=== PATIENT | male | born 1965 | race African-American/Black ===

== ENCOUNTER 2018-10-07 06:45 | Day surgery (SDC) | payer OTHER ==
--- OUTSIDE RECORDS SUMMARY | 2018-10-07 06:48 | XMS REPORT | Continuity of Care Document ---
:1965 Author Organization Interface Problems Problem Status Onset Classification Date Comments Source Date Reported UNK Active 07/21/20 [place] [address] N18.6 Active 07/21/20 [place] [address] N18.16 Active 12/30/19 [place] [address] Diabetes Resolved Problem 08/01/2017 [facility] End stage renal Active Problem 08/01/2017 [facility] disease Hypertension Active Problem 08/01/2017 [facility] Medications Medication Details Route Status Patient Ordering Order Source Instructions Provider Date Sodium Chloride 500 mL, Rate: Inactive 0.154 MEQ/ML 25 ml/hr, 2016 [facility] Injectable Infuse over: 20 Solution hr, Route: IV, Dosing Weight 127.273 kg, Total Volume: 500, Start date: 02/18/17 14:28:00 CDT, Duration: 30 day, Stop date: 03/20/17 14:27:00 CDT Hydralazine 10 mg, Route: Inactive IVP, Q20Min, 2016 [facility] Dosing Weight 127.273, kg, PRN Elevated BP, Start date: 02/18/17 14:28:00 CDT, Duration: 2 doses or times, Stop date: Limited # of times esmolol 10 mg, Route: Inactive IVP, Q5Min, 2016 [facility] Dosing Weight 127.273, kg, PRN Other -See Comment, Start date: 02/18/17 14:28:00 CDT, Duration: 5 doses or times, Stop date: Limited # of times Labetalol 10 mg, Route: Inactive IVP, Q5Min, 2016 [facility] Dosing Weight 127.273, kg, PRN Elevated BP, Start date: 02/18/17 14:28:00 CDT, Duration: 5 doses or times, Stop date: Limited # of times Acetaminophen 1,000 mg, Inactive Route: PO, Drug 2016 [facility] form: TAB, ONCE, Dosing Weight 127.273, kg, PRN Pain Score 1-3, Start date: 02/18/17 14:28:00 CDT, Duration: 1 doses or times, Stop date: Limited # of times Oxycodone 5 mg, Route: Inactive PO, Drug form: 2016 [facility] TAB, Q4H, Dosing Weight 127.273, kg, PRN Pain Score 4-6, Start date: 02/18/17 14:28:00 CDT, Duration: 30 day, Stop date: 03/20/17 14:27:00 CDT Flumazenil 0.2 mg, Route: Inactive IVP, PRN, 2016 [facility] Dosing Weight 127.273, kg, PRN Benzodiazepine Reversal, Initial dose, Start date: 02/18/17 14:28:00 CDT, Duration: 30 day, Stop date: 03/20/17 14:27:00 CDT Hydromorphone 0.5 mg, Route: Inactive IVP, Q5Min, 2016 [facility] Dosing Weight 127.273, kg, PRN Pain Score 7-10, Start date: 02/18/17 14:28:00 CDT, Duration: 4 doses or times, Stop date: Limited # of times Albuterol 0.83 2.49 mg, Route: Inactive MG/ML Inhalant NEB, Q20Min, 2016 [facility] Solution Dosing Weight 127.273, kg, PRN Wheezing, Priority: STAT, Start date: 02/18/17 14:28:00 CDT, Duration: 30 day, Stop date: 03/20/17 14:27:00 CDT Diphenhydramine 12.5 mg, Route: Inactive IVP, Drug form: 2016 [facility] INJ, Q6H, Dosing Weight 127.273, kg, PRN Itching, Start date: 02/18/17 14:28:00 CDT, Duration: 30 day, Stop date: 03/20/17 14:27:00 CDT Naloxone 0.4 mg, Route: Inactive IVP, Q2MIN, 2016 [facility] Dosing Weight 127.273, kg, PRN Narcotic Reversal, Start date: 02/18/17 14:28:00 CDT, Duration: 8 doses or times, Stop date: Limited # of times Meperidine 12.5 mg, Route: Inactive IVP, Q30Min, 2016 [facility] Dosing Weight 127.273, kg, PRN Other -See Comment, For shivering, Start date: 02/18/17 14:28:00 CDT, Duration: 2 doses or times, Stop date: Limited # of times Promethazine 6.25 mg, Route: Inactive IVPB, ONCE, 2016 [facility] Dosing Weight 127.273, kg, PRN Nausea & Vomiting, Start date: 02/18/17 14:28:00 CDT Ondansetron 4 mg, Route: Inactive IVP, ONCE, 2016 [facility] Dosing Weight 127.273, kg, PRN Nausea & Vomiting, Start date: 02/18/17 14:28:00 CDT acetaminophen-cod 1 tab, Route: Inactive eine #3 PO, Drug Form: 2016 [facility] TAB, Dosing Weight 127.273, kg, Q4H, PRN Pain Score 4-6, Start date: 02/18/17 14:21:00 CDT, Duration: 30 day, Stop date: 03/20/17 14:20:00 CDT Morphine 2 mg, Route: Inactive IVP, Q3H, 2016 [facility] Dosing Weight 127.273, kg, PRN Pain Score 1-3, Start date: 02/18/17 14:21:00 CDT, Duration: 30 day, Stop date: 03/20/17 14:20:00 CDT ondansetron Route: IV, Drug Inactive (ANES) form: INJ, 2016, Stop date: 02/18/17 14:10:00 CDT metoprolol (ANES) Route: IV, Drug Inactive form: INJ, 2016 ONCE, Stop date: 02/18/17 14:05:00 CDT metoclopramide Route: IV, Drug Inactive (ANES) form: INJ, 2016, Stop date: 02/18/17 14:05:00 CDT fentaNYL (ANES) Route: IV, Drug Inactive form: INJ, 2016 ONCE, Stop date: 02/18/17 14:05:00 CDT midazolam (ANES) Route: IV, Drug Inactive form: SOLN, 2016 ONCE, Stop date: 02/18/17 14:05:00 CDT vancomycin (ANES) Route: IV, Drug Inactive (ANES) form: INJ, 2016 [facility] Start date: 02/18/17 13:23:00 CDT, Stop date: 02/18/17 14:23:00 CDT ceFAZolin (ANES) Route: IV, Drug Inactive (ANES) form: INJ, 2016 [facility] Start date: 02/18/17 13:06:00 CDT, Stop date: 02/18/17 14:06:00 CDT sodium chloride Route: IV, Inactive 0.9% 500 ml INJ Total Volume: 2016 [facility] (ANES) 500, Start date: 02/18/17 12:56:00 CDT, Stop date: 02/18/17 13:56:00 CDT Albuterol 0.833 3 mL, Route: Inactive MG/ML / NEB, Dosing 2016 [facility] Ipratropium Weight 127.273, [place] 0.167 kg, ONCE, STAT, MG/ML Inhalant Start date: Solution 02/18/17 11:33:00 CDT, Stop date: 02/18/17 11:33:00 CDT Sodium Chloride 500 mL, Rate: Inactive 0.154 MEQ/ML 25 ml/hr, 2016 [facility] Injectable Infuse over: 20 Solution hr, Route: IV, Dosing Weight 127.273 kg, Total Volume: 500, Start date: 02/18/17 11:33:00 CDT, Duration: 30 day, Stop date: 03/20/17 11:32:00 CDT Acetaminophen 300 1 tab, PO, Q4H, Active MG / Codeine PRN Pain, # 42 2016 [facility] Phosphate 30 MG tab, 0 Oral Tablet Refill(s) [Tylenol with Codeine #3] tramadol 50 mg=1 tab, Active hydrochloride 50 PO, Q6H, PRN 2016 [facility] MG Oral Tablet Pain, # 40 tab, 0 Refill(s) Dialyvite 800 1 tab, PO, Active oral tablet Daily, # 100 2016 tab, 0 Refill(s) Vancomycin 1 gm, Route: No Longer IVPB, PRE OP, Active 2016 [facility] Dosing Weight 124.091, kg, Start date: 02/11/17 15:00:00 CDT, Duration: 30 day, Stop date: 03/13/17 14:59:00 CDT, ABX Indication: Surgical ProphylaxisNote s: TIME CRITICAL MEDICATION (Same As: Vancocin) Infusion rate 2001 mg: infuse over 2.5 hours MEDICATION WASTE Product Size: 1000 mg Product Wasted: ___ mg Ancef 2 gm, 100 mL, No Longer Route: IVPB, Active 2016 [facility] Drug form: INJ, PRE OP, Dosing Weight 124.091, kg, Start date: 02/11/17 15:00:00 CDT, Duration: 30 day, Stop date: 03/13/17 14:59:00 CDT, ABX Indication: Surgical ProphylaxisNote s: Same as: Ancef cephalexin 500 mg 500 mg=1 cap, Active oral capsule PO, TID, # 30 2016 [facility] cap, 0 Refill(s) Doxazosin PO, BID, 0 Inactive Refill(s) 2016 [facility] Oxycodone 10 mg, Route: Inactive Hydrochloride 5 PO, ONCE, 2016 [facility] MG Oral Tablet Dosing Weight 124.091, kg, Start date: 01/21/17 14:37:00 CDT, Stop date: 01/21/17 14:37:00 CDT Ondansetron 4 mg, Route: Inactive IVP, ONCE, kg, 2016 [facility] PRN Nausea & Vomiting, Start date: 01/21/17 14:29:00 CDT Promethazine 6.25 mg, Route: Inactive IVPB, ONCE, 2016 [facility] Dosing Weight 124.091, kg, PRN Nausea & Vomiting, Start date: 01/21/17 14:29:00 CDT Albuterol 0.83 2.49 mg, Route: Inactive MG/ML Inhalant NEB, Q20Min, 2016 [facility] Solution Dosing Weight 124.091, kg, PRN Wheezing, Priority: STAT, Start date: 01/21/17 14:29:00 CDT, Duration: 30 day, Stop date: 02/20/17 14:28:00 CDT Diphenhydramine 12.5 mg, Route: Inactive IVP, Drug form: 2017 [facility] INJ, Q6H, Dosing Weight 124.091, kg, PRN Itching, Start date: 01/21/17 14:29:00 CDT, Duration: 30 day, Stop date: 02/20/17 14:28:00 CDT Meperidine 12.5 mg, Route: Inactive IVP, Q30Min, 2016 [facility] Dosing Weight 124.091, kg, PRN Other -See Comment, For shivering, Start date: 01/21/17 14:29:00 CDT, Duration: 2 doses or times, Stop date: Limited # of times Labetalol 10 mg, Route: Inactive IVP, Q5Min, 2016 [facility] Dosing Weight 124.091, kg, PRN Elevated BP, Start date: 01/21/17 14:29:00 CDT, Duration: 5 doses or times, Stop date: Limited # of times Acetaminophen 1,000 mg, Inactive Route: PO, Drug 2016 [facility] form: TAB, ONCE, Dosing Weight 124.091, kg, PRN Pain Score 1-3, Start date: 01/21/17 14:29:00 CDT, Duration: 1 doses or times, Stop date: Limited # of times esmolol 10 mg, Route: Inactive IVP, Q5Min, 2016 [facility] Dosing Weight 124.091, kg, PRN Other -See Comment, Start date: 01/21/17 14:29:00 CDT, Duration: 5 doses or times, Stop date: Limited # of times Hydralazine 10 mg, Route: Inactive 01/21[facility] IVP, Q20Min, 2016 [facility] Dosing Weight 124.091, kg, PRN Elevated BP, Start date: 01/21/17 14:29:00 CDT, Duration: 2 doses or times, Stop date: Limited # of times Calcium Chloride 1,000 mL, Rate: Inactive 0.0014 MEQ/ML / 125 ml/hr, 2016 [facility] Potassium Infuse over: 8 Chloride 0.004 hr, Route: IV, MEQ/ML / Sodium Dosing Weight Chloride 0.103 124.091 kg, MEQ/ML / Sodium Total Volume: Lactate 0.028 1,000, Start MEQ/ML Injectable date: 01/21/17 Solution 14:29:00 CDT, Duration: 30 day, Stop date: 02/20/17 14:28:00 CDT Flumazenil 0.2 mg, Route: Inactive IVP, PRN, kg, 2016 PRN Benzodiazepine Reversal, Initial dose, Start date: 01/21/17 14:29:00 CDT, Duration: 30 day, Stop date: 02/20/17 14:28:00 CDT Naloxone 0.4 mg, Route: Inactive IVP, Q2MIN, kg, 2016 PRN Narcotic Reversal, Start date: 01/21/17 14:29:00 CDT, Duration: 8 doses or times, Stop date: Limited # of times Hydromorphone 0.5 mg, Route: Inactive IVP, Q5Min, kg, 2016 [facility] PRN Pain Score 7-10, Start date: 01/21/17 14:29:00 CDT, Duration: 4 doses or times, Stop date: Limited # of times Oxycodone 5 mg, Route: Inactive PO, Drug form: 2016 TAB, Q4H, kg, PRN Pain Score 4-6, Start date: 01/21/17 14:29:00 CDT, Duration: 30 day, Stop date: 02/20/17 14:28:00 CDT Fentanyl 50 microgram, Inactive Route: IVP, 2016 [facility] Q5Min, Dosing Weight 124.091, kg, PRN Pain Score 4-6, Start date: 01/21/17 13:50:00 CDT, Duration: 4 doses or times, Stop date: Limited # of times, Pediatric Dosing acetaminophen Route: IV, Drug Inactive (ANES) form: INJ, 2016 ONCE, Stop date: 01/21/17 13:46:00 CDT neostigmine Route: IV, Drug Inactive (ANES) form: INJ, 2016 ONCE, Stop date: 01/21/17 13:46:00 CDT glycopyrrolate Route: IV, Drug Inactive (ANES) form: INJ, 2016 ONCE, Stop date: 01/21/17 13:46:00 CDT ceFAZolin (ANES) Route: IV, Drug Inactive form: INJ, 2016 ONCE, Stop date: 01/21/17 13:33:00 CDT ondansetron Route: IV, Drug Inactive (ANES) form: INJ, 2016 ONCE, Stop date: 01/21/17 13:33:00 CDT hydromorphone Route: IV, Drug Inactive (ANES) form: INJ, 2016 ONCE, Stop date: 01/21/17 13:33:00 CDT propofol (ANES) Route: IV, Drug Inactive form: INJ, 2016, Stop date: 01/21/17 13:33:00 CDT lidocaine (ANES) Route: IV, Drug Inactive form: INJ, 2016, Stop date: 01/21/17 13:33:00 CDT rocuronium (ANES) Route: IV, Drug Inactive form: INJ, 2016, Stop date: 01/21/17 13:33:00 CDT Morphine 6 mg, Route: Inactive IVP, Q6H, kg, 2016 PRN Pain Score 7-10, Start date: 01/21/17 13:30:00 CDT, Duration: 30 day, Stop date: 02/20/17 13:29:00 CDT Acetaminophen 325 1 tab, Route: Inactive MG / Hydrocodone PO, kg, Q4H, 2016 Bitartrate 10 MG PRN Pain Score Oral Tablet 7-10, Start date: 01/21/17 13:30:00 CDT, Duration: 30 day, Stop date: 02/20/17 13:29:00 CDT acetaminophen-cod 1 tab, Route: Inactive eine #3 PO, Drug Form: 2016 TAB, kg, Q4H, PRN Pain Score 1-3, Start date: 01/21/17 13:30:00 CDT, Duration: 30 day, Stop date: 02/20/17 13:29:00 CDT Acetaminophen 650 mg, Route: Inactive MH PO, Drug form: 2016 [facility] TAB, Q4H, Dosing Weight 124.091, kg, PRN Pain 1-3/Temp > 100.4 F, Start date: 01/21/17 13:30:00 CDT, Duration: 30 day, Stop date: 02/20/17 13:29:00 CDT Acetaminophen 325 1 tab, Route: Inactive MH MG / Hydrocodone PO, Dosing 2016 [facility] Bitartrate 5 MG Weight 124.091, Oral Tablet kg, Q4H, PRN Pain Score 4-6, Start date: 01/21/17 13:30:00 CDT, Duration: 30 day, Stop date: 02/20/17 13:29:00 CDT metoclopramide Route: IV, Drug Inactive MH (ANES) form: INJ, 2016 [facility] ONCE, Stop date: 01/21/17 13:13:00 CDT midazolam (ANES) Route: IV, Drug Inactive form: SOLN, 2016 [facility] ONCE, Stop date: 01/21/17 13:13:00 CDT vancomycin (ANES) Route: IV, Drug Inactive MH (ANES) form: INJ, 2016 [facility] Start date: 01/21/17 12:42:00 CDT, Stop date: 01/21/17 13:42:00 CDT sodium chloride Route: IV, Inactive MH 0.9% 500 ml INJ Total Volume: 2016 [facility] (ANES) 500, Start date: 01/21/17 12:28:00 CDT, Stop date: 01/21/17 13:28:00 CDT Sodium Chloride 500 mL, Rate: Inactive MH 0.9% IV 500 mL 25 ml/hr, 2016 [facility] Infuse over: 20 hr, Route: IV, Dosing Weight 124.091 kg, Total Volume: 500, Start date: 01/21/17 10:45:00 CDT, Duration: 1 doses or times, Stop date: 01/22/17 6:44:00 CDT Albuterol 0.833 3 mL, Route: Inactive MH MG/ML / NEB, Dosing 2016 [facility] Ipratropium Weight 124.091, [place] 0.167 kg, ONCE, STAT, MG/ML Inhalant Start date: Solution 01/21/17 10:44:00 CDT, Stop date: 01/21/17 10:44:00 CDT Calcium Chloride 1,000 mL, Rate: Inactive 0.0014 MEQ/ML / 25 ml/hr, 2016 [facility] Potassium Infuse over: 40 Chloride 0.004 hr, Route: IV, MEQ/ML / Sodium Dosing Weight Chloride 0.103 124.091 kg, MEQ/ML / Sodium Total Volume: Lactate 0.028 1,000, Start MEQ/ML Injectable date: 01/21/17 Solution 10:44:00 CDT, Duration: 30 day, Stop date: 02/20/17 10:43:00 CDT Renvela PO, 0 Refill(s) Active 2016 [facility] Ramipril PO, Daily, 0 Active Refill(s) 2016 [facility] metoprolol BID, 0 Active tartrate Refill(s) 2016 [facility] Hydralazine 0 Refill(s) Active 2016 [facility] Furosemide Daily, 0 Active Refill(s) 2016 [facility] Doxazosin PO, 0 Refill(s) Active 2016 [facility] Ancef 2 gm, Route: Inactive IVPB, PRE OP, 2017 [facility] kg, Start date: 01/21/17 9:00:00 CDT, Duration: 30 day, Stop date: 02/20/17 8:59:00 CDT Allergies, Adverse Reactions, Alerts Substance Category Reaction Severity Reaction Status Date Comments Source type Reported Immunizations Immunization Date Given Site Status Last Updated Comments Source Results Order Name Results Value Reference Date Interpretation Comments Source Range ELECTROLYT Potassium 4.5 meq/L 3.5 - 5.1 02/18 ES Lvl /2016 [facility] Chest 1 v Chest 1 v Patient Name: RICHARD SIGALA 02/18 [facility] for for /2016 - [facility] Placement Placement DX : 1965; Age: 51 years y/o Male DX MR: [id number] Read by: Reggie Molina MD Dictated Date/time: 02/18/17 15:02 Electronically Signed by: Reggie Molina MD 02/18/17 15:03 FINAL REPORT * CHEST, portable, 1 view HISTORY: Status post placement of Tessio dialysis catheters. COMPARISON: 02/11/2017 IMPRESSION: 1. There is been placement of dual left IJ Tessio dialysis catheters. The tip of the inflow catheter is near the caval atrial junction. The tip of the outflow catheter is in the upper right atrium. 2. There is no evidence of pneumothorax or other complication following placement. 3. The right IJ PermCath has been removed. The prior study. 4. The heart is normal in size. There is no evidence of failure. 5. No active disease. The lungs are clear. There are no pleural effusions. 6. There are mild scattered degenerative changes involving the thoracic spine. The regional skeleton is otherwise unremarkable. SL: [id number] BLOOD BANK ABO/Rh O POS 02/11 RESULTS [facility] BLOOD BANK Antibody Negative 02/11 RESULTS Scrn [facility] (02/11/17 3:17 PM) CHEM PANEL eGFR 16 02/11 Result Comment: The eGFR is calculated using the CKD-EPI formula. In most young, healthy individuals the eGFR will be >90 mL/ min/1.73m2. The eGFR declines with age. An eGFR of 60-89 may be normal in mL/min/1. some populations, particularly the elderly, for whom the CKD-EPI formula has not been extensively validated. Use of the eGFR is not recommended in the following populations: [facility] 3m2 Individuals with unstable creatinine concentrations, including patients and those with serious co-morbid conditions. Patients with extremes in muscle mass or diet. The data above are obtained from the National Kidney Disease Education Program (NKDEP) which additionally recommends that when the eGFR is used in patients with extremes of body mass index for purposes of drug dosing, the eGFR should be multiplied by the estimated BMI. CHEM PANEL Calcium Lvl 8.6 mg/dL 8.5 - 10.5 02/11 [facility] CHEM PANEL Chloride Lvl 105 meq/L 95 - 109 02/11 [facility] CHEM PANEL CO2 28 meq/L 24 - 32 02/11 [facility] CHEM PANEL Glucose Lvl 95 mg/dL 70 - 99 02/11 [facility] CHEM PANEL BUN 36 mg/dL 7 - 22 02/11 [facility] CHEM PANEL Creatinine 4.60 mg/dL 0.50 - 02/11 Lvl 1.40 [facility] CHEM PANEL Potassium 4.3 meq/L 3.5 - 5.1 02/11 MH Lvl /2016 [facility] CHEM PANEL Sodium Lvl 139 meq/L 135 - 145 02/11 /2016 [facility] CHEM PANEL AGAP 10.3 meq/L 10.0 - 02/11 MH 20.0 [facility] HEMATOLOGY Basophils # 0.1 K/CMM 0.0 - 0.2 05 [facility] HEMATOLOGY Monocytes # 1.1 K/CMM 0.0 - 0.8 02/11 [facility] HEMATOLOGY Eosinophils 0.1 K/CMM 0.0 - 0.5 02/11 MH # /2016 [facility] HEMATOLOGY Segs 62.2 % 45.0 - 02/11 MH 75.0 /2016 [facility] HEMATOLOGY Monocytes 14.7 % 2.0 - 12.0 02/11 [facility] HEMATOLOGY Lymphocytes 20.3 % 20.0 - 02/11 MH 40.0 [facility] HEMATOLOGY Eosinophils 2.0 % 0.0 - 4.0 02/11 [facility] HEMATOLOGY Basophils 0.8 % 0.0 - 1.0 02/11 [facility] HEMATOLOGY Segs-Bands # 4.5 K/CMM 1.5 - 8.1 02/11 [facility] HEMATOLOGY Lymphocytes 1.5 K/CMM 1.0 - 5.5 02/11 MH # /2016 [facility] HEMATOLOGY PT 13.3 s 12.0 - 02/11 MH 14.7 [facility] HEMATOLOGY INR 0.99 0.85 - 02/11 MH 1.17 [facility] HEMATOLOGY RDW 15.4 % 11.5 - 02/11 MH 14.5 [facility] HEMATOLOGY Platelet 211 K/CMM 133 - 450 02/11 [facility] HEMATOLOGY MPV 8.8 fL 7.4 - 10.4 02/11 /2016 [facility] HEMATOLOGY WBC 7.2 K/CMM 3.7 - 10.4 02/11 [facility] HEMATOLOGY RBC 3.70 M/CMM 4.70 - 02/11 MH 6.10 [facility] HEMATOLOGY Hgb 10.4 g/dL 14.0 - 02/11 MH 18.0 [facility] HEMATOLOGY MCV 86.4 fL 80.0 - 02/11 MH 94.0 [facility] HEMATOLOGY Hct 32.0 % 42.0 - 02/11 MH 54.0 [facility] HEMATOLOGY MCH 28.2 pg 27.0 - 02/11 MH 31.0 /2016 [facility] HEMATOLOGY MCHC 32.7 g/dL 32.0 - 02/11 MH 36.0 [facility] HEMATOLOGY PTT 32.4 s 22.9 - 02/11 MH 35.8 /2016 [facility] Chest 2 Chest 2 Chest 2 views DX 02/11 - views DX views - [facility] CLINICAL HISTORY: Coughing - cough Read by: Last Victoria MD Dictated Date/time: 02/11/17 16:20 Electronically Signed by: Last Victoria MD 02/11/17 16:21 FINAL REPORT COMPARISON: 01/21/2017 FINDINGS: SUPPORT DEVICES: Stable position of right IJ dialysis catheter. LUNGS: Lungs are reasonably well inflated. No consolidation or any significant effusion. No pneumothorax is evident. CARDIOVASCULAR: Cardiac silhouette size is normal. Pulmonary vasculature is within normal limits. MEDIASTINUM/CLAUDIO: Trachea is midline. No contour abnormality is noted. OSSEOUS STRUCTURES: No acute bony abnormality is noted. SOFT TISSUES: No significant soft tissue abnormality is noted. IMPRESSION: No acute abnormality is noted. SL: [id number] BLOOD BANK ABO/Rh O POS 01/21 RESULTS /2016 [facility] BLOOD BANK Antibody Negative 01/21 RESULTS Scrn [facility] (01/21/17 9:36 AM) CHEM PANEL eGFR 9 01/21 Result Comment: The eGFR is calculated using the CKD-EPI formula. In most young, healthy individuals the eGFR will be >90 mL/ min/1.73m2. The eGFR declines with age. An eGFR of 60-89 may be normal in mL/min/1. some populations, particularly the elderly, for whom the CKD-EPI formula has not been extensively validated. Use of the eGFR is not recommended in the following populations: [facility] 3m2 Individuals with unstable creatinine concentrations, including patients and those with serious co-morbid conditions. Patients with extremes in muscle mass or diet. The data above are obtained from the National Kidney Disease Education Program (NKDEP) which additionally recommends that when the eGFR is used in patients with extremes of body mass index for purposes of drug dosing, the eGFR should be multiplied by the estimated BMI. CHEM PANEL Potassium 4.7 meq/L 3.5 - 5.1 01/21 Lvl [facility] CHEM PANEL Sodium Lvl 135 meq/L 135 - 145 01/21 [facility] CHEM PANEL Creatinine 6.20 mg/dL 0.50 - 01/21 MH Lvl 1.40 /2016 [facility] CHEM PANEL Chloride Lvl 105 meq/L 95 - 109 01/21 [facility] CHEM PANEL BUN 46 mg/dL 7 - 01/21 [facility] CHEM PANEL Glucose Lvl 128 mg/dL 70 - 99 01/21 [facility] CHEM PANEL Calcium Lvl 8.8 mg/dL 8.5 - 10.5 01/21 [facility] CHEM PANEL CO2 19 meq/L 24 - 32 01/21 [facility] CHEM PANEL AGAP 15.7 meq/L 10.0 - 01/21 20.0 [facility] HEMATOLOGY Eosinophils 0.2 K/CMM 0.0 - 0.5 01/21 [facility] HEMATOLOGY Monocytes # 0.9 K/CMM 0.0 - 0.8 01/21 [facility] HEMATOLOGY Basophils # 0.1 K/CMM 0.0 - 0.2 01/21 [facility] HEMATOLOGY Lymphocytes 1.6 K/CMM 1.0 - 5.5 01/21 [facility] HEMATOLOGY Basophils 1.0 % 0.0 - 1.0 01/21 [facility] HEMATOLOGY Segs-Bands # 5.1 K/CMM 1.5 - 8.1 01/21 [facility] HEMATOLOGY Lymphocytes 20.2 % 20.0 - 01/21 40.0 [facility] HEMATOLOGY Eosinophils 2.5 % 0.0 - 4.0 01/21 [facility] HEMATOLOGY Monocytes 12.0 % 2.0 - 12.0 01/21 [facility] HEMATOLOGY Segs 64.3 % 45.0 - 01/21 75.0 [facility] HEMATOLOGY PTT 30.1 s 22.9 - 01/21 MH 35.8 [facility] HEMATOLOGY MPV 9.2 fL 7.4 - 10.4 01/21 [facility] HEMATOLOGY Platelet 197 K/CMM 133 - 450 01/21 [facility] HEMATOLOGY RDW 17.2 % 11.5 - 01/21 14.5 [facility] HEMATOLOGY MCHC 32.7 g/dL 32.0 - 01/21 36.0 [facility] HEMATOLOGY MCV 84.5 fL 80.0 - 01/21 MH 94.0 [facility] HEMATOLOGY MCH 27.6 pg 27.0 - 01/21 31.0 /2016 [facility] HEMATOLOGY Hct 37.1 % 42.0 - 01/21 54.0 /2016 [facility] HEMATOLOGY RBC 4.39 M/CMM 4.70 - 01/21 6.10 /2016 [facility] HEMATOLOGY Hgb 12.1 g/dL 14.0 - 01/21 18.0 /2016 [facility] HEMATOLOGY WBC 7.9 K/CMM 3.7 - 10.4 01/21 /2016 [facility] HEMATOLOGY PT 13.6 s 12.0 - 01/21 14.7 [facility] HEMATOLOGY INR 1.02 0.85 - 01/21 1.17 [facility] Chest 2 Chest 2 Study: CHEST, PA AND LATERAL 01/21 [facility] views DX views DX - [facility] Clinical Indication: Coughing; Comparison: None Read by: Brett Watts MD Dictated Date/time: 01/21/17 14:59 Electronically Signed by: Brett Watts MD 01/21/17 15:00 FINAL REPORT FINDINGS: Right internal jugular dialysis catheter terminates within the superior vena cava. The heart and mediastinum are normal. The lungs are normally inflated and appear clear. No vascular congestion or pleural effusion is seen. Mild thoracic dextroscoliosis and moderate spondylosis are noted. IMPRESSION: No acute abnormality. SL: [id number] Vital Signs Vital Sign Value Date Comments Source Systolic (mm Hg) 166 07/29/2017 [facility] Diastolic (mm Hg) 78 07/29/2017 [facility] Respitory Rate 16 07/29/2017 [facility] Systolic (mm Hg) 166 07/29/2017 [facility] Diastolic (mm Hg) 79 07/29/2017 [facility] Respitory Rate 18 07/29/2017 [facility] Height 182.88 cm 07/29/2017 [facility] BMI Calculated 40.77 07/29/2017 [facility] Weight 136.364 07/29/2017 [facility] Respitory Rate 16 07/29/2017 [facility] Systolic (mm Hg) 157 07/29/2017 [facility] Diastolic (mm Hg) 77 07/29/2017 [facility] Heart Rate 81 02/18/2017 [facility] Respitory Rate 20 02/18/2017 [facility] Systolic (mm Hg) 153 02/18/2017 [facility] Diastolic (mm Hg) 76 02/18/2017 [facility] Heart Rate 75 02/18/2017 [facility] Respitory Rate 18 02/18/2017 [facility] Systolic (mm Hg) 156 02/18/2017 [facility] Diastolic (mm Hg) 76 02/18/2017 [facility] Systolic (mm Hg) 146 02/18/2017 [facility] Diastolic (mm Hg) 75 02/18/2017 [facility] Respitory Rate 16 02/18/2017 [facility] Weight 127.273 02/11/2017 [facility] BMI Calculated 38.05 02/11/2017 [facility] Height 182.88 cm 02/11/2017 [facility] Temperature Oral (F) 98.2 F 02/11/2017 [facility] Systolic (mm Hg) 164 01/21/2017 [facility] Diastolic (mm Hg) 72 01/21/2017 [facility] Heart Rate 73 01/21/2017 [facility] Heart Rate 85 01/21/2017 [facility] Systolic (mm Hg) 147 01/21/2017 [facility] Diastolic (mm Hg) 86 01/21/2017 [facility] Systolic (mm Hg) 143 01/21/2017 [facility] Diastolic (mm Hg) 74 01/21/2017 [facility] Respitory Rate 18 01/21/2017 [facility] Heart Rate 77 01/21/2017 [facility] Respitory Rate 18 01/21/2017 [facility] Temperature Oral (F) 98.0 F 01/21/2017 [facility] BMI Calculated 39.25 01/21/2017 [facility] Weight 124.091 01/21/2017 [facility] Height 177.8 cm 01/21/2017 [facility] Encounters Location Location Encounter Encounter Reason Attending ADM DC Status Source Details Type Number For Provider Date Date Visit [id number] Bharath 01/21 01/21 [facility] [place] [facility] [id number] Bharath 02/18 02/18 [facility] [place] [facility] [id number] Bharath 07/29 07/29 [facility] [place] [facility] Procedures Procedure Code Date Perfomer Comments Source AV - Creation of [id number] [facility] arteriovenous fistula Cholecystectomy [id number] [facility] Fistulogram<sup>1</villafuerte [id number] stent [facility] p> placement Operation [id number] [facility]
[2018-10-07] MEDS ORDERED: CEFAZOLIN 1GM (PREMIX IV) 1 GM/50 ML BAG ONE (07:21)
[2018-10-07] MEDS ORDERED: NA CHLORIDE 0.9% 500 ML ONE (07:21)
[2018-10-07 07:38] VITALS: O2SAT 95
[2018-10-07] MEDS ORDERED: BUPIVACA 0.25%/EPI 0.0005% MDV 50 ML VIAL ONE (08:00)
[2018-10-07] MEDS ORDERED: PROPOFOL 200 MG/20 ML VIAL IV ONE (08:28)
[2018-10-07] MEDS ORDERED: FENTANYL CITR 100 MCG/2 ML ONE (08:29)
[2018-10-07] MEDS ORDERED: MIDAZOLAM HCL 2 MG/2 ML INJ ONE (08:29)
[2018-10-07] MEDS ORDERED: ONDANSETRON 4 MG/2 ML VIAL ONE ×2 (08:29→08:55)
[2018-10-07] MEDS ORDERED: LIDOCAINE 2% MPF 5 ML VIAL ONE (08:29)
--- NOTE | 2018-10-07 09:00 | P.OP ---
Gas Welder Apprentice: Rita Negron Preoperative diagnosis: LEFT Neck Granuloma Postoperative diagnosis: LEFT Neck Granuloma Primary procedure: Excision of LEFT Neck Granuloma Anesthesia: IV Sedation + Local Estimated blood loss: <1cc Specimen: LEFT Neck Granuloma Findings: 2cmx1.5cm LEFT Neck Granuloma Complications: None Transferred to: Recovery Room Condition: Good
[2018-10-07 11:18] VITALS: BP 172/71; TEMP 98.8
--- NOTE | 2018-10-07 19:13 | OP ---
Date of Procedure: 10/07/2018 Surgeon: Rich Walker MD, [employer] Teacher: Rita Negron. Preoperative Diagnosis: Left neck granuloma. Postoperative Diagnosis: Left neck granuloma. Procedure Performed: Excision of left neck granuloma. Anesthesia: IV sedation plus local with 0.25% Marcaine with epinephrine. Estimated Blood Loss: Less than 1 cc. Specimen: Left neck granuloma. Findings: A 2 cm x 1.5 cm x 1.5 cm left neck granuloma in the area of the internal jugular vein inse rtion site from previous catheter placement. Complications: None. Disposition: Transferred to recovery room in good condition. Procedure In Detail: After informed consent obtained, the patient was brought to the operating room, prepped and draped in the usual sterile fashion after adequate anesthesia was achieved, an elliptica l incision was made around the approximately 2 x 1.5 cm granuloma of the left neck as described above . The incision was taken down through subcutaneous tissues, down all the way into the subcutaneous f at. The granulomatous tissue was removed in its entirety and sent off for pathologic examination. T here was no neural injury and the layer involved was only subcutaneous fat into the substance of the fat. However, no additional structures were encountered during this. The area was then cleansed. N o additional hemostatic maneuvers were required, and it was closed with simple interrupted 3-0 nylon sutures with good approximation of tissues and good hemostasis. A sterile dressing was placed over t op. The patient tolerated the procedure well without evidence of complication and transferred to PAC U in good condition. All counts were correct at the end of the case. BRYCE/MARGO Voice ID: [id number] Report ID: [id number]
== END 2018-10-07 10:21 | disposition home or self-care (01) ==
LOC: OR 06:45
PROVIDERS: ATTEND Surgery
PROC: 0JB50ZZ Excision of Left Neck Subcutaneous Tissue and Fascia, Open Approach (ICD-10-PCS; principal; 2018-10-07 08:30)
DX: T81.89XA Other complications of procedures, not elsewhere classified, initial encounter (principal); I13.2 Hypertensive heart and chronic kidney disease with heart failure and with stage 5 chronic kidney disease, or end stage renal disease; N18.6 End stage renal disease; I50.9 Heart failure, unspecified; Z99.2 Dependence on renal dialysis; E66.01 Morbid (severe) obesity due to excess calories; K21.9 Gastro-esophageal reflux disease without esophagitis; Z68.41 Body mass index [BMI] 40.0-44.9, adult
CPT/HCPCS: 82962; 88304; J0690; J2250; J2405; J2704; J3010

== ENCOUNTER 2019-09-06 16:57 | Inpatient (IN) | payer OTHER ==
--- NOTE | 2019-09-06 18:10 | RAD REPORT ---
EXAM DESCRIPTION: RAD - Foot Left 3 View - 09/06/2019 6:00 pm CLINICAL HISTORY: chronic wound Pain and swelling. COMPARISON: No comparisons FINDINGS: Vascular calcifications are seen with soft tissue swelling about the foot. Prominent poste rior plantar calcaneal spurs noted. Small cortical defect is seen involving the base of the proximal phalanx of the fifth toe, compatible with osteomyelitis.
[2019-09-06 18:12] LABS: Absolute Lymphocytes (CBC) 0.5 K/uL (0.7-4.9); Basophils % 0.9 % (0-1.3); Hematocrit 24.5 % (39.6-49.0); Lymphocytes % 6.3 % (15.3-44.8); MPV 8.4 fL (7.6-11.3); RBC Red Blood Cell Count 2.86 M/uL (4.33-5.43)
[2019-09-06 18:34] LABS: Potassium 4.3 mmol/L (3.5-5.1)
[2019-09-06] MEDS ORDERED: VANCOMYCIN 1 GM/VIAL ONE (19:14)
[2019-09-06] MEDS ORDERED: PIPER/TAZO/NS 3.375gm 3.375 GM/100 ML BAG ONE (19:15)
[2019-09-06] MEDS ORDERED: NA CHLORIDE 0.9% 0 ML ONE (19:15)
--- NOTE | 2019-09-06 19:27 | EDPHYS ---
Physician Documentation [facility] Name: Constantin Holloway Age: 53 yrs Sex: Male : 1965 Arrival Date: 09/06/2019 Time: 17:01 Bed 20 Private MD: ED Physician Dereck Holder HPI: 09/06 17:40 This 53 yrs old Black Male presents to ER via Ambulatory with complaints of Infected la1 Toe. 17:40 The patient presents with wound. The complaints affect the lateral aspect of the base la1 of the fifth toe. Context:. Onset: The symptoms/episode began/occurred 1 month(s) ago. Modifying factors: The symptoms are alleviated by nothing, the symptoms are aggravated by nothing. Associated signs and symptoms: Pertinent negatives: calf tenderness, fever. Severity of symptoms: At their worst the symptoms were moderate. The patient has been recently seen by a physician: the patient's primary care provider. recently seen by PCP and instructed to come to ED, pt states he had a corn on the lateral aspect of his left foot that came off a month ago and the wound has been their since. Historical: - Allergies: 17:04 No Known Allergies; hb - Home Meds: 17:09 calcitriol 0.25 mcg Oral cap 2 caps every 48 hours [Active]; esomeprazole magnesium 20 hb mg Oral cpDR 1 cap once daily [Active]; furosemide 40 mg Oral tab 2 tabs once daily [Active]; hydralazine 25 mg Oral tab 2 tab three times a day for Hypertension [Active]; hydrocodone-acetaminophen 5-325 mg Oral tab 1 tab every 4-6 hours [Active]; isosorbide dinitrate 20 mg Oral tab 1 tab 3 times per day [Active]; metoprolol tartrate 50 mg Oral tab 1 tab 2 times per day [Active]; tramadol 50 mg Oral tab 1 tab every 6 hours [Active]; - PMHx: 17:09 Diabetes - NIDDM; Dialysis; CHF; Hypertension; Renal Disease; hb - PSHx: 17:09 Catheter palcement to Right arm; RUE HD Fistula; hb - Immunization history:: Adult Immunizations up to date. - Social history:: Smoking status: Patient/guardian denies using tobacco. - Ebola Screening: : No symptoms or risks identified at this time. ROS: 17:41 Constitutional: Negative for fever, chills, and weight loss, Eyes: Negative for injury, la1 pain, redness, and discharge, ENT: Negative for injury, pain, and discharge, Neck: Negative for injury, pain, and swelling, Cardiovascular: + for RICKY LE edema Respiratory: Negative for shortness of breath, cough, wheezing, and pleuritic chest pain, Abdomen/GI: Negative for abdominal pain, nausea, vomiting, diarrhea, and constipation, Back: Negative for injury and pain, : Negative for injury, bleeding, discharge, and swelling, MS/Extremity: + for chronic foot wound on left foot Neuro: Negative for headache, weakness, numbness, tingling, and seizure. Exam: 17:42 Constitutional: This is a well developed, well nourished patient who is awake, alert, la1 and in no acute distress. Head/Face: Normocephalic, atraumatic. Eyes: Pupils equal round and reactive to light, extra-ocular motions intact. Periorbital areas with no swelling, redness, or edema. ENT: Mucous membranes moist. Neck: Supple, full range of motion without nuchal rigidity, or vertebral point tenderness. No Meningismus. Chest/axilla: Normal chest wall appearance and motion. Nontender with no deformity. No lesions are appreciated. Cardiovascular: tachycardic with normal rhythm with a normal S1 and S2. No gallops, murmurs, or rubs. Normal PMI, no JVD. No pulse deficits. Respiratory: Lungs have equal breath sounds bilaterally, clear to auscultation No rales, rhonchi or wheezes noted. No increased work of breathing, no retractions or nasal flaring. Abdomen/GI: Obese, soft, non-tender 17:42 Skin: 17:42 Skin: wound to left lateral foot at base of fifth toe. About 3cm across, ulcerated, granulation tissue present at base of wound. Vital Signs: 17:04 BP 190 / 82; Pulse 102; Resp 20; Temp 97.8; Pulse Ox 97% on R/A; Weight 147.42 kg; hb Height 6 ft. (182.88 cm); Pain 0/10; 18:23 BP 156 / 81; Pulse 98; Resp 19; Pulse Ox 97% on R/A; dh3 19:33 BP 166 / 90; Pulse 99; Resp 18 S; Temp 98.5(O); Pulse Ox 99% on R/A; cc3 20:56 BP 179 / 89; Pulse 95; Resp 18 S; Pulse Ox 98% on R/A; cc3 21:25 BP 167 / 83; Pulse 97; Resp 18 S; Pulse Ox 98% on R/A; cc3 17:04 Body Mass Index 44.08 (147.42 kg, 182.88 cm) hb MDM: 17:21 Patient medically screened. la1 19:22 Data reviewed: vital signs, lab test result(s), radiologic studies, I have discussed la1 the patient's presentation/case with the attending Emergency Department Physician; and as a result, I will admit patient. Data interpreted: Pulse oximetry: on room air is 97 %. Interpretation: normal. Test interpretation: by ED physician or midlevel provider: plain radiologic studies. Counseling: I had a detailed discussion with the patient and/or guardian regarding: the historical points, exam findings, and any diagnostic results supporting the discharge/admit diagnosis, lab results, radiology results, the need for further work-up and treatment in the hospital. 19:23 ED course: Xray shows osteomyelitis, Pt to be admitted to hospitalist. . la1 19:26 Physician consultation: Ellen Hinojosa MD was called at 19:26, was contacted at 19:26, la1 regarding admission, and will see patient. 09/06 17:39 Order name: CBC with Diff; Complete Time: 18:44 la1 09/06 17:39 Order name: BMP; Complete Time: 18:44 la 09/06 17:39 Order name: Blood Culture Adult (2) la 09/06 20:22 Order name: Comprehensive Metabolic Panel EDMI 09/06 20:24 Order name: CBC with Automated Diff EDMS 09/06 20:24 Order name: CBC with Automated Diff EDMS 09/06 17:39 Order name: Foot Left 3 View XRAY; Complete Time: 18:22 la 09/06 20:24 Order name: Comprehensive Metabolic Panel EDMI 09/06 20:24 Order name: Magnesium EDMS 09/06 20:24 Order name: Magnesium EDMS 09/06 20:24 Order name: Protime (+INR) EDMS 09/06 20:24 Order name: Protime (+INR) EDMS 09/06 20:24 Order name: Thyroid Stimulating Hormone EDMI 09/06 20:24 Order name: Thyroid Stimulating Hormone EDMI 09/06 17:39 Order name: SL; Complete Time: 18:11 la1 09/06 20:21 Order name: CONS Pharmacy Consult EDMI 09/06 20:21 Order name: CONS [facility] Cons EDMI 09/06 20:22 Order name: Heart Healthy EDMI 09/06 20:22 Order name: Renal EDMI Administered Medications: 19:20 Drug: Zosyn 3.375 grams Route: IVPB; Infused Over: 60 mins; Site: left forearm; cc3 20:25 Follow up: Response: No adverse reaction; IV Status: Completed infusion; IV Intake: cc3 100ml 20:30 Drug: vancoMYCIN 1 grams Route: IVPB; Infused Over: 2 hrs; Site: left forearm; cc3 21:03 Follow up: Response: No adverse reaction; IV Status: Infusion continued upon admission cc3 Disposition: 09/07 07:18 Co-signature as Attending Physician, Dereck Holder MD I agree with the assessment and kdr plan of care. Disposition: 09/06/19 19:26 Hospitalization ordered by Ellen Hinojosa for Inpatient Admission. Preliminary diagnosis are Osteomyelitis, Open wound of foot. - Bed requested for Telemetry/MedSurg (Inpatient). - Status is Inpatient Admission. fu - Condition is Stable. - Problem is an ongoing problem. - Symptoms are unchanged. UTI on Admission? No Signatures: Dispatcher [employer] [facility] Dereck Holder MD MD kdr Albaro, Nikita, LOCKSMITH HELPER-C LOCKSMITH HELPER-Cla1 Melida Moreno, JACI BEATTY Joel Freitas, RN Ashvin Liu, RN RN ja1 Carolyne Nunez cc3 Corrections: (The following items were deleted from the chart) 09/06 20:34 19:26 Hospitalization Ordered by Ellen Hinojosa MD for Inpatient Admission. Preliminary ja1 diagnosis is Osteomyelitis; Open wound of foot. Bed requested for Telemetry/MedSurg (Inpatient). Status is Inpatient Admission. Condition is Stable. Problem is an ongoing problem. Symptoms are unchanged. UTI on Admission? No. la1 21:34 20:34 09/06/2019 19:26 Hospitalization Ordered by Ellen Hinojosa MD for Inpatient fu Admission. Preliminary diagnosis is Osteomyelitis; Open wound of foot. Bed requested for Telemetry/MedSurg (Inpatient). Status is Inpatient Admission. Condition is Stable. Problem is an ongoing problem. Symptoms are unchanged. UTI on Admission? No. ja1
--- NOTE | 2019-09-06 19:27 | ER ---
Nurse's Notes [facility] Name: Constantin Holloway Age: 53 yrs Sex: Male : 1965 Arrival Date: 09/06/2019 Time: 17:01 Bed 20 Private MD: Diagnosis: Osteomyelitis;Open wound of foot Presentation: 09/06 17:03 Presenting complaint: Patient states: "I have a corn on my left baby toe that fell off hb and I want to make sure it is not infected." Denies pain/fever. Transition of care: patient was not received from another setting of care. Onset of symptoms was September 06, 2019. Risk Assessment: Do you want to hurt yourself or someone else? Patient reports no desire to harm self or others. Initial Sepsis Screen: Does the patient meet any 2 criteria? No. Patient's initial sepsis screen is negative. Does the patient have a suspected source of infection? No. Patient's initial sepsis screen is negative. Care prior to arrival: None. 17:03 Method Of Arrival: Ambulatory hb 17:03 Acuity: NIDIA 4 hb 17:07 Acuity: NIDIA 3 sg Historical: - Allergies: 17:04 No Known Allergies; hb - Home Meds: 17:09 calcitriol 0.25 mcg Oral cap 2 caps every 48 hours [Active]; esomeprazole magnesium 20 hb mg Oral cpDR 1 cap once daily [Active]; furosemide 40 mg Oral tab 2 tabs once daily [Active]; hydralazine 25 mg Oral tab 2 tab three times a day for Hypertension [Active]; hydrocodone-acetaminophen 5-325 mg Oral tab 1 tab every 4-6 hours [Active]; isosorbide dinitrate 20 mg Oral tab 1 tab 3 times per day [Active]; metoprolol tartrate 50 mg Oral tab 1 tab 2 times per day [Active]; tramadol 50 mg Oral tab 1 tab every 6 hours [Active]; - PMHx: 17:09 Diabetes - NIDDM; Dialysis; CHF; Hypertension; Renal Disease; hb - PSHx: 17:09 Catheter palcement to Right arm; RUE HD Fistula; hb - Immunization history:: Adult Immunizations up to date. - Social history:: Smoking status: Patient/guardian denies using tobacco. - Ebola Screening: : No symptoms or risks identified at this time. Screenin:20 Abuse screen: Denies threats or abuse. Denies injuries from another. Nutritional sg screening: No deficits noted. Tuberculosis screening: No symptoms or risk factors identified. Never had TB. Fall Risk None identified. Assessment: 17:20 General: Appears in no apparent distress. well developed, well nourished, Behavior is sg calm, cooperative, appropriate for age. Pain: Complains of pain in left fourth toe and left fifth toe Quality of pain is described as aching, throbbing. Neuro: Level of Consciousness is awake, alert, obeys commands, Oriented to person, place, time, situation. Cardiovascular: Capillary refill is sluggish in bilateral toes Patient's skin is warm and dry. Respiratory: Airway is patent Respiratory effort is even, unlabored, Respiratory pattern is regular, symmetrical. GI: No signs and/or symptoms were reported involving the gastrointestinal system. : No signs and/or symptoms were reported regarding the genitourinary system. EENT: No signs and/or symptoms were reported regarding the EENT system. Derm: Skin is dry, Skin is normal, Skin temperature is warm. Musculoskeletal: Circulation, motion, and sensation intact. Range of motion: intact in all extremities, Swelling present in left fourth toe and left fifth toe. 19:15 Reassessment: Patient appears in no apparent distress at this time. Patient and/or cc3 family updated on plan of care and expected duration. Pain level reassessed. Patient is alert, oriented x 3, equal unlabored respirations, skin warm/dry/pink. Received this male patient from morning shift JACI Melchor as a case of infected left foot toes. With IV cannula gauge 22 at the left forearm saline locked. Noted to have right upper arm fistula, patient still on training for hemodialysis 5x per week as he said. Patient denies pain at this time. General: Appears in no apparent distress. comfortable, Behavior is calm, cooperative, appropriate for age. Pain: Denies pain. Neuro: Level of Consciousness is awake, alert, obeys commands, Oriented to person, place, time, situation, Appropriate for age. Cardiovascular: Denies chest pain, Capillary refill is sluggish in bilateral toes Patient's skin is warm and dry. Respiratory: Airway is patent Respiratory effort is even, unlabored, Respiratory pattern is regular, symmetrical, Breath sounds are clear bilaterally. GI: Abdomen is round obese, Bowel sounds present X 4 quads. Abd is soft and non tender X 4 quads. : No signs and/or symptoms were reported regarding the genitourinary system. EENT: No signs and/or symptoms were reported regarding the EENT system. Derm: Skin is intact, Skin is normal, black. Musculoskeletal: Circulation, motion, and sensation intact. Range of motion: intact in all extremities, Swelling present in left fifth toe and left fourth toe. 20:50 Reassessment: Patient appears in no apparent distress at this time. Patient and/or cc3 family updated on plan of care and expected duration. Pain level reassessed. Patient is alert, oriented x 3, equal unlabored respirations, skin warm/dry/pink. Patient for admission, room available in [facility], report called and handed over to JACI Seymour for continuity of care and management. Patient denies pain at this time. 21:30 Reassessment: Patient appears in no apparent distress at this time. Patient and/or cc3 family updated on plan of care and expected duration. Pain level reassessed. Patient is alert, oriented x 3, equal unlabored respirations, skin warm/dry/pink. Patient left ER for admission vitally stable by wheelchair escorted by auto tech Joey. No valuables left in the patient's room. Patient denies pain at this time. Vital Signs: 17:04 BP 190 / 82; Pulse 102; Resp 20; Temp 97.8; Pulse Ox 97% on R/A; Weight 147.42 kg; hb Height 6 ft. (182.88 cm); Pain 0/10; 18:23 BP 156 / 81; Pulse 98; Resp 19; Pulse Ox 97% on R/A; dh3 19:33 BP 166 / 90; Pulse 99; Resp 18 S; Temp 98.5(O); Pulse Ox 99% on R/A; cc3 20:56 BP 179 / 89; Pulse 95; Resp 18 S; Pulse Ox 98% on R/A; cc3 21:25 BP 167 / 83; Pulse 97; Resp 18 S; Pulse Ox 98% on R/A; cc3 17:04 Body Mass Index 44.08 (147.42 kg, 182.88 cm) ED Course: 17:01 Patient arrived in ED. mr 17:04 Triage completed. hb 17:04 Arm band placed on. hb 17:07 Ruiz Croft, RN is Primary Nurse. sg 17:20 Patient has correct armband on for positive identification. Bed in low position. Call sg light in reach. Side rails up X2. Pulse ox on. NIBP on. 17:21 Nikita Irvin, TUYET is PHCP. la1 17:21 Dereck Holder MD is Attending Physician. la1 18:00 Foot Left 3 View XRAY In Process Unspecified. EDMS 18:00 Initial lab(s) drawn, by me, sent to lab. First set of blood cultures drawn by me. 3 Inserted saline lock: 20 gauge in left forearm, using aseptic technique. Blood collected. 18:15 Second set of blood cultures drawn by fl. 3 19:25 Ellen Hinojoas MD is Hospitalizing Provider. la1 20:50 No provider procedures requiring assistance completed. Patient admitted, IV remains in cc3 place. Administered Medications: 19:20 Drug: Zosyn 3.375 grams Route: IVPB; Infused Over: 60 mins; Site: left forearm; cc3 20:25 Follow up: Response: No adverse reaction; IV Status: Completed infusion; IV Intake: cc3 100ml 20:30 Drug: vancoMYCIN 1 grams Route: IVPB; Infused Over: 2 hrs; Site: left forearm; cc3 21:03 Follow up: Response: No adverse reaction; IV Status: Infusion continued upon admission cc3 Intake: 20:25 IV: 100ml; Total: 100ml. cc3 Outcome: 19:26 Decision to Hospitalize by Provider. la1 20:50 Admitted to Med/surg accompanied by tech, family with patient, via stretcher, room 212, cc3 with chart, Report called to JACI Seymour 20:50 Condition: stable 20:50 Instructed on the need for admit, Demonstrated understanding of instructions. 21:34 Patient left the ED. fu Signatures: Dispatcher [employer] EDTX Ruiz Croft, JACI handley Bob Sofia mr Nikita Irvin, ERP ANALYST-C ERP ANALYST-Cla1 Melida Moreno RN RN Genoveva Navas [facility] Joel Freitas RN RN fu Cordel, Charlene [facility]
[2019-09-06] MEDS ORDERED: DOCUSATE NA 100 MG CAP PO PRN (20:20)
[2019-09-06] MEDS ORDERED: ACETAMINOPHEN 500 MG TAB PO PRN (20:20)
--- NOTE | 2019-09-06 20:28 | P.HP ---
Certification for Inpatient With expected LOS: >2 Midnights Patient will require the following post-hospital care: Home Health Services Practitioner: I am a practitioner with admitting privileges, knowledge of patient current condition, hospital course, and medical plan of care. Services: Services provided to patient in accordance with Admission requirements found in Title 42 Section 412.3 of the Code of Federal Regulations Patient History Date of Service: 09/06/19 Reason for admission: DM foot, ESRD History of Present Illness: Constantin noyola is a 53yoAAM w/ pmhx of esrd on home HD M-F, htn, AOCD, CHF, morbid obesity who presents w/ left 5th digit chronic ulceration and gangrene. he states that it started 1 month ago. he was using betadine daily as his home remedy and treatment. he has hx/o DM which resolved after initiation of ESRD. he denies tobacco, drugs, Etoh, fever, chills, JONES, SOB, GONZALEZ, N/V, he denies pain of the foot or toe. he presents today to the ED on the recommendation of his home HD nurse's recommendation. he states that he is still ambulatory, still wearing shoes and socks, still working. he denies pain w/ ambulation. he does state that at "some point" there was pus drainage but is unclear when. he denies tobacco, etoh or drugs. Allergies No Known Drug Allergies Allergy (Mild, Verified 09/06/19 21:55) Anaphylaxis Home Medications: Furosemide [Lasix*] 80 mg PO DAILY #30 tab 09/24/16 Hydralazine [Apresoline*] 100 mg PO BID 10/04/18 Sildenafil Citrate [Viagra] 50 mg PO PRN PRN 10/04/18 dilTIAZem HCl [Diltiazem 24Hr Cd] 360 mg PO [id number] 10/04/18 - Past Medical/Surgical History Diabetic: Yes -: CHF -: HTN -: IDDM -: RENAL DISEASE -: LAP NEGRITO - Family History Mom -: Cancer Notes: Breast Cancer - Social History Alcohol use: Yes CD- Drugs: No Caffeine use: No Review of Systems General: As per HPI, Unremarkable Eyes: Unremarkable ENT: Unremarkable Respiratory: Unremarkable Cardiovascular: Unremarkable Gastrointestinal: Unremarkable Genitourinary: Unremarkable Musculoskeletal: Leg Pain, Foot Pain, Pedal edema Integumentary: Other Neurological: Unremarkable Lymphatics: Unremarkable Physical Examination - Physical Exam General: Alert, In no apparent distress, Oriented x3, Cooperative, Obese, Other (conversational, interactive, not ill or toxic, NAD, morbid obese) HEENT: Normocephalic, EOMI Neck: Supple Respiratory: Clear to auscultation bilaterally, Normal air movement, Other ( distant BS ) Cardiovascular: Regular rate/rhythm, Other (murmur noted w/ LUE fistula) Capillary refill: <2 Seconds Gastrointestinal: Normal bowel sounds, Soft and benign, Non-distended, No rebound, No guarding Musculoskeletal: Swelling, Other (left foot mild swelling. left foot w/ putular , necrotic ulcerated Left 5th digit and extreme foul smelling. ) Integumentary: Skin breakdown, Diabetic ulcer Neurological: Cranial nerves 3-12 intact, Other (gait not tested) Lymphatics: Other External genitalia: Deferred Rectal: Deferred - Studies Laboratory Data (last 24 hrs) 09/06/19 18:00: Sodium 138, Potassium 4.3, BUN 47 H, Creatinine 6.99 H*, Glucose 147 H 09/06/19 18:00: WBC 7.6, Hgb 8.3 L, Hct 24.5 L, Plt Count 231 Assessment and Plan - Plan 50yoAAM admitted with DM foot w/ cortical involvement and no signs of sepsis c/w abx, can consider ID for dispo planning due to BP being elevated will hold IVF unless indicated pharmacy consulted obtain tsh, a1c and lipid panel obtain procal gen surg consulted - will f/u HTN awaiting home meds reconcilation PRN hydralazine ESRD consult and f/u w/ nephrolgy can recieve EPO w/ HD if able c/w HD Morbid obesity counseled on diet and activity adjustments Details and plan of treatment discussed with the patient and consult mold parter and general surgery - Advance Directives Does patient have a Living Will: No Does patient have a Durable POA for Healthcare: No
[2019-09-06] MEDS: INSULIN -REGULAR HUMAN 50 UNIT/0.5 ML ML SQ SCH (21:00)
[2019-09-06 21:39] VITALS: BMI 44.6
[2019-09-06] MEDS ORDERED: HYDRALAZINE HCL 20 MG/ML VIAL IV PRN (22:37)
[2019-09-06] MEDS: ONDANSETRON 4 MG/2 ML VIAL IV PRN (23:07)
[2019-09-06] MEDS ORDERED: PIPERACIL/TAZO 2.25 GM VIAL IV ONE (23:28)
[2019-09-06] MEDS ORDERED: NA CHLORIDE 0.9% 250 ML ONE (23:37)
[2019-09-06] MEDS ORDERED: NA CHLORIDE 0.9% 50 ML ONE (23:37)
[2019-09-07] MEDS: PIPER/TAZO/NS 2.25gm 2.25 GM/50 ML BAG IVPB SCH ×3 (01:00→19:20)
[2019-09-07 05:38] LABS: Absolute Lymphocytes (CBC) 0.5 K/uL (0.7-4.9); Basophils % 0.7 % (0-1.3); Hematocrit 23.4 % (39.6-49.0); Lymphocytes % 6.1 % (15.3-44.8); MPV 8.3 fL (7.6-11.3); RBC Red Blood Cell Count 2.71 M/uL (4.33-5.43)
[2019-09-07 05:57] LABS: Protime INR 1.19
[2019-09-07] MEDS ORDERED: PIPER/TAZO/NS 3.375gm 3.375 GM/100 ML BAG IVPB SCH (06:00)
[2019-09-07 06:28] LABS: Bilirubin Total 0.5 mg/dL (0.2-1.0); Magnesium 1.9 mg/dL (1.8-2.4); Potassium 4.7 mmol/L (3.5-5.1); Protein, Total 7.9 g/dL (6.4-8.2); Thyroid Stimulating Hormone 1.13 uIU/mL (0.360-3.740)
[2019-09-07] MEDS: INSULIN -REGULAR HUMAN 50 UNIT/0.5 ML ML SQ SCH ×2 (07:30→11:30)
[2019-09-07] MEDS ORDERED: VANCOMYCIN/NS 1 gm 1 GM/250 ML BAG IV SCH (08:00)
[2019-09-07] MEDS ORDERED: VANCOMYCIN 1 GM in NA CHLORIDE 0.9% 500 ML IVPB SCH (08:00)
--- NOTE | 2019-09-07 10:58 | RAD REPORT ---
EXAM DESCRIPTION: MRI - Foot Left Wo Cont - 09/07/2019 10:43 am CLINICAL HISTORY: Foot pain and swelling COMPARISON: X-ray September 06, 2019 TECHNIQUE: Axial sagittal and coronal images the left foot obtained were obtained were obtained FINDINGS: Abnormal signal is present within the proximal and mid fifth proximal phalanx compatible w ith osteomyelitis. A nondisplaced fracture is present. No soft tissue abscess seen. Lateral soft tissue ulceration IMPRESSION: Osteomyelitis involves the fifth proximal phalanx. A nondisplaced fracture this present
[2019-09-07] MEDS ORDERED: CEFAZOLIN/NS 1gm 1 GM/50 ML BAG IVPB SCH (12:00)
[2019-09-07] MEDS ORDERED: NA CHLORIDE 0.9% 1,000 ML IV PRN (12:15)
[2019-09-07] MEDS ORDERED: MANNITOL 25% 12.5 GM/50 ML VIAL IV PRN (12:15)
[2019-09-07] MEDS ORDERED: ALBUMIN HUMAN 25% 50 ML IV SCH (13:00)
[2019-09-07] MEDS: CALCITROL 0.25 MCG CAP PO SCH (13:10)
[2019-09-07] MEDS: DILTIAZEM HCL 180 MG SR CAP PO SCH (13:10)
[2019-09-07 13:16] LABS: Hematocrit 24.3 % (39.6-49.0)
[2019-09-07 13:59] LABS: Ferritin 910.7 ng/mL (26-388); Transferrin 153 mg/dL (200-360)
--- NOTE | 2019-09-07 15:31 | P.PN ---
Subjective Date of Service: 09/07/19 Primary Care Provider: Dr. Peñaloza Chief Complaint: DM foot, ESRD Subjective: Doing well Physical Examination - Vital Signs Temperature: 98.0 F Blood Pressure: 176/94 Pulse: 106 Respirations: 18 Pulse Ox (%): 95 - Physical Exam General: Alert, In no apparent distress, Oriented x3, Cooperative HEENT: Atraumatic Neck: Supple Respiratory: Clear to auscultation bilaterally, Normal air movement Cardiovascular: Normal pulses, Regular rate/rhythm Gastrointestinal: Normal bowel sounds, Soft and benign, Non-distended Integumentary: Other (Chronic ulcer to the left 5th toe) Neurological: Normal speech, Normal strength at 5/5 x4 extr, Normal tone - Studies Laboratory Data (last 24 hrs) 09/06/19 18:00: Sodium 138, Potassium 4.3, BUN 47 H, Creatinine 6.99 H*, Glucose 147 H 09/06/19 18:00: WBC 7.6, Hgb 8.3 L, Hct 24.5 L, Plt Count 231 Medications List Reviewed: Yes Assessment & Plan Discharge Plan: Home Plan to discharge in: Greater than 2 days - Code Status/Comfort Care Code Status Assessed: Yes (Patient is full code) Physician Review Additional Text: Impression: Chronic foot ulcer to the left 5th toe positive for osteomyelitis and non displaced fracture Hypertension End-stage renal disease on hemodialysis Anemia of chronic disease Plan: Chronic foot ulcer to the left 5th toe positive for osteomyelitis and non displaced fracture: Case discussed with surgery. Surgery plans for amputation of toe tomorrow. Await arterial Dopplers. Will continue with IV antibiotic therapy. Patient likely can be discharge 2-3 days after amputation once culture results have been obtained. Patient agrees with plan of care. Hypertension: Continue with home medication and adjust accordingly. End-stage renal disease on hemodialysis: Nephrology consulted. Patient gets home dialysis every week day. Patient will need to be continued on hemodialysis in the hospital. Anemia of chronic disease: Continue monitor hemoglobin closely. Patient may require transfusion if hemoglobin below 7.5. Time Spent Managing Pts Care (In Minutes): 55
--- NOTE | 2019-09-07 15:32 | RAD REPORT ---
EXAM DESCRIPTION: US - Upper Lower Extrem Art Multi - 09/07/2019 1:00 pm CLINICAL HISTORY: Foot pain and swelling COMPARISON: None FINDINGS: The waveform of the right common femoral, right superficial femoral, right popliteal arter ies are triphasic. Waveform of the right dorsalis pedis artery is triphasic. Waveform of the right po sterior tibial artery is monophasic Waveform of the left common femoral, left superficial femoral and left popliteal arteries are triphas ic. Waveform of the left dorsalis pedis artery is triphasic. Trickle of flow was present within the l eft posterior tibial artery ABIs could not be obtained as the distal arteries could not be occluded IMPRESSION: No significant disease involving the proximal and mid arteries of the lower extremities bilaterally Marked disease involving the posterior tibial arteries bilaterally
--- NOTE | 2019-09-07 16:35 | CON ---
Date of Consultation: 09/07/2019 Reason: Infected wound, left foot. History Of Present Illness: The patient is a 53-year-old gentleman with end-stage renal disease, who was referred by the hemodialysis nurse to come to the ER cause he had a foul smelling nonhealing wou nd on his left foot at the 5th toe lateral to it. He was using Betadine as treatment at home. He do es not have much pain because neuropathy. No fever or chills. He does complain of some drainage fro m time to time, which looks like pus. No sore throat, runny nose, cough, headaches, or dizziness. N o chest pain. Review of Systems: Otherwise unremarkable. Past Medical History: Significant for CHF, hypertension, diabetes, end-stage renal disease. Past Surgical History: Significant for lap miguel. Allergies: NO ALLERGIES. Social History: Patient does drink occasionally. Denies smoking. Family History: Reviewed. Mom with breast cancer. Physical Examination: Vital Signs: Essentially stable. He is afebrile. Currently, his T-max is 99.2. Head and Neck: No masses. Chest: Clear. Heart: S1, S2. Abdomen: Soft. Extremities: Diminished dorsalis pedis and posterior tibial pulses. On the left lateral foot, there is approximately a 3 cm open wound with some granulation tissue. Foul odor to it and hypertrophic s kin around edges of it warmth and some edema associated with it, but no purulent discharge. Laboratory Data: His white count on admission was 7.6, currently is 8.9 with a left shift. H and H are 7.8 and 23.4, platelets are 228. INR is 1.19. His BUN and creatinine are elevated, which is exp ected. His procalcitonin is 0.53. His foot x-ray reviewed, shows vascular calcification with soft t issue swelling about the foot, prominent posterior plantar calcaneal spur is noted. Small cortical d efects involving the base of the proximal phalanx of the 5th toe compared with osteo. Assessment: A 53-year-old gentleman with a left 5th toe infected wound with osteo, peripheral vascul ar disease, end-stage renal disease. Recommendations: At this time, I would recommend getting an arterial Doppler to assess his circulati on, make sure he does not need intervention to improve circulation prior to amputation, but we will n eed left 5th toe transmetatarsal amputation based on clinical findings. We will await MRI as well as the arterial Dopplers and make further recommendation. He is already on antibiotics and we will rec ommend wound care after surgery. The patient does understand the risks, benefits, and alternatives o f the left fifth toe transmetatarsal amputation and he agrees. SHAKIRA/MARGO Voice ID: [id number] Report ID: [id number]
[2019-09-07] MEDS: ONDANSETRON 4 MG/2 ML VIAL IV PRN (19:45)
[2019-09-07] MEDS: HYDRALAZINE HCL 25 MG TABLET PO SCH (20:51)
--- NOTE | 2019-09-07 23:35 | P.CNS ---
Date of Consult: 09/07/19 Reason for Consult: ESRD Requesting Physician: Mehdi Garza Primary Care Provider: Dr. Peñaloza Chief Complaint: DM foot, ESRD History of Present Illness: Constantin noyola is a 53yoAAM w/ pmhx of esrd on home HD M-F, htn, AOCD, CHF, morbid obesity who presents w/ left 5th digit chronic ulceration and gangrene. he states that it started 1 month ago. he was using betadine daily as his home remedy and treatment. he has hx/o DM which resolved after initiation of ESRD. he denies tobacco, drugs, Etoh, fever, chills, JONES, SOB, GONZALEZ, N/V, he denies pain of the foot or toe. he presents today to the ED on the recommendation of his home HD nurse's recommendation. he states that he is still ambulatory, still wearing shoes and socks, still working. he denies pain w/ ambulation. he does state that at "some point" there was pus drainage but is unclear when. 17:40 This 53 yrs old Black Male presents to ER via Ambulatory with complaints of Infected la1 Toe. 17:40 The patient presents with wound. The complaints affect the lateral aspect of the base la1 of the fifth toe. Context:. Onset: The symptoms/episode began/occurred 1 month(s) ago. Modifying factors: The symptoms are alleviated by nothing, the symptoms are aggravated by nothing. Associated signs and symptoms: Pertinent negatives: calf tenderness, fever. Severity of symptoms: At their worst the symptoms were moderate. The patient has been recently seen by a physician: the patient's primary care provider. recently seen by PCP and instructed to come to ED, pt states he had a corn on the lateral aspect of his left foot that came off a month ago and the wound has been their since. Allergies No Known Drug Allergies Allergy (Mild, Verified 09/06/19 21:55) Anaphylaxis Home medications list reviewed: Yes Home Medications: Furosemide [Lasix*] 80 mg PO DAILY #30 tab 09/24/16 Hydralazine [Apresoline*] 100 mg PO BID 10/04/18 dilTIAZem HCl [Diltiazem 24Hr Cd] 360 mg PO DAILY 10/04/18 Calcitriol [Rocaltrol] 0.5 mcg PO DAILY 09/06/19 Gabapentin 300 mg PO BEDTIME PRN 09/06/19 - Past Medical/Surgical History Diabetic: Yes -: CHF -: HTN -: IDDM -: RENAL DISEASE -: DESI NEGRITO - Family History Mom Medical History: Cancer Notes: Breast Cancer - Social History Smoking Status: Unknown if ever smoked Alcohol use: Yes CD- Drugs: No Caffeine use: No Place of Residence: Home Review of Systems 10-point ROS is otherwise unremarkable General: Weakness, Malaise Cardiovascular: Edema Musculoskeletal: Foot Pain Integumentary: Lesions Neurological: Weakness Physical Examination Temp Pulse Resp BP Pulse Ox 98.2 F 99 H 20 171/66 H 92 09/07/19 20:00 09/07/19 20:00 09/07/19 20:00 09/07/19 20:00 09/07/19 20:00 General: In no apparent distress, Oriented x3, Cooperative HEENT: Atraumatic, Mucous membr. moist/pink Neck: Supple Respiratory: Clear to auscultation bilaterally Cardiovascular: Regular rate/rhythm, Edema Gastrointestinal: Soft and benign, Non-distended Musculoskeletal: No clubbing, No contractures Integumentary: No rashes, No cyanosis Neurological: Normal speech Blood work reviewed in the chart. Hgb 8.2 Na 138; K 4.7 Imagings Data: EXAM DESCRIPTION: MRI - Foot Left Wo Cont - 09/07/2019 10:43 am CLINICAL HISTORY: Foot pain and swelling COMPARISON: X-ray September 06, 2019 TECHNIQUE: Axial sagittal and coronal images the left foot obtained were obtained were obtained FINDINGS: Abnormal signal is present within the proximal and mid fifth proximal phalanx compatible with osteomyelitis. A nondisplaced fracture is present. No soft tissue abscess seen. Lateral soft tissue ulceration IMPRESSION: Osteomyelitis involves the fifth proximal phalanx. A nondisplaced fracture this present Conclusions/Impression: A/ ESRD on HD. HTN with CKD/ CHF. Diastolic CHF, chronic. DM II with CKD. Anemia in CKD. MECCA/ Secondary HyperPTH. P/ Continue current POC and Medications. Acute HD ordered. Seen and examined on HD. Continue abx. Follow up with podiatry. Wound care as ordered. Plan for surgery tomorrow. Restart home medications as indicated. No NSAIDs. AM labs. Daily weight. Thank you kindly for the consultation.
[2019-09-08] MEDS ORDERED: MELATONIN 3 MG TABLET PO ONE (00:15)
[2019-09-08] MEDS: PIPER/TAZO/NS 2.25gm 2.25 GM/50 ML BAG IVPB SCH ×4 (00:53→17:31)
[2019-09-08] MEDS ORDERED: NA CHLORIDE 0.9% IV SCH (03:00)
[2019-09-08] MEDS ORDERED: PROMETHAZINE IV SCH (03:00)
[2019-09-08] MEDS ORDERED: NA CHLORIDE 0.9% 100 ML ONE (03:05)
[2019-09-08] MEDS ORDERED: PROMETHAZINE INJ 25 MG/ML AMP ONE (03:05)
[2019-09-08 06:04] LABS: Absolute Lymphocytes (CBC) 0.6 K/uL (0.7-4.9); Basophils % 0.9 % (0-1.3); Hematocrit 24.6 % (39.6-49.0); Lymphocytes % 6.9 % (15.3-44.8); MPV 8.7 fL (7.6-11.3)
[2019-09-08] MEDS: ONDANSETRON 4 MG/2 ML VIAL IV PRN (06:05)
[2019-09-08 06:22] LABS: Magnesium 2.1 mg/dL (1.8-2.4); Phosphorus 4.6 mg/dL (2.5-4.9); Potassium 4.5 mmol/L (3.5-5.1); Uric Acid 3.5 mg/dL (3.5-7.2)
[2019-09-08] MEDS: SEVELAMER CARBONATE 800 MG TABLET PO SCH ×4 (08:00→17:31)
[2019-09-08] MEDS ORDERED: NA CHLORIDE 0.9% 0 ML ONE (08:47)
[2019-09-08] MEDS ORDERED: ONDANSETRON 4 MG/2 ML VIAL ONE ×2 (08:47→10:39)
[2019-09-08] MEDS ORDERED: NA CHLORIDE 0.9% 500 ML ONE (08:48)
[2019-09-08] MEDS ORDERED: CEFAZOLIN/SWI 1gm 1 GM/10 ML SYR ONE (08:50)
[2019-09-08] MEDS: DILTIAZEM HCL 180 MG SR CAP PO SCH ×2 (09:00→12:11)
[2019-09-08] MEDS: VITAMIN D 5,000 UNIT CAP PO SCH ×2 (09:00→12:11)
[2019-09-08] MEDS: CALCITROL 0.25 MCG CAP PO SCH ×2 (09:00→12:10)
[2019-09-08] MEDS: FUROSEMIDE 40 MG TABLET PO SCH ×2 (09:00→12:11)
[2019-09-08] MEDS: HYDRALAZINE HCL 25 MG TABLET PO SCH ×3 (09:00→20:35)
[2019-09-08] MEDS ORDERED: GLYCOPYRROLATE 0.2 MG/ML SYR ONE (09:01)
--- NOTE | 2019-09-08 09:46 | P.PN ---
Subjective Date of Service: 09/08/19 Primary Care Provider: Dr. Peñaloza Chief Complaint: DM foot, ESRD Subjective: No new changes <Ángel Floyd - Last Filed: 09/08/19 09:40> Date of Service: 09/08/19 <Mehdi Garza - Last Filed: 09/08/19 20:40> Review of Systems General: Unremarkable Eyes: Unremarkable ENT: Unremarkable Respiratory: Unremarkable Cardiovascular: Unremarkable Gastrointestinal: Unremarkable Musculoskeletal: As per HPI Integumentary: Unremarkable Neurological: Unremarkable <Ángel Floyd - Last Filed: 09/08/19 09:40> Physical Examination - Vital Signs Temperature: 98.9 F Blood Pressure: 147/71 Pulse: 95 Respirations: 18 Pulse Ox (%): 92 - Physical Exam General: Oriented x3 HEENT: Normocephalic, PERRLA, Mucous membr. moist/pink, EOMI Neck: 2+ carotid pulse no bruit, JVD not distended, No Thyromegaly Respiratory: Clear to auscultation bilaterally, Normal air movement Cardiovascular: No edema, Normal pulses, Regular rate/rhythm Capillary refill: <2 Seconds Gastrointestinal: Normal bowel sounds, Soft and benign, No tenderness Musculoskeletal: Other (Osteomyelitis with diabetic ulcer present to left foot 5th digit) Integumentary: No rashes Neurological: Normal speech, Normal strength at 5/5 x4 extr, Normal tone, Sensation intact, Cranial nerves 3-12 intact, Normal reflexes 2+, Normal affect - Studies Medications List Reviewed: Yes <Ángel Floyd - Last Filed: 09/08/19 09:40> Assessment And Plan - Current Problems (Diagnosis) (1) Osteomyelitis Current Visit: Yes Status: Acute Qualifiers: Osteomyelitis location: foot Laterality: left (2) Diabetes mellitus with hyperglycemia Onset Date: 10/24/15 Current Visit: No Status: Chronic Qualifiers: Diabetes mellitus type: type 2 (3) ESRD (end stage renal disease) Onset Date: 10/01/16 Current Visit: No Status: Chronic (4) Morbid obesity Onset Date: 03/14/15 Current Visit: No Status: Chronic (5) Anemia Current Visit: No Status: Chronic Qualifiers: Anemia type: other cause Other causes of anemia: other cause, not classified Qualified Code(s): D64.89 - Other specified anemias - Plan Patient with no acute changes this morning. Prepped and was brought down for amputation of digit this AM. Vitals were stable. Will check on patient post surgery. Will continue to monitor vitals. Continue to give abx. Patient to receive HD after surgery. Discharge Plan: Home Plan to discharge in: Greater than 2 days - Code Status/Comfort Care Code Status Assessed: No Physician Review Additional Text: Impression: Chronic foot ulcer to the left 5th toe positive for osteomyelitis and non displaced fracture Hypertension End-stage renal disease on hemodialysis Anemia of chronic disease Plan: Chronic foot ulcer to the left 5th toe positive for osteomyelitis and non displaced fracture: Case discussed with surgery. Surgery plans for amputation of toe tomorrow. Await arterial Dopplers. Will continue with IV antibiotic therapy. Patient likely can be discharge 2-3 days after amputation once culture results have been obtained. Patient agrees with plan of care. Hypertension: Continue with home medication and adjust accordingly. End-stage renal disease on hemodialysis: Nephrology consulted. Patient gets home dialysis every week day. Patient will need to be continued on hemodialysis in the hospital. Anemia of chronic disease: Continue monitor hemoglobin closely. Patient may require transfusion if hemoglobin below 7.5. <Ángel Floyd - Last Filed: 09/08/19 09:40> Physician Review Additional Text: Patient had amputation today. Patient will remain in the hospital with continued IV antibiotic therapy over the weekend. Will plan for discharge on Wednesday. Case discussed with surgery and nephrology. Continue dialysis as directed by nephrology. Dr. Bruno will cover for hospitalist over the weekend. Time Spent Managing PTS Care (In Minutes): 30 <Mehdi Garza - Last Filed: 09/08/19 20:40>
[2019-09-08] MEDS ORDERED: LIDOCAINE 1% MPF 30 ML VIAL ONE (10:34)
[2019-09-08] MEDS ORDERED: SUCCINYLCHOLINE 20 MG/ML (10 ML) IV ONE (10:34)
[2019-09-08] MEDS ORDERED: FENTANYL CITR 100 MCG/2 ML ONE (10:35)
[2019-09-08] MEDS ORDERED: propofoL 200 MG/20 ML VIAL IV ONE (10:35)
[2019-09-08] MEDS ORDERED: LIDOCAINE 2% MPF 5 ML VIAL ONE ×2 (10:36→11:13)
[2019-09-08] MEDS ORDERED: MIDAZOLAM HCL 2 MG/2 ML INJ ONE (10:36)
[2019-09-08] MEDS ORDERED: ROCURONIUM 50 MG/5 ML VIAL IV ONE (10:39)
--- NOTE | 2019-09-08 11:26 | P.OP ---
Preoperative diagnosis: Left fifth toe infected wound with osteomyelitis Postoperative diagnosis: same Primary procedure: Left fifth toe T-M amputation Anesthesia: MAC Estimated blood loss: min Specimen: Left fift toe T-M Findings: as above Complications: None Transferred to: Recovery Room Condition: Good
[2019-09-08] MEDS ORDERED: HYDROCODONE/CHLORPHEN 5 ML/OSYR PO ONE (13:00)
[2019-09-08] MEDS: GABAPENTIN 300 MG CAP PO PRN (20:35)
--- NOTE | 2019-09-08 21:38 | P.PN ---
Date of Service: 09/08/19 Vital Signs Temp Pulse Resp BP Pulse Ox 99.8 F 98 H 20 152/68 H 94 09/08/19 20:00 09/08/19 20:00 09/08/19 20:00 09/08/19 20:00 09/08/19 20:00 Medications Acetaminophen (Tylenol -Extra Strength) 500 mg PO Q6H PRN PRN Reason: TEMP > 100' F Stop: 10/06/19 20:21 Hydrocodone Bitart/Acetaminophen (Delta 5/325) 1 tab PO Q6H PRN PRN Reason: Pain scale 5-7 (Moderate) Stop: 10/06/19 20:21 Calcitriol (Rocaltrol) 0.5 mcg PO DAILY [facility] Stop: 10/07/19 10:01 Last Admin: 09/08/19 12:10 Dose: 0.5 mcg Cholecalciferol (Vitamin D 5,000 Iu Cap) 5,000 unit PO DAILY [facility] Stop: 10/08/19 09:01 Last Admin: 09/08/19 12:11 Dose: 5,000 unit Diltiazem HCl (Cardizem Cd) 360 mg PO DAILY [facility] Stop: 10/07/19 10:01 Last Admin: 09/08/19 12:11 Dose: 360 mg Docusate Sodium (Colace Cap) 100 mg PO DAILY PRN PRN Reason: CONSTIPATION Stop: 10/06/19 20:21 Furosemide (Lasix) 80 mg PO DAILY [facility] Stop: 10/08/19 09:01 Last Admin: 09/08/19 12:11 Dose: 80 mg Gabapentin (Neurontin) 300 mg PO BEDTIME PRN PRN Reason: pain Stop: 10/07/19 09:02 Last Admin: 09/08/19 20:35 Dose: 300 mg Heparin Sodium (Porcine) (Heparin 1,000 Units/Ml) 6,000 unit IV EVERY HD PRN PRN Reason: FLUSH AFTER EACH USE Stop: 10/07/19 12:16 Last Admin: 09/07/19 15:28 Dose: 6,000 unit Hydralazine HCl (Apresoline) 10 mg IV Q6HP PRN PRN Reason: Titrate to SBP (MUST DEFINE) Stop: 10/06/19 22:38 Last Admin: 09/06/19 23:08 Dose: 10 mg Hydralazine HCl (Apresoline) 100 mg PO BID [facility] Stop: 10/07/19 21:01 Last Admin: 09/08/19 20:35 Dose: 100 mg Piperacillin/Tazobactam/Sod Chloride (Zosyn 2.25 Gm/50 Ml Ivpb) 2.25 gm in 50 mls @ 100 mls/hr IVPB Q8HR JOLEEN Stop: 10/07/19 01:01 Last Admin: 09/08/19 17:31 Dose: 50 mls Vancomycin HCl (Vancomycin 1 Gm/250 Ml Ns Ivpb) 1 gm in 250 mls @ 250 mls/hr IV AFTER EACH DIALYSIS JOLEEN Stop: 10/07/19 08:01 Last Admin: 09/07/19 15:29 Dose: 250 mls Cefazolin Sodium (Ancef 1 Gm/50 Ml Ns Ivpb) 1 gm in 50 mls @ 100 mls/hr IVPB OC JOLEEN; Protocol Stop: 10/07/19 12:01 Albumin Human (Albumin 25%) 50 mls @ 100 mls/hr IV EVERY HD [facility] Stop: 10/07/19 13:01 Mannitol (Mannitol 12.5 Gm/50 Ml Vial) 12.5 gm IV EVERY HD PRN PRN Reason: Titrate to SBP (MUST DEFINE) Stop: 10/07/19 12:16 Ondansetron HCl (Zofran) 4 mg IV Q8H PRN PRN Reason: NAUSEA / VOMITING Stop: 10/06/19 20:21 Last Admin: 09/08/19 06:05 Dose: 4 mg Sevelamer Carbonate (Renvela) 800 mg PO TIDWM [facility] Stop: 10/08/19 08:01 Last Admin: 09/08/19 17:31 Dose: 800 mg Sodium Chloride (Normal Saline Flush) 10 ml IV BID [facility] Stop: 10/06/19 21:01 Last Admin: 09/08/19 20:35 Dose: 10 ml Sodium Chloride (Normal Saline Flush) 10 ml IV BID [facility] Stop: 10/06/19 21:01 Last Admin: 09/08/19 20:35 Dose: Not Given Microbiology Results 09/06/19 18:15 Blood - Blood Aerobic Blood Culture - Preliminary No growth in 24 hours. 09/06/19 18:15 Blood - Blood Anaerobic Blood Culture - Preliminary No growth in 24 hours. 09/06/19 18:00 Blood - Blood Aerobic Blood Culture - Preliminary No growth in 24 hours. 09/06/19 18:00 Blood - Blood Anaerobic Blood Culture - Preliminary No growth in 24 hours. Assessment/ Plan: Nephrology Feeling better. No pain in the left foot. +LE Neuropathy CPS stable without CP or SOB. No acute events overnight. Vitals, medications, blood work and imaging reviewed in the chart. General: In no apparent distress, Oriented x3, Cooperative HEENT: Atraumatic, Mucous membr. moist/pink Neck: Supple Respiratory: Clear to auscultation bilaterally Cardiovascular: Regular rate/rhythm, Edema Gastrointestinal: Soft and benign, Non-distended Musculoskeletal: No clubbing, No contractures Integumentary: No rashes, No cyanosis Neurological: Normal speech Blood work reviewed in the chart. Hgb 8.2 Na 138; K 4.7 Imagings Data: EXAM DESCRIPTION: MRI - Foot Left Wo Cont - 09/07/2019 10:43 am CLINICAL HISTORY: Foot pain and swelling COMPARISON: X-ray September 06, 2019 TECHNIQUE: Axial sagittal and coronal images the left foot obtained were obtained were obtained FINDINGS: Abnormal signal is present within the proximal and mid fifth proximal phalanx compatible with osteomyelitis. A nondisplaced fracture is present. No soft tissue abscess seen. Lateral soft tissue ulceration IMPRESSION: Osteomyelitis involves the fifth proximal phalanx. A nondisplaced fracture this present Conclusions/Impression: A/ ESRD on HD. HTN with CKD/ CHF. Diastolic CHF, chronic. DM II with CKD. Anemia in CKD. MECCA/ Secondary HyperPTH. Left 5th Toe Osteomyelitis sp amputation. P/ Continue current POC and Medications. Acute HD today without difficulty. Treatment cut short by the patient. Continue abx. Follow up with podiatry. Wound care as ordered. No NSAIDs. AM labs. Daily weight.
[2019-09-08] MEDS: HYDROCODONE/APAP 5/325 MG TAB PO PRN (21:45)
--- NOTE | 2019-09-09 00:48 | OP ---
Date of Procedure: 09/08/2019 Surgeon: Ed Smith MD Preoperative Diagnosis: Infected left foot wound with osteomyelitis in the left fifth toe. Postoperative Diagnosis: Infected left foot wound with osteomyelitis in the left fifth toe. Procedure: Left fifth toe transmetatarsal amputation. Estimated Blood Loss: Minimal. Specimen: Left fifth toe transmetatarsal amputation. Findings: As above. Anesthesia: MAC. Complications: None. Disposition: The patient tolerated the procedure in stable condition, was taken to Recovery in good general condition. Procedure In Detail: The patient was brought to the OR and placed in supine position. MAC anesthesi a was begun. The patient was prepped and draped in usual sterile fashion. Marcaine 0.5% was infiltr ated in a field block fashion. A 15-blade was used to make an incision approximately 6 x 4 cm around the base of the 5th toe near the metatarsal head. Subcutaneous tissue was divided. A metatarsal catherine ne identified, bone cutter was used to divide the bone, bleeding controlled with cautery. Then entir e toe and metatarsal head were excised, sent to Pathology as specimen. Wound irrigated. Bleeding co ntrolled with cautery and then wet-to-dry normal saline dressing change applied. Patient tolerated the procedure in stable condition, taken to Recovery in good gener al condition. /MODL Voice ID: [id number] Report ID: [id number]
[2019-09-09] MEDS: PIPER/TAZO/NS 2.25gm 2.25 GM/50 ML BAG IVPB SCH ×3 (00:52→17:00)
[2019-09-09] MEDS: HYDROCODONE/APAP 5/325 MG TAB PO PRN ×2 (05:09→17:44)
[2019-09-09 06:30] LABS: Absolute Lymphocytes (CBC) 0.8 K/uL (0.7-4.9); Basophils % 0.7 % (0-1.3); Hematocrit 25.2 % (39.6-49.0); Lymphocytes % 8.1 % (15.3-44.8); MPV 8.6 fL (7.6-11.3); RBC Red Blood Cell Count 2.83 M/uL (4.33-5.43)
[2019-09-09 06:44] LABS: Magnesium 2.1 mg/dL (1.8-2.4); Potassium 4.2 mmol/L (3.5-5.1)
[2019-09-09] MEDS: CALCITROL 0.25 MCG CAP PO SCH (08:21)
[2019-09-09] MEDS: VITAMIN D 5,000 UNIT CAP PO SCH (08:21)
[2019-09-09] MEDS: SEVELAMER CARBONATE 800 MG TABLET PO SCH ×3 (08:21→17:00)
[2019-09-09] MEDS: FUROSEMIDE 40 MG TABLET PO SCH (08:22)
[2019-09-09] MEDS: HYDRALAZINE HCL 25 MG TABLET PO SCH ×2 (08:22→20:27)
[2019-09-09] MEDS: DILTIAZEM HCL 180 MG SR CAP PO SCH (08:23)
--- NOTE | 2019-09-09 10:28 | P.PN ---
Subjective Date of Service: 09/09/19 Primary Care Provider: Dr. Peñaloza Chief Complaint: DM foot, ESRD Subjective: Improving (Patient is complaining of a chronic cough he has had a cough for the past month complaining of postnasal drainage possible reflux status post amputation of his left toe) Review of Systems Unremarkable Physical Examination - Vital Signs Temperature: 99.5 F Blood Pressure: 140/63 Pulse: 95 Respirations: 18 Pulse Ox (%): 93 - Physical Exam General: Alert, In no apparent distress, Oriented x3 Respiratory: Clear to auscultation bilaterally Cardiovascular: No edema, Regular rate/rhythm - Studies Medications List Reviewed: Yes Assessment & Plan - Problems (Diagnosis) (1) Cough Current Visit: Yes Status: Acute Plan: Patient is 53 years of age status post amputation of the left toe complaining of a chronic cough I have given him a cough suppressant nasal spray chest x-ray no evidence of active ongoing sepsis wound culture shows pro great and she a patient is on 3 antibiotics vital signs are stable he is not taking any Paulo inhibitors (2) Osteomyelitis Current Visit: Yes Status: Acute Plan: Patient is status post amputation on antibiotics doing better possible discharge on or oral Levaquin Qualifiers: Osteomyelitis location: foot Laterality: left
[2019-09-09] MEDS: PROMETHAZINE-DM 5 ML OSYR PO PRN (11:05)
[2019-09-09] MEDS: FLUTICASONE 50MCG NASAL SPRAY NAS SCH (11:06)
--- NOTE | 2019-09-09 12:51 | P.PN ---
Date of Service: 09/09/19 Vital Signs Temp Pulse Resp BP Pulse Ox 99.5 F 95 H 18 140/63 93 09/09/19 10:28 09/09/19 10:28 09/09/19 10:28 09/09/19 10:28 09/09/19 10:28 Medications Acetaminophen (Tylenol -Extra Strength) 500 mg PO Q6H PRN PRN Reason: TEMP > 100' F Stop: 10/06/19 20:21 Hydrocodone Bitart/Acetaminophen ([place] 5/325) 1 tab PO Q6H PRN PRN Reason: Pain scale 5-7 (Moderate) Stop: 10/06/19 20:21 Last Admin: 09/09/19 05:09 Dose: 1 tab Calcitriol (Rocaltrol) 0.5 mcg PO DAILY JOLEEN Stop: 10/07/19 10:01 Last Admin: 09/09/19 08:21 Dose: 0.5 mcg Cholecalciferol (Vitamin D 5,000 Iu Cap) 5,000 unit PO DAILY JOLEEN Stop: 10/08/19 09:01 Last Admin: 09/09/19 08:21 Dose: 5,000 unit Diltiazem HCl (Cardizem Cd) 360 mg PO DAILY JOLEEN Stop: 10/07/19 10:01 Last Admin: 09/09/19 08:23 Dose: 360 mg Docusate Sodium (Colace Cap) 100 mg PO DAILY PRN PRN Reason: CONSTIPATION Stop: 10/06/19 20:21 Epoetin Darni (Procrit) 20,000 unit SQ 1X JOLEEN Stop: 10/09/19 13:01 Fluticasone Propionate (Flonase 50mcg Nasal [place]) 2 sprays ANTONELLA DAILY JOLEEN Stop: 10/09/19 09:01 Last Admin: 09/09/19 11:06 Dose: 1 spr Furosemide (Lasix) 80 mg PO DAILY JOLEEN Stop: 10/08/19 09:01 Last Admin: 09/09/19 08:22 Dose: 80 mg Gabapentin (Neurontin) 300 mg PO BEDTIME PRN PRN Reason: pain Stop: 10/07/19 09:02 Last Admin: 09/08/19 20:35 Dose: 300 mg Heparin Sodium (Porcine) (Heparin 1,000 Units/Ml) 6,000 unit IV EVERY HD PRN PRN Reason: FLUSH AFTER EACH USE Stop: 10/07/19 12:16 Last Admin: 09/07/19 15:28 Dose: 6,000 unit Hydralazine HCl (Apresoline) 10 mg IV Q6HP PRN PRN Reason: Titrate to SBP (MUST DEFINE) Stop: 10/06/19 22:38 Last Admin: 09/06/19 23:08 Dose: 10 mg Hydralazine HCl (Apresoline) 100 mg PO BID [facility] Stop: 10/07/19 21:01 Last Admin: 09/09/19 08:22 Dose: 100 mg Piperacillin/Tazobactam/Sod Chloride (Zosyn 2.25 Gm/50 Ml Ivpb) 2.25 gm in 50 mls @ 100 mls/hr IVPB Q8HR JOLEEN Stop: 10/07/19 01:01 Last Admin: 09/09/19 08:20 Dose: 50 mls Vancomycin HCl (Vancomycin 1 Gm/250 Ml Ns Ivpb) 1 gm in 250 mls @ 250 mls/hr IV AFTER EACH DIALYSIS [facility] Stop: 10/07/19 08:01 Last Admin: 09/07/19 15:29 Dose: 250 mls Cefazolin Sodium (Ancef 1 Gm/50 Ml Ns Ivpb) 1 gm in 50 mls @ 100 mls/hr IVPB OC JOLEEN; Protocol Stop: 10/07/19 12:01 Albumin Human (Albumin 25%) 50 mls @ 100 mls/hr IV EVERY HD [facility] Stop: 10/07/19 13:01 Mannitol (Mannitol 12.5 Gm/50 Ml Vial) 12.5 gm IV EVERY HD PRN PRN Reason: Titrate to SBP (MUST DEFINE) Stop: 10/07/19 12:16 Ondansetron HCl (Zofran) 4 mg IV Q8H PRN PRN Reason: NAUSEA / VOMITING Stop: 10/06/19 20:21 Last Admin: 09/08/19 06:05 Dose: 4 mg Promethazine HCl/Dextromethorphan (Phenergan Dm Oral Syrup) 5 ml PO Q6H PRN PRN Reason: COUGH Stop: 10/09/19 10:24 Last Admin: 09/09/19 11:05 Dose: 5 ml Sevelamer Carbonate (Renvela) 800 mg PO TIDWM [facility] Stop: 01/12/20 08:01 Last Admin: 09/09/19 08:21 Dose: 800 mg Sodium Chloride (Normal Saline Flush) 10 ml IV BID [facility] Stop: 10/06/19 21:01 Last Admin: 09/09/19 08:24 Dose: 10 ml Sodium Chloride (Normal Saline Flush) 10 ml IV BID [facility] Stop: 10/06/19 21:01 Last Admin: 09/09/19 08:24 Dose: Not Given Microbiology Results 09/06/19 18:15 Blood - Blood Aerobic Blood Culture - Preliminary No growth in 24 hours. 09/06/19 18:15 Blood - Blood Anaerobic Blood Culture - Preliminary No growth in 24 hours. 09/06/19 18:00 Blood - Blood Aerobic Blood Culture - Preliminary No growth in 24 hours. 09/06/19 18:00 Blood - Blood Anaerobic Blood Culture - Preliminary No growth in 24 hours. Assessment/ Plan: Nephrology Feeling better. No pain in the left foot. +LE Neuropathy CPS stable without CP or SOB. +Cough No acute events overnight. Vitals, medications, blood work and imaging reviewed in the chart. General: In no apparent distress, Oriented x3, Cooperative HEENT: Atraumatic, Mucous membr. moist/pink Neck: Supple Respiratory: Clear to auscultation bilaterally Cardiovascular: Regular rate/rhythm, Edema Gastrointestinal: Soft and benign, Non-distended Musculoskeletal: No clubbing, No contractures Integumentary: No rashes, No cyanosis Neurological: Normal speech Blood work reviewed in the chart. Hgb 8.2 Na 138; K 4.7 Imagings Data: EXAM DESCRIPTION: MRI - Foot Left Wo Cont - 09/07/2019 10:43 am CLINICAL HISTORY: Foot pain and swelling COMPARISON: X-ray September 06, 2019 TECHNIQUE: Axial sagittal and coronal images the left foot obtained were obtained were obtained FINDINGS: Abnormal signal is present within the proximal and mid fifth proximal phalanx compatible with osteomyelitis. A nondisplaced fracture is present. No soft tissue abscess seen. Lateral soft tissue ulceration IMPRESSION: Osteomyelitis involves the fifth proximal phalanx. A nondisplaced fracture this present Conclusions/Impression: A/ ESRD on HD. HTN with CKD/ CHF. Diastolic CHF, chronic. DM II with CKD. Anemia in CKD. MECCA/ Secondary HyperPTH. Left 5th Toe Osteomyelitis sp amputation. P/ Continue current POC and Medications. Last HD yesterday. Plan for CXR today. Consider inhaled steroids. Continue abx. Follow up with podiatry. Wound care as ordered. No NSAIDs. AM labs. Daily weight.
[2019-09-09] MEDS ORDERED: EPOETIN ALFA 20,000 UNIT/1 ML VIAL SQ ONE (13:00)
--- NOTE | 2019-09-09 13:15 | RAD REPORT ---
EXAM DESCRIPTION: RAD - Chest Pa And Lat (2 Views) - 09/09/2019 12:54 pm CLINICAL HISTORY: Chronci cough Chest pain. COMPARISON: Chest Single View dated 10/03/2016; Chest Pa And Lat (2 Views) dated 10/03/2016; Abdomen Acu te Series dated 09/30/2016; Chest Single View dated 09/20/2016 FINDINGS: The lungs are clear. The heart is normal in size. No displaced fractures. IMPRESSION: No acute or concerning finding suspected.
[2019-09-09] MEDS: GABAPENTIN 300 MG CAP PO PRN (20:27)
[2019-09-10] MEDS: PIPER/TAZO/NS 2.25gm 2.25 GM/50 ML BAG IVPB SCH ×2 (00:30→08:25)
[2019-09-10] MEDS: HYDROCODONE/APAP 5/325 MG TAB PO PRN ×2 (05:11→21:23)
[2019-09-10] MEDS ORDERED: GUAIFENESIN 600 MG SA TAB PO PRN (06:26)
[2019-09-10 06:52] LABS: Absolute Lymphocytes (CBC) 0.8 K/uL (0.7-4.9); Basophils % 0.9 % (0-1.3); Hematocrit 24.6 % (39.6-49.0); Lymphocytes % 7.8 % (15.3-44.8); MPV 8.1 fL (7.6-11.3); RBC Red Blood Cell Count 2.74 M/uL (4.33-5.43)
[2019-09-10 06:55] LABS: Potassium 4.4 mmol/L (3.5-5.1)
[2019-09-10] MEDS: CALCITROL 0.25 MCG CAP PO SCH (08:24)
[2019-09-10] MEDS: VITAMIN D 5,000 UNIT CAP PO SCH (08:24)
[2019-09-10] MEDS: SEVELAMER CARBONATE 800 MG TABLET PO SCH ×3 (08:24→16:38)
[2019-09-10] MEDS: HYDRALAZINE HCL 25 MG TABLET PO SCH ×2 (08:24→21:20)
[2019-09-10] MEDS: DILTIAZEM HCL 180 MG SR CAP PO SCH (08:24)
[2019-09-10] MEDS: FUROSEMIDE 40 MG TABLET PO SCH (08:25)
[2019-09-10] MEDS: FLUTICASONE 50MCG NASAL SPRAY NAS SCH (08:26)
[2019-09-10] MEDS: PROMETHAZINE-DM 5 ML OSYR PO PRN (08:26)
[2019-09-10] MEDS ORDERED: levoFLOXacin 500 MG TAB PO SCH (09:00)
--- NOTE | 2019-09-10 10:25 | P.PN ---
Subjective Date of Service: 09/10/19 Primary Care Provider: Dr. Peñaloza Chief Complaint: Chronic cough Patient's cough is slightly better the was no other complaints Review of Systems Unremarkable Physical Examination - Vital Signs Temperature: 99.4 F Blood Pressure: 139/65 Pulse: 101 Respirations: 20 Pulse Ox (%): 91 - Physical Exam General: Alert, In no apparent distress, Oriented x3 Respiratory: Clear to auscultation bilaterally Cardiovascular: No edema, Normal pulses - Studies Medications List Reviewed: Yes Assessment & Plan - Problems (Diagnosis) (1) Cough Current Visit: Yes Status: Acute Plan: Patient admitted with chronic cough possible postnasal drainage continue with nasal spray also added an inhaler currently on 2 antibiotics patient is not septic and be changed to oral fluoroquinolones organisms are sensitive no sign of active infection (2) Osteomyelitis Current Visit: Yes Status: Acute Plan: Patient is status post amputation on antibiotics doing better possible discharge on or oral Levaquin Qualifiers: Osteomyelitis location: foot Laterality: left Physician Review Additional Text: Patient had amputation today. Patient will remain in the hospital with continued IV antibiotic therapy over the weekend. Will plan for discharge on Wednesday. Case discussed with surgery and nephrology. Continue dialysis as directed by nephrology. Dr. Bruno will cover for hospitalist over the weekend.
[2019-09-10] MEDS: COLLAGENASE 30 GM OINTMENT TOP SCH (12:20)
[2019-09-10] MEDS: DULERA 200/5 (MOMETASONE/FORMOTEROL) INHALER IH SCH ×2 (12:20→21:00)
--- NOTE | 2019-09-10 16:47 | PN ---
Date of Progress Note: 09/10/2019 Subjective: Patient is awake, alert. No complaints. Objective: Vital Signs: Stable. Afebrile. Extremities: Examination of the left foot wound reveals it to have good granulation tissue with mini mal fibrin approximately 10% to 15% of the wound. There is no surrounding erythema, warmth, or edema . Assessment: Left foot wound, status post left 5th toe transmetatarsal amputation. Recommendations: We will add collagenase to the wound care today and then start wound VAC tomorrow. Continue antibiotics. Cultures reviewed. Patient is sensitive to Cipro and can go home on oral Cip ro. /MODL Voice ID: [id number] Report ID: [id number]
--- NOTE | 2019-09-10 21:16 | P.PN ---
Date of Service: 09/10/19 Vital Signs Temp Pulse Resp BP Pulse Ox 98.6 F 99 H 20 145/67 H 93 09/10/19 16:00 09/10/19 16:00 09/10/19 16:00 09/10/19 16:00 09/10/19 16:00 Medications Acetaminophen (Tylenol -Extra Strength) 500 mg PO Q6H PRN PRN Reason: TEMP > 100' F Stop: 10/06/19 20:21 Hydrocodone Bitart/Acetaminophen ([place] 5/325) 1 tab PO Q6H PRN PRN Reason: Pain scale 5-7 (Moderate) Stop: 10/06/19 20:21 Last Admin: 09/10/19 05:11 Dose: 1 tab Calcitriol (Rocaltrol) 0.5 mcg PO DAILY JOLEEN Stop: 10/07/19 10:01 Last Admin: 09/10/19 08:24 Dose: 0.5 mcg Cholecalciferol (Vitamin D 5,000 Iu Cap) 5,000 unit PO DAILY JOLEEN Stop: 10/08/19 09:01 Last Admin: 09/10/19 08:24 Dose: 5,000 unit Collagenase (Santyl Ointment) 1 appl TOP DAILY JOLEEN Stop: 10/10/19 11:21 Last Admin: 09/10/19 12:20 Dose: 1 appl Diltiazem HCl (Cardizem Cd) 360 mg PO DAILY JOLEEN Stop: 10/07/19 10:01 Last Admin: 09/10/19 08:24 Dose: 360 mg Docusate Sodium (Colace Cap) 100 mg PO DAILY PRN PRN Reason: CONSTIPATION Stop: 10/06/19 20:21 Fluticasone Propionate (Flonase 50mcg Nasal [place]) 2 sprays ANTONELLA DAILY JOLEEN Stop: 10/09/19 09:01 Last Admin: 09/10/19 08:26 Dose: 2 spr Furosemide (Lasix) 80 mg PO DAILY JOLEEN Stop: 10/08/19 09:01 Last Admin: 09/10/19 08:25 Dose: 80 mg Gabapentin (Neurontin) 300 mg PO BEDTIME PRN PRN Reason: pain Stop: 10/07/19 09:02 Last Admin: 09/09/19 20:27 Dose: 300 mg Guaifenesin (Mucinex 600mg) 600 mg PO BID PRN PRN Reason: decongestion Stop: 10/10/19 09:01 Last Admin: 09/10/19 08:25 Dose: 600 mg Heparin Sodium (Porcine) (Heparin 1,000 Units/Ml) 6,000 unit IV EVERY HD PRN PRN Reason: FLUSH AFTER EACH USE Stop: 10/07/19 12:16 Last Admin: 09/07/19 15:28 Dose: 6,000 unit Hydralazine HCl (Apresoline) 10 mg IV Q6HP PRN PRN Reason: Titrate to SBP (MUST DEFINE) Stop: 10/06/19 22:38 Last Admin: 09/06/19 23:08 Dose: 10 mg Hydralazine HCl (Apresoline) 100 mg PO BID [facility] Stop: 10/07/19 21:01 Last Admin: 09/10/19 08:24 Dose: 100 mg Albumin Human (Albumin 25%) 50 mls @ 100 mls/hr IV EVERY HD [facility] Stop: 10/07/19 13:01 Levofloxacin (Levaquin) 250 mg PO DAILY [facility]; Protocol Stop: 10/11/19 09:01 Mannitol (Mannitol 12.5 Gm/50 Ml Vial) 12.5 gm IV EVERY HD PRN PRN Reason: Titrate to SBP (MUST DEFINE) Stop: 10/07/19 12:16 Ondansetron HCl (Zofran) 4 mg IV Q8H PRN PRN Reason: NAUSEA / VOMITING Stop: 10/06/19 20:21 Last Admin: 09/08/19 06:05 Dose: 4 mg Promethazine HCl/Dextromethorphan (Phenergan Dm Oral Syrup) 5 ml PO Q6H PRN PRN Reason: COUGH Stop: 10/09/19 10:24 Last Admin: 09/10/19 08:26 Dose: 5 ml Sevelamer Carbonate (Renvela) 800 mg PO TIDWM [facility] Stop: 10/08/19 08:01 Last Admin: 09/10/19 16:38 Dose: 800 mg Sodium Chloride (Normal Saline Flush) 10 ml IV BID [facility] Stop: 10/06/19 21:01 Last Admin: 09/10/19 08:26 Dose: 10 ml Sodium Chloride (Normal Saline Flush) 10 ml IV BID [facility] Stop: 10/06/19 21:01 Last Admin: 09/10/19 08:26 Dose: Not Given Microbiology Results 09/06/19 18:15 Blood - Blood Aerobic Blood Culture - Preliminary No growth in 24 hours. 09/06/19 18:15 Blood - Blood Anaerobic Blood Culture - Preliminary No growth in 24 hours. 09/06/19 18:00 Blood - Blood Aerobic Blood Culture - Preliminary No growth in 24 hours. 09/06/19 18:00 Blood - Blood Anaerobic Blood Culture - Preliminary No growth in 24 hours. Assessment/ Plan: Nephrology Feeling better. No pain in the left foot. +LE Neuropathy CPS stable without CP or SOB. Cough improving. No acute events overnight. Vitals, medications, blood work and imaging reviewed in the chart. General: In no apparent distress, Oriented x3, Cooperative HEENT: Atraumatic, Mucous membr. moist/pink Neck: Supple Respiratory: Clear to auscultation bilaterally Cardiovascular: Regular rate/rhythm, Edema Gastrointestinal: Soft and benign, Non-distended Musculoskeletal: No clubbing, No contractures Integumentary: No rashes, No cyanosis Neurological: Normal speech Blood work reviewed in the chart. Hgb 8.2 Na 138; K 4.7 Imagings Data: EXAM DESCRIPTION: MRI - Foot Left Wo Cont - 09/07/2019 10:43 am CLINICAL HISTORY: Foot pain and swelling COMPARISON: X-ray September 06, 2019 TECHNIQUE: Axial sagittal and coronal images the left foot obtained were obtained were obtained FINDINGS: Abnormal signal is present within the proximal and mid fifth proximal phalanx compatible with osteomyelitis. A nondisplaced fracture is present. No soft tissue abscess seen. Lateral soft tissue ulceration IMPRESSION: Osteomyelitis involves the fifth proximal phalanx. A nondisplaced fracture this present Conclusions/Impression: A/ ESRD on HD. HTN with CKD/ CHF. Diastolic CHF, chronic. DM II with CKD. Anemia in CKD. MECCA/ Secondary HyperPTH. Left 5th Toe Osteomyelitis sp amputation. P/ Continue current POC and Medications. Next HD tomorrow. Continue abx. Follow up with podiatry. Wound care as ordered. No NSAIDs. AM labs. Daily weight. EXAM DESCRIPTION: RAD - Chest Pa And Lat (2 Views) - 09/09/2019 12:54 pm CLINICAL HISTORY: Chronci cough Chest pain. COMPARISON: Chest Single View dated 10/03/2016; Chest Pa And Lat (2 Views) dated 10/03/2016; Abdomen Acute Series dated 09/30/2016; Chest Single View dated 2015 FINDINGS: The lungs are clear. The heart is normal in size. No displaced fractures. IMPRESSION: No acute or concerning finding suspected.
[2019-09-11] MEDS: HYDROCODONE/APAP 5/325 MG TAB PO PRN ×2 (08:05→14:06)
[2019-09-11] MEDS: VITAMIN D 5,000 UNIT CAP PO SCH (08:06)
[2019-09-11] MEDS: SEVELAMER CARBONATE 800 MG TABLET PO SCH ×3 (08:07→16:40)
[2019-09-11] MEDS: levoFLOXacin 500 MG TAB PO SCH (08:07)
[2019-09-11] MEDS: CALCITROL 0.25 MCG CAP PO SCH (08:07)
[2019-09-11] MEDS: DILTIAZEM HCL 180 MG SR CAP PO SCH (08:07)
[2019-09-11] MEDS: FUROSEMIDE 40 MG TABLET PO SCH (08:08)
[2019-09-11] MEDS: FLUTICASONE 50MCG NASAL SPRAY NAS SCH (08:08)
[2019-09-11] MEDS: HYDRALAZINE HCL 25 MG TABLET PO SCH ×2 (08:08→20:31)
[2019-09-11] MEDS: DULERA 200/5 (MOMETASONE/FORMOTEROL) INHALER IH SCH ×2 (08:09→20:29)
[2019-09-11] MEDS: COLLAGENASE 30 GM OINTMENT TOP SCH (08:09)
--- NOTE | 2019-09-11 16:30 | P.PN ---
Date of Service: 09/11/19 Vital Signs Temp Pulse Resp BP Pulse Ox 98.6 F 94 H 18 152/73 H 96 09/11/19 12:00 09/11/19 12:00 09/11/19 14:06 09/11/19 12:00 09/11/19 14:06 Medications Acetaminophen (Tylenol -Extra Strength) 500 mg PO Q6H PRN PRN Reason: TEMP > 100' F Stop: 10/06/19 20:21 Hydrocodone Bitart/Acetaminophen ([place] 5/325) 1 tab PO Q6H PRN PRN Reason: Pain scale 5-7 (Moderate) Stop: 10/06/19 20:21 Last Admin: 09/11/19 14:06 Dose: 1 tab Calcitriol (Rocaltrol) 0.5 mcg PO DAILY JOLEEN Stop: 10/07/19 10:01 Last Admin: 09/11/19 08:07 Dose: 0.5 mcg Cholecalciferol (Vitamin D 5,000 Iu Cap) 5,000 unit PO DAILY JOLEEN Stop: 10/08/19 09:01 Last Admin: 09/11/19 08:06 Dose: 5,000 unit Collagenase (Santyl Ointment) 1 appl TOP DAILY JOLEEN Stop: 10/10/19 11:21 Last Admin: 09/11/19 08:09 Dose: 1 appl Diltiazem HCl (Cardizem Cd) 360 mg PO DAILY JOLEEN Stop: 10/07/19 10:01 Last Admin: 09/11/19 08:07 Dose: Not Given Docusate Sodium (Colace Cap) 100 mg PO DAILY PRN PRN Reason: CONSTIPATION Stop: 10/06/19 20:21 Fluticasone Propionate (Flonase 50mcg Nasal [place]) 2 sprays ANTONELLA DAILY JOLEEN Stop: 10/09/19 09:01 Last Admin: 09/11/19 08:08 Dose: 2 spr Furosemide (Lasix) 80 mg PO DAILY JOLEEN Stop: 10/08/19 09:01 Last Admin: 09/11/19 08:08 Dose: Not Given Gabapentin (Neurontin) 300 mg PO BEDTIME PRN PRN Reason: pain Stop: 10/07/19 09:02 Last Admin: 09/09/19 20:27 Dose: 300 mg Guaifenesin (Mucinex 600mg) 600 mg PO BID PRN PRN Reason: decongestion Stop: 10/10/19 09:01 Last Admin: 09/10/19 08:25 Dose: 600 mg Heparin Sodium (Porcine) (Heparin 1,000 Units/Ml) 6,000 unit IV EVERY HD PRN PRN Reason: FLUSH AFTER EACH USE Stop: 10/07/19 12:16 Last Admin: 09/07/19 15:28 Dose: 6,000 unit Heparin Sodium (Porcine) (Heparin 1,000 Units/Ml) 2,000 unit IV EVERY HD [facility] Stop: 09/14/19 11:01 Hydralazine HCl (Apresoline) 10 mg IV Q6HP PRN PRN Reason: Titrate to SBP (MUST DEFINE) Stop: 10/06/19 22:38 Last Admin: 09/06/19 23:08 Dose: 10 mg Hydralazine HCl (Apresoline) 100 mg PO BID [facility] Stop: 10/07/19 21:01 Last Admin: 09/11/19 08:08 Dose: Not Given Albumin Human (Albumin 25%) 50 mls @ 100 mls/hr IV EVERY HD [facility] Stop: 10/07/19 13:01 Levofloxacin (Levaquin) 250 mg PO DAILY [facility]; Protocol Stop: 10/11/19 09:01 Last Admin: 09/11/19 08:07 Dose: 250 mg Mannitol (Mannitol 12.5 Gm/50 Ml Vial) 12.5 gm IV EVERY HD PRN PRN Reason: Titrate to SBP (MUST DEFINE) Stop: 10/07/19 12:16 Ondansetron HCl (Zofran) 4 mg IV Q8H PRN PRN Reason: NAUSEA / VOMITING Stop: 10/06/19 20:21 Last Admin: 09/08/19 06:05 Dose: 4 mg Promethazine HCl/Dextromethorphan (Phenergan Dm Oral Syrup) 5 ml PO Q6H PRN PRN Reason: COUGH Stop: 10/09/19 10:24 Last Admin: 09/10/19 08:26 Dose: 5 ml Sevelamer Carbonate (Renvela) 800 mg PO TIDWM [facility] Stop: 10/08/19 08:01 Last Admin: 09/11/19 12:00 Dose: 800 mg Sodium Chloride (Normal Saline Flush) 10 ml IV BID [facility] Stop: 10/06/19 21:01 Last Admin: 09/11/19 08:09 Dose: 10 ml Sodium Chloride (Normal Saline Flush) 10 ml IV BID JOLEEN Stop: 10/06/19 21:01 Last Admin: 09/11/19 08:10 Dose: Not Given Microbiology Results 09/06/19 18:15 Blood - Blood Aerobic Blood Culture - Preliminary No growth in 24 hours. 09/06/19 18:15 Blood - Blood Anaerobic Blood Culture - Preliminary No growth in 24 hours. 09/06/19 18:00 Blood - Blood Aerobic Blood Culture - Preliminary No growth in 24 hours. 09/06/19 18:00 Blood - Blood Anaerobic Blood Culture - Preliminary No growth in 24 hours. Assessment/ Plan: Nephrology Seen and examined on HD. Doing well. CPS stable without CP or SOB. No acute events overnight. Vitals, medications, blood work and imaging reviewed in the chart. General: In no apparent distress, Oriented x3, Cooperative HEENT: Atraumatic, Mucous membr. moist/pink Neck: Supple Respiratory: Clear to auscultation bilaterally Cardiovascular: Regular rate/rhythm, Edema Gastrointestinal: Soft and benign, Non-distended Musculoskeletal: No clubbing, No contractures Integumentary: No rashes, No cyanosis Neurological: Normal speech Blood work reviewed in the chart. Hgb 8.2 Na 138; K 4.7 Imagings Data: EXAM DESCRIPTION: MRI - Foot Left Wo Cont - 09/07/2019 10:43 am CLINICAL HISTORY: Foot pain and swelling COMPARISON: X-ray September 06, 2019 TECHNIQUE: Axial sagittal and coronal images the left foot obtained were obtained were obtained FINDINGS: Abnormal signal is present within the proximal and mid fifth proximal phalanx compatible with osteomyelitis. A nondisplaced fracture is present. No soft tissue abscess seen. Lateral soft tissue ulceration IMPRESSION: Osteomyelitis involves the fifth proximal phalanx. A nondisplaced fracture this present Conclusions/Impression: A/ ESRD on HD. HTN with CKD/ CHF. Diastolic CHF, chronic. DM II with CKD. Anemia in CKD. MECCA/ Secondary HyperPTH. Left 5th Toe Osteomyelitis sp amputation. P/ Continue current POC and Medications. Next HD Wednesday. Continue abx. Follow up with podiatry. Wound care as ordered. No NSAIDs. AM labs. Daily weight. EXAM DESCRIPTION: RAD - Chest Pa And Lat (2 Views) - 09/09/2019 12:54 pm CLINICAL HISTORY: Chronci cough Chest pain. COMPARISON: Chest Single View dated 10/03/2016; Chest Pa And Lat (2 Views) dated 10/03/2016; Abdomen Acute Series dated 09/30/2016; Chest Single View dated 2015 FINDINGS: The lungs are clear. The heart is normal in size. No displaced fractures. IMPRESSION: No acute or concerning finding suspected.
--- NOTE | 2019-09-11 16:52 | P.PN ---
Subjective Date of Service: 09/11/19 Primary Care Provider: Dr. Peñaloza Chief Complaint: Chronic cough Patient has no new complaint. He underwent dialysis today. He has been afebrile. Physical Examination - Vital Signs Temperature: 98.3 F Blood Pressure: 153/70 Pulse: 100 Respirations: 18 Pulse Ox (%): 94 - Physical Exam General: Alert, In no apparent distress, Oriented x3 HEENT: Mucous membr. moist/pink Neck: Supple Respiratory: Clear to auscultation bilaterally, Normal air movement Cardiovascular: Regular rate/rhythm, Normal S1 S2 Gastrointestinal: Normal bowel sounds, Soft and benign, No tenderness Musculoskeletal: Other (Left 5th digits transmetatarsal amputation stump dressed.) Neurological: Normal strength at 5/5 x4 extr - Studies Medications List Reviewed: Yes Assessment And Plan - Current Problems (Diagnosis) (1) Osteomyelitis Current Visit: Yes Status: Acute Qualifiers: Osteomyelitis location: foot Laterality: left (2) Diabetes mellitus, type II Onset Date: 03/14/15 Current Visit: No Status: Chronic Qualifiers: 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 use Diabetes mellitus complication status: with kidney complications Diabetes mellitus complication detail: with chronic kidney disease Qualified Code(s): E11.9 - Type 2 diabetes mellitus without complications (3) ESRD (end stage renal disease) Onset Date: 10/01/16 Current Visit: No Status: Chronic (4) HTN (hypertension) Onset Date: 09/23/16 Current Visit: No Status: Chronic Qualifiers: Hypertension type: essential hypertension Qualified Code(s): I10 - Essential (primary) hypertension (5) Morbid obesity Onset Date: 03/14/15 Current Visit: No Status: Chronic - Plan Continue oral Levaquin Hemodialysis by Nephrology Dr. Smith recommend wound VAC for wound care. Patient is planned for discharge with home Health for wound care. Relatively group blood glucose readings noted. Continue home antihypertensives. Hydralazine p.r.n. for BP spikes.
[2019-09-11] MEDS: ONDANSETRON 4 MG/2 ML VIAL IV PRN (22:49)
[2019-09-12] MEDS: SEVELAMER CARBONATE 800 MG TABLET PO SCH ×3 (08:00→16:52)
[2019-09-12] MEDS: DULERA 200/5 (MOMETASONE/FORMOTEROL) INHALER IH SCH ×2 (09:00→20:18)
[2019-09-12] MEDS: COLLAGENASE 30 GM OINTMENT TOP SCH (09:00)
[2019-09-12] MEDS: DILTIAZEM HCL 180 MG SR CAP PO SCH (09:26)
[2019-09-12] MEDS: FUROSEMIDE 40 MG TABLET PO SCH (09:26)
[2019-09-12] MEDS: VITAMIN D 5,000 UNIT CAP PO SCH (09:27)
[2019-09-12] MEDS: HYDRALAZINE HCL 25 MG TABLET PO SCH ×2 (09:27→20:16)
[2019-09-12] MEDS: CALCITROL 0.25 MCG CAP PO SCH (09:27)
[2019-09-12] MEDS: levoFLOXacin 500 MG TAB PO SCH (09:27)
[2019-09-12] MEDS: FLUTICASONE 50MCG NASAL SPRAY NAS SCH (09:28)
[2019-09-12] MEDS: ONDANSETRON 4 MG/2 ML VIAL IV PRN (12:24)
--- NOTE | 2019-09-12 12:29 | P.DS ---
Admission Date: 09/06/19 Discharge Date: 09/13/19 Primary Care Provider: Dr. Peñaloza Disposition: DC HOME/HOME HEALTH CARE Discharge Condition: FAIR Reason for Admission: Chronic cough - Problems (1) Osteomyelitis Status: Acute Qualifiers: Osteomyelitis location: foot Laterality: left (2) Diabetes mellitus, type II Onset Date: 03/14/15 Status: Chronic Qualifiers: Diabetes mellitus retirement insulin use: with spanish tutor use Diabetes mellitus complication status: with kidney complications Diabetes mellitus complication detail: with chronic kidney disease (3) ESRD (end stage renal disease) Onset Date: 10/01/16 Status: Chronic (4) HTN (hypertension) Onset Date: 09/23/16 Status: Chronic Qualifiers: Hypertension type: essential hypertension Qualified Code(s): I10 - Essential (primary) hypertension (5) Morbid obesity Onset Date: 03/14/15 Status: Chronic Brief History of Present Illness: 53-year-old morbidly obese gentleman with a history of end-stage renal disease on hemodialysis, diabetes mellitus presented to the ED to be evaluated for left foot 5th digit ulceration. Patient had this ulceration for about 1 month and was dressing and with Betadine. X-ray of the foot reported cortical defect at the base of the 5th proximal phalanx suggesting osteomyelitis. The patient was admitted for further management. Hospital Course: Patient admitted to the medical floor and treated with aggressive antibiotic therapy. MRI of the foot confirmed osteomyelitis of the left 5th proximal phalanx of the foot. Arterial Doppler of the lower extremities reported significant peripheral artery disease in the bilateral posterior tibial arteries. He was seen by general surgery-Dr. Smith, the patient underwent trans metatarsal amputation of the left 5th digit. Deep tissue wound culture grew Staph aureus and Providencia which are sensitive to fluoroquinolones. Dr. Smith recommended wound VAC for wound care. The patient is discharged with a 2 week course of oral ciprofloxacin and home health for wound care. He will follow with Dr. Smith for wound care. He underwent his routine hemodialysis during the hospital stay. Vital Signs/Physical Exam: Temp Pulse Resp BP Pulse Ox 98.8 F 89 18 158/68 H 95 09/12/19 08:00 09/12/19 09:26 09/12/19 08:00 09/12/19 09:26 09/12/19 08:00 General: Alert, In no apparent distress, Oriented x3 HEENT: Mucous membr. moist/pink Respiratory: Clear to auscultation bilaterally, Normal air movement Cardiovascular: Regular rate/rhythm, Normal S1 S2 Gastrointestinal: Soft and benign, No tenderness Laboratory Data at Discharge: WBC 10.7 K/uL (4.3-10.9) 09/10/19 06:27 Hgb 8.1 g/dL (13.6-17.9) L 09/10/19 06:27 Hct 24.6 % (39.6-49.0) L 09/10/19 06:27 Plt Count 243 K/uL (152-406) 09/10/19 06:27 PT 14.0 SECONDS (9.5-12.5) H 09/07/19 05:13 INR 1.19 09/07/19 05:13 Sodium 135 mmol/L (136-145) L 09/10/19 06:27 Potassium 4.4 mmol/L (3.5-5.1) 09/10/19 06:27 BUN 38 mg/dL (7-18) H 09/10/19 06:27 Creatinine 10.80 mg/dL (0.55-1.3) H* D 09/10/19 06:27 Glucose 175 mg/dL (74-106) H 09/10/19 06:27 Uric Acid 3.5 mg/dL (3.5-7.2) 09/08/19 05:03 Phosphorus 4.6 mg/dL (2.5-4.9) 09/08/19 05:03 Magnesium 2.0 mg/dL (1.8-2.4) 09/10/19 06:27 Total Bilirubin 0.5 mg/dL (0.2-1.0) 09/07/19 05:13 AST 18 U/L (15-37) 09/07/19 05:13 ALT 24 U/L (12-78) 09/07/19 05:13 Alkaline Phosphatase 51 U/L (45-117) 09/07/19 05:13 Home Medications: Furosemide [Lasix*] 80 mg PO DAILY #30 tab 09/24/16 Hydralazine [Apresoline*] 100 mg PO BID 10/04/18 dilTIAZem HCl [Diltiazem 24Hr ER (Cd)] 360 mg PO DAILY 10/04/18 Calcitriol [Rocaltrol] 0.5 mcg PO DAILY 09/06/19 Gabapentin 300 mg PO BEDTIME PRN 09/06/19 Cholecalciferol (Vitamin D3) [Vitamin D 5,000 IU Cap*] 5,000 unit PO DAILY #30 cap 09/12/19 Ciprofloxacin HCl [Cipro 250 MG Tablet*] 250 mg PO BID #28 tab 09/12/19 Collagenase [Santyl Ointment*] 1 appl TOP DAILY #1 tube 09/12/19 Docusate [Colace Cap*] 100 mg PO DAILY PRN #30 cap 09/12/19 Fluticasone [Flonase 50MCG Nasal [place]*] 2 sprays ANTONELLA DAILY #1 btl 09/12/19 Mannitol 25% [Mannitol*] 12.5 gm IV EVERY HD PRN vial 09/12/19 Mometasone/Formoterol [Dulera 200 Mcg/5 Mcg Inhaler] 2 puff IH BID #1 inhaler Sevelamer Carbonate [Renvela*] 800 mg PO TIDWM #90 tablet 09/12/19 New Medications: Cholecalciferol (Vitamin D3) [Vitamin D 5,000 IU Cap*] 5,000 unit PO DAILY #30 cap Ciprofloxacin HCl [Cipro 250 MG Tablet*] 250 mg PO BID #28 tab Collagenase [Santyl Ointment*] 1 appl TOP DAILY #1 tube Docusate [Colace Cap*] 100 mg PO DAILY PRN #30 cap PRN Reason: Constipation Fluticasone [Flonase 50MCG Nasal [place]*] 2 sprays ANTONELLA DAILY #1 btl Mometasone/Formoterol [Dulera 200 Mcg/5 Mcg Inhaler] 2 puff IH BID #1 inhaler Sevelamer Carbonate [Renvela*] 800 mg PO TIDWM #90 tablet Diet: ADA Activity: Ad carmen Followup: Ed Smith MD [ACTIVE - CAN ADMIT] - (Please call to make an appointment. ) Time spent managing pt's care (in minutes): 42
[2019-09-12] MEDS: HYDROCODONE/APAP 5/325 MG TAB PO PRN (16:50)
[2019-09-13] MEDS: SEVELAMER CARBONATE 800 MG TABLET PO SCH ×2 (08:00→12:00)
[2019-09-13 08:32] VITALS: O2SAT 93
[2019-09-13] MEDS: CALCITROL 0.25 MCG CAP PO SCH (08:56)
[2019-09-13] MEDS: VITAMIN D 5,000 UNIT CAP PO SCH (08:56)
[2019-09-13] MEDS: levoFLOXacin 500 MG TAB PO SCH (08:56)
[2019-09-13] MEDS: FUROSEMIDE 40 MG TABLET PO SCH (08:58)
[2019-09-13] MEDS: FLUTICASONE 50MCG NASAL SPRAY NAS SCH (08:58)
[2019-09-13] MEDS: DULERA 200/5 (MOMETASONE/FORMOTEROL) INHALER IH SCH (08:58)
[2019-09-13] MEDS: DILTIAZEM HCL 180 MG SR CAP PO SCH (08:59)
[2019-09-13] MEDS: HYDRALAZINE HCL 25 MG TABLET PO SCH (08:59)
[2019-09-13 09:01] VITALS: BP 152/68
[2019-09-13] MEDS: COLLAGENASE 30 GM OINTMENT TOP SCH (09:01)
[2019-09-13 09:08] VITALS: TEMP 98.7
--- NOTE | 2019-09-13 18:27 | P.PN ---
Subjective Date of Service: 09/12/19 Primary Care Provider: Dr. Peñaloza Chief Complaint: Chronic cough Patient has no new complaint. He has been afebrile. Physical Examination - Vital Signs Temperature: 98.7 F Blood Pressure: 152/68 Pulse: 98 Respirations: 20 Pulse Ox (%): 92 - Physical Exam General: Alert, In no apparent distress, Oriented x3 Respiratory: Clear to auscultation bilaterally, Normal air movement Cardiovascular: Regular rate/rhythm, Normal S1 S2 Gastrointestinal: Soft and benign, No tenderness - Studies Medications List Reviewed: Yes Assessment And Plan - Current Problems (Diagnosis) (1) Osteomyelitis Status: Acute Qualifiers: Osteomyelitis location: foot Laterality: left (2) Diabetes mellitus, type II Onset Date: 03/14/15 Status: Chronic Qualifiers: Diabetes mellitus shelter insulin use: with watermelon harvesting supervisor use Diabetes mellitus complication status: with kidney complications Diabetes mellitus complication detail: with chronic kidney disease Qualified Code(s): E11.9 - Type 2 diabetes mellitus without complications (3) ESRD (end stage renal disease) Onset Date: 10/01/16 Status: Chronic (4) HTN (hypertension) Onset Date: 09/23/16 Status: Chronic Qualifiers: Hypertension type: essential hypertension Qualified Code(s): I10 - Essential (primary) hypertension (5) Morbid obesity Onset Date: 03/14/15 Status: Chronic - Plan Continue oral Levaquin Hemodialysis by Nephrology Awaiting wound VAC for wound care at home. Patient is planned for discharge with home Health. Continue home antihypertensives. Hydralazine p.r.n. for BP spikes.
== END 2019-09-13 12:16 | disposition home health service (06) | DRG 503 ==
LOC: ER 16:57 → ERHOLD 20:30 → 2ND 20:55
PROVIDERS: ADMIT Internal Medicine; ATTEND Internal Medicine
PROC: 0Y6Y0Z0 Detachment at Left 5th Toe, Complete, Open Approach (ICD-10-PCS; principal; 2019-09-08 11:00)
DX: M86.172 Other acute osteomyelitis, left ankle and foot (principal); N18.6 End stage renal disease; I13.2 Hypertensive heart and chronic kidney disease with heart failure and with stage 5 chronic kidney disease, or end stage renal disease; I50.32 Chronic diastolic (congestive) heart failure; Z68.41 Body mass index [BMI] 40.0-44.9, adult; N25.81 Secondary hyperparathyroidism of renal origin; B95.61 Methicillin susceptible Staphylococcus aureus infection as the cause of diseases classified elsewhere; E11.22 Type 2 diabetes mellitus with diabetic chronic kidney disease; E11.65 Type 2 diabetes mellitus with hyperglycemia; E66.01 Morbid (severe) obesity due to excess calories; D63.1 Anemia in chronic kidney disease; R05 Cough; Z99.2 Dependence on renal dialysis
CPT/HCPCS: 36415; 71046; 80048; 80053; 80202; 82607; 82728; 82947; 83036; 83540; 83735; 84100; 84145; 84443; 84466; 84550; 85014; 85018; 85025; 85610; 87040; 87070; 87077; 87186; 87205; 88305; 88311; 90935; 93923; 96365; 96367; 99285; J0330; J0360; J0690; J1644; J2250; J2405; J2543; J2550; J2704; J3010; J3370; J3590; J7030; J7040; J7606; Q4081

== ENCOUNTER 2019-11-02 09:12 | Inpatient (IN) | payer OTHER ==
[2019-11-02] MEDS ORDERED: HYDROCODONE/APAP 10/325 TAB ONE (09:55)
[2019-11-02 10:29] LABS: Absolute Lymphocytes (CBC) 0.5 K/uL (0.7-4.9); Basophils % 0.4 % (0-1.3); Hematocrit 23.8 % (39.6-49.0); Lymphocytes % 3.2 % (15.3-44.8); MPV 8.8 fL (7.6-11.3)
[2019-11-02 10:56] LABS: Potassium 6.5 mmol/L (3.5-5.1)
[2019-11-02] MEDS ORDERED: VANCOMYCIN/NS 1 gm 1 GM/250 ML BAG IV ONE (11:00)
--- NOTE | 2019-11-02 11:04 | ER ---
Nurse's Notes [facility] Name: Constantin Holloway Age: 53 yrs Sex: Male : 1965 Arrival Date: 11/02/2019 Time: 09:14 Bed 18 Private MD: Diagnosis: Diabetic wound infection of foot;Hyperkalemia;End stage renal disease Presentation: 11/02 09:36 Presenting complaint: Patient states: left foot pain mostly on the arch of the foot, pt sv has had an ongoing wound where he has been to the [facility] and had a wound vac for about 2-3 months and had it taken off about a week ago. Sent over here by Dr Smith. Transition of care: patient was not received from another setting of care. Onset of symptoms was November 02, 2019. Care prior to arrival: None. 09:36 Method Of Arrival: Wheelchair sv 09:36 Acuity: NIDIA 2 sv 09:40 Risk Assessment: Do you want to hurt yourself or someone else? Patient reports no sv desire to harm self or others. Initial Sepsis Screen: Does the patient meet any 2 criteria? HR > 90 bpm. No. Patient's initial sepsis screen is negative. Does the patient have a suspected source of infection? Yes: Skin breakdown/wound. Triage Assessment: 09:40 General: Appears in no apparent distress. uncomfortable, well developed, Behavior is sv calm, cooperative, appropriate for age. Pain: Complains of pain in left foot Pain currently is 10 out of 10 on a pain scale. Is continuous, Aggravated by increased activity, repositioning, weight bearing. Neuro: Level of Consciousness is awake, alert, obeys commands, Oriented to person, place, time, situation, Moves all extremities. Full function Speech is normal. Respiratory: Airway is patent Respiratory effort is even, unlabored, Respiratory pattern is regular, symmetrical. Derm: Skin is pink, warm \T\ dry. Wound noted lateral side of left foot and left fifth toe Wound is unable to see the wound bed, pt has green drainage noted on the area. Pt has a previous left 5th toe amputation and has had an ongoing wound. Musculoskeletal: Range of motion: intact in all extremities. Historical: - Allergies: 09:49 No Known Allergies; sv - PMHx: 09:49 CHF; Dialysis; Diabetes - NIDDM; Hypertension; Renal Disease; sv - PSHx: 09:49 Catheter palcement to Right arm; RUE HD Fistula; sv - Immunization history:: Flu vaccine status is unknown. - Coronavirus screen:: The patient has NOT traveled to [place], [place], or [place] in the past 14 days. Proceed with normal triage process as indicated. The patient has NOT had contact with known/suspected case of Coronavirus? Proceed with normal triage procedures. - Family history:: not pertinent. - Social history:: Smoking status: Patient reports use of chewing tobacco. - Hospitalizations: : No recent hospitalization is reported. - Ebola Screening: : No symptoms or risks identified at this time. Screenin:36 Abuse screen: Denies threats or abuse. Denies injuries from another. Nutritional sv screening: No deficits noted. Tuberculosis screening: No symptoms or risk factors identified. Fall Risk None identified. Assessment: 10:23 Reassessment: Patient appears in no apparent distress at this time. No changes from sv previously documented assessment. Patient and/or family updated on plan of care and expected duration. Pain level reassessed. Patient is alert, oriented x 3, equal unlabored respirations, skin warm/dry/pink. 11:46 Reassessment: Patient appears in no apparent distress at this time. No changes from sv previously documented assessment. Patient and/or family updated on plan of care and expected duration. Pain level reassessed. Patient is alert, oriented x 3, equal unlabored respirations, skin warm/dry/pink. Waiting for admission orders by the hospitalist. 14:18 Reassessment: Attempted to call report, nurse to call back. sv Vital Signs: 09:47 BP 195 / 95; Pulse 125; Resp 17; Temp 99.5; Pulse Ox 92% on R/A; Weight 148.32 kg; sv Height 6 ft. 0 in. (182.88 cm); Pain 10/10; 10:23 BP 180 / 84; Pulse 121; Resp 20; Temp 99.1(O); Pulse Ox 100% on R/A; mh5 12:10 BP 178 / 71; Pulse 116; Resp 18; Temp 99.5(TE); Pulse Ox 98% ; mh5 13:01 BP 161 / 82; Pulse 109; Resp 16; Pulse Ox 100% ; sv 09:47 Body Mass Index 44.35 (148.32 kg, 182.88 cm) sv ED Course: 09:14 Patient arrived in ED. rg4 09:26 Sole Aguilar, RN is Primary Nurse. sv 09:27 Demarco Chappell MD is Attending Physician. rn 09:36 Arm band placed on Patient placed in an exam room, on a stretcher, on media monitor, sv on pulse oximetry. 09:36 Patient has correct armband on for positive identification. Placed in gown. Bed in low sv position. Call light in reach. Side rails up X2. Adult w/ patient. surveillance monitor on. Pulse ox on. NIBP on. Door closed. Warm blanket given. Head of bed elevated. 09:41 Triage completed. sv 09:45 Missed attempt(s): 20 gauge in left antecubital area. mh5 10:05 First set of blood cultures drawn by me. Inserted saline lock: 22 gauge in left hand, sv using aseptic technique. Blood collected. Flushed left hand with 2 ml normal saline. 10:10 Missed 2nd blood culture attempt to the left AC. sv 10:20 X-ray(s) taken. ah 10:26 Wound Culture Sent. sv 10:26 XRAY Foot LEFT 3 View Sent. sv 10:26 Basic Metabolic Panel Sent. sv 10:26 CBC with Diff Sent. sv 10:26 Blood Culture Adult (2) Sent. sv 10:40 Notified ED physician of a critical lab result(s). hemoglobin 7.5. ah 10:52 Notified ED physician of a critical lab result(s). potassium 6.5 and creatinine 11.7. 11:02 Troy Madrid MD is Hospitalizing Provider. rn 11:11 Amaury Mcginnis MD is Hospitalizing Provider. rn 11:43 Awaiting bed assignment. sv 14:24 No provider procedures requiring assistance completed. Patient did not have IV access sv during this emergency room visit. 14:39 Patient moved back from [facility]. sv Administered Medications: 09:57 Drug: [place] 10 mg-325 mg 1 tabs {Note: RASS1.} Route: PO; sv 11:22 Follow up: Response: No adverse reaction; Pain is decreased; RASS: Drowsy (-1) sv 11:22 Drug: D50W 50 ml Route: IVP; Site: left hand; sv 11:42 Follow up: Response: No adverse reaction sv 11:22 Drug: Kayexalate 15 grams Route: PO; sv 11:42 Follow up: Response: No adverse reaction sv 11:23 Drug: Insulin Regular Human 5 units {Co-Signature: iw (Shantel Jacob RN).} Route: IVP; sv Site: left hand; 11:42 Follow up: Response: No adverse reaction sv 11:41 Drug: vancoMYCIN 1 grams Route: IVPB; Infused Over: 2 hrs; Site: left hand; sv 14:10 Follow up: Response: No adverse reaction; IV Status: Completed infusion; IV Intake: sv 250ml Intake: 14:10 IV: 250ml; Total: 250ml. sv Output: 13:01 Urine: 300ml (Voided); Total: 300ml. sv Outcome: 11:02 Decision to Hospitalize by Provider. rn 14:23 Admitted to Med/surg accompanied by tech, via wheelchair, room 214, with oxygen, with sv chart, Report called to Jovana BEATTY 14:23 Condition: stable 14:23 Instructed on the need for admit. 14:40 Patient left the ED. sv Signatures: Sole Aguilar RN RN Demarco Chappell MD MD rn Garcia, Rubi rg4 Shawanda Boykin 5 Sofy Rivera RN RN Shantel Jacob RN iw Corrections: (The following items were deleted from the chart) 09:58 09:36 Acuity: NIDIA 3 sv sv
--- NOTE | 2019-11-02 11:05 | EDPHYS ---
Physician Documentation [facility] Name: Constantin Holloway Age: 53 yrs Sex: Male : 1965 Arrival Date: 11/02/2019 Time: 09:14 Bed 18 Private MD: ED Physician Demarco Chappell HPI: 11/02 09:40 This 53 yrs old Black Male presents to ER via Unassigned with complaints of Foot rn Infection. 09:40 the patient presents with a swollen area of the left foot. Description: draining, rn erythematous, swollen. Onset: The symptoms/episode began/occurred at an unknown time. Possible cause(s): unknown. Associated signs and symptoms: Pertinent positives: drainage, swelling, Pertinent negatives: fever. Modifying factors: the symptoms are alleviated by nothing, the symptoms are aggravated by walking, pressure, squeezing the lesion and expressing the contents, touching. Severity of symptoms: At their worst the symptoms were moderate, in the emergency department the symptoms are unchanged. The patient has experienced similar episodes in the past. The patient has been recently seen by a physician:. Sent here by Dr. Smith for admission to hospitalist service, + diabetic foot infection with increased drainage.. Historical: - Allergies: 09:49 No Known Allergies; sv - PMHx: 09:49 CHF; Dialysis; Diabetes - NIDDM; Hypertension; Renal Disease; sv - PSHx: 09:49 Catheter palcement to Right arm; RUE HD Fistula; sv - Immunization history:: Flu vaccine status is unknown. - Coronavirus screen:: The patient has NOT traveled to [place], [place], or [place] in the past 14 days. Proceed with normal triage process as indicated. The patient has NOT had contact with known/suspected case of Coronavirus? Proceed with normal triage procedures. - Family history:: not pertinent. - Social history:: Smoking status: Patient reports use of chewing tobacco. - Hospitalizations: : No recent hospitalization is reported. - Ebola Screening: : No symptoms or risks identified at this time. ROS: 09:40 Constitutional: Negative for fever, chills, and weight loss, Eyes: Negative for injury, rn pain, redness, and discharge, Cardiovascular: Negative for chest pain, palpitations, and edema, Respiratory: Negative for shortness of breath, cough, wheezing, and pleuritic chest pain, Abdomen/GI: Negative for abdominal pain, nausea, vomiting, diarrhea, and constipation, MS/Extremity: + left foot swelling and pain Skin: Negative for injury, rash, and discoloration, Neuro: Negative for headache, weakness, numbness, tingling, and seizure. Exam: 09:40 Constitutional: Overweight male, no acute distress Head/Face: Normocephalic, rn atraumatic. Cardiovascular: Tachycardic, regular Respiratory: No increased work of breathing, no retractions or nasal flaring. Abdomen/GI: soft, non-tender Skin: Warm, dry MS/ Extremity: Pulses equal, no cyanosis. Neurovascular intact. Full, normal range of motion. Equal circumference. Neuro: Awake and alert, GCS 15 Vital Signs: 09:47 BP 195 / 95; Pulse 125; Resp 17; Temp 99.5; Pulse Ox 92% on R/A; Weight 148.32 kg; sv Height 6 ft. 0 in. (182.88 cm); Pain 10/10; 10:23 BP 180 / 84; Pulse 121; Resp 20; Temp 99.1(O); Pulse Ox 100% on R/A; mh5 12:10 BP 178 / 71; Pulse 116; Resp 18; Temp 99.5(TE); Pulse Ox 98% ; mh5 13:01 BP 161 / 82; Pulse 109; Resp 16; Pulse Ox 100% ; sv 09:47 Body Mass Index 44.35 (148.32 kg, 182.88 cm) sv MDM: 09:27 Patient medically screened. rn 11:00 Differential diagnosis: abscess, cellulitis. Data reviewed: vital signs, nurses notes, architect intern test result(s), radiologic studies, plain films, and as a result, I will admit patient. Counseling: I had a detailed discussion with the patient and/or guardian regarding: the historical points, exam findings, and any diagnostic results supporting the discharge/admit diagnosis, lab results, radiology results, the need for further work-up and treatment in the hospital. Admission orders: after a detailed discussion of the patient's condition and case, the admit orders are written by me. Special discussion:. 11/02 09:40 Order name: CBC with Diff rn 11/02 09:40 Order name: Basic Metabolic Panel rn 11/02 09:40 Order name: Blood Culture Adult (2) rn 11/02 09:40 Order name: Wound Culture rn 11/02 10:35 Order name: CBC with Automated Diff; Complete Time: 10:42 EDMS 11/02 10:57 Order name: Basic Metabolic Panel; Complete Time: 10:57 EDMS 11/02 09:40 Order name: IV Start; Complete Time: 10:26 rn 11/02 09:40 Order name: XRAY Foot LEFT 3 View rn 11/02 13:52 Order name: Phosphorus EDMS Administered Medications: 09:57 Drug: [place] 10 mg-325 mg 1 tabs {Note: RASS1.} Route: PO; sv 11:22 Follow up: Response: No adverse reaction; Pain is decreased; RASS: Drowsy (-1) sv 11:22 Drug: D50W 50 ml Route: IVP; Site: left hand; sv 11:42 Follow up: Response: No adverse reaction sv 11:22 Drug: Kayexalate 15 grams Route: PO; sv 11:42 Follow up: Response: No adverse reaction sv 11:23 Drug: Insulin Regular Human 5 units {Co-Signature: iw (Shantel Jacob RN).} Route: IVP; sv Site: left hand; 11:42 Follow up: Response: No adverse reaction sv 11:41 Drug: vancoMYCIN 1 grams Route: IVPB; Infused Over: 2 hrs; Site: left hand; sv 14:10 Follow up: Response: No adverse reaction; IV Status: Completed infusion; IV Intake: sv 250ml Disposition: 11/02/19 11:02 Hospitalization ordered by Amaury Mcginnis for Inpatient Admission. Preliminary diagnosis are Diabetic wound infection of foot, Hyperkalemia, End stage renal disease. - Bed requested for Telemetry/MedSurg (Inpatient). - Status is Inpatient Admission. sv - Condition is Stable. - Problem is an ongoing problem. - Symptoms have improved. Signatures: Dispatcher [employer] EDSole Callejas RN RN sv Nieto, Roman, MD MD rn Martinez, Eric em1 Shantel lawson Corrections: (The following items were deleted from the chart) 09:49 09:40 Constitutional: Overweight male, no acute distress Head/Face: Normocephalic, rn atraumatic. Cardiovascular: Regular rate and rhythm. No pulse deficits. Respiratory: No increased work of breathing, no retractions or nasal flaring. Abdomen/GI: soft, non-tender Skin: Warm, dry MS/ Extremity: Pulses equal, no cyanosis. Neurovascular intact. Full, normal range of motion. Equal circumference. Neuro: Awake and alert, GCS 15 rn 11:11 11:02 Hospitalization Ordered by Troy Madrid MD for Inpatient Admission. Preliminary rn diagnosis is Diabetic wound infection of foot; Hyperkalemia; End stage renal disease. Bed requested for Telemetry/MedSurg (Inpatient). Status is Inpatient Admission. Condition is Stable. Problem is an ongoing problem. Symptoms have improved. rn 13:56 11:11 11/02/2019 11:02 Hospitalization Ordered by Amaury Mcginnis MD for Inpatient em1 Admission. Preliminary diagnosis is Diabetic wound infection of foot; Hyperkalemia; End stage renal disease. Bed requested for Telemetry/MedSurg (Inpatient). Status is Inpatient Admission. Condition is Stable. Problem is an ongoing problem. Symptoms have improved. rn 14:40 13:56 11/02/2019 11:02 Hospitalization Ordered by Amaury Mcginnis MD for Inpatient sv Admission. Preliminary diagnosis is Diabetic wound infection of foot; Hyperkalemia; End stage renal disease. Bed requested for Telemetry/MedSurg (Inpatient). Status is Inpatient Admission. Condition is Stable. Problem is an ongoing problem. Symptoms have improved. em1
[2019-11-02] MEDS ORDERED: D50W 25 GM/50 ML SYRINGE/VIAL IV ONE (11:07)
[2019-11-02] MEDS ORDERED: INSULIN -REGULAR HUMAN 50 UNIT/0.5 ML ML ONE (11:07)
[2019-11-02] MEDS ORDERED: SOD POLYSTYREN SUL 15 GM/60 ML UCUP ONE (11:07)
--- NOTE | 2019-11-02 11:16 | RAD REPORT ---
EXAM DESCRIPTION: RAD - Foot Left 3 View - 11/02/2019 10:39 am CLINICAL HISTORY: Foot pain, diabetic foot ulcer COMPARISON: MRI September 07, 2019, plain films left foot September 06, 2019 FINDINGS: Since the prior examination the fifth toe and distal fifth metatarsal have been resected. There is slightly irregular margin at the fifth metatarsal osteotomy site. This is not outside of nor mal range given the relatively recent surgery. No definitive bone destruction in the fifth metatarsal . Lucent changes are present in the fourth metatarsal head with cortical thinning and possible disrupti on present. There are erosive changes along the lateral base of the fourth proximal phalanx. These ar e new findings from prior imaging. The first- third metatarsals and toes are intact. There is underly ing degenerative change present. No air or foreign body in the soft tissues. Edit IMPRESSION: Osteomyelitis changes involving the fourth metatarsal head and base of the fourth proxim al phalanx. Postsurgical changes with fifth toe and fifth metatarsal head amputation. No definitive bone destruct ion at the fifth metatarsal osteotomy site.
[2019-11-02] MEDS ORDERED: ALBUTEROL 2.5 MG/3 ML NEB SOL NEB PRN (12:46)
[2019-11-02] MEDS ORDERED: SOD POLYSTYREN SUL 15 GM/60 ML UCUP PO ONE (12:53)
[2019-11-02] MEDS ORDERED: HYDRALAZINE HCL 20 MG/ML VIAL IV PRN (12:58)
[2019-11-02] MEDS ORDERED: NA CHLORIDE 0.9% 1,000 ML IV PRN (13:56)
[2019-11-02] MEDS ORDERED: MANNITOL 25% 12.5 GM/50 ML VIAL IV PRN (13:56)
[2019-11-02] MEDS ORDERED: ALBUMIN HUMAN 25% 50 ML IV SCH (14:00)
--- NOTE | 2019-11-02 14:50 | RAD REPORT ---
EXAM DESCRIPTION: MRI - Foot Left Wo Cont - 11/02/2019 2:31 pm CLINICAL HISTORY: Left foot pain, swelling, gangrene COMPARISON: August 2019 MRI TECHNIQUE: Axial, sagittal and coronal magnetic resonance imaging of the left foot obtained FINDINGS: Abnormal signal involves the fourth metatarsal head and neck and most of the fourth proxim al phalanx consistent with osteomyelitis. The fifth phalanx has been resected. A portion of the fifth metatarsal has been resected. Abnormal si gnal is present within the remaining distal and mid fifth proximal phalanx. Diffuse edema is present within the subcutaneous tissues. Ulceration involves the lateral forefoot so ft tissues IMPRESSION: Osteomyelitis fourth metatarsal and fourth proximal phalanx Abnormal signal involving the fifth metatarsal. Given that the surgery was over 1 month ago it is pro bable that osteomyelitis is present
[2019-11-02] MEDS: MORPHINE 2 MG/ML SYR IV PRN ×2 (16:03→20:44)
[2019-11-02] MEDS: ACETAMINOPHEN 500 MG TAB PO PRN (16:03)
[2019-11-02] MEDS: INSULIN -REGULAR HUMAN 50 UNIT/0.5 ML ML SQ SCH ×2 (16:04→21:00)
[2019-11-02] MEDS: SEVELAMER CARBONATE 800 MG TABLET PO SCH (16:27)
--- NOTE | 2019-11-02 19:00 | P.CNS ---
Date of Consult: 11/02/19 Reason for Consult: ESRD Requesting Physician: Amaury Mcginnis Chief Complaint: Left foot pain History of Present Illness: 53 yo BM CKD, CHF presented to the ER with moderate, progressive left foot arch pain with associated edema and erythema in the setting of a left foot infection. No modifying fx. 09:40 This 53 yrs old Black Male presents to ER via Unassigned with complaints of Foot rn Infection. 09:40 the patient presents with a swollen area of the left foot. Description: draining, rn erythematous, swollen. Onset: The symptoms/episode began/occurred at an unknown time. Possible cause(s): unknown. Associated signs and symptoms: Pertinent positives: drainage, swelling, Pertinent negatives: fever. Modifying factors: the symptoms are alleviated by nothing, the symptoms are aggravated by walking, pressure, squeezing the lesion and expressing the contents, touching. Severity of symptoms: At their worst the symptoms were moderate, in the emergency department the symptoms are unchanged. The patient has experienced similar episodes in the past. The patient has been recently seen by a physician:. Sent here by Dr. Smith for admission to hospitalist service, + diabetic foot infection with increased drainage.. Allergies No Known Drug Allergies Allergy (Mild, Verified 11/02/19 14:58) Anaphylaxis Home medications list reviewed: Yes Home Medications: Furosemide [Lasix*] 80 mg PO DAILY #30 tab 09/24/16 Hydralazine [Apresoline*] 100 mg PO BID 10/04/18 dilTIAZem HCl [Diltiazem 24Hr ER (Cd)] 360 mg PO DAILY 10/04/18 Gabapentin 300 mg PO BEDTIME PRN 09/06/19 Sevelamer Carbonate [Renvela*] 800 mg PO TIDWM #90 tablet 09/12/19 Calcitriol [Rocaltrol] 0.5 mg PO M,W,F 11/02/19 Darbepoetin Darin in Polysorbat [Aranesp] 60 mcg SQ WMP 11/02/19 Doxazosin Mesylate 2 mg PO DAILY 11/02/19 Folic Acid/Vit B Complex and C [Dialyvite 800 Chewable Wafer] 800 mcg PO DAILY 11/02/19 Sildenafil Citrate 100 mg PO DAILY 11/02/19 - Past Medical/Surgical History Diabetic: Yes -: CHF -: HTN -: IDDM -: RENAL DISEASE -: HD -: LAP NEGRITO -: left 5th toe amputation - Family History Mom Medical History: Cancer Notes: Breast Cancer - Social History Smoking Status: Unknown if ever smoked Alcohol use: No CD- Drugs: No Caffeine use: No Place of Residence: Home Review of Systems 10-point ROS is otherwise unremarkable General: Weakness, Malaise Cardiovascular: Edema Integumentary: Lesions Physical Examination Temp Pulse Resp BP Pulse Ox 100 F 112 H 18 179/84 H 100 11/02/19 16:15 11/02/19 16:15 11/02/19 16:33 11/02/19 16:15 11/02/19 16:33 General: In no apparent distress, Oriented x3, Cooperative HEENT: Atraumatic Neck: Supple Respiratory: Clear to auscultation bilaterally, Normal air movement Cardiovascular: Regular rate/rhythm, No rubs, Edema Gastrointestinal: Soft and benign, Non-distended, No guarding Musculoskeletal: No clubbing, No contractures Integumentary: Skin breakdown, Skin lesion, Tenderness/swelling, Erythema Neurological: Normal speech Laboratory Data (last 24 hrs) 11/02/19 10:05: Phosphorus 6.1 H 11/02/19 10:05: Sodium 135 L, Potassium 6.5 H*, BUN 85 H, Creatinine 11.70 H*, Glucose 111 H 11/02/19 10:05: WBC 14.5 H, Hgb 7.5 L*, Hct 23.8 L, Plt Count 264 Imagings Data: EXAM DESCRIPTION: MRI - Foot Left Wo Cont - 11/02/2019 2:31 pm CLINICAL HISTORY: Left foot pain, swelling, gangrene COMPARISON: August 2019 MRI TECHNIQUE: Axial, sagittal and coronal magnetic resonance imaging of the left foot obtained FINDINGS: Abnormal signal involves the fourth metatarsal head and neck and most of the fourth proximal phalanx consistent with osteomyelitis. The fifth phalanx has been resected. A portion of the fifth metatarsal has been resected. Abnormal signal is present within the remaining distal and mid fifth proximal phalanx. Diffuse edema is present within the subcutaneous tissues. Ulceration involves the lateral forefoot soft tissues IMPRESSION: Osteomyelitis fourth metatarsal and fourth proximal phalanx Abnormal signal involving the fifth metatarsal. Given that the surgery was over 1 month ago it is probable that osteomyelitis is present. EXAM DESCRIPTION: RAD - Foot Left 3 View - 11/02/2019 10:39 am CLINICAL HISTORY: Foot pain, diabetic foot ulcer COMPARISON: MRI September 07, 2019, plain films left foot September 06, 2019 FINDINGS: Since the prior examination the fifth toe and distal fifth metatarsal have been resected. There is slightly irregular margin at the fifth metatarsal osteotomy site. This is not outside of normal range given the relatively recent surgery. No definitive bone destruction in the fifth metatarsal. Lucent changes are present in the fourth metatarsal head with cortical thinning and possible disruption present. There are erosive changes along the lateral base of the fourth proximal phalanx. These are new findings from prior imaging. The first- third metatarsals and toes are intact. There is underlying degenerative change present. No air or foreign body in the soft tissues. Edit IMPRESSION: Osteomyelitis changes involving the fourth metatarsal head and base of the fourth proximal phalanx. Postsurgical changes with fifth toe and fifth metatarsal head amputation. No definitive bone destruction at the fifth metatarsal osteotomy site. Conclusions/Impression: A/ ESRD on HD. Hyponatremia. Hyperkalemia. Hypocalcemia. HypoPO4. HTN with CKD/ CHF. DM II with CKD. DM II with foot ulcer. Diastolic CHF, chronic. Anemia in CKD. MECCA/ Secondary HyperPTH. Osteomyelitis of left lateral foot. P/ Continue current POC and medications. Arrange for acute HD. Seen and examined at the start of HD. Give Epo. Restart home medications as indicated. Continue abx. Monitor vanco level. Surgery to evaluate the patient. No NSAIDs. AM labs. Daily weight. Thank you kindly for the consultation. Case reviewed with Dr. Mcginnis
[2019-11-02] MEDS ORDERED: EPOETIN ALFA 10,000 UNIT/ML VIAL SQ ONE (20:00)
[2019-11-02] MEDS: LACTOBACILLUS/ACIDOPHILUS TAB PO SCH (20:48)
[2019-11-02] MEDS: HYDRALAZINE HCL 25 MG TABLET PO SCH (20:48)
[2019-11-02] MEDS: HEPARIN 5000 UNIT/ML 1 ML VIAL SQ SCH (20:49)
[2019-11-02] MEDS ORDERED: EPOETIN ALFA 10,000 UNIT/ML VIAL ONE (21:12)
[2019-11-02 22:32] LABS: Urine Appearance CLEAR; Urine Bilirubin NEGATIVE (NEG); Urine Blood 1+ (NEG); Urine Color YELLOW; Urine Glucose NEGATIVE (NEG); Urine Protein 2+ (NEG); Urine Urobilinogen 0.2 mg/dL (0.2-1.0)
[2019-11-02 22:33] LABS: Urine Microscopic Reflex ORDER UMIC
[2019-11-02 23:49] LABS: Urine Bacteria 20-50 /HPF (NONE SEEN); Urine Culture Reflex Order REFLEXED
--- NOTE | 2019-11-03 01:28 | HP ---
Date of Admission: 11/02/2019 Presenting Complaint: Left foot ulcer. History Of Present Illness: Mr. Constantin Holloway is a 53-year-old male with past medic al history of HTN, DM, ESRD on HD since the last 3 years, Wednesday, , Wednesday, currently at [facility] for home program training, previously followed with Dr. Peñaloza, who developed left fifth digit gangrene 1 month ago and had amputation of the gangrene as well as debridement of the area. Post alondra mell, he continued to have poor wound healing despite wound VAC placement. He was seen at the wound clinic today and states to have new onset infection of the debrided area and he has been sent for ant ibiotics, to rule out osteomyelitis. Patient admits to pain with intermittent numbness over the lowe r extremity. He admits to new onset shortness of breath while in the ED, but denies any chest pain o r fever. He is due for dialysis today. He admits to chronic lower extremity edema. He states he do es not check his home glucose at home, but last check in the clinic was in the 120s. He , unable to recall any of his medications today. Past Medical History: Significant for hypertension, diabetes mellitus, ESRD on HD, history of presum ed diastolic CHF, history of chronic lower extremity foot ulcer. Past Surgical History: Right upper extremity HD fistula. Allergies: NO KNOWN DRUG ALLERGIES. Family History: Significant for hypertension, DM, but no renal disease. Home Medications: Currently unknown. Review of old records done. Awaiting obtaining medications fr om his pharmacy. Review of Systems: All systems reviewed x14 were negative except as mentioned above. Physical Examination: Vital Signs: On presentation, current vitals of 195/95, pulse of 125, respiratory rate of 17, temp 9 9.5, O2 saturation 92 on room air, 100% on 1 L, weight of 148 kg. General: Morbidly obese male, sitting up in bed, on nasal cannula O2 1 L. HEENT: Atraumatic, normocephalic. No periorbital edema. [place] conjunctivae. Moist oral mucosa. Neck: No JVD. No carotid bruit. Respiratory: Decreased breath sounds at the bases, otherwise good air entry in the upper lung zones. Cardiovascular: S1, S2. Mildly tachycardic, but regular. No murmurs. Left upper extremity with AV fistula with good bruit. GI: Obese abdomen, but soft. Bowel sounds positive. No organomegaly. Rectal: Deferred. Musculoskeletal: 1+ chronic lymphedema in both lower extremities. Large area of lateral border of t he left foot with granulating ulcer extending to the base of the amputated fifth digit. No overt pus drainage noted. Desquamated, dry plantar surface of both extremities, but no other open ulcers. Neuro: Patient is alert, oriented. Cranial nerves 2 through 12 grossly intact. Laboratory Data: Wound culture was obtained, but pending. X-ray of left foot shows osteomyelitis changes involving the fourth metatarsal head and base of the f ourth proximal phalanx. Postsurgical changes with the fifth toe, fifth metatarsal head amputation no last. No bone destruction at the fifth metatarsal osteotomy site. WBC of 14.5, hemoglobin 7.5, platelets 264. Sodium 135, potassium 6.5, bicarb 25, creatinine 11.7, f asting glucose of 111, calcium 8.2. Impression: 1.Left fourth digit osteomyelitis. 2.Left fifth toe amputated and nail bed with cellulitis. 3.Hyperkalemia. 4.End-stage renal disease on hemodialysis. 5.Hypertension, uncontrolled. 6.Diabetes mellitus. Plan: We will admit patient to inpatient status. My impression for the followin.Left foot osteomyelitis-involving the fourth metatarsal and fourth digit. We will obtain MRI to f urther confirm and rule out involvement of the other toe/digit. We will continue patient on vancomyc in post dialysis for now, 1 dose already given in the ED. We will consult Pharmacy to dose. If abse nt, we will defer debridement and possible surgical intervention to Dr. Smith. We will consult wound care team for dressing. We will also consult Case Management to start option of IV antibiotics for the next 6-week arrangement; although, depending on culture, antibiotics may be given as vancomycin p ost dialysis. 2.End-stage renal disease with hyperkalemia. Stat consult to Nephrology discussed while we give Nora exalate, insulin, as well as calcium gluconate now. Dialysis nurse as well as Dr. Peñaloza, the kyawe nt's previous rn ed discussed with today. We will follow post dialysis. 3.Do low-potassium bath. 4.Anemia, unclear since patient have mild fluid overload. We will obtain iron panel as well as defe r to Nephrology to continue Epogen. We will hold of PRBC for now except hemoglobin less than 7. 5.Hypertension, uncontrolled. Previous home medications include hydralazine, we will do IV p.r.n. h ydralazine for now. We will obtain full home med list and adjust medications post dialysis after ult rafiltration. 6.Diabetes mellitus. Unclear if the patient has diabetes. The patient is denying, but old records shows diabetes. We will obtain hemoglobin A1c and follow. 7.We will do insulin sliding scale as well as Accu-Cheks for now. 8.Deep vein thrombosis prophylaxis, subcutaneous heparin q.12. 9.Advanced directive: Patient wished to be full code. Total expected hospital stay for more than 4 8 hours. Total time spent in review of record, discussion with patient and evaluation, greater than 60 minutes . EO/MODL Voice ID: [id number]
[2019-11-03] MEDS: MORPHINE 2 MG/ML SYR IV PRN ×2 (01:49→05:53)
[2019-11-03 06:29] LABS: Absolute Lymphocytes (CBC) 0.7 K/uL (0.7-4.9); Basophils % 0.6 % (0-1.3); Hematocrit 22.4 % (39.6-49.0); Lymphocytes % 4.8 % (15.3-44.8); MPV 9.2 fL (7.6-11.3); RBC Red Blood Cell Count 2.69 M/uL (4.33-5.43)
[2019-11-03 06:39] LABS: Potassium 5.5 mmol/L (3.5-5.1); Sodium Level 138 mmol/L (136-145)
[2019-11-03 06:40] LABS: ALT/SGPT 30 U/L (12-78); AST/SGOT 30 U/L (15-37); Albumin 2.6 g/dL (3.4-5.0); Alkaline Phosphatase 52 U/L (45-117); BUN Blood Urea Nitrogen 53 mg/dL (7-18); Bicarbonate 25 mmol/L (21-32); Bilirubin Total 0.5 mg/dL (0.2-1.0); Glucose Level 98 mg/dL (74-106); Protein, Total 7.7 g/dL (6.4-8.2); Troponin I < 0.02 ng/mL (0.0-0.045)
[2019-11-03] MEDS: INSULIN -REGULAR HUMAN 50 UNIT/0.5 ML ML SQ SCH ×4 (07:30→21:00)
[2019-11-03] MEDS: HEPARIN 5000 UNIT/ML 1 ML VIAL SQ SCH ×2 (07:39→21:31)
[2019-11-03] MEDS: CA ACETATE 667 MG CAP PO SCH ×3 (08:00→17:00)
[2019-11-03] MEDS: SEVELAMER CARBONATE 800 MG TABLET PO SCH ×3 (08:00→17:00)
[2019-11-03] MEDS: ONDANSETRON 4 MG/2 ML VIAL IV PRN (08:18)
[2019-11-03] MEDS: FUROSEMIDE 40 MG TABLET PO SCH (08:19)
[2019-11-03] MEDS: LACTOBACILLUS/ACIDOPHILUS TAB PO SCH ×3 (08:19→21:30)
[2019-11-03] MEDS: HYDRALAZINE HCL 25 MG TABLET PO SCH ×2 (08:19→21:30)
[2019-11-03] MEDS: DILTIAZEM HCL 180 MG SR CAP PO SCH (08:19)
[2019-11-03] MEDS: CALCITROL 0.25 MCG CAP PO SCH (08:20)
[2019-11-03] MEDS: FAMOTIDINE 20 MG TAB PO SCH (08:20)
[2019-11-03] MEDS: COLLAGENASE 30 GM OINTMENT TOP SCH (08:21)
[2019-11-03] MEDS: VITAMIN D 5,000 UNIT CAP PO SCH (08:22)
[2019-11-03] MEDS ORDERED: NA CHLORIDE 0.9% 500 ML ONE (10:48)
--- NOTE | 2019-11-03 11:13 | P.PN ---
Subjective Date of Service: 11/03/19 Chief Complaint: Left foot pain Subjective: No new changes, No C/O voiced (scheduled for foot debridement today -states he was hoping to be dc home in am) Review of Systems 10-point ROS is otherwise unremarkable Physical Examination - Vital Signs Temperature: 99.5 F Blood Pressure: 144/65 Pulse: 119 Respirations: 18 Pulse Ox (%): 93 - Physical Exam General: Alert, In no apparent distress, Oriented x3 HEENT: Atraumatic, Normocephalic, PERRLA Respiratory: Clear to auscultation bilaterally, Diminished, Crackles/rales Cardiovascular: Regular rate/rhythm, Normal S1 S2, Other (left AVF ), Edema Gastrointestinal: Normal bowel sounds, Soft and benign Musculoskeletal: No clubbing, Swelling, Tenderness, Other (left foot lateral wound with amp 5th digit ) Integumentary: No rashes, No breakdown Neurological: Normal speech, Normal strength at 5/5 x4 extr - Studies Laboratory Data (last 24 hrs) 11/02/19 10:05: Phosphorus 6.1 H Laboratory Last Values WBC 13.5 K/uL (4.3-10.9) H 11/03/19 05:15 RBC 2.69 M/uL (4.33-5.43) L 11/03/19 05:15 Hgb 7.2 g/dL (13.6-17.9) L* 11/03/19 05:15 Hct 22.4 % (39.6-49.0) L 11/03/19 05:15 MCV 83.2 fL (80-100) 11/03/19 05:15 MCH 26.8 pg (27.0-35.0) L 11/03/19 05:15 MCHC 32.2 g/dL (32.0-36.0) 11/03/19 05:15 RDW 17.6 % (12.1-15.2) H 11/03/19 05:15 Plt Count 241 K/uL (152-406) 11/03/19 05:15 MPV 9.2 fL (7.6-11.3) 11/03/19 05:15 Neutrophils % 79.1 % (41.7-73.7) H 11/03/19 05:15 Lymphocytes % 4.8 % (15.3-44.8) L 11/03/19 05:15 Monocytes % 13.6 % (3.3-12.3) H 11/03/19 05:15 Eosinophils % 1.9 % (0-4.4) 11/03/19 05:15 Basophils % 0.6 % (0-1.3) 11/03/19 05:15 Absolute Neutrophils 10.7 K/uL (1.8-8.0) H 11/03/19 05:15 Absolute Lymphocytes 0.7 K/uL (0.7-4.9) 11/03/19 05:15 Absolute Monocytes 1.8 K/uL (0.1-1.3) H 11/03/19 05:15 Absolute Eosinophils 0.3 K/uL (0-0.5) 11/03/19 05:15 Absolute Basophils 0.1 K/uL (0-0.5) 11/03/19 05:15 ESR [place] > 140 mm/HR (0-20) H 11/03/19 05:15 Sodium 138 mmol/L (136-145) 11/03/19 05:15 Potassium 5.5 mmol/L (3.5-5.1) H 11/03/19 05:15 Chloride 106 mmol/L (98-107) 11/03/19 05:15 Carbon Dioxide 25 mmol/L (21-32) 11/03/19 05:15 BUN 53 mg/dL (7-18) H D 11/03/19 05:15 Creatinine 8.68 mg/dL (0.55-1.3) H* D 11/03/19 05:15 Estimated GFR 8 mL/min (=/>90) L 11/03/19 05:15 Glucose 98 mg/dL (74-106) 11/03/19 05:15 POC Glucose 112 mg/dl (65-120) 11/03/19 10:52 Hemoglobin A1c 4.9 % (4.2-6.3) 11/02/19 10:05 Calcium 8.5 mg/dL (8.5-10.1) 11/03/19 05:15 Phosphorus 6.1 mg/dL (2.5-4.9) H 11/02/19 10:05 Total Bilirubin 0.5 mg/dL (0.2-1.0) 11/03/19 05:15 AST 30 U/L (15-37) 11/03/19 05:15 ALT 30 U/L (12-78) 11/03/19 05:15 Alkaline Phosphatase 52 U/L (45-117) 11/03/19 05:15 Troponin I < 0.02 ng/mL (0.0-0.045) 11/03/19 05:15 Serum Total Protein 7.7 g/dL (6.4-8.2) 11/03/19 05:15 Albumin 2.6 g/dL (3.4-5.0) L 11/03/19 05:15 Globulin 5.1 g/dL (2.3-3.5) H 11/03/19 05:15 Albumin/Globulin Ratio 0.5 (1.1-1.8) L 11/03/19 05:15 Urine Color Yellow 11/02/19 22:10 Urine Appearance Clear 11/02/19 22:10 Urine pH 8.0 (5.0-7.0) H 11/02/19 22:10 Ur Specific [place] 1.010 (1.005-1.030) 11/02/19 22:10 Glucose (UA)(Auto) Negative (NEG) 11/02/19 22:10 Urine Ketones Negative (NEG) 11/02/19 22:10 Urine Blood 1+ (NEG) H 11/02/19 22:10 Urine Nitrite Negative (NEG) 11/02/19 22:10 Urine Bilirubin Negative (NEG) 11/02/19 22:10 Urine Urobilinogen 0.2 mg/dL (0.2-1.0) 11/02/19 22:10 Ur Leukocyte Esterase Negative (NEG) 11/02/19 22:10 Urine RBC 10-20 /HPF (NONE SEEN) H 11/02/19 22:10 Urine WBC <5 /HPF (<5) 11/02/19 22:10 Ur Squamous Epith Cells <5 /HPF (NONE SEEN) 11/02/19 22:10 Urine Bacteria 20-50 /HPF (NONE SEEN) H 11/02/19 22:10 Urine Culture Reflexed Reflexed 11/02/19 22:10 Urine Total Protein 2+ (NEG) H 11/02/19 22:10 Medications List Reviewed: Yes Assessment & Plan - Problems (Diagnosis) (1) CHF (congestive heart failure), NYHA class IV Current Visit: No Status: Acute Qualifiers: Congestive heart failure type: systolic Congestive heart failure chronicity : acute Qualified Code(s): I50.21 - Acute systolic (congestive) heart failure (2) Diabetic ulcer of left foot Current Visit: No Status: Acute (3) Osteomyelitis Current Visit: No Status: Acute Qualifiers: Osteomyelitis location: foot Laterality: left (4) ESRD (end stage renal disease) Onset Date: 10/01/16 Current Visit: No Status: Chronic (5) HTN (hypertension) Onset Date: 09/23/16 Current Visit: No Status: Chronic Qualifiers: Hypertension type: essential hypertension Qualified Code(s): I10 - Essential (primary) hypertension (6) Morbid obesity Onset Date: 03/14/15 Current Visit: No Status: Chronic (7) Diabetes mellitus with hyperglycemia Onset Date: 10/24/15 Current Visit: No Status: Resolved Qualifiers: Diabetes mellitus type: type 2 Physician Review: Patient Assessed, Agree with Above Assessment and Plan Physician Review Additional Text: Left foot 4th and 3rd digit osteomyelitis/wound ulcer- on abx with vanco -will consult ID per surgery - follow plan for debridement of wound by surgery today - will consult case mgt for arrangement for possible home abx vs dialysis unit abx based on ID recommendation DM -improving , c;/w insulin regime HTN -follow pots dialysis ESRD -on HD , jack today -target UF DVT prop-on heparin Time Spent Managing Pts Care (In Minutes): 41
[2019-11-03] MEDS ORDERED: FENTANYL CITR 100 MCG/2 ML ONE (13:24)
[2019-11-03] MEDS ORDERED: LIDOCAINE 1% MPF 5 ML VIAL ONE (13:24)
[2019-11-03] MEDS ORDERED: ONDANSETRON 4 MG/2 ML VIAL ONE (13:24)
[2019-11-03] MEDS ORDERED: propofoL 200 MG/20 ML VIAL IV ONE (13:24)
--- NOTE | 2019-11-03 14:00 | P.OP ---
Preoperative diagnosis: L foot Diabetic infection with osteo Postoperative diagnosis: same Primary procedure: I and D and Debridement Left Foot Abscess Anesthesia: General Estimated blood loss: min Specimen: pus C & S Findings: as above Complications: None Transferred to: Recovery Room Condition: Good
--- NOTE | 2019-11-03 16:37 | PREOPCON ---
Date of Consultation: 11/02/2019 Reason For Consultation: Infected wound of left foot. History Of Present Illness: Patient is a 53-year-old gentleman with multiple medical problems, who I [facility] the [facility] 2 months. He had a left 5th toe transm etatarsal amputation done back in middle of August for osteo and infected wound. He was doing well . He was treated with IV antibiotics and oral antibiotics. Dopplers were done and he had poor dista l circulation and his wound VAC was discontinued about a week ago [facility] the [facility], so I s aw him yesterday in followup and he noted to have increasing pain. On examination, he appeared to nelson ve an abscess on the plantar aspect of the foot and he did not clinically look well, so I sent him to the ER and workup was done. He had hyperkalemia and potassium was 6.5. He had leukocytosis, white count was 14,500, and then he had an MRI done, which showed osteo of the 4th metatarsal head and prox imal phalanx and possible residual osteo in the left remaining 5th metatarsal bone, so I was consulte d. He is awake, alert. Pain is much better. No fever or chills. No purulent discharge. Review of Systems: Otherwise unremarkable. Past Medical History: Significant for CHF, hypertension, diabetes, end-stage renal disease. Past Surgical History: Laparoscopic cholecystectomy and vascular access surgeries. Allergies: NO ALLERGIES. Social History: Patient drinks occasionally. Denies smoking. Family History: Significant for mom with breast cancer. Physical Examination: Vital Signs: Currently are stable. He is slightly tachycardic at 119. Temperature is 99.5. General: He is awake, alert, and oriented x3. Head and Neck: Cranial nerves 2 through 12 grossly within normal limits. No neck masses. No JVD. Throat clear. Neck is supple. Chest: Clear. Heart: S1 and S2. Abdomen: Soft. Extremities: Diminished dorsalis pedis and posterior tibial pulses. On the left foot laterally, the re is old wound with fibrin present, but there is no purulence on the plantar aspect and appears to b e an abscess in the forefoot approximately 8 x 4 cm in the dermis space. Billing Control Clerk is warm. Laboratory Data: His white count on admission was 14.5 yesterday and today is 13.5, H and H are 7.2 and 22.4, platelets are 241. Chemistry reviewed. After dialysis, his potassium is 5.5. He had an M RI and a foot x-ray done, both were reviewed essentially. It shows osteomyelitis at 4th metatarsal a nd 4th proximal phalanx. Abnormal signal involving the 5th metatarsal given the surgery was over a m onth ago. Probable osteo is still present and there is diffuse edema present within the subcutaneous tissue. Assessment: 53-year-old gentleman with infected wound, abscess, osteomyelitis of left lower extremit y. Recommendations: Patient was not treated with 6 weeks of IV antibiotics. Last time, I think he need s to be treated with at least 6 weeks. May benefit from hyperbaric. Prior surgeries concerned, he w ants to save his toes at this time. He was still ambulating, so we will proceed with incision and dr kraft and debridement of the abscess. We will try conservative measures to treat the osteomyelitis as the 4th toe vascular castro it appears okay and plan of care was discussed with Dr. Peñaloza as well as the patient. Patient understands the risks, benefits, and alternatives and agrees to procedure. /MODL Voice ID: [id number] Report ID: [id number]
[2019-11-03] MEDS: HYDROCODONE/APAP 5/325 MG TAB PO PRN (18:05)
--- NOTE | 2019-11-03 20:36 | P.PN ---
Date of Service: 11/03/19 Vital Signs Temp Pulse Resp BP Pulse Ox 99.1 F 113 H 18 166/55 H 95 11/03/19 16:00 11/03/19 16:00 11/03/19 19:05 11/03/19 16:00 11/03/19 19:05 Medications Acetaminophen (Tylenol -Extra Strength) 500 mg PO Q6H PRN PRN Reason: Pain scale 2-4 (Mild) Stop: 12/02/19 12:47 Last Admin: 11/02/19 16:03 Dose: 500 mg Hydrocodone Bitart/Acetaminophen ([place] 5/325) 1 tab PO Q6H PRN PRN Reason: Pain scale 5-7 (Moderate) Stop: 12/03/19 14:12 Last Admin: 11/03/19 18:05 Dose: 1 tab Albuterol Sulfate (Proventil 0.083% Neb Soln) 2.5 mg NEB Q6HP PRN PRN Reason: SHORTNESS OF BREATH Stop: 12/02/19 12:47 Calcitriol (Rocaltrol) 0.5 mcg PO DAILY [facility] Stop: 12/03/19 09:01 Last Admin: 11/03/19 08:20 Dose: Not Given Calcium Acetate (Phoslo) 667 mg PO TIDWM [facility] Stop: 12/03/19 08:01 Last Admin: 11/03/19 17:00 Dose: Not Given Cholecalciferol (Vitamin D 5,000 Iu Cap) 5,000 unit PO DAILY [facility] Stop: 12/03/19 09:01 Last Admin: 11/03/19 08:22 Dose: Not Given Collagenase (Santyl Ointment) 1 appl TOP DAILY [facility] Stop: 12/03/19 09:01 Last Admin: 11/03/19 08:21 Dose: Not Given Diltiazem HCl (Cardizem Cd) 360 mg PO DAILY [facility] Stop: 12/03/19 09:01 Last Admin: 11/03/19 08:19 Dose: Not Given Famotidine (Pepcid) 20 mg PO DAILY [facility]; Protocol Stop: 12/03/19 09:01 Last Admin: 11/03/19 08:20 Dose: Not Given Furosemide (Lasix) 80 mg PO DAILY [facility] Stop: 12/03/19 09:01 Last Admin: 11/03/19 08:19 Dose: Not Given Gabapentin (Neurontin) 300 mg PO BEDTIME PRN PRN Reason: pain Stop: 12/02/19 13:03 Heparin Sodium (Porcine) (Heparin 5,000 Units/Ml) 5,000 unit SQ Q12HR [facility] Stop: 12/02/19 21:01 Last Admin: 11/03/19 07:39 Dose: Not Given Heparin Sodium (Porcine) (Heparin 1,000 Units/Ml) 6,000 unit IV EVERY HD PRN PRN Reason: FLUSH AFTER EACH USE Stop: 12/02/19 13:57 Hydralazine HCl (Apresoline) 10 mg IV Q6HP PRN PRN Reason: Titrate to SBP (MUST DEFINE) Stop: 12/02/19 12:59 Hydralazine HCl (Apresoline) 100 mg PO BID [facility] Stop: 12/02/19 21:01 Last Admin: 11/03/19 08:19 Dose: Not Given Vancomycin HCl (Vancomycin 1 Gm/250 Ml Ns Ivpb) 1 gm in 250 mls @ 150 mls/hr IV AFTER EACH DIALYSIS [facility]; Protocol Stop: 12/03/19 09:01 Albumin Human (Albumin 25%) 50 mls @ 100 mls/hr IV EVERY HD [facility] Stop: 12/02/19 14:01 Insulin Human Regular (Novolin -R) 0 unit SQ ACHS [facility]; Protocol Stop: 12/02/19 16:31 Last Admin: 11/03/19 16:30 Dose: Not Given Lactobacillus Acidoph/Bulgaricus (Lactinex) 1 tab PO TID [facility] Stop: 12/02/19 21:01 Last Admin: 11/03/19 14:00 Dose: Not Given Mannitol (Mannitol 12.5 Gm/50 Ml Vial) 12.5 gm IV EVERY HD PRN PRN Reason: Titrate to SBP (MUST DEFINE) Stop: 12/02/19 13:57 Morphine Sulfate (Morphine Sulfate) 2 mg IV Q4H PRN PRN Reason: Pain scale 5-7 (Moderate) Stop: 12/02/19 12:47 Last Admin: 11/03/19 05:53 Dose: 2 mg Ondansetron HCl (Zofran) 4 mg IV Q8H PRN PRN Reason: NAUSEA / VOMITING Stop: 12/02/19 12:47 Last Admin: 11/03/19 08:18 Dose: 4 mg Sevelamer Carbonate (Renvela) 800 mg PO TIDWM [facility] Stop: 12/02/19 17:01 Last Admin: 11/03/19 17:00 Dose: Not Given Sodium Chloride (Normal Saline Flush) 10 ml IV BID [facility] Stop: 12/02/19 21:01 Last Admin: 11/03/19 08:20 Dose: 10 ml Microbiology Results 11/02/19 09:58 Wound - Left Foot Gram Stain - Preliminary 11/02/19 09:58 Wound - Left Foot Culture & Sensitivity - Preliminary No growth. 11/02/19 10:54 Blood - Blood Aerobic Blood Culture - Preliminary No growth in 24 hours. 11/02/19 10:54 Blood - Blood Anaerobic Blood Culture - Preliminary No growth in 24 hours. 11/02/19 10:05 Blood - Blood Aerobic Blood Culture - Preliminary No growth in 24 hours. 11/02/19 10:05 Blood - Blood Anaerobic Blood Culture - Preliminary No growth in 24 hours. Assessment/ Plan: Nephrology. Doing well. CPS stable without CP or SOB. +JONES No acute events overnight. Vitals, medications, blood work and imaging reviewed in the chart. General: In no apparent distress, Oriented x3, Cooperative HEENT: Atraumatic Neck: Supple Respiratory: Clear to auscultation bilaterally, Normal air movement Cardiovascular: Regular rate/rhythm, No rubs, Edema Gastrointestinal: Soft and benign, Non-distended, No guarding Musculoskeletal: No clubbing, No contractures Integumentary: Skin breakdown, Skin lesion, Tenderness/swelling, Erythema Neurological: Normal speech Laboratory Data (last 24 hrs) 11/02/19 10:05: Phosphorus 6.1 H 11/02/19 10:05: Sodium 135 L, Potassium 6.5 H*, BUN 85 H, Creatinine 11.70 H*, Glucose 111 H 11/02/19 10:05: WBC 14.5 H, Hgb 7.5 L*, Hct 23.8 L, Plt Count 264 Imagings Data: EXAM DESCRIPTION: MRI - Foot Left Wo Cont - 11/02/2019 2:31 pm CLINICAL HISTORY: Left foot pain, swelling, gangrene COMPARISON: August 2019 MRI TECHNIQUE: Axial, sagittal and coronal magnetic resonance imaging of the left foot obtained FINDINGS: Abnormal signal involves the fourth metatarsal head and neck and most of the fourth proximal phalanx consistent with osteomyelitis. The fifth phalanx has been resected. A portion of the fifth metatarsal has been resected. Abnormal signal is present within the remaining distal and mid fifth proximal phalanx. Diffuse edema is present within the subcutaneous tissues. Ulceration involves the lateral forefoot soft tissues IMPRESSION: Osteomyelitis fourth metatarsal and fourth proximal phalanx Abnormal signal involving the fifth metatarsal. Given that the surgery was over 1 month ago it is probable that osteomyelitis is present. EXAM DESCRIPTION: RAD - Foot Left 3 View - 11/02/2019 10:39 am CLINICAL HISTORY: Foot pain, diabetic foot ulcer COMPARISON: MRI September 07, 2019, plain films left foot September 06, 2019 FINDINGS: Since the prior examination the fifth toe and distal fifth metatarsal have been resected. There is slightly irregular margin at the fifth metatarsal osteotomy site. This is not outside of normal range given the relatively recent surgery. No definitive bone destruction in the fifth metatarsal. Lucent changes are present in the fourth metatarsal head with cortical thinning and possible disruption present. There are erosive changes along the lateral base of the fourth proximal phalanx. These are new findings from prior imaging. The first- third metatarsals and toes are intact. There is underlying degenerative change present. No air or foreign body in the soft tissues. Edit IMPRESSION: Osteomyelitis changes involving the fourth metatarsal head and base of the fourth proximal phalanx. Postsurgical changes with fifth toe and fifth metatarsal head amputation. No definitive bone destruction at the fifth metatarsal osteotomy site. Conclusions/Impression: A/ ESRD on HD. Hyponatremia. Hyperkalemia. Hypocalcemia. HypoPO4. HTN with CKD/ CHF. DM II with CKD. DM II with foot ulcer. Diastolic CHF, chronic. Anemia in CKD. MECCA/ Secondary HyperPTH. Osteomyelitis of left lateral foot. P/ Continue current POC and medications. Arrange for acute HD today. Continue Epo. Continue abx. Monitor vanco level. Will need 6 weeks of abx. Surgery following. No NSAIDs. AM labs. Daily weight. Case discussed with Dr. Smith and Dr. Mcginnis. Greater than 35min patient care.
[2019-11-03] MEDS ORDERED: VANCOMYCIN 1 GM/VIAL ONE (21:14)
[2019-11-03] MEDS ORDERED: NA CHLORIDE 0.9% 250 ML ONE (21:24)
[2019-11-03] MEDS: GABAPENTIN 300 MG CAP PO PRN (21:31)
[2019-11-03] MEDS: VANCOMYCIN/NS 1 gm 1 GM/250 ML BAG IV SCH (21:42)
--- NOTE | 2019-11-04 01:32 | OP ---
Date of Procedure: 11/03/2019 Surgeon: Ed Smith MD Preoperative Diagnosis: Left foot abscess and infection with osteomyelitis. Postoperative Diagnosis: Left foot abscess and infection with osteomyelitis. Procedure: Incision and drainage and debridement of left foot abscess. Estimated Blood Loss: Minimal. Specimens: Pus. Finding: As above. Anesthesia: General. Complications: None. Disposition: Patient tolerated the procedure, was in stable condition and taken to Recovery in good general condition. Procedure In Detail: Patient was brought to the OR and placed in supine position. General anesthesi a begun. Patient was prepped and draped in usual sterile fashion. The plantar aspect of the wound w as explored. There was edematous tissue underneath the epidermis, which was excised. Deep incision was made into the foot and no obvious pus was seen at that side, but when explored, pus ex uded the patient's wound over the fifth metatarsal bone. Cultures were done. Then, the 2 areas were connected with sharp and blunt dissection. There had been a deeper pocket that was there. Wound wa s irrigated. There was moderate amount of fibrin on the wound that was present on the left foot late rally and this was debrided with a curette. Bleeding controlled with cautery and then wet-to-dry nor mal saline dressing change applied. Patient tolerated the procedure in stable condition, taken to Recovery in g ood general condition. /MODL Voice ID: [id number] Report ID: [id number]
[2019-11-04] MEDS: HYDROCODONE/APAP 5/325 MG TAB PO PRN (04:03)
[2019-11-04 04:50] LABS: Absolute Lymphocytes (CBC) 0.5 K/uL (0.7-4.9); Basophils % 0.5 % (0-1.3); Hematocrit 22.6 % (39.6-49.0); Lymphocytes % 3.5 % (15.3-44.8); RBC Red Blood Cell Count 2.68 M/uL (4.33-5.43)
[2019-11-04 05:13] LABS: ALT/SGPT 31 U/L (12-78); AST/SGOT 28 U/L (15-37); Albumin 2.5 g/dL (3.4-5.0); Alkaline Phosphatase 53 U/L (45-117); BUN Blood Urea Nitrogen 36 mg/dL (7-18); Bicarbonate 25 mmol/L (21-32); Bilirubin Total 0.6 mg/dL (0.2-1.0); Glucose Level 120 mg/dL (74-106); Potassium 4.9 mmol/L (3.5-5.1); Sodium Level 138 mmol/L (136-145)
[2019-11-04 05:14] LABS: Troponin I < 0.02 ng/mL (0.0-0.045)
[2019-11-04] MEDS: INSULIN -REGULAR HUMAN 50 UNIT/0.5 ML ML SQ SCH ×4 (07:30→20:59)
[2019-11-04] MEDS: HYDRALAZINE HCL 25 MG TABLET PO SCH ×2 (09:04→20:58)
[2019-11-04] MEDS: HEPARIN 5000 UNIT/ML 1 ML VIAL SQ SCH ×2 (09:04→20:58)
[2019-11-04] MEDS: DILTIAZEM HCL 180 MG SR CAP PO SCH (09:04)
[2019-11-04] MEDS: CA ACETATE 667 MG CAP PO SCH ×3 (09:04→16:50)
[2019-11-04] MEDS: SEVELAMER CARBONATE 800 MG TABLET PO SCH ×3 (09:04→16:50)
[2019-11-04] MEDS: COLLAGENASE 30 GM OINTMENT TOP SCH (09:05)
[2019-11-04] MEDS: CALCITROL 0.25 MCG CAP PO SCH (09:05)
[2019-11-04] MEDS: FAMOTIDINE 20 MG TAB PO SCH (09:05)
[2019-11-04] MEDS: FUROSEMIDE 40 MG TABLET PO SCH (09:05)
[2019-11-04] MEDS: LACTOBACILLUS/ACIDOPHILUS TAB PO SCH ×3 (09:05→20:58)
[2019-11-04] MEDS: VITAMIN D 5,000 UNIT CAP PO SCH (09:06)
--- NOTE | 2019-11-04 11:25 | P.PN ---
Date of Service: 11/04/19 Vital Signs Temp Pulse Resp BP Pulse Ox 99.0 F 115 H 17 152/65 H 90 L 11/04/19 04:00 11/04/19 04:00 11/04/19 04:00 11/04/19 04:00 11/04/19 04:00 Medications Acetaminophen (Tylenol -Extra Strength) 500 mg PO Q6H PRN PRN Reason: Pain scale 2-4 (Mild) Stop: 12/02/19 12:47 Last Admin: 11/02/19 16:03 Dose: 500 mg Hydrocodone Bitart/Acetaminophen ([place] 5/325) 1 tab PO Q6H PRN PRN Reason: Pain scale 5-7 (Moderate) Stop: 12/03/19 14:12 Last Admin: 11/04/19 04:03 Dose: 1 tab Albuterol Sulfate (Proventil 0.083% Neb Soln) 2.5 mg NEB Q6HP PRN PRN Reason: SHORTNESS OF BREATH Stop: 12/02/19 12:47 Calcitriol (Rocaltrol) 0.5 mcg PO DAILY [facility] Stop: 12/03/19 09:01 Last Admin: 11/04/19 09:05 Dose: 0.5 mcg Calcium Acetate (Phoslo) 667 mg PO TIDWM [facility] Stop: 12/03/19 08:01 Last Admin: 11/04/19 09:04 Dose: 667 mg Cholecalciferol (Vitamin D 5,000 Iu Cap) 5,000 unit PO DAILY [facility] Stop: 12/03/19 09:01 Last Admin: 11/04/19 09:06 Dose: 5,000 unit Collagenase (Santyl Ointment) 1 appl TOP DAILY [facility] Stop: 12/03/19 09:01 Last Admin: 11/04/19 09:05 Dose: 1 appl Diltiazem HCl (Cardizem Cd) 360 mg PO DAILY [facility] Stop: 12/03/19 09:01 Last Admin: 11/04/19 09:04 Dose: 360 mg Famotidine (Pepcid) 20 mg PO DAILY [facility]; Protocol Stop: 12/03/19 09:01 Last Admin: 11/04/19 09:05 Dose: 20 mg Furosemide (Lasix) 80 mg PO DAILY [facility] Stop: 12/03/19 09:01 Last Admin: 11/04/19 09:05 Dose: 80 mg Gabapentin (Neurontin) 300 mg PO BEDTIME PRN PRN Reason: pain Stop: 12/02/19 13:03 Last Admin: 11/03/19 21:31 Dose: 300 mg Heparin Sodium (Porcine) (Heparin 5,000 Units/Ml) 5,000 unit SQ Q12HR [facility] Stop: 12/02/19 21:01 Last Admin: 11/04/19 09:04 Dose: 5,000 unit Heparin Sodium (Porcine) (Heparin 1,000 Units/Ml) 6,000 unit IV EVERY HD PRN PRN Reason: FLUSH AFTER EACH USE Stop: 12/02/19 13:57 Hydralazine HCl (Apresoline) 10 mg IV Q6HP PRN PRN Reason: Titrate to SBP (MUST DEFINE) Stop: 12/02/19 12:59 Hydralazine HCl (Apresoline) 100 mg PO BID [facility] Stop: 12/02/19 21:01 Last Admin: 11/04/19 09:04 Dose: 100 mg Vancomycin HCl (Vancomycin 1 Gm/250 Ml Ns Ivpb) 1 gm in 250 mls @ 150 mls/hr IV AFTER EACH DIALYSIS [facility]; Protocol Stop: 12/03/19 09:01 Last Admin: 11/03/19 21:42 Dose: 250 mls Albumin Human (Albumin 25%) 50 mls @ 100 mls/hr IV EVERY HD [facility] Stop: 12/02/19 14:01 Insulin Human Regular (Novolin -R) 0 unit SQ ACHS [facility]; Protocol Stop: 12/02/19 16:31 Last Admin: 11/04/19 07:30 Dose: Not Given Lactobacillus Acidoph/Bulgaricus (Lactinex) 1 tab PO TID [facility] Stop: 12/02/19 21:01 Last Admin: 11/04/19 09:05 Dose: 1 tab Mannitol (Mannitol 12.5 Gm/50 Ml Vial) 12.5 gm IV EVERY HD PRN PRN Reason: Titrate to SBP (MUST DEFINE) Stop: 12/02/19 13:57 Morphine Sulfate (Morphine Sulfate) 2 mg IV Q4H PRN PRN Reason: Pain scale 5-7 (Moderate) Stop: 12/02/19 12:47 Last Admin: 11/03/19 05:53 Dose: 2 mg Ondansetron HCl (Zofran) 4 mg IV Q8H PRN PRN Reason: NAUSEA / VOMITING Stop: 12/02/19 12:47 Last Admin: 11/03/19 08:18 Dose: 4 mg Sevelamer Carbonate (Renvela) 800 mg PO TIDWM [facility] Stop: 12/02/19 17:01 Last Admin: 11/04/19 09:04 Dose: 800 mg Sodium Chloride (Normal Saline Flush) 10 ml IV BID [facility] Stop: 12/02/19 21:01 Last Admin: 11/04/19 09:05 Dose: 10 ml Microbiology Results 11/02/19 09:58 Wound - Left Foot Gram Stain - Preliminary 11/02/19 09:58 Wound - Left Foot Culture & Sensitivity - Preliminary 11/02/19 10:54 Blood - Blood Aerobic Blood Culture - Preliminary No growth in 24 hours. 11/02/19 10:54 Blood - Blood Anaerobic Blood Culture - Preliminary No growth in 24 hours. 11/02/19 10:05 Blood - Blood Aerobic Blood Culture - Preliminary No growth in 24 hours. 11/02/19 10:05 Blood - Blood Anaerobic Blood Culture - Preliminary No growth in 24 hours. Assessment/ Plan: Nephrology. Doing well. CPS stable without CP or SOB. +JONES No acute events overnight. Vitals, medications, blood work and imaging reviewed in the chart. General: In no apparent distress, Oriented x3, Cooperative HEENT: Atraumatic Neck: Supple Respiratory: Clear to auscultation bilaterally, Normal air movement Cardiovascular: Regular rate/rhythm, No rubs, Edema Gastrointestinal: Soft and benign, Non-distended, No guarding Musculoskeletal: No clubbing, No contractures Integumentary: Skin breakdown, Skin lesion, Tenderness/swelling, Erythema Neurological: Normal speech Laboratory Data (last 24 hrs) 11/02/19 10:05: Phosphorus 6.1 H 11/02/19 10:05: Sodium 135 L, Potassium 6.5 H*, BUN 85 H, Creatinine 11.70 H*, Glucose 111 H 11/02/19 10:05: WBC 14.5 H, Hgb 7.5 L*, Hct 23.8 L, Plt Count 264 Imagings Data: EXAM DESCRIPTION: MRI - Foot Left Wo Cont - 11/02/2019 2:31 pm CLINICAL HISTORY: Left foot pain, swelling, gangrene COMPARISON: August 2019 MRI TECHNIQUE: Axial, sagittal and coronal magnetic resonance imaging of the left foot obtained FINDINGS: Abnormal signal involves the fourth metatarsal head and neck and most of the fourth proximal phalanx consistent with osteomyelitis. The fifth phalanx has been resected. A portion of the fifth metatarsal has been resected. Abnormal signal is present within the remaining distal and mid fifth proximal phalanx. Diffuse edema is present within the subcutaneous tissues. Ulceration involves the lateral forefoot soft tissues IMPRESSION: Osteomyelitis fourth metatarsal and fourth proximal phalanx Abnormal signal involving the fifth metatarsal. Given that the surgery was over 1 month ago it is probable that osteomyelitis is present. EXAM DESCRIPTION: RAD - Foot Left 3 View - 11/02/2019 10:39 am CLINICAL HISTORY: Foot pain, diabetic foot ulcer COMPARISON: MRI September 07, 2019, plain films left foot September 06, 2019 FINDINGS: Since the prior examination the fifth toe and distal fifth metatarsal have been resected. There is slightly irregular margin at the fifth metatarsal osteotomy site. This is not outside of normal range given the relatively recent surgery. No definitive bone destruction in the fifth metatarsal. Lucent changes are present in the fourth metatarsal head with cortical thinning and possible disruption present. There are erosive changes along the lateral base of the fourth proximal phalanx. These are new findings from prior imaging. The first- third metatarsals and toes are intact. There is underlying degenerative change present. No air or foreign body in the soft tissues. Edit IMPRESSION: Osteomyelitis changes involving the fourth metatarsal head and base of the fourth proximal phalanx. Postsurgical changes with fifth toe and fifth metatarsal head amputation. No definitive bone destruction at the fifth metatarsal osteotomy site. Conclusions/Impression: A/ ESRD on HD. Hyponatremia. Hyperkalemia. Hypocalcemia. HypoPO4. HTN with CKD/ CHF. DM II with CKD. DM II with foot ulcer. Diastolic CHF, chronic. Anemia in CKD. MECCA/ Secondary HyperPTH. Osteomyelitis of left lateral foot. P/ Continue current POC and medications. Next HD Wednesday. Continue Epo. Continue abx. Monitor vanco level. Will need 6 weeks of abx. Surgery following. No NSAIDs. AM labs. Daily weight. Case discussed with Dr. Mcginnis. Patient prefers to switch to in-center HD for the six weeks of abx.
--- NOTE | 2019-11-04 11:46 | P.PN ---
Subjective Date of Service: 11/04/19 Chief Complaint: Left foot pain Subjective: No new changes, No C/O voiced (- feels better -tolerating po well) Review of Systems 10-point ROS is otherwise unremarkable Physical Examination - Vital Signs Temperature: 99.0 F Blood Pressure: 152/65 Pulse: 115 Respirations: 17 Pulse Ox (%): 90 - Physical Exam General: In no apparent distress, Oriented x3, Obese HEENT: Atraumatic, Normocephalic Neck: Supple, 2+ carotid pulse no bruit Respiratory: Clear to auscultation bilaterally, Diminished Cardiovascular: Regular rate/rhythm, Normal S1 S2, Edema Gastrointestinal: Normal bowel sounds, Soft and benign, Non-distended, No ascites Musculoskeletal: No clubbing, No swelling Integumentary: Diabetic ulcer (left foot dsg ) Neurological: Normal speech, Normal strength at 5/5 x4 extr, Sensation intact - Studies Medications List Reviewed: Yes Assessment & Plan - Problems (Diagnosis) (1) CHF (congestive heart failure), NYHA class IV Current Visit: No Status: Acute Qualifiers: Congestive heart failure type: systolic Congestive heart failure chronicity : acute Qualified Code(s): I50.21 - Acute systolic (congestive) heart failure (2) Diabetic ulcer of left foot Current Visit: No Status: Acute (3) Osteomyelitis Current Visit: No Status: Acute Qualifiers: Osteomyelitis location: foot Laterality: left (4) ESRD (end stage renal disease) Onset Date: 10/01/16 Current Visit: No Status: Chronic (5) HTN (hypertension) Onset Date: 09/23/16 Current Visit: No Status: Chronic Qualifiers: Hypertension type: essential hypertension Qualified Code(s): I10 - Essential (primary) hypertension (6) Morbid obesity Onset Date: 03/14/15 Current Visit: No Status: Chronic Physician Review: Patient Assessed, Agree with Above Assessment and Plan Physician Review Additional Text: # Left foot 4th and 3rd digit osteomyelitis / wound ulcer- on abx with vanco -s/p debridement per surgery - continue wound care -follow ID consult - will consult case mgt for arrangement for possible home abx vs dialysis unit abx based on ID recommendation # DM -improving , c/w insulin regime # Anemia - of renal disease - follow Epogen dosing per renal -will avoid PRBC for now # HTN -controlled # ESRD -continue on HD ,renal team following # DVT prop-on heparin
[2019-11-04] MEDS: ONDANSETRON 4 MG/2 ML VIAL IV PRN (12:11)
--- NOTE | 2019-11-04 13:32 | PN ---
Date of Progress Note: 11/04/2019 Patient is awake, alert, no complaints. His temperature is 99, heart rate is 115, otherwise vitals a re stable. His white count is still up at 15,700. His left shift is 82.3% neutrophils and cultures are pending. Examination of the wound reveals no purulence, decreasing redness and swelling and some wrinkling of the skin. Good granulation tissue on the lateral aspect of the left foot. Assessment: Status post incision and drainage and debridement, left foot abscess and infected wound. Recommendations: Continue IV antibiotics for 3 weeks. Wound care is ordered. Discharge Planning: Patient is aware that if IV antibiotics did not help improve the osteomyelitis h e may need further surgery. Another consideration would be hyperbaric oxygen at an [facility] or at [place]. SHAKIRA/MODL Voice ID: [id number] Report ID: [id number]
[2019-11-04] MEDS: ACETAMINOPHEN 500 MG TAB PO PRN (20:59)
[2019-11-05] MEDS: HYDROCODONE/APAP 5/325 MG TAB PO PRN ×2 (04:36→17:20)
[2019-11-05 04:50] VITALS: BMI 43.0
[2019-11-05 06:16] LABS: Absolute Lymphocytes (CBC) 0.7 K/uL (0.7-4.9); Basophils % 0.7 % (0-1.3); Hematocrit 21.7 % (39.6-49.0); Lymphocytes % 4.6 % (15.3-44.8); MPV 8.6 fL (7.6-11.3); RBC Red Blood Cell Count 2.63 M/uL (4.33-5.43)
[2019-11-05 06:28] LABS: ALT/SGPT 26 U/L (12-78); AST/SGOT 23 U/L (15-37); Albumin 2.5 g/dL (3.4-5.0); Alkaline Phosphatase 50 U/L (45-117); BUN Blood Urea Nitrogen 48 mg/dL (7-18); Bicarbonate 23 mmol/L (21-32); Bilirubin Total 0.4 mg/dL (0.2-1.0); Glucose Level 126 mg/dL (74-106); Protein, Total 7.9 g/dL (6.4-8.2); Sodium Level 136 mmol/L (136-145); Troponin I < 0.02 ng/mL (0.0-0.045)
[2019-11-05] MEDS: INSULIN -REGULAR HUMAN 50 UNIT/0.5 ML ML SQ SCH ×4 (07:30→21:00)
[2019-11-05] MEDS: SEVELAMER CARBONATE 800 MG TABLET PO SCH ×3 (08:00→17:04)
--- NOTE | 2019-11-05 09:06 | P.PN ---
Subjective Date of Service: 11/05/19 Chief Complaint: Left foot pain Subjective: No new changes, No C/O voiced, Tolerating diet Review of Systems 10-point ROS is otherwise unremarkable Physical Examination - Vital Signs Temperature: 99.3 F Blood Pressure: 166/79 Pulse: 101 Respirations: 18 Pulse Ox (%): 92 - Physical Exam General: In no apparent distress, Oriented x3 HEENT: Atraumatic, Normocephalic Neck: Supple, 2+ carotid pulse no bruit Cardiovascular: Normal pulses, Regular rate/rhythm, Normal S1 S2, Other (right Avf) Gastrointestinal: Normal bowel sounds, Soft and benign, Non-distended Musculoskeletal: Other (DSG OVER LEFT FOOT ) Neurological: Normal speech, Normal tone, Sensation intact, Cranial nerves 3-12 intact - Studies Laboratory Last Values WBC 16.4 K/uL (4.3-10.9) H 11/05/19 05:23 RBC 2.63 M/uL (4.33-5.43) L 11/05/19 05:23 Hgb 6.8 g/dL (13.6-17.9) L* 11/05/19 05:23 Hct 21.7 % (39.6-49.0) L 11/05/19 05:23 MCV 82.8 fL (80-100) 11/05/19 05:23 MCH 26.0 pg (27.0-35.0) L 11/05/19 05:23 MCHC 31.5 g/dL (32.0-36.0) L 11/05/19 05:23 RDW 17.3 % (12.1-15.2) H 11/05/19 05:23 Plt Count 238 K/uL (152-406) 11/05/19 05:23 MPV 8.6 fL (7.6-11.3) 11/05/19 05:23 Neutrophils % 82.6 % (41.7-73.7) H 11/05/19 05:23 Lymphocytes % 4.6 % (15.3-44.8) L 11/05/19 05:23 Monocytes % 11.6 % (3.3-12.3) 11/05/19 05:23 Eosinophils % 0.5 % (0-4.4) 11/05/19 05:23 Basophils % 0.7 % (0-1.3) 11/05/19 05:23 Absolute Neutrophils 13.5 K/uL (1.8-8.0) H 11/05/19 05:23 Absolute Lymphocytes 0.7 K/uL (0.7-4.9) 11/05/19 05:23 Absolute Monocytes 1.9 K/uL (0.1-1.3) H 11/05/19 05:23 Absolute Eosinophils 0.1 K/uL (0-0.5) 11/05/19 05:23 Absolute Basophils 0.1 K/uL (0-0.5) 11/05/19 05:23 ESR Westergren > 140 mm/HR (0-20) H 11/03/19 05:15 Sodium 136 mmol/L (136-145) 11/05/19 05:23 Potassium 5.0 mmol/L (3.5-5.1) 11/05/19 05:23 Chloride 103 mmol/L (98-107) 11/05/19 05:23 Carbon Dioxide 23 mmol/L (21-32) 11/05/19 05:23 BUN 48 mg/dL (7-18) H 11/05/19 05:23 Creatinine 9.16 mg/dL (0.55-1.3) H* D 11/05/19 05:23 Estimated GFR 7 mL/min (=/>90) L 11/05/19 05:23 Glucose 126 mg/dL (74-106) H 11/05/19 05:23 POC Glucose 125 mg/dl (65-120) H 11/05/19 08:22 Hemoglobin A1c 4.9 % (4.2-6.3) 11/02/19 10:05 Calcium 8.5 mg/dL (8.5-10.1) 11/05/19 05:23 Phosphorus 6.1 mg/dL (2.5-4.9) H 11/02/19 10:05 Total Bilirubin 0.4 mg/dL (0.2-1.0) 11/05/19 05:23 AST 23 U/L (15-37) 11/05/19 05:23 ALT 26 U/L (12-78) 11/05/19 05:23 Alkaline Phosphatase 50 U/L (45-117) 11/05/19 05:23 Troponin I < 0.02 ng/mL (0.0-0.045) 11/05/19 05:23 Serum Total Protein 7.9 g/dL (6.4-8.2) 11/05/19 05:23 Albumin 2.5 g/dL (3.4-5.0) L 11/05/19 05:23 Globulin 5.4 g/dL (2.3-3.5) H 11/05/19 05:23 Albumin/Globulin Ratio 0.5 (1.1-1.8) L 11/05/19 05:23 Urine Color Yellow 11/02/19 22:10 Urine Appearance Clear 11/02/19 22:10 Urine pH 8.0 (5.0-7.0) H 11/02/19 22:10 Ur Specific [place] 1.010 (1.005-1.030) 11/02/19 22:10 Glucose (UA)(Auto) Negative (NEG) 11/02/19 22:10 Urine Ketones Negative (NEG) 11/02/19 22:10 Urine Blood 1+ (NEG) H 11/02/19 22:10 Urine Nitrite Negative (NEG) 11/02/19 22:10 Urine Bilirubin Negative (NEG) 11/02/19 22:10 Urine Urobilinogen 0.2 mg/dL (0.2-1.0) 11/02/19 22:10 Ur Leukocyte Esterase Negative (NEG) 11/02/19 22:10 Urine RBC 10-20 /HPF (NONE SEEN) H 11/02/19 22:10 Urine WBC <5 /HPF (<5) 11/02/19 22:10 Ur Squamous Epith Cells <5 /HPF (NONE SEEN) 11/02/19 22:10 Urine Bacteria 20-50 /HPF (NONE SEEN) H 11/02/19 22:10 Urine Culture Reflexed Reflexed 11/02/19 22:10 Urine Total Protein 2+ (NEG) H 11/02/19 22:10 Microbiology Data (last 24 hrs): 11/02/19 09:58 Wound - Left Foot Culture & Sensitivity - Final Medications List Reviewed: Yes Assessment & Plan - Problems (Diagnosis) (1) CHF (congestive heart failure), NYHA class IV Current Visit: No Status: Acute Qualifiers: Congestive heart failure type: systolic Congestive heart failure chronicity : acute Qualified Code(s): I50.21 - Acute systolic (congestive) heart failure (2) Diabetic ulcer of left foot Current Visit: No Status: Acute (3) Osteomyelitis Current Visit: No Status: Acute Qualifiers: Osteomyelitis location: foot Laterality: left (4) ESRD (end stage renal disease) Onset Date: 10/01/16 Current Visit: No Status: Chronic (5) HTN (hypertension) Onset Date: 09/23/16 Current Visit: No Status: Chronic Qualifiers: Hypertension type: essential hypertension Qualified Code(s): I10 - Essential (primary) hypertension (6) Morbid obesity Onset Date: 03/14/15 Current Visit: No Status: Chronic Physician Review: Patient Assessed, Agree with Above Assessment and Plan Physician Review Additional Text: # Left foot 4th and 3rd digit osteomyelitis / wound ulcer- on abx with vanco -Awaiting ID consult for choice of abx -Based on decision of abx choice by ID , then need for home abx arragment by case mgt or post dialysis at dialysis unit can be arrnaged by renal -Renal team d/w and on board -continue wound care with Dr Navas # DM -improving , c/w insulin regime # Anemia - of renal disease - trending down to 6.8 -follow iron profile - start Epogen 10 k tiw , will dose one today -follow Epogen dosing per renal -will avoid PRBC for now # HTN -still elevated but improving , will increase beta-blockage # ESRD -rising k , c/w on HD in am -renal team-Dr Rene following # Hyperphosphatemia - intemrittent itching not likely due to elevated phosphorous but given level of 6.1 , will increase renvela to 2 tabs with meals # DVT prop-on heparin
[2019-11-05] MEDS: METOPROLOL XL 50 MG TAB PO SCH (09:08)
[2019-11-05] MEDS: CA ACETATE 667 MG CAP PO SCH ×3 (09:16→17:04)
[2019-11-05] MEDS: FUROSEMIDE 40 MG TABLET PO SCH (09:16)
[2019-11-05] MEDS: HEPARIN 5000 UNIT/ML 1 ML VIAL SQ SCH ×2 (09:16→20:59)
[2019-11-05] MEDS: DILTIAZEM HCL 180 MG SR CAP PO SCH (09:16)
[2019-11-05] MEDS: HYDRALAZINE HCL 25 MG TABLET PO SCH ×2 (09:16→20:58)
[2019-11-05] MEDS: LACTOBACILLUS/ACIDOPHILUS TAB PO SCH ×3 (09:16→20:58)
[2019-11-05] MEDS: COLLAGENASE 30 GM OINTMENT TOP SCH (09:17)
[2019-11-05] MEDS: VITAMIN D 5,000 UNIT CAP PO SCH (09:17)
[2019-11-05] MEDS: CALCITROL 0.25 MCG CAP PO SCH (09:17)
[2019-11-05] MEDS: FAMOTIDINE 20 MG TAB PO SCH (09:17)
[2019-11-05] MEDS ORDERED: EPOETIN ALFA 10,000 UNIT/ML VIAL IV SCH (09:30)
[2019-11-05] MEDS: GABAPENTIN 300 MG CAP PO PRN (20:59)
[2019-11-06] MEDS: HYDROCODONE/APAP 5/325 MG TAB PO PRN ×2 (03:59→18:08)
[2019-11-06] MEDS: METOPROLOL XL 50 MG TAB PO SCH (05:00)
[2019-11-06 07:09] LABS: RBC Red Blood Cell Count 2.73 M/uL (4.33-5.43)
[2019-11-06 07:13] LABS: Absolute Lymphocytes (CBC) 0.6 K/uL (0.7-4.9); Basophils % 0.6 % (0-1.3); Hematocrit 22.3 % (39.6-49.0); Lymphocytes % 3.9 % (15.3-44.8); MPV 8.7 fL (7.6-11.3)
[2019-11-06 07:27] LABS: Albumin 2.6 g/dL (3.4-5.0); Bilirubin Total 0.3 mg/dL (0.2-1.0); Potassium 5.2 mmol/L (3.5-5.1); Protein, Total 8.3 g/dL (6.4-8.2)
[2019-11-06] MEDS: INSULIN -REGULAR HUMAN 50 UNIT/0.5 ML ML SQ SCH ×4 (07:30→20:55)
[2019-11-06] MEDS: VITAMIN D 5,000 UNIT CAP PO SCH (08:53)
[2019-11-06] MEDS: SEVELAMER CARBONATE 800 MG TABLET PO SCH ×4 (08:54→18:17)
[2019-11-06] MEDS: CA ACETATE 667 MG CAP PO SCH ×4 (08:54→18:17)
[2019-11-06] MEDS: FAMOTIDINE 20 MG TAB PO SCH (08:54)
[2019-11-06] MEDS: DILTIAZEM HCL 180 MG SR CAP PO SCH (08:54)
[2019-11-06] MEDS: LACTOBACILLUS/ACIDOPHILUS TAB PO SCH ×3 (08:54→20:11)
[2019-11-06] MEDS: CALCITROL 0.25 MCG CAP PO SCH (08:54)
[2019-11-06] MEDS: FUROSEMIDE 40 MG TABLET PO SCH (08:55)
[2019-11-06] MEDS: HYDRALAZINE HCL 25 MG TABLET PO SCH ×2 (08:55→20:12)
[2019-11-06] MEDS: HEPARIN 5000 UNIT/ML 1 ML VIAL SQ SCH ×2 (08:56→20:12)
[2019-11-06] MEDS: COLLAGENASE 30 GM OINTMENT TOP SCH (08:57)
[2019-11-06] MEDS: CEFEPIME/SWI 2gm 2 GM/20 ML SYR IV SCH (11:28)
--- NOTE | 2019-11-06 15:13 | PN ---
Date of Progress Note: 11/06/2019 No complaints. Vital signs stable. Afebrile. Cultures pending. Examination of the wound reveals a little odor to it. There is some swelling. No erythema and there is no purulent discharge. The wo und had not been packed properly in the last 24 hours. The was opened up. The nurses instructed how to pack it properly. Assessment: Status post incision and debridement, left foot diabetic infection with abscess and oste omyelitis. Recommendations: Discussed the case with Dr. Salmeron. Patient requires 6 weeks IV antibiotics. Hyperb [place] oxygen and wound care as ordered. Discharge planning in progress. /MODL Voice ID: [id number] Report ID: [id number]
[2019-11-06] MEDS ORDERED: ALBUTEROL 2.5 MG/3 ML NEB SOL NEB PRN (16:00)
[2019-11-06] MEDS: VANCOMYCIN/NS 1 gm 1 GM/250 ML BAG IV SCH (18:09)
--- NOTE | 2019-11-06 19:38 | P.PN ---
Subjective Date of Service: 11/06/19 Chief Complaint: Left foot pain Subjective: No new changes Review of Systems General: Unremarkable Eyes: Unremarkable ENT: Unremarkable Respiratory: Unremarkable Cardiovascular: Unremarkable Gastrointestinal: Unremarkable Musculoskeletal: Foot Pain, Pedal edema Neurological: Unremarkable Physical Examination - Vital Signs Temperature: 97.2 F Blood Pressure: 138/67 Pulse: 81 Respirations: 17 Pulse Ox (%): 98 - Physical Exam General: Alert, In no apparent distress, Oriented x3, Cooperative HEENT: Atraumatic, Normocephalic, PERRLA Neck: Supple, 2+ carotid pulse no bruit, JVD not distended Respiratory: Clear to auscultation bilaterally, Normal air movement Cardiovascular: No edema, Normal pulses Gastrointestinal: Normal bowel sounds, Soft and benign, Non-distended Musculoskeletal: No clubbing, Swelling, Erythema, Tenderness, Other (2 ulcers on the left foot with purulent discharge and smells) Neurological: Normal gait, Normal speech, Normal strength at 5/5 x4 extr, Normal tone - Studies Medications List Reviewed: Yes Assessment And Plan - Plan Patient does not want amputation at this moment. He is extremely high risk of amputation in the future. Discussed Dr. Navas and ID physician. Planned to send him to LTAC for hyperbaric oxygen therapy and wound care and 6 week antibiotics. He probably can be discharged in 1 or 2 days if placement is arranged. # Left foot 4th and 3rd digit osteomyelitis / wound ulcer - on abx with vanco and cefepime -ID has been following this patient and agreed with IV abx -discussed with fiberglass insulation installer and we decided hyperbarics oxygen therapy and prolonged IV antibiotics -patient refused amputation at this moment. # ESRD -rising k , c/w on HD in am -renal team-Dr Rene following # DM -improving , c/w insulin regime # Anemia - of renal disease - trending down to 6.8 -follow iron profile - start Epogen 10 k tiw -follow Epogen dosing per renal -will avoid PRBC for now # HTN -still elevated but improving , will increase beta-blockage # Hyperphosphatemia - intemrittent itching not likely due to elevated phosphorous but given level of 6.1 , will increase renvela to 2 tabs with meals # DVT prop-on heparin Discharge Plan: LTAC Physician Review: Patient Assessed, Agree with Above Assessment and Plan
--- NOTE | 2019-11-06 19:52 | CON ---
History Of Present Illness: Patient is a 53-year-old male, end-stage renal disease, on hemodialysis for 3 years, coming in with left foot diabetic foot ulcer with osteomyelitis. Patient is currently g etting IV antibiotic, had debridement done on Wednesday. Patient denies any headache, nausea, vomitin g, chest pain, abdominal pain, constipation, or diarrhea. Past Medical History: Hypertension, diabetes mellitus, end-stage renal disease, congestive heart juan lure, lower extremity foot ulcer with stasis ulcers and stasis dermatitis and lymphedema. Past Surgical History: Right upper extremity hemodialysis fistula. Allergies: NO KNOWN DRUG ALLERGIES. Social History: Nonsmoker, nondrinker. Family History: Noncontributory. Medications: Cefepime, vancomycin. Review of Systems: A 10-point review was performed. Physical Examination: General: Patient lying in bed, not in any acute cardiopulmonary distress, getting hemodialyze. Vital Signs: Temperature 97.2, pulse 81, respirations 17, blood pressure 138/67. HEENT: Unremarkable. Neck: Supple. Lungs: Basal crackles. Heart: S1, S2. Regular. Abdomen: Soft, nontender. Bowel sounds present. Extremities: 2+ edema. Laboratory Data: WBC 14,000, hemoglobin 7.1, platelets 257. Chemistry shows sodium 134, potassium 5 .2, chloride 102, bicarb 23, BUN 58, creatinine 11, sugar is 167, albumin is 2.6. Wound cultures and blood cultures are no growth. MRI of the foot shows patient has osteomyelitis of fourth metatarsal and fourth proximal phalanx. Assessment And Plan: A 53-year-old male with diabetes mellitus and diabetic foot ulcer, coming in wi th osteomyelitis of fourth metatarsal and phalanx and diabetic ulcers with neuropathy and stasis derm atitis. Also, has end-stage renal disease for 3 years, on dialysis. Continue antibiotic and wound c are. Possible wound VAC and apply Medihoney with alginate to the wound site. Keep leg elevated when possible. Consider transferring patient to long-term acute care at [facility]. We will fol low the patient as needed. NF/MODL Voice ID: [id number] Report ID: [id number]
--- NOTE | 2019-11-06 20:07 | P.PN ---
Date of Service: 11/06/19 Vital Signs Temp Pulse Resp BP Pulse Ox 97.2 F 81 17 138/67 98 11/06/19 19:38 11/06/19 19:38 11/06/19 19:38 11/06/19 19:38 11/06/19 19:38 Medications Acetaminophen (Tylenol -Extra Strength) 500 mg PO Q6H PRN PRN Reason: Pain scale 2-4 (Mild) Stop: 12/02/19 12:47 Last Admin: 11/04/19 20:59 Dose: 500 mg Hydrocodone Bitart/Acetaminophen (Arvin 5/325) 1 tab PO Q6H PRN PRN Reason: Pain scale 5-7 (Moderate) Stop: 12/03/19 14:12 Last Admin: 11/06/19 18:08 Dose: 1 tab Albuterol Sulfate (Proventil 0.083% Neb Soln) 2.5 mg NEB [id number] PRN PRN Reason: SHORTNESS OF BREATH Stop: 12/02/19 12:47 Calcitriol (Rocaltrol) 0.5 mcg PO DAILY JOLEEN Stop: 12/03/19 09:01 Last Admin: 11/06/19 08:54 Dose: 0.5 mcg Calcium Acetate (Phoslo) 667 mg PO TIDWM JOLEEN Stop: 12/03/19 08:01 Last Admin: 11/06/19 18:17 Dose: 667 mg Cholecalciferol (Vitamin D 5,000 Iu Cap) 5,000 unit PO DAILY JOLEEN Stop: 12/03/19 09:01 Last Admin: 11/06/19 08:53 Dose: 5,000 unit Collagenase (Santyl Ointment) 1 appl TOP DAILY JOLEEN Stop: 12/03/19 09:01 Last Admin: 11/06/19 08:57 Dose: 1 appl Diltiazem HCl (Cardizem Cd) 360 mg PO DAILY JOLEEN Stop: 12/03/19 09:01 Last Admin: 11/06/19 08:54 Dose: 360 mg Emollient Gel (Medihoney Woundcare Gel) 1 appl TOP DAILY JOLEEN Stop: 12/07/19 09:01 Epoetin Darin (Retacrit) 10,000 unit IV EVERY HD JOLEEN Stop: 12/05/19 09:31 Epoetin Darin (Procrit) 20,000 unit SQ 1X JOLEEN Stop: 12/06/19 20:16 Famotidine (Pepcid) 20 mg PO DAILY [facility]; Protocol Stop: 12/03/19 09:01 Last Admin: 11/06/19 08:54 Dose: 20 mg Furosemide (Lasix) 80 mg PO DAILY JOLEEN Stop: 12/03/19 09:01 Last Admin: 11/06/19 08:55 Dose: 80 mg Gabapentin (Neurontin) 300 mg PO BEDTIME PRN PRN Reason: pain Stop: 12/02/19 13:03 Last Admin: 11/05/19 20:59 Dose: 300 mg Heparin Sodium (Porcine) (Heparin 5,000 Units/Ml) 5,000 unit SQ Q12HR JOLEEN Stop: 12/02/19 21:01 Last Admin: 11/06/19 08:56 Dose: 5,000 unit Heparin Sodium (Porcine) (Heparin 1,000 Units/Ml) 6,000 unit IV EVERY HD PRN PRN Reason: FLUSH AFTER EACH USE Stop: 12/02/19 13:57 Hydralazine HCl (Apresoline) 10 mg IV Q6HP PRN PRN Reason: Titrate to SBP (MUST DEFINE) Stop: 12/02/19 12:59 Hydralazine HCl (Apresoline) 100 mg PO BID [facility] Stop: 12/02/19 21:01 Last Admin: 11/06/19 08:55 Dose: 100 mg Vancomycin HCl (Vancomycin 1 Gm/250 Ml Ns Ivpb) 1 gm in 250 mls @ 150 mls/hr IV AFTER EACH DIALYSIS [facility]; Protocol Stop: 12/03/19 09:01 Last Admin: 11/06/19 18:09 Dose: 250 mls Albumin Human (Albumin 25%) 50 mls @ 100 mls/hr IV EVERY HD [facility] Stop: 12/02/19 14:01 Cefepime HCl (Maxipime 2 Gm/20 Ml Swi Ivp) 2 gm in 20 mls @ 600 mls/hr IV DAILY [facility] Stop: 12/06/19 11:01 Last Admin: 11/06/19 11:28 Dose: 20 mls Insulin Human Regular (Novolin -R) 0 unit SQ ACHS JOLEEN; Protocol Stop: 12/02/19 16:31 Last Admin: 11/06/19 16:30 Dose: Not Given Lactobacillus Acidoph/Bulgaricus (Lactinex) 1 tab PO TID [facility] Stop: 12/02/19 21:01 Last Admin: 11/06/19 13:21 Dose: 1 tab Mannitol (Mannitol 12.5 Gm/50 Ml Vial) 12.5 gm IV EVERY HD PRN PRN Reason: Titrate to SBP (MUST DEFINE) Stop: 12/02/19 13:57 Metoprolol Succinate (Toprol Xl) 50 mg PO [id number] [facility] Stop: 12/05/19 09:09 Last Admin: 11/06/19 05:00 Dose: 50 mg Morphine Sulfate (Morphine Sulfate) 2 mg IV Q4H PRN PRN Reason: Pain scale 5-7 (Moderate) Stop: 12/02/19 12:47 Last Admin: 11/03/19 05:53 Dose: 2 mg Ondansetron HCl (Zofran) 4 mg IV Q8H PRN PRN Reason: NAUSEA / VOMITING Stop: 12/02/19 12:47 Last Admin: 11/04/19 12:11 Dose: 4 mg Sevelamer Carbonate (Renvela) 1,600 mg PO TIDWM [facility] Stop: 12/05/19 12:01 Last Admin: 11/06/19 18:17 Dose: 1,600 mg Sodium Chloride (Normal Saline Flush) 10 ml IV BID [facility] Stop: 12/02/19 21:01 Last Admin: 11/06/19 08:56 Dose: 10 ml Microbiology Results 11/02/19 09:58 Wound - Left Foot Gram Stain - Final 11/02/19 09:58 Wound - Left Foot Culture & Sensitivity - Final 11/02/19 10:54 Blood - Blood Aerobic Blood Culture - Preliminary No growth in 24 hours. 11/02/19 10:54 Blood - Blood Anaerobic Blood Culture - Preliminary No growth in 24 hours. 11/02/19 10:05 Blood - Blood Aerobic Blood Culture - Preliminary No growth in 24 hours. 11/02/19 10:05 Blood - Blood Anaerobic Blood Culture - Preliminary No growth in 24 hours. Assessment/ Plan: Nephrology. Doing well. CPS stable without CP or SOB. +JONES No acute events overnight. Vitals, medications, blood work and imaging reviewed in the chart. General: In no apparent distress, Oriented x3, Cooperative HEENT: Atraumatic Neck: Supple Respiratory: Clear to auscultation bilaterally, Normal air movement Cardiovascular: Regular rate/rhythm, No rubs, Edema Gastrointestinal: Soft and benign, Non-distended, No guarding Musculoskeletal: No clubbing, No contractures Integumentary: Skin breakdown, Skin lesion, Tenderness/swelling, Erythema Neurological: Normal speech Laboratory Data (last 24 hrs) 11/02/19 10:05: Phosphorus 6.1 H 11/02/19 10:05: Sodium 135 L, Potassium 6.5 H*, BUN 85 H, Creatinine 11.70 H*, Glucose 111 H 11/02/19 10:05: WBC 14.5 H, Hgb 7.5 L*, Hct 23.8 L, Plt Count 264 Imagings Data: EXAM DESCRIPTION: MRI - Foot Left Wo Cont - 11/02/2019 2:31 pm CLINICAL HISTORY: Left foot pain, swelling, gangrene COMPARISON: August 2019 MRI TECHNIQUE: Axial, sagittal and coronal magnetic resonance imaging of the left foot obtained FINDINGS: Abnormal signal involves the fourth metatarsal head and neck and most of the fourth proximal phalanx consistent with osteomyelitis. The fifth phalanx has been resected. A portion of the fifth metatarsal has been resected. Abnormal signal is present within the remaining distal and mid fifth proximal phalanx. Diffuse edema is present within the subcutaneous tissues. Ulceration involves the lateral forefoot soft tissues IMPRESSION: Osteomyelitis fourth metatarsal and fourth proximal phalanx Abnormal signal involving the fifth metatarsal. Given that the surgery was over 1 month ago it is probable that osteomyelitis is present. EXAM DESCRIPTION: RAD - Foot Left 3 View - 11/02/2019 10:39 am CLINICAL HISTORY: Foot pain, diabetic foot ulcer COMPARISON: MRI September 07, 2019, plain films left foot September 06, 2019 FINDINGS: Since the prior examination the fifth toe and distal fifth metatarsal have been resected. There is slightly irregular margin at the fifth metatarsal osteotomy site. This is not outside of normal range given the relatively recent surgery. No definitive bone destruction in the fifth metatarsal. Lucent changes are present in the fourth metatarsal head with cortical thinning and possible disruption present. There are erosive changes along the lateral base of the fourth proximal phalanx. These are new findings from prior imaging. The first- third metatarsals and toes are intact. There is underlying degenerative change present. No air or foreign body in the soft tissues. Edit IMPRESSION: Osteomyelitis changes involving the fourth metatarsal head and base of the fourth proximal phalanx. Postsurgical changes with fifth toe and fifth metatarsal head amputation. No definitive bone destruction at the fifth metatarsal osteotomy site. Conclusions/Impression: A/ ESRD on HD. Hyponatremia. Hyperkalemia. Hypocalcemia. HypoPO4. HTN with CKD/ CHF. DM II with CKD. DM II with foot ulcer. Diastolic CHF, chronic. Anemia in CKD. MECCA/ Secondary HyperPTH. Osteomyelitis of left lateral foot. P/ Continue current POC and medications. HD TIW. Seen and examined on HD today. Continue Epo. Continue abx. Monitor vanco level. Surgery following. No NSAIDs. AM labs. Daily weight. Plan for LTAC due to terminal superintendent abx and wound care.
[2019-11-06] MEDS: ACETAMINOPHEN 500 MG TAB PO PRN (20:12)
[2019-11-06] MEDS ORDERED: EPOETIN ALFA 20,000 UNIT/1 ML VIAL SQ ONE (20:15)
[2019-11-07] MEDS: METOPROLOL XL 50 MG TAB PO SCH (05:24)
[2019-11-07 05:38] LABS: Absolute Lymphocytes (CBC) 0.5 K/uL (0.7-4.9); Basophils % 0.9 % (0-1.3); Hematocrit 28.1 % (39.6-49.0); Lymphocytes % 4.5 % (15.3-44.8); MPV 9.1 fL (7.6-11.3); RBC Red Blood Cell Count 3.42 M/uL (4.33-5.43)
[2019-11-07 06:16] LABS: Blood Morphology Comment NOTED (NOT SEEN); Platelet Estimate ADEQ; Polychromasia 1+
[2019-11-07] MEDS: INSULIN -REGULAR HUMAN 50 UNIT/0.5 ML ML SQ SCH ×2 (07:30→11:30)
[2019-11-07] MEDS: DILTIAZEM HCL 180 MG SR CAP PO SCH (08:56)
[2019-11-07] MEDS: CALCITROL 0.25 MCG CAP PO SCH (08:56)
[2019-11-07] MEDS: FUROSEMIDE 40 MG TABLET PO SCH (08:57)
[2019-11-07] MEDS: HYDRALAZINE HCL 25 MG TABLET PO SCH (08:57)
[2019-11-07] MEDS: LACTOBACILLUS/ACIDOPHILUS TAB PO SCH ×2 (08:57→14:29)
[2019-11-07] MEDS: VITAMIN D 5,000 UNIT CAP PO SCH (08:57)
[2019-11-07] MEDS: FAMOTIDINE 20 MG TAB PO SCH (08:57)
[2019-11-07] MEDS: SEVELAMER CARBONATE 800 MG TABLET PO SCH ×2 (08:57→11:42)
[2019-11-07] MEDS: CA ACETATE 667 MG CAP PO SCH ×2 (08:57→11:41)
[2019-11-07] MEDS: HEPARIN 5000 UNIT/ML 1 ML VIAL SQ SCH (08:58)
[2019-11-07] MEDS: COLLAGENASE 30 GM OINTMENT TOP SCH (08:59)
[2019-11-07] MEDS ORDERED: MEDIHONEY 44 ML TOPICAL TUBE TOP SCH (09:00)
[2019-11-07] MEDS: MORPHINE 2 MG/ML SYR IV PRN (09:01)
[2019-11-07 09:20] VITALS: O2SAT 96
[2019-11-07] MEDS: CEFEPIME/SWI 2gm 2 GM/20 ML SYR IV SCH (11:18)
[2019-11-07 12:08] VITALS: BP 132/63; TEMP 97.1
--- NOTE | 2019-11-07 21:39 | P.PN ---
Date of Service: 11/07/19 Vital Signs Temp Pulse Resp BP Pulse Ox 97.1 F 82 17 132/63 98 11/07/19 12:00 11/07/19 12:00 11/07/19 12:00 11/07/19 12:00 11/07/19 12:00 Microbiology Results 11/02/19 10:54 Blood - Blood Aerobic Blood Culture - Final No growth in 5 days. 11/02/19 10:54 Blood - Blood Anaerobic Blood Culture - Final No growth in 5 days. 11/02/19 10:05 Blood - Blood Aerobic Blood Culture - Final No growth in 5 days. 11/02/19 10:05 Blood - Blood Anaerobic Blood Culture - Final No growth in 5 days. 11/02/19 09:58 Wound - Left Foot Gram Stain - Final 11/02/19 09:58 Wound - Left Foot Culture & Sensitivity - Final Assessment/ Plan: Nephrology. Doing well. CPS stable without CP or SOB. +JONES No acute events overnight. Vitals, medications, blood work and imaging reviewed in the chart. General: In no apparent distress, Oriented x3, Cooperative HEENT: Atraumatic Neck: Supple Respiratory: Clear to auscultation bilaterally, Normal air movement Cardiovascular: Regular rate/rhythm, No rubs, Edema Gastrointestinal: Soft and benign, Non-distended, No guarding Musculoskeletal: No clubbing, No contractures Integumentary: Skin breakdown, Skin lesion, Tenderness/swelling, Erythema Neurological: Normal speech Laboratory Data (last 24 hrs) 11/02/19 10:05: Phosphorus 6.1 H 11/02/19 10:05: Sodium 135 L, Potassium 6.5 H*, BUN 85 H, Creatinine 11.70 H*, Glucose 111 H 11/02/19 10:05: WBC 14.5 H, Hgb 7.5 L*, Hct 23.8 L, Plt Count 264 Imagings Data: EXAM DESCRIPTION: MRI - Foot Left Wo Cont - 11/02/2019 2:31 pm CLINICAL HISTORY: Left foot pain, swelling, gangrene COMPARISON: August 2019 MRI TECHNIQUE: Axial, sagittal and coronal magnetic resonance imaging of the left foot obtained FINDINGS: Abnormal signal involves the fourth metatarsal head and neck and most of the fourth proximal phalanx consistent with osteomyelitis. The fifth phalanx has been resected. A portion of the fifth metatarsal has been resected. Abnormal signal is present within the remaining distal and mid fifth proximal phalanx. Diffuse edema is present within the subcutaneous tissues. Ulceration involves the lateral forefoot soft tissues IMPRESSION: Osteomyelitis fourth metatarsal and fourth proximal phalanx Abnormal signal involving the fifth metatarsal. Given that the surgery was over 1 month ago it is probable that osteomyelitis is present. EXAM DESCRIPTION: RAD - Foot Left 3 View - 11/02/2019 10:39 am CLINICAL HISTORY: Foot pain, diabetic foot ulcer COMPARISON: MRI September 07, 2019, plain films left foot September 06, 2019 FINDINGS: Since the prior examination the fifth toe and distal fifth metatarsal have been resected. There is slightly irregular margin at the fifth metatarsal osteotomy site. This is not outside of normal range given the relatively recent surgery. No definitive bone destruction in the fifth metatarsal. Lucent changes are present in the fourth metatarsal head with cortical thinning and possible disruption present. There are erosive changes along the lateral base of the fourth proximal phalanx. These are new findings from prior imaging. The first- third metatarsals and toes are intact. There is underlying degenerative change present. No air or foreign body in the soft tissues. Edit IMPRESSION: Osteomyelitis changes involving the fourth metatarsal head and base of the fourth proximal phalanx. Postsurgical changes with fifth toe and fifth metatarsal head amputation. No definitive bone destruction at the fifth metatarsal osteotomy site. Conclusions/Impression: A/ ESRD on HD. Hyponatremia. Hyperkalemia. Hypocalcemia. HypoPO4. HTN with CKD/ CHF. DM II with CKD. DM II with foot ulcer. Diastolic CHF, chronic. Anemia in CKD. MECCA/ Secondary HyperPTH. Osteomyelitis of left lateral foot. P/ Continue current POC and medications. HD TIW. Continue Epo. Continue abx. Monitor vanco level. Surgery following. No NSAIDs. AM labs. Daily weight. Plan for LTAC due to intermediate frame tender abx and wound care.
--- NOTE | 2019-11-07 23:20 | DS ---
Date of Discharge: 11/07/2019 Hospital Course: This patient is a 53-year-old gentleman, who presented for left foot ulcer. He has a complicated past medical history including hypertension, diabetes, end-stage renal disease on hemodialysis, hypertension, CHF, and diabetic foot ulcer. This patient developed left fifth digit gangrene 1 month ago and underwent amputation. The surgical wound was not healing well despite wound VAC placement. He was sent by [facility] for surgical wound infection. Imaging study demonstrates left fourth digit osteomyelitis. MRI confirmed osteomyelitis. The patient was treated with vancomycin along with dialysis. I added IV cefepime to cover gram-negative bacteria. Director Safety was consulted. The patient declined amputation at this moment. He wants IV antibiotics and wound care at this moment. Stress Analyst was consulted for end- stage renal disease. The patient continued scheduled hemodialysis. Wound culture did not grow bacteria. Blood culture negative. Infectious Disease doctor was consulted. The patient continued to experience drainage. There is redness and swelling around the surgical wound. Discussed with Dr. Smith and Infectious Disease doctor. We planned to transfer patient to the [facility] with hyperbaric oxygen therapy for nonhealing ulcers. We will continue IV vancomycin and cefepime for 6 weeks. ID physician and licensed insurance agent will follow patient at [facility]. His vitals are stable for transfer. Physical Examination: Vital Signs: On discharge, temperature 97, pulse 79, blood pressure 132/63, oxygen saturation 96% on room air. HEENT: Atraumatic, normocephalic. PERRLA. EOMI. Chest: Clear to auscultation. No respiratory distress. Heart: Normal S1, S2. Regular rhythm and rate. Abdomen: Soft, nontender. Bowel sounds present. Extremities: There is 2 nonhealing ulcers on the left foot with smelly purulent discharge. Neuro: Patient awake, alert, nonfocal. Oriented x3. Laboratory Data: WBC 12.3, hemoglobin 9.1. Sodium 134 and potassium 5.2, creatinine 11.2. Discharge Diagnoses: 1. Left foot osteomyelitis. 2. Left foot wound ulcer. 3. End-stage renal disease, on hemodialysis. 4. Type 2 diabetes. 5. Anemia secondary to renal disease. 6. Hypertension. 7. Hyperphosphatemia. Discharge Medications: 1. Patient will continue vancomycin 1 g after dialysis and cefepime IV daily for a total of 6 weeks at [facility]. ID will follow at [facility] 2. For the rest of home medication, please see medication list. Discharge Instructions: 1. Please be compliant wound care and hyperbaric therapy. 2. Please follow Dr. Smith as instructed. 3. ID physician will follow this patient. Discharge Activity: As tolerated. Discharge Diet: Diabetic diet and renal diet. I spent at least 35 minutes to discharge patient including reviewing the chart, patient education and discharge summary. QT/MODL Voice ID: [id number] Report ID: [id number] WALTER
== END 2019-11-07 14:46 | DRG 638 ==
LOC: ER 09:12 → ERHOLD 12:47 → 2ND 14:24
PROVIDERS: ADMIT Internal Medicine; ATTEND Internal Medicine
PROC: 0J9R3ZX Drainage of Left Foot Subcutaneous Tissue and Fascia, Percutaneous Approach, Diagnostic (ICD-10-PCS; principal; 2019-11-03 14:00)
DX: E11.69 Type 2 diabetes mellitus with other specified complication (principal); M86.8X7 Other osteomyelitis, ankle and foot; I13.2 Hypertensive heart and chronic kidney disease with heart failure and with stage 5 chronic kidney disease, or end stage renal disease; I50.32 Chronic diastolic (congestive) heart failure; E87.1 Hypo-osmolality and hyponatremia; Z68.41 Body mass index [BMI] 40.0-44.9, adult; E11.22 Type 2 diabetes mellitus with diabetic chronic kidney disease; N18.6 End stage renal disease; E11.621 Type 2 diabetes mellitus with foot ulcer; D63.1 Anemia in chronic kidney disease; E83.39 Other disorders of phosphorus metabolism; E87.5 Hyperkalemia; E83.51 Hypocalcemia; I87.2 Venous insufficiency (chronic) (peripheral); E66.01 Morbid (severe) obesity due to excess calories
CPT/HCPCS: 36415; 80048; 80053; 80202; 81003; 81015; 82947; 83036; 84100; 84484; 85025; 85652; 87040; 87070; 87075; 87086; 87088; 87205; 90935; 96365; 96366; 96375; 97116; 97161; 99213; 99285; J0692; J1644; J2270; J2405; J2704; J3010; J3370; J3590; J7030; J7040; Q4081; Q5105

== ENCOUNTER 2020-01-15 04:45 | Emergency (ER) | payer OTHER ==
[2020-01-15] MEDS ORDERED: MORPHINE 2 MG/ML SYR ONE ×2 (05:21→06:33)
[2020-01-15] MEDS ORDERED: NA CHLORIDE 0.9% 250 ML ONE (05:21)
[2020-01-15 05:24] LABS: Absolute Lymphocytes (CBC) 0.5 K/uL (0.7-4.9); Basophils % 0.4 % (0-1.3); Hematocrit 26.8 % (39.6-49.0); Lymphocytes % 5.6 % (15.3-44.8); RBC Red Blood Cell Count 3.26 M/uL (4.33-5.43)
[2020-01-15 05:40] LABS: Albumin 3.1 g/dL (3.4-5.0); Bilirubin Direct 0.1 mg/dL (0-0.2); Bilirubin Total 0.4 mg/dL (0.2-1.0); Potassium 4.9 mmol/L (3.5-5.1); Protein, Total 8.6 g/dL (6.4-8.2)
--- NOTE | 2020-01-15 06:41 | EDPHYS ---
Physician Documentation [facility] Name: Constantin Holloway Age: 54 yrs Sex: Male : 1965 Arrival Date: 01/15/2020 Time: 04:46 Bed 6 Private MD: ED Physician Clement Marcos HPI: 01/14 06:10 This 54 yrs old Black Male presents to ER via Wheelchair with complaints of L Side Pain.tw4 06:10 The patient complains of pain in the left low back. The pain does not radiate. Onset: tw4 The symptoms/episode began/occurred yesterday. Modifying factors: The symptoms are alleviated by nothing. the symptoms are aggravated by nothing. Associated signs and symptoms: The patient has no apparent associated signs or symptoms. Severity of pain: At its worst the pain was moderate in the emergency department the pain is unchanged. The patient has not experienced similar symptoms in the past. Historical: - Allergies: 05:04 No Known Allergies; jd3 - Home Meds: 05:04 diltiazem HCl 360 mg Oral cpER 1 cap once daily [Active]; hydralazine 100 mg Oral tab 1 jd3 tab 2 times per day [Active]; furosemide 40 mg Oral tab 1 tab 2 times per day [Active]; DIALYVITE 800 oral oral daily [Active]; sildenafil oral 100 mg oral 1 tab once daily [Active]; diltiazem HCl 120 mg Oral cp12 1 cap daily [Active]; ramipril 5 mg Oral cap 1 cap once daily [Active]; - PMHx: 05:04 CHF; Hypertension; Dialysis; Diabetes - NIDDM; Renal Disease; jd3 - PSHx: 05:04 Catheter palcement to Right arm; RUE HD Fistula; jd3 - Immunization history:: Adult Immunizations up to date. - Social history:: Smoking status: Patient denies any tobacco usage or history of. ROS: 06:10 Constitutional: Negative for fever, chills, and weight loss, Cardiovascular: Negative tw4 for chest pain, palpitations, and edema, Respiratory: Negative for shortness of breath, cough, wheezing, and pleuritic chest pain, Abdomen/GI: Negative for abdominal pain, nausea, vomiting, diarrhea, and constipation, MS/Extremity: Negative for injury and deformity, Skin: Negative for injury, rash, and discoloration, Neuro: Negative for headache, weakness, numbness, tingling, and seizure. 06:10 Back: Positive for pain at rest, pain with movement, flank pain, on the left. Exam: 06:10 Constitutional: This is a well developed, well nourished patient who is awake, alert, tw4 and in no acute distress. Head/Face: Normocephalic, atraumatic. Chest/axilla: Normal chest wall appearance and motion. Nontender with no deformity. No lesions are appreciated. Cardiovascular: Regular rate and rhythm with a normal S1 and S2. No gallops, murmurs, or rubs. Normal PMI, no JVD. No pulse deficits. Respiratory: Lungs have equal breath sounds bilaterally, clear to auscultation and percussion. No rales, rhonchi or wheezes noted. No increased work of breathing, no retractions or nasal flaring. Abdomen/GI: Soft, non-tender, with normal bowel sounds. No distension or tympany. No guarding or rebound. No evidence of tenderness throughout. 06:10 Skin: Warm, dry with normal turgor. Normal color with no rashes, no lesions, and no evidence of cellulitis. MS/ Extremity: Pulses equal, no cyanosis. Neurovascular intact. Full, normal range of motion. Neuro: Awake and alert, GCS 15, oriented to person, place, time, and situation. Cranial nerves II-XII grossly intact. Motor strength 5/5 in all extremities. Sensory grossly intact. Cerebellar exam normal. Normal gait. 06:10 Back: CVA tenderness, that is mild, is noted on the left. Vital Signs: 05:05 BP 176 / 83; Pulse 97; Resp 18 S; Temp 98.2(O); Pulse Ox 98% on R/A; Weight 136.08 kg jd3 (R); Height 6 ft. 0 in. (182.88 cm) (R); Pain 9/10; 05:05 Body Mass Index 40.69 (136.08 kg, 182.88 cm) jd3 MDM: 04:50 Patient medically screened. tw4 06:38 Differential diagnosis: nephrolithiasis, pyelonephritis. Data reviewed: vital signs, tw4 nurses notes. Data interpreted: Pulse oximetry: Interpretation: normal. Counseling: I had a detailed discussion with the patient and/or guardian regarding: the historical points, exam findings, and any diagnostic results supporting the discharge/admit diagnosis, lab results, radiology results. Medication response: morphine relieved the patient's pain. Symptoms have resolved. Response to treatment: and as a result, I will discharge patient. Special discussion: I discussed with the patient/guardian in detail that at this point there is no indication for admission to the hospital. It is understood, however, that if the symptoms persist or worsen the patient needs to return immediately for re-evaluation. 01/14 04:58 Order name: Basic Metabolic Panel 01/14 04:58 Order name: CBC with Diff 01/14 06:40 Interpretation: Normal except: RBC 3.26; HGB 8.6; HCT 26.8; MCH 26.5; RDW 22.3; LYMA tw4 0.5; NEUT A 8.2; LYM% 5.6; LESLIE% 83.6. 01/14 04:58 Order name: Creatinine for Radiology; Complete Time: 06:40 01/14 06:40 Interpretation: Normal except: CRE 15.90; GFR 4. 01/14 04:58 Order name: Hepatic Function; Complete Time: 06:40 [facility] 01/14 06:40 Interpretation: Normal except: TP 8.6; ALB 3.1; GLOB 5.5; A/G 0.6. 01/14 04:58 Order name: Lipase; Complete Time: 06:40 01/14 06:40 Interpretation: Within normal limits: LIP 333. 01/14 04:59 Order name: Basic Metabolic Panel; Complete Time: 06:40 EDMS 01/14 04:58 Order name: IV Saline Lock; Complete Time: 05:08 01/14 04:58 Order name: Labs collected and sent; Complete Time: 05:08 [facility] 01/14 04:58 Order name: CT Stone Protocol 01/14 05:28 Order name: CBC Smear Scan EDMS Administered Medications: 05:31 Drug: morphine 2 mg Route: IVP; Site: left wrist; mg2 06:25 Follow up: Response: No adverse reaction; RASS: Alert and Calm (0) mg2 05:31 Drug: NS 0.9% 250 ml Route: IV; Rate: bolus; Site: left wrist; mg2 06:26 Follow up: Response: No adverse reaction; IV Status: Completed infusion; IV Intake: mg2 250ml 06:33 Drug: morphine 2 mg Route: IVP; Site: left wrist; mg2 06:54 Follow up: Response: No adverse reaction mg2 Disposition: 01/15/20 06:41 Discharged to Home. Impression: Low back pain. - Condition is Stable. - Discharge Instructions: Back Pain, Adult. - Prescriptions for Cyclobenzaprine 10 mg Oral Tablet - take 1 tablet by ORAL route every 8 hours As needed; 30 tablet. - Medication Reconciliation Form, Thank You Letter, Antibiotic Education, Prescription Opioid Use form. - Follow up: Private Physician; When: Upon discharge from the Emergency Department; Reason: Recheck today's complaints, Continuance of care, Re-evaluation by your physician. - Problem is new. - Symptoms have improved. Signatures: Dispatcher [employer] EDChristopher Clark RN RN jd3 Clement Marcos MD MD tw4 Tye Dey RN RN mg2 Corrections: (The following items were deleted from the chart) 07:10 06:41 01/15/2020 06:41 Discharged to Home. Impression: Low back pain. Condition is mg2 Stable. Forms are Medication Reconciliation Form, Thank You Letter, Antibiotic Education, Prescription Opioid Use. Follow up: Private Physician; When: Upon discharge from the Emergency Department; Reason: Recheck today's complaints, Continuance of care, Re-evaluation by your physician. Problem is new. Symptoms have improved. tw4
--- NOTE | 2020-01-15 06:41 | ER ---
Nurse's Notes [facility] Name: Constantin Holloway Age: 54 yrs Sex: Male : 1965 Arrival Date: 01/15/2020 Time: 04:46 Bed 6 Private MD: Diagnosis: Low back pain Presentation: 01/14 04:57 Chief complaint: Patient states: "I am having pain across my left side of my stomach jd3 around to my back since 2100 yesterday 01/14/2020.". Coronavirus screen: Proceed with normal triage. Ebola Screen: Patient negative for fever greater than or equal to 101.5 degrees Fahrenheit, and additional compatible Ebola Virus Disease symptoms. Initial Sepsis Screen: Does the patient meet any 2 criteria? No. Patient's initial sepsis screen is negative. Does the patient have a suspected source of infection? No. Patient's initial sepsis screen is negative. Risk Assessment: Do you want to hurt yourself or someone else? Patient reports no desire to harm self or others. Onset of symptoms was January 14, 2020. 04:57 Method Of Arrival: Wheelchair jd3 04:57 Acuity: NIDIA 3 jd3 Historical: - Allergies: 05:04 No Known Allergies; jd3 - Home Meds: 05:04 diltiazem HCl 360 mg Oral cpER 1 cap once daily [Active]; hydralazine 100 mg Oral tab 1 jd3 tab 2 times per day [Active]; furosemide 40 mg Oral tab 1 tab 2 times per day [Active]; DIALYVITE 800 oral oral daily [Active]; sildenafil oral 100 mg oral 1 tab once daily [Active]; diltiazem HCl 120 mg Oral cp12 1 cap daily [Active]; ramipril 5 mg Oral cap 1 cap once daily [Active]; - PMHx: 05:04 CHF; Hypertension; Dialysis; Diabetes - NIDDM; Renal Disease; jd3 - PSHx: 05:04 Catheter palcement to Right arm; RUE HD Fistula; jd3 - Immunization history:: Adult Immunizations up to date. - Social history:: Smoking status: Patient denies any tobacco usage or history of. Screenin:05 Abuse screen: Denies threats or abuse. Nutritional screening: No deficits noted. jd3 Tuberculosis screening: No symptoms or risk factors identified. Fall Risk Ambulatory Aid- None/Bed Rest/Nurse Assist (0 pts). Gait- Normal/Bed Rest/Wheelchair (0 pts) Mental Status- Oriented to own ability (0 pts). Total Myers Fall Scale indicates No Risk (0-24 pts). Assessment: 05:09 General: Appears in no apparent distress. comfortable, Behavior is calm, cooperative. mg2 Pain: Complains of pain in left flank Pain radiates to abdomen Pain currently is 5 out of 10 on a pain scale. Quality of pain is described as aching, Pain began gradually, 1 day ago. Is intermittent. Neuro: Level of Consciousness is awake, alert, obeys commands, Oriented to person, place, time, situation. Cardiovascular: Capillary refill < 3 seconds Patient's skin is warm and dry. Respiratory: Airway is patent Respiratory effort is even, unlabored, Respiratory pattern is regular, symmetrical. GI: Reports lower abdominal pain. : Reports pain in left flank(s). EENT: No signs and/or symptoms were reported regarding the EENT system. Derm: Skin is intact, is healthy with good turgor, Skin is pink, warm \\T\\ dry. normal. Musculoskeletal: Circulation, motion, and sensation intact. Capillary refill < 3 seconds. 05:16 Reassessment: patient sent to ct scan via stretcher. mg2 Vital Signs: 05:05 BP 176 / 83; Pulse 97; Resp 18 S; Temp 98.2(O); Pulse Ox 98% on R/A; Weight 136.08 kg jd3 (R); Height 6 ft. 0 in. (182.88 cm) (R); Pain 9/10; 05:05 Body Mass Index 40.69 (136.08 kg, 182.88 cm) jd3 ED Course: 04:46 Patient arrived in ED. ds1 04:50 Clement Marcos MD is Attending Physician. tw4 04:58 Triage completed. jd3 05:05 Arm band placed on. jd3 05:05 Patient has correct armband on for positive identification. Placed in gown. Bed in low jd3 position. Call light in reach. Side rails up X 1. Pulse ox on. NIBP on. 05:08 Tye Dey, RN is Primary Nurse. mg2 05:10 No provider procedures requiring assistance completed. Inserted saline lock: 20 gauge mg2 in left wrist, using aseptic technique. Blood collected. 05:12 Basic Metabolic Panel Sent. ds4 05:12 CBC with Diff Sent. ds4 05:13 Creatinine for Radiology Sent. ds4 05:13 Hepatic Function Sent. ds4 05:13 Lipase Sent. ds4 05:13 Basic Metabolic Panel Sent. ds4 05:35 CT Stone Protocol In Process Unspecified. EDMS 07:03 IV discontinued, intact, bleeding controlled, No redness/swelling at site. Pressure mg2 dressing applied. Administered Medications: 05:31 Drug: morphine 2 mg Route: IVP; Site: left wrist; mg2 06:25 Follow up: Response: No adverse reaction; RASS: Alert and Calm (0) mg2 05:31 Drug: NS 0.9% 250 ml Route: IV; Rate: bolus; Site: left wrist; mg2 06:26 Follow up: Response: No adverse reaction; IV Status: Completed infusion; IV Intake: mg2 250ml 06:33 Drug: morphine 2 mg Route: IVP; Site: left wrist; mg2 06:54 Follow up: Response: No adverse reaction mg2 Intake: 06:26 IV: 250ml; Total: 250ml. mg2 Outcome: 06:41 Discharge ordered by . tw4 07:03 Discharged to home ambulatory. mg2 07:03 Condition: stable 07:03 Discharge instructions given to patient, Instructed on discharge instructions, follow up and referral plans. medication usage, Demonstrated understanding of instructions, follow-up care, medications, Prescriptions given X 1. 07:10 Patient left the ED. mg2 Signatures: Dispatcher [employer] EDFL [employer] ds1 Joey Knight ds4 Christopher Suggs RN RN Clement Belle MD MD tw4 Tye Dey RN RN mg2
[2020-01-15 07:17] VITALS: BP 176/83; TEMP 98.2; O2SAT 98
[2020-01-15 08:07] LABS: Platelet Estimate ADEQ; Urine White Blood Cell Casts OK
[2020-01-15 08:08] LABS: Anisocytosis 2+; Blood Morphology Comment NOTED (NOT SEEN); Poikilocytosis 1+
--- NOTE | 2020-01-15 10:30 | RAD REPORT ---
EXAM DESCRIPTION: CT - Stone Protocol - 01/15/2020 7:09 am CLINICAL HISTORY: Abd pain;Flank pain COMPARISON: None. TECHNIQUE: CT ABDOMEN PELVIS WITHOUT IV CONTRAST on 01/15/2020 4:58 AM CDT This exam was performed according to our departmental dose-optimization program, which includes autom ated exposure control, adjustment of the mA and/or kV according to patient size and/or use of iterati ve reconstruction technique. FINDINGS: There are minimal groundglass opacities in the lower lungs. There is a trace right pleural effusion. Abdomen: The liver is normal in appearance. There is no biliary dilatation. Cholecystectomy was perfo rmed. The pancreas and spleen are normal in appearance. Adrenal glands are normal. There is a small p ole right renal cyst. There is mild bilateral perinephric stranding. Abdominal aorta is normal in course and caliber without aneurysm. There is no free air. There is no r etroperitoneal adenopathy. Pelvis: There is no bowel obstruction. Urinary bladder is unremarkable. There is no free fluid. Appen tato is normal. Skeleton: There are no acute osseous findings. No suspicious bony lesions. IMPRESSION: No definite acute inflammatory process. No renal or ureteral calculi. Electronically signed by: Shay Marrero MD 01/15/2020 5:43 AM CDT Due to temporary technical issues with the PACS/Fluency reporting system, reports are being signed by the in house radiologist as a courtesy to ensure prompt reporting. The interpreting radiologist is f ully responsible for the content of the report.
== END 2020-01-15 07:10 | disposition home or self-care (01) ==
LOC: ER 04:45
DX: M54.5 Low back pain (principal); E11.22 Type 2 diabetes mellitus with diabetic chronic kidney disease; N18.6 End stage renal disease; Z99.2 Dependence on renal dialysis; I50.9 Heart failure, unspecified
CPT/HCPCS: 85025; 80048; 36415; 80076; 83690; 76377; 74176; J2270 ×2; J7030; 96361; 96374; 99284

== ENCOUNTER 2020-01-17 08:56 | Observation (INO) | payer OTHER ==
[2020-01-17 12:37] VITALS: BMI 41.8
[2020-01-17 15:49] VITALS: O2SAT 97
[2020-01-17 23:04] VITALS: BP 168/76; TEMP 97.8
== END 2020-01-17 23:41 | disposition home or self-care (01) ==
LOC: ER 08:56 → ERHOLD 10:49 → 2ND 11:45
PROVIDERS: ADMIT Family Medicine; ATTEND Family Medicine
PROC: 5A1D70Z Performance of Urinary Filtration, Intermittent, Less than 6 Hours Per Day (ICD-10-PCS; principal; 2020-01-17)
DX: E87.5 Hyperkalemia (principal); N18.6 End stage renal disease; Z91.15 Patient's noncompliance with renal dialysis; E11.22 Type 2 diabetes mellitus with diabetic chronic kidney disease; D63.1 Anemia in chronic kidney disease; I50.9 Heart failure, unspecified; I13.0 Hypertensive heart and chronic kidney disease with heart failure and stage 1 through stage 4 chronic kidney disease, or unspecified chronic kidney disease
CPT/HCPCS: 36415; 80048; 82947; 83735; 90935; 93005; 99285; G0378; J0360; J1644

== ENCOUNTER 2020-09-06 07:25 | Day surgery (SDC) | payer OTHER ==
--- OUTSIDE RECORDS SUMMARY | 2020-09-06 07:29 | XMS REPORT | Continuity of Care Document ---
:1965 Author Organization [employer] Care Team Providers Name Role Phone [employer] Unavailable Un available Problems Problem Status Onset Classification Date Comments Sourc e Date Reported UNK Active 07/21/20 [place] [address] N18.6 Active 07/21/20 [place] [address] N18.16 Active 12/30/19 [place] [address] Diabetes Resolved Problem 08/01/2017 [facility] ast mellitus (disorder) End stage renal Active Problem 08/01/2017 [place] disease (disorder) Hypertensive Active Problem 08/01/2017 [place] [facility] disorder, systemic arterial (disorder) Medications Medication Details Route Status Patient Ordering Order Source Instructions Provider Date Sodium Chloride 500 mL, Rate: Inactive H 0.154 MEQ/ML 25 ml/hr, 2016 [facility] Injectable Infuse over: 20 Solution hr, Route: IV, Dosing Weight 127.273 kg, Total Volume: 500, Start date: 02/18/17 14:28:00 CDT, Duration: 30 day, Stop date: 03/20/17 14:27:00 CDT Hydralazine 10 mg, Route: Inactive 02/18[facility] IVP, Q20Min, 2016 [facility] Dosing Weight 127.273, kg, PRN Elevated BP, Start date: 02/18/17 14:28:00 CDT, Duration: 2 doses or times, Stop date: Limited # of times esmolol 10 mg, Route: Inactive 02/18[facility] IVP, Q5Min, 2016 [facility] Dosing Weight 127.273, kg, PRN Other -See Comment, Start date: 02/18/17 14:28:00 CDT, Duration: 5 doses or times, Stop date: Limited # of times Labetalol 10 mg, Route: Inactive 02/18[facility] IVP, Q5Min, 2016 [facility] Dosing Weight 127.273, kg, PRN Elevated BP, Start date: 02/18/17 14:28:00 CDT, Duration: 5 doses or times, Stop date: Limited # of times Acetaminophen 1,000 mg, Inactive Route: PO, Drug 2016 [place] [facility] form: TAB, ONCE, Dosing Weight 127.273, kg, PRN Pain Score 1-3, Start date: 02/18/17 14:28:00 CDT, Duration: 1 doses or times, Stop date: Limited # of times Oxycodone 5 mg, Route: Inactive PO, Drug form: 2016 [facility] TAB, Q4H, Dosing Weight 127.273, kg, PRN Pain Score 4-6, Start date: 02/18/17 14:28:00 CDT, Duration: 30 day, Stop date: 03/20/17 14:27:00 CDT Flumazenil 0.2 mg, Route: Inactive IVP, PRN, 2016 [facility] Dosing Weight 127.273, kg, PRN Benzodiazepine Reversal, Initial dose, Start date: 02/18/17 14:28:00 CDT, Duration: 30 day, Stop date: 03/20/17 14:27:00 CDT Hydromorphone 0.5 mg, Route: Inactive IVP, Q5Min, 2016 [facility] Dosing Weight 127.273, kg, PRN Pain Score 7-10, Start date: 02/18/17 14:28:00 CDT, Duration: 4 doses or times, Stop date: Limited # of times Albuterol 0.83 2.49 mg, Route: Inactive MG/ML Inhalant NEB, Q20Min, 2016 [facility] Dosing Weight 127.273, kg, PRN Wheezing, Priority: STAT, Start date: 02/18/17 14:28:00 CDT, Duration: 30 day, Stop date: 03/20/17 14:27:00 CDT Diphenhydramine 12.5 mg, Route: Inactive IVP, Drug form: 2016 [place] [facility] INJ, Q6H, Dosing Weight 127.273, kg, PRN Itching, Start date: 02/18/17 14:28:00 CDT, Duration: 30 day, Stop date: 03/20/17 14:27:00 CDT Naloxone 0.4 mg, Route: Inactive IVP, Q2MIN, 2016 [facility] Dosing Weight 127.273, kg, PRN Narcotic Reversal, Start date: 02/18/17 14:28:00 CDT, Duration: 8 doses or times, Stop date: Limited # of times Meperidine 12.5 mg, Route: Inactive IVP, Q30Min, 2016 [facility] Dosing Weight 127.273, kg, PRN Other -See Comment, For shivering, Start date: 02/18/17 14:28:00 CDT, Duration: 2 doses or times, Stop date: Limited # of times Promethazine 6.25 mg, Route: Inactive IVPB, ONCE, 2016 [facility] Dosing Weight 127.273, kg, PRN Nausea & Vomiting, Start date: 02/18/17 14:28:00 CDT Ondansetron 4 mg, Route: Inactive IVP, ONCE, 2016 [facility] Dosing Weight 127.273, kg, PRN Nausea & Vomiting, Start date: 02/18/17 14:28:00 CDT acetaminophen-cod 1 tab, Route: Inactive eine #3 PO, Drug Form: 2016 [facility] TAB, Dosing Weight 127.273, kg, Q4H, PRN Pain Score 4-6, Start date: 02/18/17 14:21:00 CDT, Duration: 30 day, Stop date: 03/20/17 14:20:00 CDT Morphine 2 mg, Route: Inactive IVP, Q3H, 2016 [facility] Dosing Weight 127.273, kg, PRN Pain Score 1-3, Start date: 02/18/17 14:21:00 CDT, Duration: 30 day, Stop date: 03/20/17 14:20:00 CDT ondansetron Route: IV, Drug Inactive (ANES) form: INJ, 2016 ONCE, Stop date: 02/18/17 14:10:00 CDT metoprolol (ANES) Route: IV, Drug Inactive 02/18 form: INJ, 2016 ONCE, Stop date: 02/18/17 14:05:00 CDT metoclopramide Route: IV, Drug Inactive (ANES) form: INJ, 2016 ONCE, Stop date: 02/18/17 14:05:00 CDT fentaNYL (ANES) Route: IV, Drug Inactive 02/18/ MH form: INJ, 2016 ONCE, Stop date: 02/18/17 14:05:00 CDT midazolam (ANES) Route: IV, Drug Inactive 02/18/ MH form: SOLN, 2016 ONCE, Stop date: 02/18/17 14:05:00 CDT vancomycin (ANES) Route: IV, Drug Inactive 02/18 / MH (ANES) form: INJ, 2016 Start date: 02/18/17 13:23:00 CDT, Stop date: 02/18/17 14:23:00 CDT ceFAZolin (ANES) Route: IV, Drug Inactive 02/18/ MH (ANES) form: INJ, 2016 Start date: 02/18/17 13:06:00 CDT, Stop date: 02/18/17 14:06:00 CDT sodium chloride Route: IV, Inactive 0.9% 500 ml INJ Total Volume: 2016 [facility] (ANES) 500, Start date: 02/18/17 12:56:00 CDT, Stop date: 02/18/17 13:56:00 CDT Albuterol 0.833 3 mL, Route: Inactive MG/ML / NEB, Dosing 2016 [facility] Ipratropium Weight 127.273, [place] 0.167 kg, ONCE, STAT, MG/ML Inhalant Start date: Solution 02/18/17 11:33:00 CDT, Stop date: 02/18/17 11:33:00 CDT Sodium Chloride 500 mL, Rate: Inactive 02/18/ M H 0.154 MEQ/ML 25 ml/hr, 2016 [facility] Injectable Infuse over: 20 Solution hr, Route: IV, Dosing Weight 127.273 kg, Total Volume: 500, Start date: 02/18/17 11:33:00 CDT, Duration: 30 day, Stop date: 03/20/17 11:32:00 CDT Acetaminophen 300 1 tab, PO, Q4H, Active MH MG / Codeine PRN Pain, # 42 2017 [facility] Phosphate 30 MG tab, 0 Oral Tablet Refill(s) [Tylenol with Codeine #3] tramadol 50 mg = 1 tab, Active hydrochloride 50 PO, Q6H, PRN 2017 [facility] MG Oral Tablet Pain, # 40 tab, 0 Refill(s) Dialyvite 800 1 tab, PO, Active oral tablet Daily, # [address] [facility] [address] tab, 0 Refill(s) Vancomycin 2001 mg: No Longer infuse over 2.5 Active 2016 [facility] hours MEDICATION WASTE Product Size: 1000 mg Product Wasted: ___ mg Ancef Notes: Same as: No Longer Ancef Active 2016 [facility] cephalexin 500 mg 500 mg = 1 cap, Active oral capsule PO, TID, # 30 2016 [facility] cap, 0 Refill(s) Doxazosin PO, BID, 0 Inactive Refill(s) 2016 [facility] Oxycodone 10 mg, Route: Inactive Hydrochloride 5 PO, ONCE, 2016 [facility] ast MG Oral Tablet Dosing Weight 124.091, kg, Start date: 01/21/17 14:37:00 CDT, Stop date: 01/21/17 14:37:00 CDT Ondansetron 4 mg, Route: Inactive IVP, ONCE, kg, 2016 [facility] PRN Nausea & Vomiting, Start date: 01/21/17 14:29:00 CDT Promethazine 6.25 mg, Route: Inactive IVPB, ONCE, 2016 [facility] Dosing Weight 124.091, kg, PRN Nausea & Vomiting, Start date: 01/21/17 14:29:00 CDT Albuterol 0.83 2.49 mg, Route: Inactive MG/ML Inhalant NEB, Q20Min, 2016 [facility] Solution Dosing Weight 124.091, kg, PRN Wheezing, Priority: STAT, Start date: 01/21/17 14:29:00 CDT, Duration: 30 day, Stop date: 02/20/17 14:28:00 CDT Diphenhydramine 12.5 mg, Route: Inactive IVP, Drug form: 2016 [facility] INJ, Q6H, Dosing Weight 124.091, kg, PRN Itching, Start date: 01/21/17 14:29:00 CDT, Duration: 30 day, Stop date: 02/20/17 14:28:00 CDT Meperidine 12.5 mg, Route: Inactive IVP, Q30Min, 2016 [facility] Dosing Weight 124.091, kg, PRN Other -See Comment, For shivering, Start date: 01/21/17 14:29:00 CDT, Duration: 2 doses or times, Stop date: Limited # of times Labetalol 10 mg, Route: Inactive IVP, Q5Min, 2016 [facility] Dosing Weight 124.091, kg, PRN Elevated BP, Start date: 01/21/17 14:29:00 CDT, Duration: 5 doses or times, Stop date: Limited # of times Acetaminophen 1,000 mg, Inactive Route: PO, Drug 2016 [facility] ([place], [place]) t form: TAB, ONCE, Dosing Weight 124.091, kg, PRN Pain Score 1-3, Start date: 01/21/17 14:29:00 CDT, Duration: 1 doses or times, Stop date: Limited # of times esmolol 10 mg, Route: Inactive IVP, Q5Min, 2016 [facility] Dosing Weight 124.091, kg, PRN Other -See Comment, Start date: 01/21/17 14:29:00 CDT, Duration: 5 doses or times, Stop date: Limited # of times Hydralazine 10 mg, Route: Inactive IVP, Q20Min, 2016 [facility] Dosing Weight 124.091, kg, PRN Elevated BP, Start date: 01/21/17 14:29:00 CDT, Duration: 2 doses or times, Stop date: Limited # of times Calcium Chloride 1,000 mL, Rate: Inactive 0.0014 MEQ/ML / 125 ml/hr, 2016 [facility] Potassium Infuse over: 8 Chloride 0.004 hr, Route: IV, MEQ/ML / Sodium Dosing Weight Chloride 0.103 124.091 kg, MEQ/ML / Sodium Total Volume: Lactate 0.028 1,000, Start MEQ/ML Injectable date: 01/21/17 Solution 14:29:00 CDT, Duration: 30 day, Stop date: 02/20/17 14:28:00 CDT Flumazenil 0.2 mg, Route: Inactive IVP, PRN, kg, 2016 [facility] PRN Benzodiazepine Reversal, Initial dose, Start date: 01/21/17 14:29:00 CDT, Duration: 30 day, Stop date: 02/20/17 14:28:00 CDT Naloxone 0.4 mg, Route: Inactive [facility]P, [facility]2MIN, [facility] Re[facility], Start date: 01/21/17 14:29:00 CDT, Duration: 8 doses or times, Stop date: Limited # of times Hydromorphone 0.5 mg, Route: Inactive IVP, Q5Min, kg, 2016 [facility] ([place], [place]) t PRN Pain Score 7-10, Start date: 01/21/17 14:29:00 CDT, Duration: 4 doses or times, Stop date: Limited # of times Oxycodone 5 mg, Route: Inactive PO, Drug form: 2016 TAB, Q4H, kg, PRN Pain Score 4-6, Start date: 01/21/17 14:29:00 CDT, Duration: 30 day, Stop date: 02/20/17 14:28:00 CDT Fentanyl 50 microgram, Inactive Route: IVP, 2016 Q5Min, Dosing Weight 124.091, kg, PRN Pain Score 4-6, Start date: 01/21/17 13:50:00 CDT, Duration: 4 doses or times, Stop date: Limited # of times, Pediatric Dosing acetaminophen Route: IV, Drug Inactive H (ANES) form: INJ, 2016 ONCE, Stop date: 01/21/17 13:46:00 CDT neostigmine Route: IV, Drug Inactive (ANES) form: INJ, 2016 ONCE, Stop date: 01/21/17 13:46:00 CDT glycopyrrolate Route: IV, Drug Inactive (ANES) form: INJ, 2016 ONCE, Stop date: 01/21/17 13:46:00 CDT ceFAZolin (ANES) Route: IV, Drug Inactive form: INJ, 2016 ONCE, Stop date: 01/21/17 13:33:00 CDT ondansetron Route: IV, Drug Inactive MH (ANES) form: INJ, 2016 ONCE, Stop date: 01/21/17 13:33:00 CDT hydromorphone Route: IV, Drug Inactive M H (ANES) form: INJ, 2016 ONCE, Stop date: 01/21/17 13:33:00 CDT propofol (ANES) Route: IV, Drug Inactive form: INJ, 2016 ONCE, Stop date: 01/21/17 13:33:00 CDT lidocaine (ANES) Route: IV, Drug Inactive form: INJ, 2016 ONCE, Stop date: 01/21/17 13:33:00 CDT rocuronium (ANES) Route: IV, Drug Inactive 01/21 form: INJ, 2016 ONCE, Stop date: 01/21/17 13:33:00 CDT Morphine 6 mg, Route: Inactive IVP, Q6H, kg, 2016 PRN Pain Score 7-10, Start date: 01/21/17 13:30:00 CDT, Duration: 30 day, Stop date: 02/20/17 13:29:00 CDT Acetaminophen 325 1 tab, Route: Inactive MG / Hydrocodone PO, kg, Q4H, 2016 [facility] Bitartrate 10 MG PRN Pain Score Oral Tablet 7-10, Start date: 01/21/17 13:30:00 CDT, Duration: 30 day, Stop date: 02/20/17 13:29:00 CDT acetaminophen-cod 1 tab, Route: Inactive eine #3 PO, Drug Form: 2016 TAB, kg, Q4H, PRN Pain Score 1-3, Start date: 01/21/17 13:30:00 CDT, Duration: 30 day, Stop date: 02/20/17 13:29:00 CDT Acetaminophen 100.4 F, Start Inactive 01/21/ M H date: 01/21/172016 13:30:00 CDT, Duration: 30 day, Stop date: 02/20/17 13:29:00 CDT Acetaminophen 325 1 tab, Route: Inactive MG / Hydrocodone PO, Dosing 2016 [facility] Bitartrate 5 MG Weight 124.091, Oral Tablet kg, Q4H, PRN Pain Score 4-6, Start date: 01/21/17 13:30:00 CDT, Duration: 30 day, Stop date: 02/20/17 13:29:00 CDT metoclopramide Route: IV, Drug Inactive MH (ANES) form: INJ, 2016 [facility] ONCE, Stop date: 01/21/17 13:13:00 CDT midazolam (ANES) Route: IV, Drug Inactive MH form: SOLN, 2016 [facility] ONCE, Stop date: 01/21/17 13:13:00 CDT vancomycin (ANES) Route: IV, Drug Inactive 01/21 [facility] (ANES) form: INJ, 2016 [facility] Start date: 01/21/17 12:42:00 CDT, Stop date: 01/21/17 13:42:00 CDT sodium chloride Route: IV, Inactive 0.9% 500 ml INJ Total Volume: 2016 [facility] (ANES) 500, Start date: 01/21/17 12:28:00 CDT, Stop date: 01/21/17 13:28:00 CDT Sodium Chloride 500 mL, Rate: Inactive H 0.9% IV 500 mL 25 ml/hr, [address] [facility] [address] Infuse over: 20 hr, Route: IV, Dosing Weight 124.091 kg, Total Volume: 500, Start date: 01/21/17 10:45:00 CDT, Duration: 1 doses or times, Stop date: 01/22/17 6:44:00 CDT Albuterol 0.833 3 mL, Route: Inactive MG/ML / NEB, Dosing 2016 [facility] Ipratropium Weight 124.091, [place] 0.167 kg, ONCE, STAT, MG/ML Inhalant Start date: Solution 01/21/17 10:44:00 CDT, Stop date: 01/21/17 10:44:00 CDT Calcium Chloride 1,000 mL, Rate: Inactive 0.0014 MEQ/ML / 25 ml/hr, 2016 [facility] ast Potassium Infuse over: 40 Chloride 0.004 hr, Route: IV, MEQ/ML / Sodium Dosing Weight Chloride 0.103 124.091 kg, MEQ/ML / Sodium Total Volume: Lactate 0.028 1,000, Start MEQ/ML Injectable date: 01/21/17 Solution 10:44:00 CDT, Duration: 30 day, Stop date: 02/20/17 10:43:00 CDT Renvela PO, 0 Refill(s) Active 2016 [facility] Ramipril PO, Daily, 0 Active Refill(s) 2016 [facility] metoprolol BID, 0 Active tartrate Refill(s) 2016 [facility] Hydralazine 0 Refill(s) Active 2016 [facility] Furosemide Daily, 0 Active Refill(s) 2016 [facility] Doxazosin PO, 0 Refill(s) Active 2016 [facility] Ancef 2 gm, Route: Inactive IVPB, PRE OP, 2016 [facility] kg, Start date: 01/21/17 9:00:00 CDT, Duration: 30 day, Stop date: 02/20/17 8:59:00 CDT Allergies, Adverse Reactions, Alerts No Known Medication Allergies Immunizations No Data Provided for This Section Results Order Name Results Value Reference Date Interpretation Comments Lynn rce Range ELECTROLYTE Potassium 4.5 3.5 - 5.1 02/18 S Lvl /2016 [facility] BLOOD BANK ABO/Rh O POS 02/11 RESULTS /2016 [facility] BLOOD BANK Antibody Negative 02/11 RESULTS Scrn (02/11/17 3:17 PM) /2016 [facility] ast CHEM PANEL eGFR 16 02/11 Result Comment: The [facility] eGFR is calculated using the CKD-EPI formula. In most young, healthy individuals the eGFR will be >90 mL/min/1.73m2 . The eGFR declines with age. An eGFR of 60-89 may be normal in some populations, particularly the elderly, for whom the CKD-EPI formula has not been extensively validated. Use of the eGFR is not recommended in the following populations:< br/>
[place] viduals with unstable creatinine concentration s, including patients and those with serious co-morbid conditions.<b r/>
Patie nts with extremes in muscle mass or diet.

The data above are obtained from the National Kidney Disease Education Program (NKDEP) which additionally recommends that when the eGFR is used in patients with extremes of body mass index for purposes of drug dosing, the eGFR should be multiplied by the estimated BMI. CHEM PANEL Calcium Lvl 8.6 8.5 - 10.5 02/11 [facility] CHEM PANEL Chloride Lvl 105 95 - 109 02/11 [facility] CHEM PANEL CO2 28 24 - 32 02/11 [facility] CHEM PANEL Glucose Lvl 95 70 - 99 02/11 [facility] CHEM PANEL BUN 36 7 - 22 02/11 [facility] CHEM PANEL Creatinine 4.60 0.50 - 0518 MH Lvl 1.40 /2016 [facility] CHEM PANEL Potassium 4.3 3.5 - 5.1 18 MH Lvl /2016 [facility] CHEM PANEL Sodium Lvl 139 135 - 145 02/11 [facility] CHEM PANEL AGAP 10.3 10.0 - 05 MH 20.0 /2016 [facility] HEMATOLOGY Basophils # 0.1 0.0 - 0.2 02/11 [facility] HEMATOLOGY Monocytes # 1.1 0.0 - 0.8 02/11 [facility] HEMATOLOGY Eosinophils 0.1 0.0 - 0.5 05/18 MH # /2017 [facility] HEMATOLOGY Segs 62.2 45.0 - 05 MH 75.0 /2017 [facility] HEMATOLOGY Monocytes 14.7 2.0 - 12.0 02/11 [facility] HEMATOLOGY Lymphocytes 20.3 20.0 - 02/11 MH 40.0 /2017 [facility] HEMATOLOGY Eosinophils 2.0 0.0 - 4.0 02/11 /2016 [facility] HEMATOLOGY Basophils 0.8 0.0 - 1.0 02/11 [facility] HEMATOLOGY Segs-Bands # 4.5 1.5 - 8.1 02/11 [facility] HEMATOLOGY Lymphocytes 1.5 1.0 - 5.5 /18 MH # /2017 [facility] HEMATOLOGY PT 13.3 12.0 - 18 MH 14.7 /2016 [facility] HEMATOLOGY INR 0.99 0.85 - 02/11 MH 1.17 [facility] HEMATOLOGY RDW 15.4 11.5 - 05/18 MH 14.5 /2017 [facility] HEMATOLOGY Platelet 211 133 - 450 02/11 [facility] HEMATOLOGY MPV 8.8 7.4 - 10.4 /18 [facility] HEMATOLOGY WBC 7.2 3.7 - 10.4 05 /2016 [facility] HEMATOLOGY RBC 3.70 4.70 - 02/11 MH 6.10 /2016 [facility] HEMATOLOGY Hgb 10.4 14.0 - 02/11 MH 18.0 [facility] HEMATOLOGY MCV 86.4 80.0 - 02/11 MH 94.0 /2016 [facility] HEMATOLOGY Hct 32.0 42.0 - 02/11 MH 54.0 /2016 [facility] HEMATOLOGY MCH 28.2 27.0 - 02/11 MH 31.0 /2016 [facility] HEMATOLOGY MCHC 32.7 32.0 - 02/11 MH 36.0 /2016 [facility] HEMATOLOGY PTT 32.4 22.9 - 02/11 MH 35.8 /2016 [facility] BLOOD BANK ABO/Rh O POS 01/21 RESULTS /2016 [facility] BLOOD BANK Antibody Negative 01/21 RESULTS Scrn (01/21/17 9:36 AM) [facility] CHEM PANEL eGFR 9 01/21 Result Comment: The [facility] eGFR is calculated using the CKD-EPI formula. In most young, healthy individuals the eGFR will be >90 mL/min/1.73m2 . The eGFR declines with age. An eGFR of 60-89 may be normal in some populations, particularly the elderly, for whom the CKD-EPI formula has not been extensively validated. Use of the eGFR is not recommended in the following populations:< br/>
[place] viduals with unstable creatinine concentration s, including patients and those with serious co-morbid conditions.<b r/>
Patie nts with extremes in muscle mass or diet.

The data above are obtained from the National Kidney Disease Education Program (NKDEP) which additionally recommends that when the eGFR is used in patients with extremes of body mass index for purposes of drug dosing, the eGFR should be multiplied by the estimated BMI. CHEM PANEL Potassium 4.7 3.5 - 5.1 01/21 MH Lvl /2016 [facility] CHEM PANEL Sodium Lvl 135 135 - 145 01/21 [facility] CHEM PANEL Creatinine 6.20 0.50 - 01/21 Lvl 1.40 [facility] CHEM PANEL Chloride Lvl 105 95 - 109 01/21 [facility] CHEM PANEL BUN 46 7 - 22 01/21 [facility] CHEM PANEL Glucose Lvl 128 70 - 99 01/21 [facility] CHEM PANEL Calcium Lvl 8.8 8.5 - 10.5 01/21 [facility] CHEM PANEL CO2 19 24 - 32 01/21 [facility] CHEM PANEL AGAP 15.7 10.0 - 01/21 MH 20.0 /2016 [facility] HEMATOLOGY Eosinophils 0.2 0.0 - 0.5 01/21 MH # /2016 [facility] HEMATOLOGY Monocytes # 0.9 0.0 - 0.8 01/21 [facility] HEMATOLOGY Basophils # 0.1 0.0 - 0.2 01/21 [facility] HEMATOLOGY Lymphocytes 1.6 1.0 - 5.5 01/21 MH # /2016 [facility] HEMATOLOGY Basophils 1.0 0.0 - 1.0 01/21 [facility] HEMATOLOGY Segs-Bands # 5.1 1.5 - 8.1 01/21 [facility] HEMATOLOGY Lymphocytes 20.2 20.0 - 01/21 MH 40.0 /2016 [facility] HEMATOLOGY Eosinophils 2.5 0.0 - 4.0 01/21 [facility] HEMATOLOGY Monocytes 12.0 2.0 - 12.0 01/21 [facility] HEMATOLOGY Segs 64.3 45.0 - 01/21 MH 75.0 /2016 [facility] HEMATOLOGY PTT 30.1 22.9 - 01/21 MH 35.8 /2016 [facility] HEMATOLOGY MPV 9.2 7.4 - 10.4 01/21 [facility] HEMATOLOGY Platelet 197 133 - 450 01/21 [facility] HEMATOLOGY RDW 17.2 11.5 - 01/21 MH 14.5 /2016 [facility] HEMATOLOGY MCHC 32.7 32.0 - 01/21 MH 36.0 /2016 [facility] HEMATOLOGY MCV 84.5 80.0 - 01/21 MH 94.0 /2016 [facility] HEMATOLOGY MCH 27.6 27.0 - 01/21 MH 31.0 /2016 [facility] HEMATOLOGY Hct 37.1 42.0 - 01/21 MH 54.0 /2016 [facility] HEMATOLOGY RBC 4.39 4.70 - 01/21 MH 6.10 /2016 [facility] HEMATOLOGY Hgb 12.1 14.0 - 01/21 MH 18.0 /2016 [facility] HEMATOLOGY WBC 7.9 3.7 - 10.4 01/21 [facility] HEMATOLOGY PT 13.6 12.0 - 01/21 MH 14.7 [facility] HEMATOLOGY INR 1.02 0.85 - 01/21 MH 1.17 /2017 [facility] Pathology Reports No Data Provided for This Section Diagnostic Reports Report Value Date Source Chest 1 v for Patient Name: RICHARD SIGALA 02/18/2017 [facility] Placement DX : 1965; Age: 51 years y/o Male MR: [id number] * CHEST, portable, 1 view HISTORY: Status post placement of Tessio dialysi s catheters. COMPARISON: 02/11/2017 IMPRESSION: 1. There is been placement o f dual left IJ Tessio dialysis catheters. The tip of the inflow catheter is near the caval atrial junction. The tip of the outflow catheter is in the upper right atrium. 2. There is no evidence of p neumothorax or other complication following placement. 3. The right IJ PermCath has been removed. The p rior study. 4. The heart is normal in size. There is no evid ence of failure. 5. No active disease. The lungs are clear. There are no pleural effusions. 6. There are mild scattered degenerative changes involving the thoracic spine. The regional skeleton is otherwise unremarkable. SL: [id number] Chest 2 views DX Chest 2 views DX 02/11/2017 [facility] CLINICAL HISTORY: Coughing - cough COMPARISON: 01/21/2017 FINDINGS: SUPPORT DEVICES: Stable position of right IJ carmencita lysis catheter. LUNGS: Lungs are reasonably well inflated. No consolidation or any significant effusion. No pneumothorax is evident. CARDIOVASCULAR: Cardiac silh ouette size is normal. Pulmonary vasculature is within normal limits. MEDIASTINUM/CLAUDIO: Trachea is midline. No contour abnormality is noted. OSSEOUS STRUCTURES: No acute bony abnormality is noted. SOFT TISSUES: No significant soft tissue abnorma lity is noted. IMPRESSION: No acute abnormality is noted. SL: [id number] Chest 2 views DX Study: CHEST, PA AND LATERAL 01/21/2017 [facility] Clinical Indication: Coughing; Comparison: None FINDINGS: Right internal ju gular dialysis catheter terminates within the superior vena cava. The heart and mediastinum are normal. The lungs are normally infla last and appear clear. No vascular congestion or pleural effusion is seen. Mild thoracic dextroscoliosis and moderate spond ylosis are noted. IMPRESSION: No acute abnormality. SL: [id number] Consultation Notes No Data Provided for This Section Discharge Summaries No Data Provided for This Section History and Physicals No Data Provided for This Section Vital Signs Vital Sign Value Date Comments Source Systolic (mm Hg) 166 07/29/2017 [facility] Diastolic (mm Hg) 78 07/29/[address] Respitory Rate 16 07/29/2017 [facility] Systolic (mm Hg) 166 07/29/2017 [facility] Diastolic (mm Hg) 79 07/29/[address] Respitory Rate 18 07/29/2017 [facility] Height 182.88 cm 07/29/2017 [facility] BMI Calculated 40.77 07/29/2017 [facility] Weight 136.364 07/29/2017 [facility] Respitory Rate 16 07/29/2017 [facility] Systolic (mm Hg) 157 07/29/2017 [facility] Diastolic (mm Hg) 77 07/29/[address] Heart Rate 81 02/18/2017 [facility] Respitory Rate 20 02/18/2017 [facility] Systolic (mm Hg) 153 02/18/2017 [facility] Diastolic (mm Hg) 76 02/18/[address] Heart Rate 75 02/18/2017 [facility] Respitory Rate 18 02/18/2017 [facility] Systolic (mm Hg) 156 02/18/2017 [facility] Diastolic (mm Hg) 76 02/18/[address] Systolic (mm Hg) 146 02/18/2017 [facility] Diastolic (mm Hg) 75 02/18/[address] Respitory Rate 16 02/18/2017 [facility] Weight 127.273 02/11/2017 [facility] BMI Calculated 38.05 02/11/2017 [facility] Height 182.88 cm 02/11/2017 [facility] Temperature Oral (F) 98.2 F 02/11/2017 [facility] Systolic (mm Hg) 164 01/21/2017 [facility] Diastolic (mm Hg) 72 01/21/[address] Heart Rate 73 01/21/2017 [facility] Heart Rate 85 01/21/2017 [facility] Systolic (mm Hg) 147 01/21/2017 [facility] [facility] Diastolic (mm Hg) 86 01/21/[address] Systolic (mm Hg) 143 01/21/2017 [facility] Diastolic (mm Hg) 74 01/21/[address] Respitory Rate 18 01/21/2017 [facility] Heart Rate 77 01/21/2017 [facility] Respitory Rate 18 01/21/2017 [facility] Temperature Oral (F) 98.0 F 01/21/2017 [facility] [facility] BMI Calculated 39.25 01/21/2017 [facility] Weight 124.091 01/21/2017 [facility] Height 177.8 cm 01/21/2017 [facility] Encounters Location Location Encounter Encounter Reason Attending ADM DC Stat us Source Details Type Number For Provider Date Date Visit Day [id number] Bharath 01/21 01/21 [facility] [id number] Bharath 02/18 02/18 [facility] [place] [facility] [id number] [place] 07/29 07/29 [facility] [place] [facility] Procedures Procedure Code Date Perfomer Comments Source AV - Creation of [id number] [facility] arteriovenous fistula Cholecystectomy [id number] [facility] ast Fistulogram<sup>1</villafuerte [id number] stent [facility] p> placement Operation [id number] [facility] Assessment and Plan No Data Provided for This Section Plan of Care No Data Provided for This Section Social History Social History Date Source Social History TypeResponse 01/21/2017 [facility] Substance Abuse Use: None. Alcohol Current, Frequency: 1-2 times per month. Smoking Status Never smoker; Exposure to Tobacco Smoke None; Cigarette Smoking Last 365 Days No; Reg Smoking Cessation Counseling No Family History No Data Provided for This Section Advance Directives No Data Provided for This Section Functional Status No Data Provided for This Section
--- OUTSIDE RECORDS SUMMARY | 2020-09-06 07:30 | XMS REPORT | Continuity of Care Document ---
:1965 Author Organization [facility] t Address [address] [place] [address] Care Team Providers Name Role Phone Bharath Martinez Attending Clinician Ryan Martinez Admitting Clinician Problems Condition Condition Condition Status Onset Resolution Last Treating Co mments Source Name Details Category Date Date Treatment Clinician Date UNK Diagnosis Active 2016-092017-07-26 Mem oria 0-25 13:00:00 l UNK 00:00: Matthew 00 Active 07/21/2017 [facility] N18.6 Diagnosis Active 2016-092017-07-29 Mem oria 0-25 07:47:00 l N18.6 00:00: Matthew 00 Active 07/21/2017 [facility] N18.16 Diagnosis Active 2017-09-16 Mem oria 4-04 10:38:00 l N18.16 00:00: [place] 00 Active 12/29/2016 [facility] Diabetes Problem Resolve 2017-08-01 [place] mellitus d 01:06:34 l (disorder) Diabetes He rmann mellitus (disorder) Resolved Problem 08/01/2017 [facility] End stage Problem Active 2017-08-01 Me moria renal 01:06:34 l disease End Matthew (disorder) stage renal disease (disorder) Active Problem 08/01/2017 [facility] Hypertensi Problem Active 2017-08-01 M emoria ve 01:06:34 l disorder, Matthew systemic Hypertensi arterial ve (disorder) disorder, systemic arterial (disorder) Active Problem 08/01/2017 [facility] Allergies, Adverse Reactions, Alerts This patient has no known allergies or adverse reactions. Social History Social Habit Start Date Stop Date Quantity Comments Source Social History 2017-01-21 2017-01-21 [facility] 14:17:36 14:17:36 Medications Ordered Filled Start Stop Current Ordering Indication Dosage Frequency Signature Comments Components Source Medication Medication Date Date Medication? Clinician (SIG) Name Name Sodium 2017-0 No 500 mL, Memoria Chloride 5-25 Rate: 25 l 0.154 19:28: ml/hr, [place] MEQ/ML 00 Infuse Injectable over: 20 Solution hr, Route: IV, Dosing Weight 127.273 kg, Total Volume: 500, Start date: 02/18/17 14:28:00 CDT, Duration: 30 day, Stop date: 03/20/17 14:27:00 CDT Hydralazine 2017-0 No 10 mg, Darnell alicia 5-25 Route: l 19:28: IVP, Matthew 00 Q20Min, Dosing Weight 127.273, kg, PRN Elevated BP, Start date: 02/18/17 14:28:00 CDT, Duration: 2 doses or times, Stop date: Limited # of times esmolol 2017-0 No 10 mg, Memoria 5-25 Route: l 19:28: IVP, [place] 00 Q5Min, Dosing Weight 127.273, kg, PRN Other -See Comment, Start date: 02/18/17 14:28:00 CDT, Duration: 5 doses or times, Stop date: Limited # of times Labetalol 2017-0 No 10 mg, Memori a 5-25 Route: l 19:28: IVP, [place] 00 Q5Min, Dosing Weight 127.273, kg, PRN Elevated BP, Start date: 02/18/17 14:28:00 CDT, Duration: 5 doses or times, Stop date: Limited # of times Acetaminoph 2017-0 No 1,000 mg, M emoria en 5-25 Route: PO, l 19:28: Drug form: [place] 00 TAB, ONCE, Dosing Weight 127.273, kg, PRN Pain Score 1-3, Start date: 02/18/17 14:28:00 CDT, Duration: 1 doses or times, Stop date: Limited # of times Oxycodone 2017-0 No 5 mg, Memoria 02-18 Route: PO, l 19:28: Drug form: Matthew 00 TAB, Q4H, Dosing Weight 127.273, kg, PRN Pain Score 4-6, Start date: 02/18/17 14:28:00 CDT, Duration: 30 day, Stop date: 03/20/17 14:27:00 CDT Flumazenil 2017-0 No 0.2 mg, Darnell alicia 02-18 Route: l 19:28: IVP, PRN, Matthew 00 Dosing Weight 127.273, kg, PRN Benzodiaze pine Reversal, Initial dose, Start date: 02/18/17 14:28:00 CDT, Duration: 30 day, Stop date: 03/20/17 14:27:00 CDT Hydromorpho 2017-0 No 0.5 mg, Mem oria ne 02-18 Route: l 19:28: IVP, [place] 00 Q5Min, Dosing Weight 127.273, kg, PRN Pain Score 7-10, Start date: 02/18/17 14:28:00 CDT, Duration: 4 doses or times, Stop date: Limited # of times Albuterol 2017-0 No 2.49 mg, Darnell alicia 0.83 MG/ML 02-18 Route: l Inhalant 19:28: NEB, [place] Solution 00 Q20Min, Dosing Weight 127.273, kg, PRN Wheezing, Priority: STAT, Start date: 02/18/17 14:28:00 CDT, Duration: 30 day, Stop date: 03/20/17 14:27:00 CDT Diphenhydra 2017-0 No 12.5 mg, Me moria mine 02-18 Route: l 19:28: IVP, Drug [place] 00 form: INJ, Q6H, Dosing Weight 127.273, kg, PRN Itching, Start date: 02/18/17 14:28:00 CDT, Duration: 30 day, Stop date: 03/20/17 14:27:00 CDT Naloxone 2017-0 No 0.4 mg, Memori a 02-18 Route: l 19:28: IVP, [place] 00 Q2MIN, Dosing Weight 127.273, kg, PRN Narcotic Reversal, Start date: 02/18/17 14:28:00 CDT, Duration: 8 doses or times, Stop date: Limited # of times Meperidine 2017-0 No 12.5 mg, Mem oria 5-25 Route: l 19:28: IVP, Q30Min, Dosing Weight 127.273, kg, PRN Other -See Comment, For shivering, Start date: 02/18/17 14:28:00 CDT, Duration: 2 doses or times, Stop date: Limited # of times Promethazin 2017-0 No 6.25 mg, Me moria e 5-25 Route: l 19:28: IVPB, ONCE, Dosing Weight 127.273, kg, PRN Nausea & Vomiting, Start date: 02/18/17 14:28:00 CDT Ondansetron 2016-0 No 4 mg, Memor ia 525 Route: l 19:28: IVP, ONCE, Dosing Weight 127.273, kg, PRN Nausea & Vomiting, Start date: 02/18/17 14:28:00 CDT acetaminoph 2016-0 No 1 tab, Darnell alicia en-codeine 525 Route: PO, l #3 19:21: Drug Form: TAB, Dosing Weight 127.273, kg, Q4H, PRN Pain Score 4-6, Start date: 02/18/17 14:21:00 CDT, Duration: 30 day, Stop date: 03/20/17 14:20:00 CDT Morphine 2017-0 No 2 mg, Memoria 5-25 Route: l 19:21: IVP, Q3H, Dosing Weight 127.273, kg, PRN Pain Score 1-3, Start date: 02/18/17 14:21:00 CDT, Duration: 30 day, Stop date: 03/20/17 14:20:00 CDT ondansetron 2016-0 No Route: IV, Memoria (ANES) 5-25 Drug form: l 19:10: INJ, ONCE, Stop date: 02/18/17 14:10:00 CDT metoprolol 2016-0 No Route: IV, M emoria (ANES) 5-25 Drug form: l 19:05: INJ, ONCE, Stop date: 02/18/17 14:05:00 CDT metoclopram No Route: IV, Memoria hawk (ANES) 5-25 Drug form: l 19:05: INJ, ONCE, Matthew 00 Stop date: 02/18/17 14:05:00 CDT fentaNYL No Route: IV, Mem oria (ANES) 525 Drug form: l 19:05: INJ, ONCE, [place] 00 Stop date: 02/18/17 14:05:00 CDT midazolam No Route: IV, Me moria (ANES) 5-25 Drug form: l 19:05: SOLN, [place] 00 ONCE, Stop date: 02/18/17 14:05:00 CDT vancomycin No Route: IV, M emoria (ANES) 5-25 Drug form: l (ANES) 18:23: INJ, Start Rajwinder nn date: 02/18/17 13:23:00 CDT, Stop date: 02/18/17 14:23:00 CDT ceFAZolin No Route: IV, Me moria (ANES) 5-25 Drug form: l (ANES) 18:06: INJ, Start Rajwinder nn date: 02/18/17 13:06:00 CDT, Stop date: 02/18/17 14:06:00 CDT sodium No Route: IV, Memor ia chloride - Total l 0.9% 500 ml 17:56: Volume: Her mccord INJ (ANES) 00 500, Start date: 02/18/17 12:56:00 CDT, Stop date: 02/18/17 13:56:00 CDT Albuterol No 3 mL, Memoria 0.833 MG/ML 02-18 Route: l / 16:33: NEB, Matthew Ipratropium 00 Dosing [place] Weight 0.167 MG/ML 127.273, Inhalant kg, ONCE, Solution STAT, Start date: 02/18/17 11:33:00 CDT, Stop date: 02/18/17 11:33:00 CDT Sodium No 500 mL, Memoria Chloride 02-18 Rate: 25 l 0.154 16:33: ml/hr, Matthew MEQ/ML 00 Infuse Injectable over: 20 Solution hr, Route: IV, Dosing Weight 127.273 kg, Total Volume: 500, Start date: 02/18/17 11:33:00 CDT, Duration: 30 day, Stop date: 03/20/17 11:32:00 CDT Acetaminoph Yes 1 tab, PO, Memoria en 300 MG / 5-18 Q4H, PRN l Codeine 20:41: Pain, # 42 Herm johanny Phosphate 00 tab, 0 30 MG Oral Refill(s) Tablet [Tylenol with Codeine #3] tramadol Yes 50 mg = 1 Darnell alicia hydrochlori 5-18 tab, PO, l de 50 MG 20:41: Q6H, PRN Rajwinder nn Oral Tablet 00 Pain, # 40 tab, 0 Refill(s) Dialyvite Yes 1 tab, PO, Me moria 800 oral 5-18 Daily, # l tablet 20:40: 100 tab, 0 Rajwinder nn 00 Refill(s) Vancomycin No 2001 mg: Me moria 5-18 infuse l 20:00: over 2.5 [place] 00 hours MEDICATION WASTE Product Size: 1000 mg Product Wasted: ___ mg Ancef No Notes: Memoria 5-18 Same as: l 20:00: Ancef Matthew 00 cephalexin Yes 500 mg = 1 M emoria 500 mg oral 5-18 cap, PO, l capsule 19:39: TID, # 30 Rajwinder nn 00 cap, 0 Refill(s) Doxazosin No PO, BID, 0 Me moria 5-18 Refill(s) l 19:38: [place] 00 Oxycodone No 10 mg, Memori a Hydrochlori 01-21 Route: PO, l de 5 MG 19:37: ONCE, [place] Oral Tablet 00 Dosing Weight 124.091, kg, Start date: 01/21/17 14:37:00 CDT, Stop date: 01/21/17 14:37:00 CDT Ondansetron No 4 mg, Memor ia 4 Route: l 19:29: IVP, ONCE, Matthew 00 kg, PRN Nausea & Vomiting, Start date: 01/21/17 14:29:00 CDT Promethazin 2017-0 No 6.25 mg, Me moria e 01-21 Route: l 19:29: IVPB, Matthew 00 ONCE, Dosing Weight 124.091, kg, PRN Nausea & Vomiting, Start date: 01/21/17 14:29:00 CDT Albuterol 2017-0 No 2.49 mg, Darnell alicia 0.83 MG/ML 01-21 Route: l Inhalant 19:29: NEB, [place] Solution 00 Q20Min, Dosing Weight 124.091, kg, PRN Wheezing, Priority: STAT, Start date: 01/21/17 14:29:00 CDT, Duration: 30 day, Stop date: 02/20/17 14:28:00 CDT Diphenhydra 2017-0 No 12.5 mg, Me moria mine 01-21 Route: l 19:29: IVP, Drug [place] 00 form: INJ, Q6H, Dosing Weight 124.091, kg, PRN Itching, Start date: 01/21/17 14:29:00 CDT, Duration: 30 day, Stop date: 02/20/17 14:28:00 CDT Meperidine 2017-0 No 12.5 mg, Mem oria 01-21 Route: l 19:29: IVP, [place] 00 Q30Min, Dosing Weight 124.091, kg, PRN Other -See Comment, For shivering, Start date: 01/21/17 14:29:00 CDT, Duration: 2 doses or times, Stop date: Limited # of times Labetalol 2017-0 No 10 mg, Memori a 01-21 Route: l 19:29: IVP, [place] 00 Q5Min, Dosing Weight 124.091, kg, PRN Elevated BP, Start date: 01/21/17 14:29:00 CDT, Duration: 5 doses or times, Stop date: Limited # of times Acetaminoph 2017-0 No 1,000 mg, M emoria en 01-21 Route: PO, l 19:29: Drug form: [place] 00 TAB, ONCE, Dosing Weight 124.091, kg, PRN Pain Score 1-3, Start date: 01/21/17 14:29:00 CDT, Duration: 1 doses or times, Stop date: Limited # of times esmolol 2016-0 No 10 mg, Memoria 01-21 Route: l 19:29: IVP, [place] 00 Q5Min, Dosing Weight 124.091, kg, PRN Other -See Comment, Start date: 01/21/17 14:29:00 CDT, Duration: 5 doses or times, Stop date: Limited # of times Hydralazine 2016-0 No 10 mg, Darnell alicia 01-21 Route: l 19:29: IVP, [place] 00 Q20Min, Dosing Weight 124.091, kg, PRN Elevated BP, Start date: 01/21/17 14:29:00 CDT, Duration: 2 doses or times, Stop date: Limited # of times Calcium 2016-0 No 1,000 mL, Memor ia Chloride 01-21 Rate: 125 l 0.0014 19:29: ml/hr, Matthew MEQ/ML / 00 Infuse Potassium over: 8 Chloride hr, Route: 0.004 IV, Dosing MEQ/ML / Weight Sodium 124.091 Chloride kg, Total 0.103 Volume: MEQ/ML / 1,000, Sodium Start Lactate date: 0.028 01/21/17 MEQ/ML 14:29:00 Injectable CDT, Solution Duration: 30 day, Stop date: 02/20/17 14:28:00 CDT Flumazenil 2016-0 No 0.2 mg, Darnell alicia 01-21 Route: l 19:29: IVP, PRN, [place] 00 kg, PRN Benzodiaze pine Reversal, Initial dose, Start date: 01/21/17 14:29:00 CDT, Duration: 30 day, Stop date: 02/20/17 14:28:00 CDT Naloxone 2016-0 No 0.4 mg, Memori a 01-21 Route: l 19:29: IVP, [place] 00 Q2MIN, kg, PRN Narcotic Reversal, Start date: 01/21/17 14:29:00 CDT, Duration: 8 doses or times, Stop date: Limited # of times Hydromorpho 2016-0 No 0.5 mg, Mem oria ne 01-21 Route: l 19:29: IVP, [place] 00 Q5Min, kg, PRN Pain Score 7-10, Start date: 01/21/17 14:29:00 CDT, Duration: 4 doses or times, Stop date: Limited # of times Oxycodone No 5 mg, Memoria 01-21 Route: PO, l 19:29: Drug form: Matthew TAB, Q4H, kg, PRN Pain Score 4-6, Start date: 01/21/17 14:29:00 CDT, Duration: 30 day, Stop date: 02/20/17 14:28:00 CDT Fentanyl No 50 Memoria 01-21 microgram, l 18:50: Route: IVP, Q5Min, Dosing Weight 124.091, kg, PRN Pain Score 4-6, Start date: 01/21/17 13:50:00 CDT, Duration: 4 doses or times, Stop date: Limited # of times, Pediatric Dosing acetaminoph No Route: IV, Memoria en (ANES) 01-21 Drug form: l 18:46: INJ, ONCE, Stop date: 01/21/17 13:46:00 CDT neostigmine No Route: IV, Memoria (ANES) 01-21 Drug form: l 18:46: INJ, ONCE, Stop date: 01/21/17 13:46:00 CDT glycopyrrol No Route: IV, Memoria ate (ANES) 01-21 Drug form: l 18:46: INJ, ONCE, Stop date: 01/21/17 13:46:00 CDT ceFAZolin No Route: IV, Me moria (ANES) 01-21 Drug form: l 18:33: INJ, ONCE, Stop date: 01/21/17 13:33:00 CDT ondansetron No Route: IV, Memoria (ANES) 01-21 Drug form: l 18:33: INJ, ONCE, Stop date: 01/21/17 13:33:00 CDT hydromorpho No Route: IV, Memoria ne (ANES) 01-21 Drug form: l 18:33: INJ, ONCE, Stop date: 01/21/17 13:33:00 CDT propofol No Route: IV, Mem oria (ANES) 01-21 Drug form: l 18:33: INJ, ONCE, Stop date: 01/21/17 13:33:00 CDT lidocaine No Route: IV, moria (ANES) 01-21 Drug form: l 18:33: INJ, ONCE, Stop date: 01/21/17 13:33:00 CDT rocuronium No Route: IV, Rufino shahidria (ANES) 01-21 Drug form: l 18:33: INJ, ONCE, Stop date: 01/21/17 13:33:00 CDT Morphine No 6 mg, Memoria 01-21 Route: l 18:30: IVP, Q6H, [place] 00 kg, PRN Pain Score 7-10, Start date: 01/21/17 13:30:00 CDT, Duration: 30 day, Stop date: 02/20/17 13:29:00 CDT Acetaminoph No 1 tab, Darnell alicia en 325 MG / 01-21 Route: PO, l Hydrocodone 18:30: kg, Q4H, He rmann Bitartrate 00 PRN Pain 10 MG Oral Score Tablet 7-10, Start date: 01/21/17 13:30:00 CDT, Duration: 30 day, Stop date: 02/20/17 13:29:00 CDT acetaminoph No 1 tab, Darnell alicia en-codeine 01-21 Route: PO, l #3 18:30: Drug Form: Matthew 00 TAB, kg, Q4H, PRN Pain Score 1-3, Start date: 01/21/17 13:30:00 CDT, Duration: 30 day, Stop date: 02/20/17 13:29:00 CDT Acetaminoph No 100.4 F, M emoria en 01-21 Start l 18:30: date: Matthew 00 01/21/17 13:30:00 CDT, Duration: 30 day, Stop date: 02/20/17 13:29:00 CDT Acetaminoph No 1 tab, Darnell alicia en 325 MG / 01-21 Route: PO, l Hydrocodone 18:30: Dosing Herm johanny Bitartrate 00 Weight 5 MG Oral 124.091, Tablet kg, Q4H, PRN Pain Score 4-6, Start date: 01/21/17 13:30:00 CDT, Duration: 30 day, Stop date: 02/20/17 13:29:00 CDT metoclopram No Route: IV, Memoria hawk (ANES) 01-21 Drug form: l 18:13: INJ, ONCE, Matthew 00 Stop date: 01/21/17 13:13:00 CDT midazolam No Route: IV, moria (ANES) 01-21 Drug form: l 18:13: SOLN, [place] 00 ONCE, Stop date: 01/21/17 13:13:00 CDT vancomycin No Route: IV, M emoria (ANES) 01-21 Drug form: l (ANES) 17:42: INJ, Start Rajwinder nn 00 date: 01/21/17 12:42:00 CDT, Stop date: 01/21/17 13:42:00 CDT sodium No Route: IV, Memor ia chloride 01-21 Total l 0.9% 500 ml 17:28: Volume: Her mccord INJ (ANES) 00 500, Start date: 01/21/17 12:28:00 CDT, Stop date: 01/21/17 13:28:00 CDT Sodium No 500 mL, Memoria Chloride 01-21 Rate: 25 l 0.9% IV 500 15:45: ml/hr, Herm johanny mL 00 Infuse over: 20 hr, Route: IV, Dosing Weight 124.091 kg, Total Volume: 500, Start date: 01/21/17 10:45:00 CDT, Duration: 1 doses or times, Stop date: 01/22/17 6:44:00 CDT Albuterol No 3 mL, Memoria 0.833 MG/ML 01-21 Route: l / 15:44: NEB, [place] Ipratropium 00 Dosing [place] Weight 0.167 MG/ML 124.091, Inhalant kg, ONCE, Solution STAT, Start date: 01/21/17 10:44:00 CDT, Stop date: 01/21/17 10:44:00 CDT Calcium 2017-0 No 1,000 mL, Memor ia Chloride 4-27 Rate: 25 l 0.0014 15:44: ml/hr, [place] MEQ/ML / 00 Infuse Potassium over: 40 Chloride hr, Route: 0.004 IV, Dosing MEQ/ML / Weight Sodium 124.091 Chloride kg, Total 0.103 Volume: MEQ/ML / 1,000, Sodium Start Lactate date: 0.028 01/21/17 MEQ/ML 10:44:00 Injectable CDT, Solution Duration: 30 day, Stop date: 02/20/17 10:43:00 CDT Renvela 2017-0 Yes PO, 0 Memoria 4-27 Refill(s) l 14:02: Ramipril 2017-0 Yes PO, Daily, Mem oria 4-27 0 l 14:02: Refill(s) metoprolol 2017-0 Yes BID, 0 Memor ia tartrate 01-21 Refill(s) l 14:02: Hydralazine 2017-0 Yes 0 Memori a -27 Refill(s) l 14:02: Furosemide 2017-0 Yes Daily, 0 Mem oria 4-27 Refill(s) l 14:01: Doxazosin 2017-0 Yes PO, 0 Memoria 4-27 Refill(s) l 14:01: Ancef 2017-0 No 2 gm, Memoria 4-27 Route: l 14:00: IVPB, PRE Matthew 00 OP, kg, Start date: 01/21/17 9:00:00 CDT, Duration: 30 day, Stop date: 02/20/17 8:59:00 CDT Vital Signs Vital Name Observation Time Observation Value Comments Source Systolic (mm Hg) 2017-07-29 14:15:00 Darnell rial [place] Diastolic (mm Hg) 2017-07-29 14:15:00 Mem orial [place] Respitory Rate 2017-07-29 14:15:00 Memori al [place] Systolic (mm Hg) 2017-07-29 13:30:00 Darnell rial [place] Diastolic (mm Hg) 2017-07-29 13:30:00 Mem orial [place] Respitory Rate 2017-07-29 13:30:00 Memori al [place] Height 2017-07-29 13:08:00 182.88 cm Memorial Matthew BMI Calculated 2017-07-29 13:08:00 Memori al [place] Weight 2017-07-29 13:08:00 Memorial [place] Respitory Rate 2017-07-29 13:00:00 Memori al [place] Systolic (mm Hg) 2017-07-29 13:00:00 Darnell rial [place] Diastolic (mm Hg) 2017-07-29 13:00:00 Mem orial [place] Heart Rate 2017-02-18 21:00:00 [facility] [place] Respitory Rate 2017-02-18 21:00:00 Memori al [place] Systolic (mm Hg) 2017-02-18 21:00:00 Darnell rial [place] Diastolic (mm Hg) 2017-02-18 21:00:00 Mem orial [place] Heart Rate 2017-02-18 20:15:00 Memorial [place] Respitory Rate 2017-02-18 20:15:00 Memori al [place] Systolic (mm Hg) 2017-02-18 20:15:00 Darnell rial [place] Diastolic (mm Hg) 2017-02-18 20:15:00 Mem orial [place] Systolic (mm Hg) 2017-02-18 20:00:00 Darnell rial [place] Diastolic (mm Hg) 2017-02-18 20:00:00 Mem orial [place] Respitory Rate 2017-02-18 20:00:00 Memori al [place] Weight 2017-02-11 19:29:00 [facility] [place] BMI Calculated 2017-02-11 19:29:00 Memori al [place] Height 2017-02-11 19:29:00 182.88 cm [facility] [place] Temperature Oral (F) 2017-02-11 19:29:00 98.2 F [facility] [place] Systolic (mm Hg) 2017-01-21 20:00:00 Darnell rial [place] Diastolic (mm Hg) 2017-01-21 20:00:00 Mem orial [place] Heart Rate 2017-01-21 20:00:00 [facility] [place] Heart Rate 2017-01-21 19:30:00 [facility] [place] Systolic (mm Hg) 2017-01-21 19:30:00 Darnell rial [place] Diastolic (mm Hg) 2017-01-21 19:30:00 Mem orial [place] Systolic (mm Hg) 2017-01-21 19:15:00 Darnell yogi [place] Diastolic (mm Hg) 2017-01-21 19:15:00 Mem orial [place] Respitory Rate 2017-01-21 15:45:00 Memori al [place] Heart Rate 2017-01-21 14:15:00 [facility] [place] Respitory Rate 2017-01-21 14:15:00 Memori al [place] Temperature Oral (F) 2017-01-21 14:15:00 98.0 F [facility] [place] BMI Calculated 2017-01-21 13:59:00 Memori al [place] Weight 2017-01-21 13:59:00 [facility] [place] Height 2017-01-21 13:59:00 177.8 cm [facility] [place] Procedures Procedure Date / Time Performing Clinician Source Performed AV - Creation of [facility] Zhou n arteriovenous fistula Cholecystectomy [facility] [place] Fistulogram<sup>1</sup> [facility] [place] Operation [facility] [place] Encounters Start End Encounter Admission Attending Care Care Encounter Source Date/Time Date/Time Type Type Clinicians Facility Department ID 2020-07-30 2020-07-30 [id number] 2020-07-15 2020-07-15 [facility] [id number] [facility] 2020-07-02 2020-07-02 [facility] [id number] [facility] 2020-06-11 2020[facility]06-[address] [facility] [id number] 2017-07-29 2017-07-29 Outpatient Juan [facility] [id number] 07:47:00 09:16:00 Bharath Janelle Ryan 2017-02-18 2017-02-18 Outpatient LAHCO Martinez [facility] [id number] 10:15:00 16:16:00 Bharath Leslie Ryan 2017-01-21 2017-01-21 Outpatient Juan [facility] [id number] 09:02:00 15:10:00 Bharath aDvis Results Test Description Test Time Test Comments Results Result Sourc e Comments ELECTROLYTES 2017-02-18 4.5 [facility] 16:03:00 [place] BLOOD BANK RESULTS 2017-02-11 Negative Memori al 20:17:00 (02/11/17 3:17 Matthew PM) CHEM PANEL 2017-02-11 16 [facility] 20:17:00 Matthew CHEM PANEL 2017-02-11 8.6 [facility] 20:17:00 [place] CHEM PANEL 2017-02-11 105 [facility] 20:17:00 Matthew CHEM PANEL 2017-02-11 28 [facility] 20:17:00 [place] CHEM PANEL 2017-02-11 95 [facility] 20:17:00 Matthew CHEM PANEL 2017-02-11 36 [facility] 20:17:00 Matthew CHEM PANEL 2017-02-11 4.60 [facility] 20:17:00 [place] CHEM PANEL 2017-02-11 4.3 [facility] 20:17:00 [place] CHEM PANEL 2017-02-11 139 [facility] 20:17:00 [place] CHEM PANEL 2017-02-11 10.3 [facility] 20:17:00 [place] HEMATOLOGY 2017-02-11 0.1 [facility] 20:17:00 [place] HEMATOLOGY 2017-02-11 1.1 [facility] 20:17:00 [place] HEMATOLOGY 2017-02-11 0.1 [facility] 20:17:00 [place] HEMATOLOGY 2017-02-11 62.2 [facility] 20:17:00 [place] HEMATOLOGY 2017-02-11 14.7 [facility] 20:17:00 Matthew HEMATOLOGY 2017-02-11 20.3 [facility] 20:17:00 [place] HEMATOLOGY 2017-02-11 2.0 [facility] 20:17:00 [place] HEMATOLOGY 2017-02-11 0.8 [facility] 20:17:00 [place] HEMATOLOGY 2017-02-11 4.5 [facility] 20:17:00 [place] HEMATOLOGY 2017-02-11 1.5 [facility] 20:17:00 [place] HEMATOLOGY 2017-02-11 20:17:00 Test Item Value Reference Range Interpretation Comme nts PT (test code = PT) 13.3 s 12.0-14.7 Memorial [id number] 20:17:000.99[facility] HermannHEMATOLOGY 2017-02-11 20:17:0015.4[facility] [id number] 20:17:63559Dxtpjtrx CsezpqhZVSNDMLUZD7942-91-26 20:17:008.8[facility] MpjwokyDEVGBRITTB8229-03-02 20:17:007.2[facility] TzdmkmfCFPGMRBVGX2612-81-59 20:17:003.70[facility] [place] [id number] 20:17:0010.4[facility] [id number] 20:17:00 86.4[facility] [id number] 20:17:0032.0[facility] HermannHEMATOLOGY 2017-02-11 20:17:00 Test Item Value Reference Range Interpretation Comments MCH (test code = MCH) 28.2 pg 27.0-31.0 Memorial [id number] 20:17:0032.7[facility] HermannHEMATOLOGY 2017-02-11 20:17:00 Test Item Value Reference Range Interpretation Comments PTT (test code = PTT) 32.4 s 22.9-35.8 [facility] [id number] 14:36:00Negative (01/21/17 9:36 AM) [facility]annCHEM [id number] 14:36:009[facility]annCHEM PANEL 2017-01-21 14:36:004.7[facility] HermannCHEM [id number] 14:36:17457Afidiasq HermannCHEM [id number] 14:36:006.20[facility] HermannCHEM [id number] 14:36:79948Wcgfypyh HermannCHEM [id number] 14:36:0046[facility] HermannCHEM [id number] 14:36:97644Layljuhs HermannCHEM KAGFM4106-57-20 14:36:008.8 [facility]annCHEM QCERT4200-69-27 14:36:0019[facility] HermannCHEM PANEL 2017-01-21 14:36:0015.7[facility] HksnxrzVDKOGNVJSX0243-69-96 14:36:000.2[facility] LyudcisFMZMAYJRBR5218-01-38 14:36:000.9[facility] FeiwvbbPXKRNQKTYF8008-72-13 14:36:000.1[facility] TgrbmneCWYOWIGXLF6659-30-42 14:36:001.6[facility] ZKVXZIKVHY0263-56-09 14:36:001.0[facility] CvfkuauCOWHTOQZAR1654-86-97 14:36:005.1 [facility] SulentqQCWMIAYUDO9510-05-72 14:36:0020.2[facility] HermannHEMATOLOGY 2017-01-21 14:36:002.5[facility] IfczrmjFDHXTUUZCU8986-91-98 14:36:0012.0[facility] YkooberKDXOBTIRHW1934-64-19 14:36:0064.3[facility] LdurodrEBTGZICUZL5666-07-61 14:36:00 Test Item Value Reference Range Interpretation Comments PTT (test code = PTT) 30.1 s 22.9-35.8 [facility] VvtobjdXVZMPXXYLO8694-61-03 14:36:009.2[facility]annHEMATOLOGY 2017-01-21 14:36:12509Yjtzdlgs WgcrwkdXZGTPGOWBP5571-83-84 14:36:0017.2[facility] ScykifyYLFAVGAVFO3446-80-55 14:36:0032.7[facility] ByvsmkyVGMIBITPZJ8844-64-40 14:36:0084.5[facility] DnwxejxYOCQVRXOGB0432-17-55 14:36:00 Test Item Value Reference Range Interpretation Comments MCH (test code = MCH) 27.6 pg 27.0-31.0 [facility] SiwawvnCHUIRHVRPI5603-54-20 14:36:0037.1[facility]annHEMATOLOGY 2017-01-21 14:36:004.39[facility] RhxquijTJSEZRSKPZ8774-48-23 14:36:0012.1[facility] IzjshdxJHGABCYEVC2623-71-82 14:36:007.9[facility] ApwsibxIXUWACVQON9152-94-35 14:36:00 Test Item Value Reference Range Interpretation Comments PT (test code = PT) 13.6 s 12.0-14.7 [facility] LfdkgumMCQQTAMMYC9834-10-93 14:36:001.02[facility] Matthew
[2020-09-06 08:15] LABS: Absolute Lymphocytes (CBC) 0.9 K/uL (0.7-4.9); Basophils % 0.4 % (0-1.3); Hematocrit 24.8 % (39.6-49.0); Lymphocytes % 5.3 % (15.3-44.8); MPV 7.7 fL (7.6-11.3)
[2020-09-06 08:44] LABS: Potassium 4.8 mmol/L (3.5-5.1)
[2020-09-06 09:14] LABS: Anisocytosis 2+; Blood Morphology Comment NOTED (NOT SEEN); Platelet Estimate ADEQ; Polychromasia SLIGHT
[2020-09-06] MEDS ORDERED: NA CHLORIDE 0.9% 500 ML ONE (09:25)
[2020-09-06] MEDS ORDERED: CEFAZOLIN/SWI 1gm 1 GM/10 ML SYR ONE (09:25)
[2020-09-06] MEDS ORDERED: propofoL 200 MG/20 ML VIAL IV ONE (10:27)
[2020-09-06] MEDS ORDERED: KETAMINE HCL 500 MG/5 ML VIAL ONE (10:27)
[2020-09-06] MEDS ORDERED: FENTANYL CITR 250 MCG/5 ML ONE (10:35)
[2020-09-06] MEDS: COLLAGENASE 30 GM OINTMENT TOP ONE ×2 (10:39→10:50)
[2020-09-06] MEDS ORDERED: NS 0.9% VIAL 10 ML ONE (10:54)
[2020-09-06] MEDS ORDERED: LIDOCAINE 2% MPF 5 ML VIAL ONE (10:55)
[2020-09-06] MEDS ORDERED: dexAMETHasone 10 MG/ML VIAL ONE (10:55)
[2020-09-06] MEDS ORDERED: NS 0.9% VIAL 20 ML ONE (11:39)
[2020-09-06] MEDS ORDERED: SILVER SULFADIAZINE 1% 25 GM TOP ONE (12:07)
[2020-09-06] MEDS ORDERED: HYDROMORPHONE HCL 1 MG/ML INJ IV PRN (13:05)
[2020-09-06] MEDS ORDERED: ONDANSETRON 4 MG/2 ML VIAL IV PRN (13:06)
--- NOTE | 2020-09-06 13:46 | P.CNS ---
Date of Consult: 09/06/20 Reason for Consult: medical management Requesting Physician: Ed Smith Chief Complaint: Right 1st toe gangrene History of Present Illness: 54-year-old morbidly obese, diabetic male with PMH: CHF, HTN, ESRD on HD admitted to the hospital s/p right 1st toe transmetatarsal amputation by Dr. Smith this morning. Patient has been dealing with a gangrenous ulcer of this toe and was recommended that he undergo amputation. He currently reports feeling well, denies any chest pain, shortness of breath, abdominal pain, nausea/vomiting. He does report he had diarrhea yesterday and the day before, but has not had any since last night. He states he believes this may have been due to the antibiotics he was taking. He currently reports minimal pain and he is very hungry. Recent x-ray this month was negative for acute osteomyelitis. Allergies No Known Allergies Allergy (Verified 09/06/20 09:52) Home Medications: Calcitriol [Rocaltrol] 1 tab PO QID 09/06/20 Diltiazem HCl [Diltiazem ER] 360 mg PO DAILY 09/06/20 Furosemide 80 mg PO DAILY 09/06/20 Hydralazine HCl 100 mg PO TID 09/06/20 Sevelamer Carbonate [Renvela] 800 mg PO TID 09/06/20 carvediloL [Carvedilol] 6.25 mg PO DAILY 09/06/20 - Past Medical/Surgical History Diabetic: Yes -: CHF (HFrEF) -: HTN -: Diabetes mellitus type 2 -: End-stage renal disease on hemodialysis -: Noncompliance with dialysis -: LAP NEGRITO -: left 5th toe amputation Psychosocial/ Personal History: Patient lives at home - Family History Mom Medical History: Cancer Notes: Breast Cancer - Social History Smoking Status: Never smoker Alcohol use: Yes CD- Drugs: No Caffeine use: No Place of Residence: Home Review of Systems 10-point ROS is otherwise unremarkable Physical Examination Temp Pulse Resp BP Pulse Ox 97 F 108 H 20 178/95 H 09/06/20 13:07 09/06/20 13:07 09/06/20 13:07 09/06/20 13:07 General: Alert, In no apparent distress, Oriented x3, Obese HEENT: Sclerae nonicteric Respiratory: Clear to auscultation bilaterally, Normal air movement Cardiovascular: Regular rate/rhythm, Edema (bilateral 1+ lower extremities) Gastrointestinal: Soft and benign, No tenderness Integumentary: Other (RLE and LLE with surgical dressings c/d/i, toes warm, moving extremities) Neurological: Normal speech, Normal affect Laboratory Data (last 24 hrs) 09/06/20 07:40: Sodium 141, Potassium 4.8, BUN 54 H, Creatinine 7.81 H*, Glucose 96 09/06/20 07:40: WBC 16.6 H, Hgb 8.2 L, Hct 24.8 L, Plt Count 277 Physician Review Additional Text: R 1st toe gangrene s/p amputation (09/06) HFrEF HTN DM2 ESRD on HD pain control and IV antibiotics per surgery - pt to receive IV vancomycin with hemodialysis nephrology consulted for HD - pt reports TTS schedule pain well controlled at this time will obtain home medications and resume as appropriate Hypertensive now, reports he didn't take medications this morning due to surgery last TTE (2015): EF: 35%, moderate global hypokinesis, mild MR, mild TR, mild pulmonary hypertension. will continue to monitor closely Dispo: anticipate dc home in 48-72 hrs - per general surgery Time Spent Managing Pts care (In Minutes): 55
[2020-09-06] MEDS ORDERED: carvediloL 6.25 MG TAB PO SCH (14:00)
[2020-09-06] MEDS ORDERED: DILTIAZEM HCL 360 MG PO SCH (14:00)
[2020-09-06] MEDS ORDERED: HOME MED 1 EA UNK (Hydralazine Hcl [Hydralazine Hcl] 100 MG Tablet) PO SCH (14:00)
--- NOTE | 2020-09-06 14:39 | OP ---
Date of Procedure: 09/06/2020 Surgeon: Ed Smith MD [employer] Tech: None. Preoperative Diagnoses: Gangrene right first toe and wounds bilateral lower extremity secondary to b listers. Postoperative Diagnoses: Gangrene right first toe and wounds bilateral lower extremity secondary to blisters. Procedure: 1.Right first toe transmetatarsal amputation. 2.Debridement of right leg wound 10 x 8 cm partial thickness. 3.Debridement left leg wound 4 x 6 cm partial thickness. Estimated Blood Loss: Minimal. Specimen: Debridement tissue in the right first toe. Findings: As above. Anesthesia: Regional. Complications: None. Disposition: Patient tolerated the procedure in stable condition, taken to Recovery in good general condition. Procedure In Detail: The patient was brought to the OR and placed in supine position. The regional anesthesia aware of popliteal nerve block performed on the right side. The blisters did not require any significant anesthetic as the skin was not painful and then the patient was prepped and draped in usual sterile fashion, placed in supine position and the blisters were unroofed and debrided down to the dermis 8 x 10 cm on the right side, 4 x 6 cm on the left side. These are partial thickness. Th e dermis itself appeared healthy. Silvadene dressing was applied there and then a transmetatarsal am putation was done on the right first toe, as it had gangrene all the way down to near the metatarsal head. Sharp dissection proceeded a wedge resection to the shaft of the first metatarsal bone was don e. Bone cutters were used. The entire toe was removed and was sent to Pathology. There was good bl eeding, however, there was some tissue that was showing signs of early pressure and ulceration on the second toe, so the distal part of the wound was left open for drainage purposes and 2-0 nylon was us ed to reapproximate the proximal and mid portion of the wound in the center fashion. There was oozin g noted from the wound. used as needed and a wet-to-dry dressing change was applied. A s terile dressing was applied. Patient was awakened and taken to Recovery in good general condition. /MODL Voice ID: [id number] Report ID: [id number]
[2020-09-06] MEDS: HYDRALAZINE HCL 25 MG TABLET PO SCH ×2 (15:05→21:18)
[2020-09-06] MEDS: SEVELAMER CARBONATE 800 MG TABLET PO SCH ×2 (15:07→17:06)
[2020-09-06 15:44] VITALS: BMI 43.2
[2020-09-06] MEDS ORDERED: HOME MED 1 EA UNK (Calcitriol [Rocaltrol] 0.5 MCG Capsule) PO SCH (17:00)
[2020-09-06] MEDS: HYDROCODONE/APAP 7.5/325 MG TAB PO PRN (21:18)
--- NOTE | 2020-09-06 21:25 | P.CNS ---
Date of Consult: 09/06/20 Reason for Consult: ESRD Requesting Physician: Kevin Chappell Chief Complaint: Right 1st toe gangrene History of Present Illness: 54 yo BM CKD, CHF presented to the hospital with a severe, progressive right 1st toe gangrenous ulcer with a plan for amputation today. Case reviewed with Dr. Smith and Dr. Chappell. 54-year-old morbidly obese, diabetic male with PMH: CHF, HTN, ESRD on HD admitted to the hospital s/p right 1st toe transmetatarsal amputation by Dr. Smith this morning. Patient has been dealing with a gangrenous ulcer of this toe and was recommended that he undergo amputation. He currently reports feeling well, denies any chest pain, shortness of breath, abdominal pain, nausea/vomiting. He does report he had diarrhea yesterday and the day before, but has not had any since last night. He states he believes this may have been due to the antibiotics he was taking. Allergies No Known Allergies Allergy (Verified 09/06/20 09:52) Home medications list reviewed: Yes Home Medications: Calcitriol [Rocaltrol] 2 mcg PO DAILY 09/06/20 Diltiazem HCl [Diltiazem ER] 360 mg PO DAILY 09/06/20 Furosemide 80 mg PO BID 09/06/20 Hydralazine HCl 100 mg PO TID 09/06/20 Sevelamer Carbonate [Renvela] 800 mg PO TIDWM 09/06/20 carvediloL [Carvedilol] 6.25 mg PO DAILY 09/06/20 - Past Medical/Surgical History Diabetic: Yes -: CHF (HFrEF) -: HTN -: Diabetes mellitus type 2 -: End-stage renal disease on hemodialysis -: Noncompliance with dialysis -: LAP NEGRITO -: left 5th toe amputation Psychosocial/ Personal History: Patient lives at home - Family History Mom Medical History: Cancer Notes: Breast Cancer - Social History Smoking Status: Never smoker Alcohol use: No CD- Drugs: No Caffeine use: Yes Place of Residence: Home Review of Systems 10-point ROS is otherwise unremarkable General: Malaise Respiratory: SOB with Excertion Integumentary: Lesions Physical Examination Temp Pulse Resp BP Pulse Ox 97.7 F 108 H 20 174/81 H 94 09/06/20 16:00 09/06/20 16:00 09/06/20 16:00 09/06/20 16:00 09/06/20 16:00 General: In no apparent distress, Oriented x3, Cooperative HEENT: Atraumatic Neck: Supple Respiratory: Clear to auscultation bilaterally Cardiovascular: Regular rate/rhythm, Edema Gastrointestinal: Soft and benign, Non-distended Musculoskeletal: No clubbing, No contractures Integumentary: No rashes, No cyanosis Neurological: Normal speech Laboratory Data (last 24 hrs) 09/06/20 07:40: Sodium 141, Potassium 4.8, BUN 54 H, Creatinine 7.81 H*, Glucose 96 09/06/20 07:40: WBC 16.6 H, Hgb 8.2 L, Hct 24.8 L, Plt Count 277 Imagings Data: EXAM DESCRIPTION: RAD - Foot Right 3 View - 08/27/2020 2:23 pm CLINICAL HISTORY: M86.9"black first toe" COMPARISON: No comparisons FINDINGS: No fracture, dislocation or periosteal reaction. No bone destructive changes identifiable in the first toe. Patient has moderate for age first MTP joint degenerative change. Dense arterial tree calcifications are present. Patient has mild to moderate for age IP joint space narrowing throughout the foot. Small plantar and Achilles spurs are present. Degenerative spurring changes are seen along the articular margins of the tarsal bones. No air or foreign body in the soft tissues. IMPRESSION: No bone destructive changes of the right first toe to indicate osteomyelitis. Osteomyelitis can exist prior to radiographic bone destruction. IP joint degenerative change and first MTP joint degenerative change erosive component. Conclusions/Impression: A/ ESRD on HD HTN with CKD/ CHF Diastolic CHF, chronic DM II with CKD Anemia in CKD MECCA/ Secondary HyperPTH Gangrenous right 1st toe sp amputation 09-06-20 P/ Continue current POC and Medications. Arrange for acute HD tomorrow. Give Epo. Increase Coreg 25mg BID. Start Vancomycin qHD. Pharmacy consult. Wound care as ordered. No NSAIDs. AM labs. Daily weight. Thank you kindly for the consultation.
[2020-09-06] MEDS ORDERED: MANNITOL 25% 12.5 GM/50 ML VIAL IV PRN (21:48)
[2020-09-06] MEDS ORDERED: NA CHLORIDE 0.9% 1,000 ML IV PRN (21:48)
[2020-09-06] MEDS ORDERED: ALBUMIN HUMAN 25% 50 ML IV SCH (22:00)
[2020-09-06] MEDS: carvediloL 6.25 MG TAB PO SCH (23:45)
[2020-09-07 05:55] LABS: Absolute Lymphocytes (CBC) 0.7 K/uL (0.7-4.9); Basophils % 0.1 % (0-1.3); Hematocrit 22.7 % (39.6-49.0); Lymphocytes % 3.2 % (15.3-44.8); MPV 8.3 fL (7.6-11.3); RBC Red Blood Cell Count 2.56 M/uL (4.33-5.43)
[2020-09-07] MEDS ORDERED: VANCOMYCIN 3 GM in NA CHLORIDE 0.9% 500 ML IVPB SCH (06:00)
[2020-09-07 06:17] LABS: Albumin 2.5 g/dL (3.4-5.0); Bilirubin Direct 0.1 mg/dL (0-0.2); Bilirubin Total 0.2 mg/dL (0.2-1.0); C-Reactive Protein 81.9 mg/L (<3.00); Phosphorus 4.3 mg/dL (2.5-4.9); Potassium 5.3 mmol/L (3.5-5.1); Protein, Total 8.4 g/dL (6.4-8.2)
[2020-09-07 06:52] LABS: Basophilic Stippling 1+; Blood Morphology Comment NOTED (NOT SEEN); Platelet Estimate ADEQ; Polychromasia SLIGHT
[2020-09-07] MEDS: carvediloL 6.25 MG TAB PO SCH (08:46)
[2020-09-07] MEDS: HYDRALAZINE HCL 25 MG TABLET PO SCH ×2 (08:47→14:52)
[2020-09-07] MEDS: SEVELAMER CARBONATE 800 MG TABLET PO SCH ×4 (08:47→17:16)
[2020-09-07] MEDS: LACTOBACILLUS/ACIDOPHILUS TAB PO SCH ×2 (08:48→14:52)
[2020-09-07] MEDS ORDERED: SILVER SULFADIAZINE 1% 50 GM TOP SCH (09:00)
[2020-09-07] MEDS ORDERED: EPOETIN ALFA-EPBX 10,000 UNIT/ML VIAL SQ SCH (09:00)
[2020-09-07] MEDS ORDERED: CALCITROL 0.25 MCG CAP PO SCH (09:00)
[2020-09-07] MEDS ORDERED: DOCUSATE NA 100 MG CAP PO SCH (09:00)
[2020-09-07] MEDS ORDERED: DILTIAZEM HCL 180 MG SR CAP PO SCH (09:00)
[2020-09-07] MEDS ORDERED: VITAMIN D 5,000 UNIT CAP PO SCH (09:00)
[2020-09-07] MEDS ORDERED: MULTIVITAMINS,THERAPEUT 1 TAB PO SCH (09:00)
[2020-09-07] MEDS ORDERED: D50W 25 GM/50 ML SYRINGE IV PRN (09:45)
[2020-09-07] MEDS ORDERED: GLUCAGON 1 MG/VIAL IM PRN (09:45)
[2020-09-07 10:27] VITALS: O2SAT 98
[2020-09-07] MEDS: INSULIN -REGULAR HUMAN 50 UNIT/0.5 ML ML SQ SCH ×2 (11:30→16:30)
--- NOTE | 2020-09-07 12:10 | PN ---
Date of Progress Note: 09/07/2020 Subjective: Patient is in dialysis. Currently, he is awake and alert. As per the nursing staff, no complaints. Vitals stable. Afebrile. His H and H are low, hemoglobin 7.5. His white count is 21, 000. He is going to get antibiotics during dialysis. He also got a shot for his low hemoglobin as a n outpatient, so doctor on record does not want to give him any blood at this time. His electrolytes reviewed. His dressing is clean, dry, and intact as per the nurse. Assessment: Status post right first toe transmetatarsal amputation and debridement of bilateral lowe r extremity wound in patient with multiple medical problems. Recommendations: Continue antibiotics. We will evaluate the wound tomorrow. Hopefully discharge in 48 hours. Continue present care. /MODL Voice ID: [id number] Report ID: [id number]
[2020-09-07] MEDS: HYDROCODONE/APAP 7.5/325 MG TAB PO PRN (12:19)
[2020-09-07 14:59] VITALS: BP 125/58; TEMP 97
[2020-09-07] MEDS ORDERED: COLLAGENASE 30 GM OINTMENT TOP SCH (15:04)
[2020-09-07] MEDS ORDERED: VANCOMYCIN 2 GM in NA CHLORIDE 0.9% 500 ML IVPB ONE (16:00)
--- NOTE | 2020-09-07 16:00 | P.PN ---
Subjective Date of Service: 09/07/20 Chief Complaint: Right 1st toe gangrene Subjective: Improving (Reports overall feeling well, pain is well-controlled . Denies nausea/vomiting, + flatus, tolerating diet) Review of Systems 10-point ROS is otherwise unremarkable Physical Examination - Vital Signs Temperature: 97 F Blood Pressure: 125/58 Pulse: 93 Respirations: 18 Pulse Ox (%): 95 - Physical Exam General: Alert, In no apparent distress, Oriented x3 HEENT: Sclerae nonicteric Respiratory: Clear to auscultation bilaterally Cardiovascular: Regular rate/rhythm, Edema (Bilaterally to the thighs) Gastrointestinal: Soft and benign, No tenderness Integumentary: Other (Lower extremities with surgical dressings in place) Neurological: Normal speech, Normal affect - Studies Laboratory Data (last 24 hrs) 09/07/20 05:27: Sodium 138, Potassium 5.3 H, BUN 75 H D, Creatinine 9.56 H* D, Glucose 174 H, Phosphorus 4.3, Magnesium 2.0, Total Bilirubin 0.2, AST 11 L, ALT 14, Alkaline Phosphatase 48 09/07/20 05:27: WBC 21.4 H* D, Hgb 7.5 L*, Hct 22.7 L, Plt Count 249 Assessment & Plan Physician Review Additional Text: R 1st toe gangrene s/p amputation (09/06) HFrEF HTN DM2 Anemia of chronic disease ESRD on HD pain control and IV antibiotics per surgery - pt to receive IV vancomycin with hemodialysis Leukocytosis increased, likely reactive from surgery nephrology consulted for HD - pt reports TTS schedule pain well controlled at this time Hemoglobin below 8, to get dialysis, does not need transfusion at this time Blood pressure much better controlled now and is resuming his home medications last TTE (2015): EF: 35%, moderate global hypokinesis, mild MR, mild TR, mild pulmonary hypertension. will continue to monitor closely Dispo: anticipate dc home in ~48hrs - per general surgery Time Spent Managing Pts Care (In Minutes): 33
--- NOTE | 2020-09-07 19:20 | P.PN ---
Date of Service: 09/07/20 Vital Signs Temp Pulse Resp BP Pulse Ox 97 F 93 H 18 125/58 L 95 09/07/20 16:02 09/07/20 16:02 09/07/20 16:02 09/07/20 16:02 09/07/20 16:02 Lab Results (last 24 hrs) 09/07/20 16:30: POC Glucose 176 H 09/07/20 12:10: POC Glucose 177 H 09/07/20 08:21: POC Glucose 169 H 09/07/20 05:27: Hemoglobin A1c 5.5 09/07/20 05:27: Sodium 138, Potassium 5.3 H, Chloride 110 H, Carbon Dioxide 19 L, BUN 75 H D, Creatinine 9.56 H* D, Estimated GFR 7 L, Glucose 174 H, Calcium 8.9, Phosphorus 4.3, Magnesium 2.0, Total Bilirubin 0.2, Direct Bilirubin 0.1, AST 11 L, ALT 14, Alkaline Phosphatase 48, C-Reactive Protein 81.90 H, Serum Total Protein 8.4 H, Albumin 2.5 L, Globulin 5.9 H, Albumin/Globulin Ratio 0.4 L 09/07/20 05:27: WBC 21.4 H* D, RBC 2.56 L, Hgb 7.5 L*, Hct 22.7 L, MCV 89.0, MCH 29.5, MCHC 33.2, RDW 17.3 H, Plt Count 249, MPV 8.3, Neutrophils % 93.5 H, Lymphocytes % 3.2 L, Monocytes % 3.1 L, Eosinophils % 0.1, Basophils % 0.1, Absolute Neutrophils 20.0 H, Segmented Neutrophils 87 H, Absolute Lymphocytes 0.7, Lymphocytes 8 L, Monocytes 3, Absolute Monocytes 0.7, Absolute Eosinophils 0.0, Basophils 1, Absolute Basophils 0.0, Myelocytes 1 H, Platelet Estimate Adeq, Polychromasia Slight, Basophilic Stippling 1+, Morphology Comment Noted, ESR Westergren > 140 H, Smear Scan Cancelled Assessment/ Plan: Nephrology CPS stable without CP or SOB. No acute events overnight. Doing well. Pain is controlled. Vitals, medications, blood work and imaging reviewed in the chart. General: In no apparent distress, Oriented x3, Cooperative HEENT: Atraumatic Neck: Supple Respiratory: Clear to auscultation bilaterally Cardiovascular: Regular rate/rhythm, Edema Gastrointestinal: Soft and benign, Non-distended Musculoskeletal: No clubbing, No contractures Integumentary: No rashes, No cyanosis Neurological: Normal speech Laboratory Data (last 24 hrs) 09/06/20 07:40: Sodium 141, Potassium 4.8, BUN 54 H, Creatinine 7.81 H*, Glucose 96 09/06/20 07:40: WBC 16.6 H, Hgb 8.2 L, Hct 24.8 L, Plt Count 277 Imagings Data: EXAM DESCRIPTION: RAD - Foot Right 3 View - 08/27/2020 2:23 pm CLINICAL HISTORY: M86.9"black first toe" COMPARISON: No comparisons FINDINGS: No fracture, dislocation or periosteal reaction. No bone destructive changes identifiable in the first toe. Patient has moderate for age first MTP joint degenerative change. Dense arterial tree calcifications are present. Patie nt has mild to moderate for age IP joint space narrowing throughout the foot. Small plantar and Achilles spurs are present. Degenerative spurring changes are seen along the articular margins of the tarsal bones. No air or foreign body in the soft tissues. IMPRESSION: No bone destructive changes of the right first toe to indicate osteomyelitis. Osteomyelitis can exist prior to radiographic bone destruction. IP joint degenerative change and first MTP joint degenerative change erosive component. Conclusions/Impression: A/ ESRD on HD HTN with CKD/ CHF Diastolic CHF, chronic DM II with CKD Anemia in CKD MECCA/ Secondary HyperPTH Gangrenous right 1st toe sp amputation 09-06-20 P/ Continue current POC and Medications. Acute HD today. Give Epo this morning. Case discussed with pharmacy. Vancomycin 2g IV X1 post dialysis. Wound care as ordered. Follow up with surgery. No NSAIDs. AM labs. Daily weight.
--- NOTE | 2020-09-07 20:58 | DS ---
Date of Discharge: 09/07/2020 Admitting Diagnoses: Gangrene in the right great toe and wounds to bilateral lower extremity. Hospital Course: The patient underwent a right first toe transmetatarsal amputation and debridement of both wounds. Hospitalist and renal service were consulted and managed the patient medically. Tod ay, he is . His H and H are slightly low, but he has gotten Procrit in dialysis and the re nal doctors felt that he did not need transfusion at this time, though followup his H and H quickly. His white count is elevated. He did receive antibiotics during dialysis today. He however wants to go home today because he has a family member who is not doing well medically and he will follow up w [facility] His dressings will be changed and he will continue to receive antibiotics during dialysis and his H and H will be monitored there as well. Disposition: Home. Condition: Stable. Discharge Instructions: Resume home medications and diet. Followup with dialysis. Followup with me in my wound clinic next Wednesday. /MODL Voice ID: [id number] Report ID: [id number]
== END 2020-09-07 17:38 | disposition home or self-care (01) ==
LOC: OR 07:25 → 2ND 12:43 → OR 09-07 17:38
PROVIDERS: ATTEND Surgery
PROC: 0HBKXZZ Excision of Right Lower Leg Skin, External Approach (ICD-10-PCS; 2020-09-06)
PROC: 0Y6M0Z9 Detachment at Right Foot, Partial 1st Ray, Open Approach (ICD-10-PCS; principal; 2020-09-06 10:00)
PROC: 0HBLXZZ Excision of Left Lower Leg Skin, External Approach (ICD-10-PCS; 2020-09-06 10:00)
DX: E11.621 Type 2 diabetes mellitus with foot ulcer (principal); L97.519 Non-pressure chronic ulcer of other part of right foot with unspecified severity; E11.52 Type 2 diabetes mellitus with diabetic peripheral angiopathy with gangrene; I13.2 Hypertensive heart and chronic kidney disease with heart failure and with stage 5 chronic kidney disease, or end stage renal disease; I50.32 Chronic diastolic (congestive) heart failure; N18.6 End stage renal disease; I27.20 Pulmonary hypertension, unspecified; D63.1 Anemia in chronic kidney disease; E11.22 Type 2 diabetes mellitus with diabetic chronic kidney disease; E66.01 Morbid (severe) obesity due to excess calories; Z20.828 Contact with and (suspected) exposure to other viral communicable diseases; Z79.4 Long term (current) use of insulin; Z99.2 Dependence on renal dialysis; N25.81 Secondary hyperparathyroidism of renal origin; N25.0 Renal osteodystrophy; Z91.15 Patient's noncompliance with renal dialysis; Z89.422 Acquired absence of other left toe(s); S80.822A Blister (nonthermal), left lower leg, initial encounter; S80.821A Blister (nonthermal), right lower leg, initial encounter
CPT/HCPCS: 36415; 80048; 80076; 82947; 83036; 83735; 84100; 85025; 85652; 86140; 88304; 88305; 88307; 88311; 90935; 93005; 97161; J0690; J1100; J1644; J2704; J3010; J3370; J3590; J7040; Q5106

== ENCOUNTER 2020-10-01 13:42 | Inpatient (IN) | payer OTHER ==
--- OUTSIDE RECORDS SUMMARY | 2020-10-01 13:43 | XMS REPORT | Continuity of Care Document ---
:1965 Author Organization [facility] t Address [address] [place] [address] Care Team Providers Name Role Phone Unavailable Unavailable Unavailable Problems This patient has no known problems. Allergies, Adverse Reactions, Alerts This patient has no known allergies or adverse reactions. Medications This patient has no known medications. Procedures This patient has no known procedures. Encounters Start End Encounter Admission Attending Care Care Encounter Source Date/Time Date/Time Type Type Clinicians Facility Department ID 2020-07-30 2020-07-30 Outpatient [facility] [id number] [facility] 2020-07-15 2020-07-15 Outpatient [facility] [id number] [facility] 2020-07-02 2020-07-02 Outpatient [facility] [id number] [facility] 2020-06-11 2020-06-11 Outpatient [facility] [id number] [facility] Results This patient has no known results.
[2020-10-01] MEDS ORDERED: MORPHINE 4 MG/ML SYR ONE (14:55)
[2020-10-01 14:58] LABS: Absolute Lymphocytes (CBC) 0.9 K/uL (0.7-4.9); Basophils % 0.7 % (0-1.3); Hematocrit 24.8 % (39.6-49.0); Lymphocytes % 8.2 % (15.3-44.8); RBC Red Blood Cell Count 2.72 M/uL (4.33-5.43)
--- NOTE | 2020-10-01 15:29 | RAD REPORT ---
EXAM DESCRIPTION: RAD - Chest Single View - 10/01/2020 3:19 pm CLINICAL HISTORY: edema, preop chest for right foot amputation COMPARISON: Two view chest August 29, 2020 TECHNIQUE: AP portable chest image was obtained 10/01/2020 3:19 pm . FINDINGS: Lungs are clear. Heart and vasculature are normal. No measurable pleural effusion and no p neumothorax. No acute bony abnormality seen. No acute aortic findings suspected. IMPRESSION: No acute cardiopulmonary process. No significant change from comparison study.
--- NOTE | 2020-10-01 15:36 | EDPHYS ---
Physician Documentation [facility] Name: Constantin Holloway Age: 54 yrs Sex: Male : 1965 Arrival Date: 10/01/2020 Time: 13:44 Bed 13 Private MD: ED Physician Darren Marquez HPI: 10/01 14:50 This 54 yrs old Black Male presents to ER via Wheelchair with complaints of Leg Pain. cp 14:50 The patient presents with pain, that is chronic. cp 14:50 The complaints affect the right foot. Associated signs and symptoms: Pertinent cp negatives fever. Patient reports he was sent to ED by DR Smith to be admitted due to chronic infection of right foot. Historical: - Allergies: 14:15 No Known Allergies; tw2 - Home Meds: 14:15 furosemide 40 mg Oral tab 1 tab 2 times per day [Active]; sildenafil 100 mg Oral 1 tab tw2 once daily [Active]; ramipril 5 mg Oral cap 1 cap once daily [Active]; hydralazine 100 mg Oral tab 1 tab 2 times per day [Active]; diltiazem HCl 120 mg Oral cp12 1 cap daily [Active]; diltiazem HCl 360 mg Oral cpER 1 cap once daily [Active]; DIALYVITE 800 Oral daily [Active]; - PMHx: 14:15 CHF; Diabetes - NIDDM; Dialysis; Hypertension; Renal Disease; tw2 - PSHx: 14:15 Catheter palcement to Right arm; RUE HD Fistula; tw2 - Immunization history:: Adult Immunizations. - Social history:: Smoking status: . ROS: 14:51 Constitutional: Negative for body aches, fever, poor PO intake. cp 14:51 Cardiovascular: Negative for chest pain, palpitations. 14:51 Respiratory: Negative for cough, shortness of breath, wheezing. 14:51 Abdomen/GI: Negative for abdominal pain, nausea, vomiting, and diarrhea. 14:51 Back: Negative for pain at rest, pain with movement. 14:51 MS/extremity: Positive for pain, of the right foot. 14:51 Neuro: Negative for altered mental status, headache, weakness. 14:51 Eyes: Negative for injury, pain, redness, and discharge. cp 14:52 All other systems are negative. cp Exam: 14:51 ECG was reviewed by the Attending Physician. cp 14:55 Constitutional: The patient appears in no acute distress, alert, awake, cp non-diaphoretic, non-toxic, well developed, well nourished. 14:55 Head/Face: Normocephalic, atraumatic. cp 14:55 Eyes: Periorbital structures: appear normal, Conjunctiva: normal, no exudate, no cp injection, Sclera: no appreciated abnormality, Lids and lashes: appear normal, bilaterally. 14:55 ENT: External ear(s): are unremarkable, Nose: is normal, Posterior pharynx: Airway: no cp evidence of obstruction, patent. 14:55 Neck: ROM/movement: is normal, is supple, without pain, no range of motions limitations.cp 14:55 Chest/axilla: Inspection: normal, Palpation: is normal, no crepitus, no tenderness. 14:55 Cardiovascular: Rate: tachycardic, Rhythm: regular, Edema: ankle edema, that is moderate, JVD: is not appreciated. 14:55 Respiratory: the patient does not display signs of respiratory distress, Respirations: normal, no use of accessory muscles, no retractions, labored breathing, is not present, Breath sounds: are clear throughout, no decreased breath sounds, no stridor. 14:55 Abdomen/GI: Inspection: abdomen appears normal, Palpation: abdomen is soft and non-tender, in all quadrants. 14:55 Musculoskeletal/extremity: Extremities: grossly normal except: noted in the right foot: cp pain, swelling, tenderness, right great toe amputated, large open wound with mild purulent drainage noted, skin with necrosis, Pulses: faint left dorsalis pedis, nonpalpable right dorsalis pedis. 14:55 Neuro: Orientation: to person, place \T\ time. Mentation: is normal. Vital Signs: 14:12 BP 157 / 71; Pulse 110; Resp 17; Temp 97.9(TE); Pulse Ox 100% on R/A; Weight 145.15 kg; tw2 Height 6 ft. 0 in. (182.88 cm); Pain 5/10; 15:00 BP 132 / 81; Pulse 110; Resp 18 S; Pulse Ox 99% on R/A; ca1 16:00 BP 133 / 69; Pulse 112; Resp 17 S; Pulse Ox 99% on R/A; ca1 17:07 BP 147 / 73; Pulse 102; Resp 19 S; Pulse Ox 100% on R/A; ca1 14:12 Body Mass Index 43.40 (145.15 kg, 182.88 cm) tw2 MDM: 14:27 Patient medically screened. cp 15:35 Test interpretation: by ED physician or midlevel provider: ECG. cp 15:35 Data reviewed: vital signs, nurses notes, lab test result(s), EKG, radiologic studies, cp plain films. Response to treatment: the patient's symptoms have markedly improved after treatment, and as a result, I will admit patient, administer antibiotics vancomycin, Zosyn. 10/01 14:28 Order name: Basic Metabolic Panel; Complete Time: 17:50 cp 10/01 17:50 Interpretation: Normal except: GLUC 143; BUN 58; CRE 9.41; GFR 7. cp 10/01 14:28 Order name: CBC with Diff; Complete Time: 15:27 cp 10/01 15:27 Interpretation: Normal except: RBC 2.72; HGB 8.0; HCT 24.8; RDW 17.1; LESLIE% 77.4; LYM% cp 8.2; NEUT A 8.3. 10/01 14:28 Order name: LFT's; Complete Time: 17:50 cp 10/01 17:50 Interpretation: Normal except: TP 8.6; ALB 2.5; GLOB 6.1; A/G 0.4. cp 10/01 14:28 Order name: Magnesium; Complete Time: 17:50 cp 10/01 14:28 Order name: NT PRO-BNP; Complete Time: 17:50 cp 10/01 14:28 Order name: PT-INR; Complete Time: 17:50 cp 10/01 14:28 Order name: Troponin (emerg Dept Use Only); Complete Time: 17:50 cp 10/01 14:28 Order name: Ptt, Activated; Complete Time: 17:50 cp 10/01 14:48 Order name: Procalcitonin cp 10/01 14:48 Order name: Lactate; Complete Time: 17:50 cp 10/01 14:48 Order name: Blood Culture Adult (2) cp 10/01 15:37 Order name: COVID-19 cp 10/01 16:56 Order name: SARS-COV-2 RT PCR; Complete Time: 17:50 EDMS 10/01 14:28 Order name: XRAY Chest (1 view); Complete Time: 15:30 cp 10/01 15:31 Interpretation: Report review. 10/01 14:28 Order name: EKG; Complete Time: 14:30 cp 10/01 14:28 Order name: Cardiac monitoring; Complete Time: 14:51 cp 10/01 14:28 Order name: EKG - Nurse/Tech; Complete Time: 14:51 cp 10/01 14:28 Order name: IV Saline Lock; Complete Time: 16:46 cp 10/01 14:28 Order name: Labs collected and sent; Complete Time: 14:51 cp 10/01 14:28 Order name: O2 Per Protocol; Complete Time: 14:51 cp 10/01 14:28 Order name: O2 Sat Monitoring; Complete Time: 14:52 cp 10/01 14:46 Order name: Wound dressing; Complete Time: 16:46 cp 10/01 16:36 Order name: CONS Physician Consult EDMS EC:51 Rate is 110 beats/min. Rhythm is regular. MI interval is normal. QRS interval is cp normal. QT interval is normal. Interpreted by me. Reviewed by me. Administered Medications: 14:51 Drug: morphine 4 mg {Note: rass 0.} Route: IVP; Site: left hand; ca1 16:00 Follow up: Response: No adverse reaction; Pain is decreased; RASS: Alert and Calm (0) ca1 15:32 Not Given (Physician Discretion): Zosyn 3.375 grams IVPB once over 60 mins; (mix in NS cp 100 mL) 16:48 Drug: Zosyn 2.25 grams Route: IVPB; Infused Over: 60 mins; Site: left hand; ca1 17:18 Follow up: Response: No adverse reaction; IV Status: Infusion continued upon admission ca1 17:20 Follow up: Response: No adverse reaction; IV Status: Completed infusion; IV Intake: ca1 100ml 17:37 Drug: vancoMYCIN 1 grams Route: IVPB; Infused Over: 2 hrs; Site: left hand; ca1 17:38 Follow up: Response: No adverse reaction; IV Status: Infusion continued upon admission ca1 Disposition: 10/02 17:22 Co-signature as Attending Physician, Darren Marquez MD I agree with the assessment and pilar plan of care. Disposition: 10/01/20 15:35 Hospitalization ordered by Kevin Chappell for Inpatient Admission. Preliminary diagnosis are Cellulitis of right lower limb, End stage renal disease. - Bed requested for Telemetry/MedSurg (Inpatient). - Status is Inpatient Admission. ca1 - Condition is Stable. - Problem is an ongoing problem. - Symptoms have improved. Signatures: Dispatcher [employer] EDMS Usha Watson Darren Marquez MD MD cha Page, Corey PA PA cp Jocelyn Eisenberg RN RN tw2 Edelmira Dias RN RN ca1 Corrections: (The following items were deleted from the chart) 10/01 16:08 15:38 CORONAVIRUS ordered. EDMS EDMS 16:58 15:35 Hospitalization Ordered by Kevin Chappell MD for Inpatient Admission. Preliminary bd diagnosis is Cellulitis of right lower limb; End stage renal disease. Bed requested for Telemetry/MedSurg (Inpatient). Status is Inpatient Admission. Condition is Stable. Problem is an ongoing problem. Symptoms have improved. cp 17:56 16:58 10/01/2020 15:35 Hospitalization Ordered by Kevin Chappell MD for Inpatient ca1 Admission. Preliminary diagnosis is Cellulitis of right lower limb; End stage renal disease. Bed requested for Telemetry/MedSurg (Inpatient). Status is Inpatient Admission. Condition is Stable. Problem is an ongoing problem. Symptoms have improved. bd 23:56 14:21 MS/extremity: Positive for pain, of the right foot, cp cp 23:56 14:21 Cardiovascular: Negative for chest pain, palpitations, cp cp 23:56 14:21 Respiratory: Negative for cough, shortness of breath, wheezing, cp cp 23:56 14:21 Constitutional: Negative for body aches, fever, poor PO intake, cp cp 23:56 14:21 Abdomen/GI: Negative for abdominal pain, nausea, vomiting, and diarrhea, cp cp 23:56 14:21 Back: Negative for pain at rest, pain with movement, cp cp 23:56 14:21 Neuro: Negative for altered mental status, headache, weakness, cp cp 23:56 14:21 All other systems are negative, cp cp 10/02 16:03 01 14:51 All other systems are negative, cp cp
--- NOTE | 2020-10-01 15:36 | ER ---
Nurse's Notes [facility] Name: Constantin Holloway Age: 54 yrs Sex: Male : 1965 Arrival Date: 10/01/2020 Time: 13:44 Bed 13 Private MD: Diagnosis: Cellulitis of right lower limb;End stage renal disease Presentation: 10/01 14:12 Chief complaint: Patient states: my RIGHT foot is fixing to get amputated and Dr. Luis vaughn just seen me at [facility] and sent me here. Coronavirus screen: At this time, the client does not indicate any symptoms associated with coronavirus-19. Ebola Screen: Patient denies travel to an Ebola-affected area in the 21 days before illness onset. Initial Sepsis Screen: Does the patient meet any 2 criteria? HR > 90 bpm. No. Patient's initial sepsis screen is negative. Does the patient have a suspected source of infection? No. Patient's initial sepsis screen is negative. Risk Assessment: Do you want to hurt yourself or someone else? Patient reports no desire to harm self or others. Onset of symptoms was October 01, 2020. 14:12 Method Of Arrival: Wheelchair tw2 14:12 Acuity: NIDIA 3 tw2 Triage Assessment: 14:15 General: Appears in no apparent distress. obese, well groomed, Behavior is calm, tw2 cooperative, appropriate for age. Pain: Complains of pain in right foot. Historical: - Allergies: 14:15 No Known Allergies; tw2 - Home Meds: 14:15 furosemide 40 mg Oral tab 1 tab 2 times per day [Active]; sildenafil 100 mg Oral 1 tab tw2 once daily [Active]; ramipril 5 mg Oral cap 1 cap once daily [Active]; hydralazine 100 mg Oral tab 1 tab 2 times per day [Active]; diltiazem HCl 120 mg Oral cp12 1 cap daily [Active]; diltiazem HCl 360 mg Oral cpER 1 cap once daily [Active]; DIALYVITE 800 Oral daily [Active]; - PMHx: 14:15 CHF; Diabetes - NIDDM; Dialysis; Hypertension; Renal Disease; tw2 - PSHx: 14:15 Catheter palcement to Right arm; RUE HD Fistula; tw2 - Immunization history:: Adult Immunizations. - Social history:: Smoking status: . Screenin:20 Abuse screen: Denies threats or abuse. Denies injuries from another. Nutritional ca1 screening: No deficits noted. Tuberculosis screening: No symptoms or risk factors identified. Fall Risk Secondary diagnosis (15 points) impaired mobility, IV access (20 points). Ambulatory Aid- Crutches/Cane/Walker (15 pts). Total Myers Fall Scale indicates High Risk Score (45 or more points). Fall prevention measures have been instituted. Side Rails Up X 2 As available patient and family educated on Fall Prevention Program and Strategies. Assessment: 14:20 General: Appears in no apparent distress. comfortable, Behavior is calm, cooperative, ca1 appropriate for age. Pain: Complains of pain in right leg Pain currently is 5 out of 10 on a pain scale. Pain began a week. Neuro: Level of Consciousness is awake, alert, obeys commands, Oriented to person, place, time, situation. Cardiovascular: Heart tones S1 S2 present Capillary refill < 3 seconds Patient's skin is warm and dry. Rhythm is sinus tachycardia Dialysis shunt: in the right arm, with palpable thrill, with auscultated bruit. Respiratory: Airway is patent Respiratory effort is even, unlabored, Respiratory pattern is regular, symmetrical, Breath sounds are clear bilaterally. GI: Abdomen is round non-distended, obese, Bowel sounds present X 4 quads. Abd is soft and non tender X 4 quads. : No signs and/or symptoms were reported regarding the genitourinary system. EENT: No signs and/or symptoms were reported regarding the EENT system. Derm: Skin is thin, Skin is pink, warm \T\ dry. Wound noted right foot. Musculoskeletal: Amputation of right first toe. Capillary refill is > 3 seconds, toes. Swelling present in right foot, left foot, right leg and left leg. 15:00 Reassessment: fiscal technician at bedside attempted to draw blood, unsuccessful. ca1 15:20 Reassessment: Patient appears in no apparent distress at this time. Patient and/or ca1 family updated on plan of care and expected duration. Pain level reassessed. Patient is alert, oriented x 3, equal unlabored respirations, skin warm/dry/pink. 16:14 Reassessment: Patient appears in no apparent distress at this time. Patient and/or ca1 family updated on plan of care and expected duration. Pain level reassessed. Patient is alert, oriented x 3, equal unlabored respirations, skin warm/dry/pink. 3rd Lab personnel at bedside attempting to draw blood from pt. 16:19 Reassessment: Lactate and 1st set cultures sent by home performance laborer. Dr. Chappell hospitalist at ca1 bedside. 16:19 Reassessment: Pt accidentally pulled out his IV. Bleeding controlled. ca1 16:48 Reassessment: Patient appears in no apparent distress at this time. Patient is alert, ca1 oriented x 3, equal unlabored respirations, skin warm/dry/pink. 17:13 Reassessment: Attempted to call report. Nurse will call back in 5 mins. ca1 Vital Signs: 14:12 BP 157 / 71; Pulse 110; Resp 17; Temp 97.9(TE); Pulse Ox 100% on R/A; Weight 145.15 kg; tw2 Height 6 ft. 0 in. (182.88 cm); Pain 5/10; 15:00 BP 132 / 81; Pulse 110; Resp 18 S; Pulse Ox 99% on R/A; ca1 16:00 BP 133 / 69; Pulse 112; Resp 17 S; Pulse Ox 99% on R/A; ca1 17:07 BP 147 / 73; Pulse 102; Resp 19 S; Pulse Ox 100% on R/A; ca1 14:12 Body Mass Index 43.40 (145.15 kg, 182.88 cm) tw2 ED Course: 13:44 Patient arrived in ED. ag3 14:13 Triage completed. tw2 14:15 Arm band placed on. tw2 14:20 Edelmira Dias, RN is Primary Nurse. ca1 14:20 Patient has correct armband on for positive identification. Placed in gown. Bed in low ca1 position. Call light in reach. Side rails up X2. quality assurance monitor chassis on. Pulse ox on. NIBP on. Warm blanket given. 14:21 Darren Alejandra PA is PHCP. cp 14:22 Darren Marquez MD is Attending Physician. cp 14:35 Inserted saline lock: 22 gauge in left hand, using aseptic technique. Blood collected. bp 15:19 XRAY Chest (1 view) In Process Unspecified. EDMS 15:33 Kevin Chappell MD is Hospitalizing Provider. cp 16:33 COVID-19 Sent. sv 16:47 Inserted saline lock: 24 gauge in left hand, using aseptic technique. ca1 17:22 No provider procedures requiring assistance completed. Patient admitted, IV remains in ca1 place. Administered Medications: 14:51 Drug: morphine 4 mg {Note: rass 0.} Route: IVP; Site: left hand; ca1 16:00 Follow up: Response: No adverse reaction; Pain is decreased; RASS: Alert and Calm (0) ca1 15:32 Not Given (Physician Discretion): Zosyn 3.375 grams IVPB once over 60 mins; (mix in NS cp 100 mL) 16:48 Drug: Zosyn 2.25 grams Route: IVPB; Infused Over: 60 mins; Site: left hand; ca1 17:18 Follow up: Response: No adverse reaction; IV Status: Infusion continued upon admission ca1 17:20 Follow up: Response: No adverse reaction; IV Status: Completed infusion; IV Intake: ca1 100ml 17:37 Drug: vancoMYCIN 1 grams Route: IVPB; Infused Over: 2 hrs; Site: left hand; ca1 17:38 Follow up: Response: No adverse reaction; IV Status: Infusion continued upon admission ca1 Intake: 17:20 IV: 100ml; Total: 100ml. ca1 Outcome: 15:35 Decision to Hospitalize by Provider. cp 17:22 Admitted to Med/surg accompanied by tech, via stretcher, room 220, with chart, Report ca1 called to JACI Allen 17:22 Condition: stable 17:22 Instructed on the need for admit. 17:56 Patient left the ED. ca1 Signatures: Dispatcher [employer] EDMS Sole Aguilar RN RN sv Page, Corey, ATA PA cp Jocelyn Eisenberg RN RN tw2 Alfa Moctezuma RN RN bp Gomez, Alice ag3 Edelmira Dias RN RN ca1 Corrections: (The following items were deleted from the chart) 17:08 14:20 Cardiovascular: Heart tones S1 S2 present Capillary refill < 3 seconds Patient's ca1 skin is warm and dry. Rhythm is sinus tachycardia ca1 17:11 14:20 Derm: Skin is thin, Skin is pink, warm \T\ dry. Wound noted right foot ca1 ca1 17:11 14:20 Cardiovascular: Heart tones S1 S2 present Capillary refill < 3 seconds Patient's ca1 skin is warm and dry. Rhythm is sinus tachycardia Dialysis shunt: in the right arm, with palpable thrill, with auscultated bruit, ca1 17:20 14:20 Musculoskeletal: Amputation of right first toe. ca1 ca1 17:56 14:20 Musculoskeletal: Amputation of right first toe. Capillary refill is > 3 seconds, ca1 toes. ca1
[2020-10-01 15:37] LABS: ALT/SGPT 15 U/L (12-78); AST/SGOT 16 U/L (15-37); Albumin 2.5 g/dL (3.4-5.0); Alkaline Phosphatase 58 U/L (45-117); BUN Blood Urea Nitrogen 58 mg/dL (7-18); Bicarbonate 25 mmol/L (21-32); Bilirubin Direct < 0.1 mg/dL (0-0.2); Bilirubin Total 0.3 mg/dL (0.2-1.0); Glucose Level 143 mg/dL (74-106); NT PRO-BNP 5966 pg/mL (<125); Potassium 4.8 mmol/L (3.5-5.1); Protein, Total 8.6 g/dL (6.4-8.2); Sodium Level 136 mmol/L (136-145); Troponin (Emerg Dept Use Only) < 0.02 ng/mL (0.0-0.045)
[2020-10-01] MEDS ORDERED: VANCOMYCIN/NS 1 gm 1 GM/250 ML BAG IVPB ONE ×2 (16:00→21:00)
[2020-10-01] MEDS ORDERED: PIPER/TAZO/NS 2.25gm 2.25 GM/50 ML BAG ONE (16:04)
[2020-10-01 16:44] LABS: Protime INR 1.03
--- NOTE | 2020-10-01 16:50 | P.HP ---
Certification for Inpatient Patient admitted to: Inpatient With expected LOS: >2 Midnights Practitioner: I am a practitioner with admitting privileges, knowledge of patient current condition, hospital course, and medical plan of care. Services: Services provided to patient in accordance with Admission requirements found in Title 42 Section 412.3 of the Code of Federal Regulations Patient History Date of Service: 10/01/20 Reason for admission: R gangrene / diabetic ulcer History of Present Illness: 54yo M, PMH: DM2 (diet-controlled), HFrEF, ESRD on HD (TTS), HTN who presents to ED under advice of Dr. Smith due to worsening L foot gangrene/ulceration. Patient reports he has been following at wound clinic over the pst 4-6 weeks and despite treatment /antibiotics, has progressively worsened. He was advised to come to hospital and would likely need BKA. Patient missed HD today due to coming to hospital. labs notable for chronic anemia: 8.0, Cr: 9.41, K: 4.8, BNP: 5966, Procal: 0.9. Vitals stable. negative lactate. Allergies No Known Allergies Allergy (Verified 09/06/20 09:52) Home Medications: Calcitriol [Rocaltrol] 2 mcg PO DAILY 09/06/20 Diltiazem HCl [Diltiazem ER] 360 mg PO DAILY 09/06/20 Furosemide 80 mg PO BID 09/06/20 Hydralazine HCl 100 mg PO TID 09/06/20 Sevelamer Carbonate [Renvela] 800 mg PO TIDWM 09/06/20 carvediloL [Carvedilol] 6.25 mg PO DAILY 09/06/20 - Past Medical/Surgical History Diabetic: Yes -: CHF (HFrEF) -: HTN -: Diabetes mellitus type 2 -: End-stage renal disease on hemodialysis -: Noncompliance with dialysis -: LAP NEGRITO -: left 5th toe amputation Psychosocial/ Personal History: Patient lives at home - Family History Mom -: Cancer Notes: Breast Cancer - Social History Smoking Status: Never smoker Alcohol use: No CD- Drugs: No Caffeine use: Yes Place of Residence: Home Review of Systems 10-point ROS is otherwise unremarkable Physical Examination - Physical Exam General: Alert, Obese HEENT: Sclerae nonicteric Respiratory: Clear to auscultation bilaterally Cardiovascular: Regular rate/rhythm, Edema (bilateral to knees) Gastrointestinal: Soft and benign, Non-distended, No tenderness Integumentary: Other (R foot, medial aspect: large gangrenous appearing ulceration, foul smelling) Neurological: Normal speech, Normal affect - Studies Laboratory Data (last 24 hrs) 10/01/20 16:24: PT 12.2, INR 1.03, APTT 32.6 10/01/20 14:45: WBC 10.7, Hgb 8.0 L, Hct 24.8 L, Plt Count 291 10/01/20 14:45: Sodium 136, Potassium 4.8, BUN 58 H, Creatinine 9.41 H*, Glucose 143 H, Magnesium 2.0, Total Bilirubin 0.3, AST 16, ALT 15, Alkaline Phosphatase 58 Assessment and Plan - Advance Directives Does patient have a Living Will: No Does patient have a Durable POA for Healthcare: No Physician Review Additional Text: RLE diabetic ulcer / gangrene HFrEF ESRD on HD HTN DM2 -failed outpatient management -Dr. Smith recommends BKA, possibly tomorrow -Zosyn & Vanc for empiric coverage -NPO after midnight -nephrology consulted for HD - pt is T-TR-Sa, missed today -patient does not appear septic at this time -cultures obtained in ED -obtain home medications - pt unsure of meds, states he will have daughter bring in the list -TTE (2018): EF: 35% -patient with moderate risk for surgery given CHF, ESRD. however he is at his baseline and optimized for surgery -he will require this surgery urgently given continued severity of ulceration Dispo: anticipate hospitalization >2 days Time Spent Managing Pts Care (In Minutes): 60
[2020-10-01] MEDS ORDERED: PIPER/TAZO/NS 2.25gm 2.25 GM/50 ML BAG IVPB SCH (18:10)
[2020-10-01] MEDS ORDERED: ACETAMINOPHEN 500 MG TAB PO PRN (18:10)
[2020-10-01] MEDS ORDERED: ONDANSETRON 4 MG/2 ML VIAL IV PRN (18:10)
[2020-10-01] MEDS: INSULIN -REGULAR HUMAN 50 UNIT/0.5 ML ML SQ SCH (19:48)
[2020-10-01 20:41] VITALS: BMI 43.4
[2020-10-01] MEDS: MORPHINE 2 MG/ML SYR IV PRN (20:57)
[2020-10-01] MEDS ORDERED: VANCOMYCIN 1.5 GM in NA CHLORIDE 0.9% 500 ML IVPB SCH (21:00)
[2020-10-01] MEDS ORDERED: MANNITOL 25% 12.5 GM/50 ML VIAL IV PRN (21:42)
[2020-10-01] MEDS ORDERED: NA CHLORIDE 0.9% 1,000 ML IV PRN (21:42)
[2020-10-01] MEDS ORDERED: ALBUMIN HUMAN 25% 50 ML IV SCH (22:00)
[2020-10-02] MEDS: MORPHINE 2 MG/ML SYR IV PRN ×2 (02:13→07:57)
[2020-10-02] MEDS: PIPER/TAZO/NS 2.25gm 2.25 GM/50 ML BAG IVPB SCH ×3 (02:17→17:00)
[2020-10-02 07:28] LABS: Basophils % 0.6 % (0-1.3); MPV 8.4 fL (7.6-11.3); RBC Red Blood Cell Count 2.75 M/uL (4.33-5.43)
[2020-10-02] MEDS: INSULIN -REGULAR HUMAN 50 UNIT/0.5 ML ML SQ SCH ×4 (07:30→21:17)
[2020-10-02 07:35] LABS: Albumin 2.7 g/dL (3.4-5.0); Bilirubin Total 0.4 mg/dL (0.2-1.0); C-Reactive Protein 91.8 mg/L (<3.00); Magnesium 2.2 mg/dL (1.8-2.4); Phosphorus 7.3 mg/dL (2.5-4.9); Protein, Total 8.5 g/dL (6.4-8.2)
[2020-10-02 07:36] LABS: Potassium 5.8 mmol/L (3.5-5.1)
[2020-10-02] MEDS ORDERED: NA CHLORIDE 0.9% 500 ML ONE (07:38)
[2020-10-02] MEDS ORDERED: FENTANYL CITR 100 MCG/2 ML ONE ×3 (07:41→15:19)
[2020-10-02] MEDS ORDERED: propofoL 200 MG/20 ML VIAL IV ONE ×3 (07:41→14:02)
[2020-10-02] MEDS ORDERED: LIDOCAINE 2% MPF 5 ML VIAL ONE ×2 (07:41→12:31)
[2020-10-02] MEDS ORDERED: MIDAZOLAM HCL 2 MG/2 ML INJ ONE ×2 (07:42→12:31)
[2020-10-02 07:58] LABS: Anisocytosis 1+; Blood Morphology Comment NOTED (NOT SEEN); Platelet Estimate ADEQ; Platelets, Giant FEW; Polychromasia 1+
--- NOTE | 2020-10-02 08:30 | PREOPCON ---
Date of Consultation: 10/01/2020 Reason For Consultation: Severe peripheral vascular disease, right lower extremity nonhealing wound. History Of Present Illness: Patient is a 54-year-old gentleman with multiple medical problems, who i s being followed by [facility] for a diabetic ulcer complicated by peripheral vas cular disease who was sent to the [facility] in [place]. They had an angiog reinier done and patient has very poor circulation in his foot and the wound thought initially that a tra nsmetatarsal amputation has chance for healing; however, after a right first toe transmetatarsal ampu tation was done, his ischemic changes worsen and did not improve. He has increasing pain, and he has foul odor. We had been discussing the possibility of a BKA over the last week or 2 and patient has agreed finally and came in yesterday to the [facility] in excruciating pain. Advised him t o go the ER, get admitted and then he will have a BKA. He denies any sore throat, runny nose, cough, headaches, or dizziness. No fever or chills. No purulent discharge. Review of Systems: Otherwise unremarkable. Past Medical History: Significant for CHF, hypertension, type 2 diabetes, end-stage renal disease. Past Surgical History: Laparoscopic cholecystectomy, left fifth toe amputation, right first toe zambrano smetatarsal amputation. Allergies: NONE. Social History: Patient does not smoke. Does not drink alcohol. Family History: Significant for mother with breast cancer. Physical Examination: Vital Signs: Stable. He is afebrile. General: He is awake, alert, and oriented x3. Head And Neck: Cranial nerves 2 through 12 are grossly within normal limits. No neck masses. No JV D. Throat clear. Neck is supple. Chest: Clear. Heart: S1, S2. Abdomen: Soft. Extremities: Nonpalpable dorsalis pedis and posterior tibial pulses. On the right foot, there is a large gangrenous appearing ulceration, foul smelling in the medial aspect of the foot. There is isch emic changes on the second and third toe as well. There is nonviable tissue in the open wound. Laboratory Data: White count is 12,000 this morning with a left shift. His INR is 1.03. Lactic aci d gas was 0.8. Procalcitonin was 0.9. Assessment: 54-year-old gentleman with multiple medical problems with severe peripheral vascular dis ease and nonhealing nonviable gangrenous wound in the right foot. Recommendation: After all options were discussed with patient, we will proceed with right below-knee amputation. Patient and daughter understand the risks, benefits, and alternatives and agrees to pro cedure. SHAKIRA/MARGO Voice ID: [id number] Report ID: [id number]
[2020-10-02] MEDS ORDERED: ONDANSETRON 4 MG/2 ML VIAL ONE (12:46)
[2020-10-02] MEDS ORDERED: dexAMETHasone 10 MG/ML VIAL ONE (12:46)
[2020-10-02] MEDS ORDERED: HYDRALAZINE HCL 20 MG/ML VIAL ONE (14:00)
[2020-10-02] MEDS ORDERED: KETAMINE HCL 500 MG/5 ML VIAL ONE (14:12)
--- NOTE | 2020-10-02 15:43 | P.OP ---
Senior International Tax Manager: Uday CAMERON Preoperative diagnosis: Severe PVD and gangrene right foot Postoperative diagnosis: same Primary procedure: Right BKA Anesthesia: General Estimated blood loss: min Specimen: Right Leg Findings: as above Complications: None Transferred to: Recovery Room Condition: Good
[2020-10-02] MEDS: HYDROMORPHONE HCL 1 MG/ML INJ IV PRN ×4 (16:16→20:51)
[2020-10-02] MEDS ORDERED: HYDROMORPHONE HCL 1 MG/ML INJ ONE ×2 (16:44→17:00)
--- NOTE | 2020-10-02 17:33 | EKG ---
Test Date: 2020-10-01 Test Time: 14:44:06 Newsperson: KRIS MEASUREMENT RESULTS: Intervals: Rate: 110 FL: 142 QRSD: 80 QT: 346 QTc: 468 Sandoval: P: 58 FL: 142 QRS: 4 T: 30 INTERPRETIVE STATEMENTS: Sinus tachycardia Otherwise normal ECG Compared to ECG 09/06/2020 08:36:33 No significant changes Electronically Signed On 10-02-20 17:31:[address]/MEDICAL INTERPRETER by Aly Thomas
[2020-10-02] MEDS: HYDROCODONE/APAP 7.5/325 MG TAB PO PRN (17:43)
--- NOTE | 2020-10-02 18:57 | P.PN ---
Subjective Date of Service: 10/02/20 Chief Complaint: R gangrene / diabetic ulcer Subjective: No new changes (for HD this morning and BKA afterwards, pt feeling ok) Review of Systems 10-point ROS is otherwise unremarkable Physical Examination - Vital Signs Temperature: 98.2 F Blood Pressure: 164/77 Pulse: 120 Respirations: 19 Pulse Ox (%): 99 - Physical Exam General: Alert, In no apparent distress HEENT: Sclerae nonicteric Respiratory: Other (nonlabored) Cardiovascular: Edema (1+ bilateral lower extremity edema), Irregular heart rate/rhythm Gastrointestinal: Soft and benign, No tenderness Musculoskeletal: Other (RLE with dressing in place) - Studies Microbiology Data (last 24 hrs): 10/01/20 16:24 Blood - Blood Anaerobic Blood Culture - Final 10/01/20 16:14 Blood - Blood Anaerobic Blood Culture - Final Assessment & Plan Physician Review: Patient Assessed, Agree with Above Assessment and Plan Physician Review Additional Text: RLE diabetic ulcer / gangrene HFrEF ESRD on HD HTN DM2 -failed outpatient management -for HD and BKA this morning -zosyn & vanc for empiric coverage for now -NPO this morning -patient does not appear septic at this time -cultures obtained in ED -restart home meds as appropriate following surgery -TTE (2018): EF: 35% Dispo: anticipate hospitalization >2 days, likely rehab on discharge Time Spent Managing Pts Care (In Minutes): 35
--- NOTE | 2020-10-02 19:06 | OP ---
Date of Procedure: 10/02/2020 Surgeon: Ed Smith MD Rigging Up Man: RAKESH Galindo. Preoperative Diagnosis: Severe peripheral vascular disease and gangrene right foot. Postoperative Diagnosis: Severe peripheral vascular disease and gangrene right foot. Procedure: Right below-knee amputation. Estimated Blood Loss: Minimal. Specimen: Right leg. Findings: As above. Anesthesia: Regional and general. Complication: None. Disposition: The patient tolerated the procedure in stable condition, taken to Recovery in good gene ral condition Operative Note: The patient was brought to the OR and placed in supine position. General anesthesia was begun. The patient was prepped and draped in usual sterile fashion. Then 4 fingerbreadths belo w the right tibial tuberosity, a transverse incision was made and a flap created post incision along the sides. Then neurovascular bundle, tibia-fibula muscle identified and divided. A 0 silk used to tie off the neurovascular bundle individually. Then Gigli saw was used to cut the tibia and bone cut ter was used to divide the fibula. Then rough edges were smoothed with rongeur and rasp. Bone wax w as used to control oozing from the marrow. Bleeding was identified, controlled with 2-0 silk ties, 0 silk ties, 2-0 suture ligature as needed and cautery and then the flap was fashioned to cover the wo und completely. Wound was irrigated. Bleeding was controlled cautery and then a Kendrick drain was l eft for drainage purposes as the patient had lateral interstitial fluid and then 2-0 chromic was used to approximate the fascia and annia were used to close the skin. Sterile dressing was applied. P atient was awakened and taken to Recovery in good general condition. /MODL Voice ID: [id number] Report ID: [id number]
[2020-10-02] MEDS: HYDRALAZINE HCL 25 MG TABLET PO SCH (21:17)
[2020-10-02] MEDS: carvediloL 6.25 MG TAB PO SCH (21:18)
--- NOTE | 2020-10-02 22:07 | P.CNS ---
Date of Consult: 10/02/20 Reason for Consult: ESRD Requesting Physician: Kevin Chappell Chief Complaint: R gangrene / diabetic ulcer History of Present Illness: 54yo M, PMH: DM2 (diet-controlled), HFrEF, ESRD on HD (TTS), HTN who presents to ED under advice of Dr. Smith due to worsening L foot gangrene/ulceration. Patient reports he has been following at wound clinic over the pst 4-6 weeks and despite treatment /antibiotics, has progressively worsened. He was advised to come to hospital and would likely need BKA. Patient missed HD today due to coming to hospital. 14:50 This 54 yrs old Black Male presents to ER via Wheelchair with complaints o f Leg Pain. cp 14:50 The patient presents with pain, that is chronic. cp 14:50 The complaints affect the right foot. Associated signs and symptoms: Pertinent cp negatives fever. Patient reports he was sent to ED by DR Smith to be admitted due to chronic infection of right foot. Allergies No Known Allergies Allergy (Verified 10/01/20 23:02) Home medications list reviewed: Yes Home Medications: Diltiazem HCl [Diltiazem ER] 360 mg PO DAILY 09/06/20 Furosemide 80 mg PO BID 09/06/20 Hydralazine HCl 100 mg PO TID 09/06/20 Sevelamer Carbonate [Renvela] 800 mg PO TIDWM 09/06/20 carvediloL [Carvedilol] 6.25 mg PO BID 09/06/20 Gabapentin 300 mg PO BEDTIME PRN PRN 10/01/20 Hydrocodone Bit/Acetaminophen [Hydrocodon-Acetaminoph 7.5-325] 1 tab PO Q4H PRN 10/01/20 Sevelamer Carbonate [Renvela] 800 mg PO BID 10/01/20 - Past Medical/Surgical History Diabetic: Yes -: CHF (HFrEF) -: HTN -: Diabetes mellitus type 2 -: End-stage renal disease on hemodialysis -: Noncompliance with dialysis -: LAP NEGRITO -: left 5th toe amputation -: Right Great toe amputated Psychosocial/ Personal History: Patient lives at home - Family History Mom Medical History: Cancer Notes: Breast Cancer - Social History Smoking Status: Never smoker Alcohol use: No CD- Drugs: No Caffeine use: Yes Place of Residence: Home Review of Systems 10-point ROS is otherwise unremarkable General: Weakness, Malaise Respiratory: SOB with Excertion Cardiovascular: Edema Musculoskeletal: Foot Pain Neurological: Weakness, Numbness Physical Examination Temp Pulse Resp BP Pulse Ox 98.2 F 112 H 18 145/68 H 95 10/02/20 18:57 10/02/20 21:18 10/02/20 20:51 10/02/20 21:18 10/02/20 20:51 General: Oriented x3, Cooperative HEENT: Normocephalic Neck: Supple Respiratory: Clear to auscultation bilaterally, Diminished Cardiovascular: Regular rate/rhythm, No rubs, Edema Gastrointestinal: Soft and benign, Non-distended Musculoskeletal: No clubbing, No contractures Integumentary: No cyanosis, Diabetic ulcer Neurological: Normal speech Blood work reviewed in the chart. Imagings Data: EXAM DESCRIPTION: RAD - Chest Single View - 10/01/2020 3:19 pm CLINICAL HISTORY: edema, preop chest for right foot amputation COMPARISON: Two view chest August 29, 2020 TECHNIQUE: AP portable chest image was obtained 10/01/2020 3:19 pm . FINDINGS: Lungs are clear. Heart and vasculature are normal. No measurable pleural effusion and no pneumothorax. No acute bony abnormality seen. No acute aortic findings suspected. IMPRESSION: No acute cardiopulmonary process. No significant change from comparison study. Conclusions/Impression: A/P: Continue current POC and Medications other than the changes listed. AM Labs PRN. Recommend daily weight. ESRD on HD -Arrange for acute HD with UF Hyponatremia Hyperkalemia -Renal diet HTN with CKD/ CHF -Continue Coreg, Diltiazem and Hydralazine Diastolic CHF, A/C -UF with HD -Low sodium diet DM II with CKD and RLE DM Ulcer -Titrate insulin as needed -Continue abx -Plan for RLE BKA -Wound care as ordered Moderate malnutrition -Renal diet -Encourage nutrition Anemia in CKD -Give Retacrit -Transfuse PRBC as needed MECCA/ Secondary HyperPTH with HyperPO4 -Start Renvel -Start Vitamin D
[2020-10-03] MEDS: HYDROCODONE/APAP 7.5/325 MG TAB PO PRN ×4 (00:21→22:57)
[2020-10-03] MEDS: PIPER/TAZO/NS 2.25gm 2.25 GM/50 ML BAG IVPB SCH ×2 (00:22→09:15)
[2020-10-03] MEDS: HYDROMORPHONE HCL 1 MG/ML INJ IV PRN ×2 (04:24→17:59)
[2020-10-03 06:31] LABS: Absolute Lymphocytes (CBC) 1.2 K/uL (0.7-4.9); Basophils % 0.4 % (0-1.3); Hematocrit 21.3 % (39.6-49.0); Lymphocytes % 7.3 % (15.3-44.8); MPV 8.6 fL (7.6-11.3); RBC Red Blood Cell Count 2.32 M/uL (4.33-5.43)
[2020-10-03 06:37] LABS: Magnesium 2.4 mg/dL (1.8-2.4)
[2020-10-03 06:38] LABS: Potassium 5.8 mmol/L (3.5-5.1)
[2020-10-03] MEDS: INSULIN -REGULAR HUMAN 50 UNIT/0.5 ML ML SQ SCH ×4 (07:30→20:57)
[2020-10-03] MEDS ORDERED: NA CHLORIDE 0.9% 250 ML IV SCH (09:00)
[2020-10-03] MEDS ORDERED: EPOETIN ALFA 10,000 UNIT/ML VIAL SQ SCH (09:00)
[2020-10-03] MEDS: DILTIAZEM HCL 180 MG SR CAP PO SCH (09:13)
[2020-10-03] MEDS: SEVELAMER CARBONATE 800 MG TABLET PO SCH ×3 (09:13→16:18)
[2020-10-03] MEDS: HYDRALAZINE HCL 25 MG TABLET PO SCH ×4 (09:13→22:58)
[2020-10-03] MEDS: carvediloL 6.25 MG TAB PO SCH ×2 (09:13→20:58)
[2020-10-03] MEDS: CALCITROL 0.25 MCG CAP PO SCH (09:14)
[2020-10-03] MEDS: VITAMIN D 5,000 UNIT CAP PO SCH (09:14)
[2020-10-03] MEDS: MULTIVITAMINS,THERAPEUT 1 TAB PO SCH (09:14)
--- NOTE | 2020-10-03 10:06 | PN ---
Date of Progress Note: 10/03/2020 Subjective: The patient is awake, alert. No complaints. Laboratory Data: Hemoglobin is 7.1. He will be getting transfused during dialysis today. Objective: VITAL SIGNS: Stable. He is afebrile. EXTREMITIES: Dressing is clean, dry, and intact. Assessment: Status post right below knee amputation. Recommendations: Physical therapy, rehab evaluation. Discharge planning. Antibiotics. The patient is clinically doing well. /MODL Voice ID: [id number] Report ID: [id number]
[2020-10-03 12:32] LABS: Blood Morphology Comment NOTED (NOT SEEN); Platelet Estimate ADEQ
[2020-10-03 12:33] LABS: Anisocytosis 1+; Basophilic Stippling 1+
--- NOTE | 2020-10-03 16:19 | P.PN ---
Subjective Date of Service: 10/03/20 Chief Complaint: R gangrene / diabetic ulcer Subjective: Improving (feeling better, pain controlled, without complaints, no SOB, no chest pain, +flatus, tolerating PO) Review of Systems 10-point ROS is otherwise unremarkable Physical Examination - Vital Signs Temperature: 98.9 F Blood Pressure: 122/58 Pulse: 97 Respirations: 19 Pulse Ox (%): 98 - Physical Exam General: Alert, In no apparent distress, Obese HEENT: Sclerae nonicteric Respiratory: Clear to auscultation bilaterally Cardiovascular: Edema (1+) Gastrointestinal: Soft and benign, No tenderness Integumentary: Other (RLE with dressing in place, brace in place) Neurological: Normal speech, Normal affect - Studies Microbiology Data (last 24 hrs): 10/01/20 16:24 Blood - Blood Anaerobic Blood Culture - Final 10/01/20 16:14 Blood - Blood Anaerobic Blood Culture - Final Assessment & Plan Physician Review Additional Text: RLE gangrenous foot, severe peripheral vascular disease HFrEF ESRD on HD HTN DM2 -failed outpatient management, s/p BKA on 10/02, doing well -for HD today, Hgb < 8 today, given h/o HFrEF and recent surgery, will transfuse 1u PRBC with HD today -discussed with surgery, will dc IV antibiotics, ulcer due to ischemia. will cover with cipro for ~10days. blood Cx: negaive -TTE (2018): EF: 35% -PT to work with patient today, possible rehab vs home pending functional status Dispo: anticipate dc home in 24-48hrs, rehab vs home Time Spent Managing Pts Care (In Minutes): 35
[2020-10-03] MEDS: CIPROFLOXACIN HCL 500 MG TAB PO SCH (17:59)
--- NOTE | 2020-10-03 20:49 | P.PN ---
Date of Service: 10/03/20 Vital Signs Temp Pulse Resp BP Pulse Ox 97.7 F 103 H 18 118/57 L 98 10/03/20 16:30 10/03/20 16:30 10/03/20 16:30 10/03/20 16:30 10/03/20 16:30 Medications Acetaminophen (Acetaminophen 500 Mg Tab) 500 mg PO Q4HP PRN PRN Reason: Pain scale 2-4 (Mild) Stop: 10/31/20 18:11 Hydrocodone Bitart/Acetaminophen (Hydrocodone/Apap 7.5/325 Mg Tab) 1 tab PO Q6H PRN PRN Reason: Pain scale 5-7 (Moderate) Stop: 11/01/20 15:52 Last Admin: 10/03/20 16:18 Dose: 1 tab Documented by: Calcitriol (Calcitrol 0.25 Mcg Cap) 0.5 mcg PO DAILY [facility] Stop: 11/02/20 09:01 Last Admin: 10/03/20 09:14 Dose: 0.5 mcg Documented by: Carvedilol (Carvedilol 6.25 Mg Tab) 6.25 mg PO BID [facility] Stop: 11/01/20 21:01 Last Admin: 10/03/20 09:13 Dose: 6.25 mg Documented by: Cholecalciferol (Vitamin D 5,000 Unit Cap) 5,000 unit PO DAILY [facility] Stop: 11/02/20 09:01 Last Admin: 10/03/20 09:14 Dose: 5,000 unit Documented by: Ciprofloxacin (Ciprofloxacin Hcl 500 Mg Tab) 500 mg PO 1700 JOLEEN; Protocol Stop: 11/02/20 17:01 Last Admin: 10/03/20 17:59 Dose: 500 mg Documented by: Diltiazem HCl (Diltiazem Hcl 180 Mg Sr Cap) 360 mg PO DAILY [facility] Stop: 11/02/20 09:01 Last Admin: 10/03/20 09:13 Dose: 360 mg Documented by: Heparin Sodium (Porcine) (Heparin 1,000 Unit/Ml Vial) 2,000 unit IV EVERY HD PRN PRN Reason: DIALYSIS Last Admin: 10/03/20 12:24 Dose: 2,000 unit Documented by: Hydralazine HCl (Hydralazine Hcl 25 Mg Tablet) 100 mg PO TID [facility] Stop: 11/01/20 21:01 Last Admin: 10/03/20 13:35 Dose: Not Given Documented by: Hydromorphone HCl (Hydromorphone Hcl 1 Mg/Ml Inj) 1 mg IV Q6H PRN PRN Reason: Pain scale 5-7 (Moderate) Stop: 11/01/20 15:52 Last Admin: 10/03/20 17:59 Dose: 1 mg Documented by: Albumin Human (Albumin 25%) 50 mls @ 100 mls/hr IV EVERY HD [facility] Stop: 10/31/20 22:01 Sodium Chloride (Sodium Chloride) 250 mls @ 0 mls/hr IV .Q0M [facility] Stop: 11/02/20 09:01 Insulin Human Regular (Insulin -Regular Human 50 Unit/0.5 Ml Ml) 0 unit SQ ACHS [facility]; Protocol Stop: 10/31/20 21:01 Last Admin: 10/03/20 16:30 Dose: Not Given Documented by: Mannitol (Mannitol 25% 12.5 Gm/50 Ml Vial) 12.5 gm IV EVERY HD PRN PRN Reason: Titrate to SBP (MUST DEFINE) Stop: 10/31/20 21:43 Ondansetron HCl (Ondansetron 4 Mg/2 Ml Vial) 4 mg IV Q6HP PRN PRN Reason: NAUSEA / VOMITING Stop: 10/31/20 18:11 Last Admin: 10/02/20 05:15 Dose: 4 mg Documented by: Sevelamer Carbonate (Sevelamer Carbonate 800 Mg Tablet) 800 mg PO TIDWM [facility] Stop: 11/02/20 08:01 Last Admin: 10/03/20 16:18 Dose: 800 mg Documented by: Sodium Chloride (Flush Normal Saline 10 Ml) 10 ml IV BID [facility] Stop: 10/31/20 21:01 Last Admin: 10/03/20 09:14 Dose: 10 ml Documented by: Vitamin B Complex/Vit C/Folic Acid (Multivitamins,Therapeut 1 Tab) 1 tab PO DAILY [facility] Stop: 11/02/20 09:01 Last Admin: 10/03/20 09:14 Dose: 1 tab Documented by: Microbiology Results 10/01/20 16:24 Blood - Blood Aerobic Blood Culture - Preliminary No growth in 24 hours. 10/01/20 16:24 Blood - Blood Anaerobic Blood Culture - Final 10/01/20 16:14 Blood - Blood Aerobic Blood Culture - Preliminary No growth in 24 hours. 10/01/20 16:14 Blood - Blood Anaerobic Blood Culture - Final Assessment/ Plan: Nephrology CPS stable without CP or SOB. Persistent edema No acute events overnight. Vitals, medications, blood work and imaging reviewed in the chart. General: Oriented x3, Cooperative HEENT: Normocephalic Neck: Supple Respiratory: Clear to auscultation bilaterally, Diminished Cardiovascular: Regular rate/rhythm, No rubs, Edema Gastrointestinal: Soft and benign, Non-distended Musculoskeletal: No clubbing, No contractures Integumentary: No cyanosis, Diabetic ulcer Neurological: Normal speech Blood work reviewed in the chart. Imagings Data: EXAM DESCRIPTION: RAD - Chest Single View - 10/01/2020 3:19 pm CLINICAL HISTORY: edema, preop chest for right foot amputation COMPARISON: Two view chest August 29, 2020 TECHNIQUE: AP portable chest image was obtained 10/01/2020 3:19 pm . FINDINGS: Lungs are clear. Heart and vasculature are normal. No measurable pleural effusion and no pneumothorax. No acute bony abnormality seen. No acute aortic findings suspected. IMPRESSION: No acute cardiopulmonary process. No significant change from comparison study. Conclusions/Impression: A/P: Continue current POC and Medications other than the changes listed. AM Labs PRN. Recommend daily weight. ESRD on HD -Arrange for acute HD with UF today Hyponatremia Hyperkalemia -Renal diet -Acute HD HTN with CKD/ CHF -Continue Coreg, Diltiazem and Hydralazine Diastolic CHF, A/C -UF with HD -Low sodium diet DM II with CKD and RLE DM Ulcer sp RLE BKA -Titrate insulin as needed -Continue abx -Wound care as ordered -Follow up with surgery Moderate malnutrition -Renal diet -Encourage nutrition Anemia in CKD -Give Retacrit -Transfuse PRBC with dialysis today MECCA/ Secondary HyperPTH with HyperPO4 -Continue Vitamin D and Renvela Case reviewed with Dr. Chappell
[2020-10-03] MEDS ORDERED: VANCOMYCIN/NS 1 gm 1 GM/250 ML BAG IVPB SCH (21:00)
[2020-10-04] MEDS: HYDROMORPHONE HCL 1 MG/ML INJ IV PRN ×4 (01:21→22:26)
[2020-10-04 05:33] LABS: Absolute Lymphocytes (CBC) 1.3 K/uL (0.7-4.9); Basophils % 0.6 % (0-1.3); Hematocrit 21.3 % (39.6-49.0); Lymphocytes % 10.8 % (15.3-44.8); MPV 8.1 fL (7.6-11.3)
[2020-10-04 06:01] LABS: C-Reactive Protein 81.2 mg/L (<3.00); Potassium 4.4 mmol/L (3.5-5.1)
[2020-10-04] MEDS ORDERED: FUROSEMIDE 40 MG/4 ML VIAL IV ONE (06:01)
[2020-10-04] MEDS: INSULIN -REGULAR HUMAN 50 UNIT/0.5 ML ML SQ SCH ×4 (07:30→21:00)
[2020-10-04] MEDS: carvediloL 6.25 MG TAB PO SCH ×2 (08:12→22:23)
[2020-10-04] MEDS: VITAMIN D 5,000 UNIT CAP PO SCH (08:12)
[2020-10-04] MEDS: SEVELAMER CARBONATE 800 MG TABLET PO SCH ×3 (08:12→16:53)
[2020-10-04] MEDS: CALCITROL 0.25 MCG CAP PO SCH (08:12)
[2020-10-04] MEDS: MULTIVITAMINS,THERAPEUT 1 TAB PO SCH (08:12)
[2020-10-04] MEDS: HYDRALAZINE HCL 25 MG TABLET PO SCH ×3 (08:14→21:00)
[2020-10-04] MEDS: DILTIAZEM HCL 180 MG SR CAP PO SCH (08:14)
[2020-10-04 08:47] LABS: Hematocrit 22.7 % (39.6-49.0)
[2020-10-04] MEDS ORDERED: NA CHLORIDE 0.9% 250 ML ONE ×2 (09:38→17:13)
[2020-10-04] MEDS: HYDROCODONE/APAP 7.5/325 MG TAB PO PRN ×2 (10:35→18:41)
--- NOTE | 2020-10-04 12:26 | PN ---
Date of Progress Note: 10/04/2020 Subjective: The patient is awake, alert complaining of some incisional pain. Objective: Vital signs: Stable. Afebrile. Laboratory Data: H and H were low. Hemoglobin is 7.1. He did receive 1 unit yesterday, therefore alice chisholm is getting another unit today. His dressing is clean, dry, and intact. Assessment: Status post right below knee amputation. Recommendation: Medical management for anemia, discharge planning, physical therapy. /MODL Voice ID: [id number] Report ID: [id number]
[2020-10-04] MEDS: CIPROFLOXACIN HCL 500 MG TAB PO SCH (16:53)
[2020-10-04] MEDS ORDERED: FUROSEMIDE 20 MG/ 2ML VIAL IV SCH (19:00)
[2020-10-04] MEDS: COENZYME Q10- 200 MG CAP PO SCH (20:21)
--- NOTE | 2020-10-04 20:57 | P.PN ---
Subjective Date of Service: 10/04/20 Chief Complaint: R gangrene / diabetic ulcer Subjective: Improving (patient feeling good today, +BM, tolerating PO, transferring ok. hgb remains low, s/p 1u PRBC yesterday. R BKA site reportedly dry, no bleeding. pt denies bleeding anywhere else) Review of Systems 10-point ROS is otherwise unremarkable Physical Examination - Vital Signs Temperature: 98.2 F Blood Pressure: 114/58 Pulse: 87 Respirations: 19 Pulse Ox (%): 98 - Physical Exam General: Alert, In no apparent distress, Obese HEENT: Sclerae nonicteric Respiratory: Clear to auscultation bilaterally Cardiovascular: Regular rate/rhythm, Edema Gastrointestinal: Soft and benign, No tenderness Musculoskeletal: Other (RLE with dressing c/d/i) Neurological: Normal speech, Normal affect Assessment & Plan Physician Review Additional Text: RLE gangrenous foot, severe peripheral vascular disease HFrEF ESRD on HD anemia of chronic disease HTN DM2 -failed outpatient management, s/p BKA on 10/02, doing well -s/p 1u PRBC with HD on 10/03, hgb low again today, repeat H/H still <8, transfuse 1u PRBC, repeat H/H, transfuse for <8, no evidence of bleeding -discussed with surgery, will dc IV antibiotics, ulcer due to ischemia. will cover with cipro for ~10days. blood Cx: negative. CRP downtrending -TTE (2018): EF: 35% -Pt did well with PT, refused rehab. wants to go home with HH / PT Dispo: anticipate dc home in 24-48hrs, home with HH/PT Time Spent Managing Pts Care (In Minutes): 35
[2020-10-04 23:39] LABS: Hematocrit 26.7 % (39.6-49.0)
[2020-10-05] MEDS: HYDROMORPHONE HCL 1 MG/ML INJ IV PRN ×3 (04:11→20:20)
[2020-10-05 06:09] LABS: Basophils % 0.5 % (0-1.3); Hematocrit 26.4 % (39.6-49.0); MPV 8.2 fL (7.6-11.3)
[2020-10-05 06:26] LABS: Albumin 2.6 g/dL (3.4-5.0); Bilirubin Total 0.4 mg/dL (0.2-1.0); C-Reactive Protein 82.7 mg/L (<3.00); Phosphorus 8.7 mg/dL (2.5-4.9); Potassium 4.8 mmol/L (3.5-5.1); Protein, Total 7.7 g/dL (6.4-8.2); Uric Acid 6.5 mg/dL (3.5-7.2)
[2020-10-05] MEDS: INSULIN -REGULAR HUMAN 50 UNIT/0.5 ML ML SQ SCH ×4 (07:30→20:24)
[2020-10-05] MEDS: SEVELAMER CARBONATE 800 MG TABLET PO SCH ×3 (08:48→17:37)
[2020-10-05] MEDS: carvediloL 6.25 MG TAB PO SCH ×2 (08:48→20:22)
[2020-10-05] MEDS: CALCITROL 0.25 MCG CAP PO SCH (08:48)
[2020-10-05] MEDS: MULTIVITAMINS,THERAPEUT 1 TAB PO SCH (08:48)
[2020-10-05] MEDS: VITAMIN D 5,000 UNIT CAP PO SCH (08:48)
[2020-10-05] MEDS: HYDROCODONE/APAP 7.5/325 MG TAB PO PRN ×2 (08:49→13:46)
[2020-10-05] MEDS: DILTIAZEM HCL 180 MG SR CAP PO SCH (08:49)
[2020-10-05] MEDS: EPOETIN ALFA-EPBX 10,000 UNIT/ML VIAL SQ SCH ×2 (09:00→10:14)
[2020-10-05] MEDS: HYDRALAZINE HCL 25 MG TABLET PO SCH ×3 (09:00→22:45)
[2020-10-05 10:27] LABS: Platelet Estimate ADEQ
[2020-10-05 10:28] LABS: Blood Morphology Comment NOT SEEN (NOT SEEN)
[2020-10-05] MEDS: COENZYME Q10- 200 MG CAP PO SCH (13:14)
--- NOTE | 2020-10-05 16:06 | P.PN ---
Subjective Date of Service: 10/05/20 Chief Complaint: R gangrene / diabetic ulcer Subjective: Improving (feeling well, +BM, low UOP, pain slightly better but needed IV medication this morning.) Review of Systems 10-point ROS is otherwise unremarkable Physical Examination - Vital Signs Temperature: 98.5 F Blood Pressure: 137/68 Pulse: 86 Respirations: 18 Pulse Ox (%): 95 - Physical Exam General: Alert, In no apparent distress Respiratory: Clear to auscultation bilaterally Cardiovascular: Regular rate/rhythm, Edema (LLE: 1+) Gastrointestinal: Soft and benign, No tenderness Musculoskeletal: Other (RLE wrapped in FELY bandage with brace on) Neurological: Normal speech, Normal affect Assessment & Plan Physician Review Additional Text: RLE gangrenous foot, severe peripheral vascular disease HFrEF ESRD on HD anemia of chronic disease HTN DM2 -failed outpatient management, s/p BKA on 10/02, doing well -s/p 1u PRBC with HD on 10/03, 1u PRBC on 10/04 -discussed with surgery, dc'd IV antibiotics, ulcer due to ischemia. will cover with cipro for ~10days. blood Cx: negative. CRP downtrending -TTE (2018): EF: 35% -Pt did well with PT, refused rehab. wants to go home with HH / PT -for HD today Dispo: anticipate dc home in 24-48hrs, home with HH/PT Time Spent Managing Pts Care (In Minutes): 35
[2020-10-05] MEDS: CIPROFLOXACIN HCL 500 MG TAB PO SCH (17:37)
[2020-10-05 23:07] LABS: Albumin 2.6 g/dL (3.4-5.0); Phosphorus 6.4 mg/dL (2.5-4.9); Potassium 4.4 mmol/L (3.5-5.1)
[2020-10-06 00:05] VITALS: O2SAT 96
[2020-10-06] MEDS: HYDROMORPHONE HCL 1 MG/ML INJ IV PRN ×2 (04:02→12:18)
[2020-10-06 06:00] LABS: Hematocrit 26.8 % (39.6-49.0); RBC Red Blood Cell Count 2.94 M/uL (4.33-5.43)
[2020-10-06 06:49] LABS: Albumin 2.6 g/dL (3.4-5.0); C-Reactive Protein 89.7 mg/L (<3.00); Magnesium 2.3 mg/dL (1.8-2.4); Phosphorus 6.7 mg/dL (2.5-4.9); Potassium 4.3 mmol/L (3.5-5.1)
[2020-10-06] MEDS: INSULIN -REGULAR HUMAN 50 UNIT/0.5 ML ML SQ SCH ×2 (07:30→11:30)
[2020-10-06] MEDS: HYDRALAZINE HCL 25 MG TABLET PO SCH ×2 (08:54→13:26)
[2020-10-06] MEDS: CALCITROL 0.25 MCG CAP PO SCH (08:54)
[2020-10-06] MEDS: VITAMIN D 5,000 UNIT CAP PO SCH (08:54)
[2020-10-06] MEDS: DILTIAZEM HCL 180 MG SR CAP PO SCH (08:55)
[2020-10-06] MEDS: COENZYME Q10- 200 MG CAP PO SCH (08:55)
[2020-10-06] MEDS: carvediloL 6.25 MG TAB PO SCH (08:55)
[2020-10-06] MEDS: SEVELAMER CARBONATE 800 MG TABLET PO SCH ×2 (08:55→12:19)
[2020-10-06] MEDS: HYDROCODONE/APAP 7.5/325 MG TAB PO PRN (08:59)
[2020-10-06] MEDS: MULTIVITAMINS,THERAPEUT 1 TAB PO SCH (10:36)
--- NOTE | 2020-10-06 10:51 | P.PN ---
Date of Service: 10/05/20 Vital Signs Temp Pulse Resp BP Pulse Ox 98.2 F 90 20 144/67 H 97 10/06/20 08:00 10/06/20 08:55 10/06/20 08:59 10/06/20 08:55 10/06/20 08:59 Medications Acetaminophen (Acetaminophen 500 Mg Tab) 500 mg PO Q4HP PRN PRN Reason: Pain scale 2-4 (Mild) Stop: 10/31/20 18:11 Hydrocodone Bitart/Acetaminophen (Hydrocodone/Apap 7.5/325 Mg Tab) 1 tab PO Q6H PRN PRN Reason: Pain scale 5-7 (Moderate) Stop: 11/01/20 15:52 Last Admin: 10/06/20 08:59 Dose: 1 tab Documented by: Calcitriol (Calcitrol 0.25 Mcg Cap) 0.5 mcg PO DAILY [facility] Stop: 11/02/20 09:01 Last Admin: 10/06/20 08:54 Dose: 0.5 mcg Documented by: Carvedilol (Carvedilol 6.25 Mg Tab) 6.25 mg PO BID [facility] Stop: 11/01/20 21:01 Last Admin: 10/06/20 08:55 Dose: 6.25 mg Documented by: Cholecalciferol (Vitamin D 5,000 Unit Cap) 5,000 unit PO DAILY [facility] Stop: 11/02/20 09:01 Last Admin: 10/06/20 08:54 Dose: 5,000 unit Documented by: Ciprofloxacin (Ciprofloxacin Hcl 500 Mg Tab) 500 mg PO 1700 JOLEEN; Protocol Stop: 11/02/20 17:01 Last Admin: 10/05/20 17:37 Dose: 500 mg Documented by: Coenzyme Q10 (Coenzyme Q10- 200 Mg Cap) 200 mg PO DAILY [facility] Stop: 11/03/20 20:22 Last Admin: 10/06/20 08:55 Dose: 200 mg Documented by: Diltiazem HCl (Diltiazem Hcl 180 Mg Sr Cap) 360 mg PO DAILY [facility] Stop: 11/02/20 09:01 Last Admin: 10/06/20 08:55 Dose: 360 mg Documented by: Heparin Sodium (Porcine) (Heparin 1,000 Unit/Ml Vial) 2,000 unit IV EVERY HD PRN PRN Reason: DIALYSIS Last Admin: 10/05/20 09:06 Dose: 2,000 unit Documented by: Hydralazine HCl (Hydralazine Hcl 25 Mg Tablet) 100 mg PO TID [facility] Stop: 11/01/20 21:01 Last Admin: 10/06/20 08:54 Dose: 100 mg Documented by: Hydromorphone HCl (Hydromorphone Hcl 1 Mg/Ml Inj) 1 mg IV Q6H PRN PRN Reason: Pain scale 5-7 (Moderate) Stop: 11/01/20 15:52 Last Admin: 10/06/20 04:02 Dose: 1 mg Documented by: Albumin Human (Albumin 25%) 50 mls @ 100 mls/hr IV EVERY HD [facility] Stop: 10/31/20 22:01 Sodium Chloride (Sodium Chloride) 250 mls @ 0 mls/hr IV .Q0M [facility] Stop: 11/02/20 09:01 Insulin Human Regular (Insulin -Regular Human 50 Unit/0.5 Ml Ml) 0 unit SQ ACHS [facility]; Protocol Stop: 10/31/20 21:01 Last Admin: 10/06/20 07:30 Dose: Not Given Documented by: Mannitol (Mannitol 25% 12.5 Gm/50 Ml Vial) 12.5 gm IV EVERY HD PRN PRN Reason: Titrate to SBP (MUST DEFINE) Stop: 10/31/20 21:43 Ondansetron HCl (Ondansetron 4 Mg/2 Ml Vial) 4 mg IV Q6HP PRN PRN Reason: NAUSEA / VOMITING Stop: 10/31/20 18:11 Last Admin: 10/02/20 05:15 Dose: 4 mg Documented by: Sevelamer Carbonate (Sevelamer Carbonate 800 Mg Tablet) 800 mg PO TIDWM [facility] Stop: 11/02/20 08:01 Last Admin: 10/06/20 08:55 Dose: 800 mg Documented by: Sodium Chloride (Flush Normal Saline 10 Ml) 10 ml IV BID [facility] Stop: 10/31/20 21:01 Last Admin: 10/06/20 08:56 Dose: 10 ml Documented by: Vitamin B Complex/Vit C/Folic Acid (Multivitamins,Therapeut 1 Tab) 1 tab PO DAILY [facility] Stop: 11/02/20 09:01 Last Admin: 10/06/20 10:36 Dose: 1 tab Documented by: Microbiology Results 10/01/20 16:24 Blood - Blood Aerobic Blood Culture - Preliminary No growth in 24 hours. 10/01/20 16:24 Blood - Blood Anaerobic Blood Culture - Final 10/01/20 16:14 Blood - Blood Aerobic Blood Culture - Preliminary No growth in 24 hours. 10/01/20 16:14 Blood - Blood Anaerobic Blood Culture - Final Assessment/ Plan: Nephrology CPS stable without CP or SOB. Feeling better sp HD and blood transfusion today. No acute events overnight. Vitals, medications, blood work and imaging reviewed in the chart. General: Oriented x3, Cooperative HEENT: Normocephalic Neck: Supple Respiratory: Clear to auscultation bilaterally, Diminished Cardiovascular: Regular rate/rhythm, No rubs, Edema Gastrointestinal: Soft and benign, Non-distended Musculoskeletal: No clubbing, No contractures Integumentary: No cyanosis, Diabetic ulcer Neurological: Normal speech Blood work reviewed in the chart. Imagings Data: EXAM DESCRIPTION: RAD - Chest Single View - 10/01/2020 3:19 pm CLINICAL HISTORY: edema, preop chest for right foot amputation COMPARISON: Two view chest August 29, 2020 TECHNIQUE: AP portable chest image was obtained 10/01/2020 3:19 pm . FINDINGS: Lungs are clear. Heart and vasculature are normal. No measurable pleural effusion and no pneumothorax. No acute bony abnormality seen. No acute aortic findings suspected. IMPRESSION: No acute cardiopulmonary process. No significant change from comparison study. Conclusions/Impression: A/P: Continue current POC and Medications other than the changes listed. AM Labs PRN. Recommend daily weight. ESRD on HD -HD today as ordered. Hyponatremia Hyperkalemia -Renal diet -Acute HD HTN with CKD/ CHF -Continue Coreg, Diltiazem and Hydralazine Diastolic CHF, A/C -UF with HD -Low sodium diet DM II with CKD and RLE DM Ulcer sp RLE BKA -Titrate insulin as needed -Continue abx -Wound care as ordered -Follow up with surgery Moderate malnutrition -Renal diet -Encourage nutrition Anemia in CKD -Give Retacrit -Transfuse PRBC with dialysis today MECCA/ Secondary HyperPTH with HyperPO4 -Continue Vitamin D and Renvela Case reviewed with Dr. Chappell
[2020-10-06 13:40] VITALS: BP 125/59; TEMP 98.4
--- NOTE | 2020-10-06 14:23 | P.DS ---
Admission Date: 10/01/20 Discharge Date: 10/06/20 Disposition: ROUTINE DISCHARGE Discharge Condition: GOOD Reason for Admission: R foot gangrene / severe peripheral vascular disease Consultations: Nephrology - Dr. Peñaloza General Surgery - Dr. Smith Procedures: CXR (10/01): no acute cardiopulmonary process R BKA (10/02): by Dr. Smith Brief History of Present Illness: 54yo M, PMH: DM2 (diet-controlled), HFrEF, ESRD on HD (TTS), HTN who presents to ED under advice of Dr. Smith due to worsening L foot gangrene secondary to severe peripheral vascular disease. Patient reports he has been following at wound clinic over the pst 4-6 weeks and despite treatment /antibiotics, has progressively worsened. He was advised to come to hospital and would likely need BKA. Patient missed HD today due to coming to hospital. labs notable for chronic anemia: 8.0, Cr: 9.41, K: 4.8, BNP: 5966, Procal: 0.9. Vitals stable. negative lactate. Hospital Course: Patient was initially covered with broad spectrum antibiotics on admission. He was take to the OR for R BKA by Dr. Smith. Nephrology was consulted for assistance of his CKD and hemodialysis. Post-op course was uncomplicated. Patient did well with PT and felt comfortable enough to go home with home health / PT. He was discharged with 7 days of PO Ciprofloxacin. He reports not having a wheelchair and PT recommended one for patient due to limited mobility s/p R BKA. This will be sent to his insurance for approval. He is to f/u with Dr. Smith as scheduled and continue dialysis as scheduled. Vital Signs/Physical Exam: Temp Pulse Resp BP Pulse Ox 98.4 F 85 20 125/59 L 97 10/06/20 12:00 10/06/20 12:00 10/06/20 12:18 10/06/20 12:00 10/06/20 12:18 General: Alert, In no apparent distress, Oriented x3 HEENT: Sclerae nonicteric Respiratory: Clear to auscultation bilaterally Cardiovascular: Regular rate/rhythm, Edema Gastrointestinal: Soft and benign Integumentary: Other (R BKA site - c/d/i, no evidence of infection) Neurological: Normal speech, Normal affect Laboratory Data at Discharge: WBC 10.9 K/uL (4.3-10.9) 10/06/20 05:45 Hgb 8.6 g/dL (13.6-17.9) L 10/06/20 05:45 Hct 26.8 % (39.6-49.0) L 10/06/20 05:45 Plt Count 224 K/uL (152-406) 10/06/20 05:45 PT 12.2 SECONDS (9.5-12.5) 10/01/20 16:24 INR 1.03 10/01/20 16:24 APTT 32.6 SECONDS (24.3-36.9) 10/01/20 16:24 Sodium 137 mmol/L (136-145) 10/06/20 05:45 Potassium 4.3 mmol/L (3.5-5.1) 10/06/20 05:45 BUN 37 mg/dL (7-18) H 10/06/20 05:45 Creatinine 8.55 mg/dL (0.55-1.3) H* 10/06/20 05:45 Glucose 181 mg/dL (74-106) H 10/06/20 05:45 Uric Acid 6.5 mg/dL (3.5-7.2) D 10/05/20 05:34 Phosphorus 6.7 mg/dL (2.5-4.9) H 10/06/20 05:45 Magnesium 2.3 mg/dL (1.8-2.4) 10/06/20 05:45 Total Bilirubin 0.4 mg/dL (0.2-1.0) 10/05/20 05:34 AST 14 U/L (15-37) L 10/05/20 05:34 ALT 12 U/L (12-78) 10/05/20 05:34 Alkaline Phosphatase 48 U/L (45-117) 10/05/20 05:34 Home Medications: Diltiazem HCl [Diltiazem ER] 360 mg PO DAILY 09/06/20 Furosemide 80 mg PO BID 09/06/20 Hydralazine HCl 100 mg PO TID 09/06/20 Sevelamer Carbonate [Renvela*] 800 mg PO TIDWM 09/06/20 carvediloL [Carvedilol] 6.25 mg PO BID 09/06/20 Gabapentin 300 mg PO BEDTIME PRN PRN 10/01/20 Hydrocodone Bit/Acetaminophen [Hydrocodon-Acetaminoph 7.5-325] 1 tab PO Q4H PRN 10/01/20 Sevelamer Carbonate [Renvela] 800 mg PO BID 10/01/20 Ciprofloxacin HCl 250 mg PO DAILY 7 Days #7 tablet 10/06/20 New Medications: Ciprofloxacin HCl 250 mg PO DAILY 7 Days #7 tablet Patient Discharge Instructions: You will need to follow up with Dr. Smith as discussed. Home Health and Physical therapy will contact you tomorrow. A wheelchair has been requested from your insurance. New prescriptions on discharge: ciprofloxacin 250mg daily for 7 days. Continue home medications as previously prescribed. Follow up with nephrology. Continue dialysis at home as scheduled. Please call your dialsys team to confirm you are on the schedule. Diet: Renal Activity: Fall precautions Followup: Patricio Peñaloza DO [Primary Care Provider] - Ed Smith MD [ACTIVE - CAN ADMIT] - Time spent managing pt's care (in minutes): 40
[2020-10-06] MEDS ORDERED: SUCCINYLCHOLINE 20 MG/ML (10 ML) IV ONE (15:13)
--- NOTE | 2020-10-06 16:10 | PN ---
Date of Progress Note: 10/06/2020 Subjective: The patient is awake, alert, no complaints. Pain is controlled. Objective: VITAL SIGNS: Stable, afebrile. Laboratory Data: H and H is stable 8.6 and 26.8. Dressing is taken down. Today, he is clean, dry, and intact. Drain removed and there is no sign of infection. Wound is healing well. Assessment: Status post right below knee amputation. Recommendations: Continue physical therapy. The patient is able to transfer well. Therefore, the p atient is cleared from surgery standpoint for discharge followup with me in the wound healing center in 1 week and dressing is ordered. /MODL Voice ID: [id number] Report ID: [id number]
[2020-10-07] MEDS ORDERED: EPOETIN ALFA-EPBX 10,000 UNIT/ML VIAL SQ SCH (09:00)
== END 2020-10-06 15:14 | disposition home or self-care (01) | DRG 239 ==
LOC: ER 13:42 → ERHOLD 16:51 → 2ND 17:27
PROVIDERS: ADMIT Hospitalist; ATTEND Hospitalist
PROC: 0Y6H0Z1 Detachment at Right Lower Leg, High, Open Approach (ICD-10-PCS; principal; 2020-10-02 09:15)
PROC: 5A1D70Z Performance of Urinary Filtration, Intermittent, Less than 6 Hours Per Day (ICD-10-PCS; 2020-10-03)
PROC: 30233N1 Transfusion of Nonautologous Red Blood Cells into Peripheral Vein, Percutaneous Approach (ICD-10-PCS; 2020-10-03)
DX: E11.52 Type 2 diabetes mellitus with diabetic peripheral angiopathy with gangrene (principal); K85.90 Acute pancreatitis without necrosis or infection, unspecified; N18.6 End stage renal disease; I96 Gangrene, not elsewhere classified; N17.9 Acute kidney failure, unspecified; I50.22 Chronic systolic (congestive) heart failure; Z68.41 Body mass index [BMI] 40.0-44.9, adult; I13.2 Hypertensive heart and chronic kidney disease with heart failure and with stage 5 chronic kidney disease, or end stage renal disease; E87.1 Hypo-osmolality and hyponatremia; E44.0 Moderate protein-calorie malnutrition; E11.628 Type 2 diabetes mellitus with other skin complications; L03.031 Cellulitis of right toe; E11.621 Type 2 diabetes mellitus with foot ulcer; L97.519 Non-pressure chronic ulcer of other part of right foot with unspecified severity; E11.22 Type 2 diabetes mellitus with diabetic chronic kidney disease; I89.0 Lymphedema, not elsewhere classified; E87.5 Hyperkalemia; E21.3 Hyperparathyroidism, unspecified; D63.1 Anemia in chronic kidney disease; N25.0 Renal osteodystrophy; M79.3 Panniculitis, unspecified; I27.20 Pulmonary hypertension, unspecified; E66.01 Morbid (severe) obesity due to excess calories; K81.9 Cholecystitis, unspecified; Z91.15 Patient's noncompliance with renal dialysis; Z89.422 Acquired absence of other left toe(s); Z79.899 Other long term (current) drug therapy; Z90.49 Acquired absence of other specified parts of digestive tract; Z99.2 Dependence on renal dialysis; Z89.421 Acquired absence of other right toe(s); Z20.822 Contact with and (suspected) exposure to COVID-19
CPT/HCPCS: 36415; 36430; 71045; 80048; 80053; 80069; 80076; 80202; 82947; 83605; 83735; 83880; 84100; 84145; 84484; 84550; 85014; 85018; 85025; 85027; 85610; 85652; 85730; 86140; 86850; 86900; 86901; 87040; 88305; 88307; 88311; 90935; 93005; 94760; 96365; 96375; 97161; 97530; 99214; 99285; J0330; J0360; J1100; J1170; J1644; J1940; J2250; J2270; J2405; J2704; J3010; J3370; J7040; J7050; P9016; Q5105; Q5106; U0003

== ENCOUNTER 2021-09-24 07:16 | Day surgery (SDC) | payer OTHER ==
--- NOTE | 2021-09-23 11:06 | RAD REPORT ---
EXAM DESCRIPTION: RAD - Chest Pa And Lat (2 Views) - 09/23/2021 10:53 am CLINICAL HISTORY: pre op Chest pain. COMPARISON: Chest Single View dated 10/01/2020; Chest Pa And Lat (2 Views) dated 08/29/2020; Chest Pa A nd Lat (2 Views) dated 09/09/2019; Chest Single View dated 10/03/2016 FINDINGS: Mild pulmonary edema is seen. The heart is moderately enlarged in size. No displaced fract ures. IMPRESSION: Mild CHF.
[2021-09-23 11:15] LABS: Hematocrit 28.4 % (39.6-49.0); Lymphocytes % 11.4 % (15.3-44.8); RBC Red Blood Cell Count 3.45 M/uL (4.33-5.43)
[2021-09-23 11:45] LABS: Potassium 5.9 mmol/L (3.5-5.1)
[2021-09-23 12:39] LABS: Blood Morphology Comment NOTED (NOT SEEN); Platelet Estimate ADEQ; White Blood Cell Scan OK (OK)
[2021-09-23 12:40] LABS: Anisocytosis 1+
[2021-09-24] MEDS ORDERED: CEFAZOLIN/NS 1gm 1 GM/50 ML BAG ONE (07:40)
[2021-09-24] MEDS ORDERED: NA CHLORIDE 0.9% 500 ML ONE (07:40)
[2021-09-24 07:53] LABS: Potassium 5.7 mmol/L (3.5-5.1)
[2021-09-24] MEDS ORDERED: COLLAGENASE 30 GM OINTMENT TOP ONE (07:57)
[2021-09-24] MEDS ORDERED: BUPIVACAINE 0.5% PF 10 ML VIAL ONE (07:57)
[2021-09-24] MEDS ORDERED: MIDAZOLAM HCL 2 MG/2 ML INJ ONE (08:45)
[2021-09-24] MEDS ORDERED: FENTANYL CITR 100 MCG/2 ML ONE (08:46)
[2021-09-24] MEDS ORDERED: propofoL 200 MG/20 ML VIAL IV ONE (08:46)
[2021-09-24] MEDS ORDERED: LIDOCAINE 2% MPF 5 ML VIAL ONE (08:46)
[2021-09-24] MEDS: FENTANYL CITR 100 MCG/2 ML ONE ×2 (10:15→10:25)
--- NOTE | 2021-09-24 10:26 | OP ---
Date of Procedure: 09/24/2021 Surgeon: Ed Smith MD Hinging Machine Operator: RAKESH Edmondson. Preoperative Diagnosis: Nonhealing wound of left second toe with peripheral vascular disease and david grene. Postoperative Diagnosis: Nonhealing wound of left second toe with peripheral vascular disease and ga ngrene. Operation: Left second toe transmetatarsal amputation. Estimated Blood Loss: Minimal. Specimen: Left second toe. Findings: Above. Anesthesia: General. Complications: None. Disposition: The patient tolerated the procedure in stable condition and taken to Recovery in good g eneral condition. Procedure In Detail: The patient was brought to the OR, placed in supine position. General anesthes ia begun. The patient was prepped and draped in the usual sterile fashion. Marcaine 0.5% was infilt rated locally. Sharp dissection proceeded with a wedge-shaped incision with the base of the second t oe. Subcutaneous tissue divided and top of the metatarsal head and the entire second toe which was i nfected with gangrenous changes and nonhealing wound excised and sent to Pathology as spec imen. The metatarsal head was debrided with a rongeur and smoothed it out with a rasp. Wound irriga last. Bleeding controlled with cautery. Collagenase dressing applied. The patient was awakened and taken to Recovery in good general condition. Discharge Note: The patient will go to Day Surgery and home when stable. Disposition: Home. Condition: Stable. Discharge Instructions: Resume home medications and diet. Activity as tolerated. No heavy lifting. Remove outer dressing in 2 days. Shower. Keep wound clean, dry. Collagenase to wound daily. Tyl enol No.3 one tablet p.o. q.4 p.r.n. pain. Follow up in [facility] and my clinic next week . SHAKIRA/MARGO Voice ID: [id number] Report ID: [id number]
[2021-09-24 10:59] VITALS: BP 169/65; TEMP 97.1; O2SAT 98
[2021-09-24] MEDS ORDERED: HYDROCODONE/APAP 7.5/325 MG TAB ONE (11:18)
== END 2021-09-24 11:33 | disposition home or self-care (01) ==
LOC: OR 07:16
PROVIDERS: ATTEND Surgery
PROC: 0Y6N0Z5 Detachment at Left Foot, Complete 2nd Ray, Open Approach (ICD-10-PCS; principal; 2021-09-24 08:30)
DX: T81.89XA Other complications of procedures, not elsewhere classified, initial encounter (principal); S91.105A Unspecified open wound of left lesser toe(s) without damage to nail, initial encounter; I96 Gangrene, not elsewhere classified; I73.9 Peripheral vascular disease, unspecified; M86.9 Osteomyelitis, unspecified; Z20.822 Contact with and (suspected) exposure to COVID-19
CPT/HCPCS: 93005; 85025; 80048 ×2; 36415 ×2; 82947; 88305; 88311; 71046; 28810; U0003; J2704; J2250; J3010 ×2; J0690; J7040; J3590

== ENCOUNTER 2021-09-24 14:44 | Emergency (ER) | payer OTHER ==
--- OUTSIDE RECORDS SUMMARY | 2021-09-24 14:46 | XMS REPORT | Continuity of Care Document ---
:1965 Author Organization [facility] t Address [address] [place] [address] Care Team Providers Name Role Phone Seamus Whitlock Attending Clinician Unavailable Sampson Whitlock Admitting Clinician Unavailable Payers Payer Name Policy Type Policy Number Effective Date Expiration Date S ource Problems This patient has no known problems. Allergies, Adverse Reactions, Alerts Allergy Allergy Status Severity Reaction(s) Onset Inactive Treating Comm ents Source Name Type Date Date Clinician No Known DA Active U [facility] Allerg 05-02 [facility] 00:00: [facility] No Known DA Active U [facility] Allergie 05-02 [facility] 00:00: [facility] 00 [facility] Medications This patient has no known medications. Procedures This patient has no known procedures. Encounters Start End Encounter Admission Attending Care Care Encounter Source Date/Time Date/Time Type Type Clinicians Facility Department ID 2021-05-02 2021-05-02 Outpatient [facility] ENDO [id number] [facility] 09:23:00 09:23:00 Seamus [id number] [facility] 2020-07-30 2020-07-30 Out[facility] [id number] 2020-07-15 2020[facility]07-15 Outpatient [facility] [id number] [facility] 2020-07-02 2020-07-02 Outpatient [facility] [id number] [facility] 2020-06-11 2020-06-11 Outpatient [facility] [id number] [facility] Results Test Description Test Time Test Comments Results Result Comments Source GLUBED 2021-05-02 13:53:00 Test Item Value Reference Range Interpretation Comme nts GLUBED (test code = GLUBED) 112 MG/DL 70-105 H [id number] 11:00:00 Test Item Value Reference Range Interpretation Comments POTASSIUM (test code = K) 4.6 mmol/L 3.5-5.1 N
[2021-09-24] MEDS ORDERED: LIDOCAINE 1% W/EPI 1:100,000 MDV 20 ML VIAL ONE (15:00)
[2021-09-24] MEDS ORDERED: SILVER NITRATE 1 APPL TOP ONE ×2 (15:06→15:28)
--- NOTE | 2021-09-24 16:29 | ER ---
Nurse's Notes [facility] Name: Constantin Holloway Age: 55 yrs Sex: Male : 1965 Arrival Date: 09/24/2021 Time: 14:52 Bed 8 Private MD: Diagnosis: Encounter for change or removal of surgical wound dressing;Disruption of wound, unspecified, initial encounter Presentation: 09/24 14:55 Chief complaint: EMS states: BLEEDING TOE AMPUTATION SURGICAL SITE. Coronavirus screen: bp At this time, the client does not indicate any symptoms associated with coronavirus-19. Ebola Screen: No symptoms or risks identified at this time. Initial Sepsis Screen: Does the patient meet any 2 criteria? No. Patient's initial sepsis screen is negative. Does the patient have a suspected source of infection? No. Patient's initial sepsis screen is negative. Risk Assessment: Do you want to hurt yourself or someone else? Patient reports no desire to harm self or others. Onset of symptoms was September 24, 2021 at 15:00. 14:55 Method Of Arrival: EMS: [facility] bp 14:55 Acuity: NIDIA 3 bp Triage Assessment: 14:55 General: Appears in no apparent distress. uncomfortable, obese, Behavior is bp cooperative, appropriate for age, anxious. Pain: Complains of pain in left foot. EENT: No deficits noted. Neuro: No deficits noted. Cardiovascular: No deficits noted. Respiratory: No deficits noted. GI: No signs and/or symptoms were reported involving the gastrointestinal system. : No signs and/or symptoms were reported regarding the genitourinary system. Derm: No deficits noted. Musculoskeletal: Amputation of Left third toenail. Historical: - Allergies: 15:54 No Known Allergies; bp - PMHx: 15:54 CHF; Diabetes - NIDDM; Dialysis; Hypertension; Renal Disease; bp - Immunization history:: Client reports receiving the 2nd dose of the Covid vaccine. - Social history:: Smoking status: Patient denies any tobacco usage or history of. Screenin:55 Abuse screen: Denies threats or abuse. Denies injuries from another. Nutritional bp screening: No deficits noted. Tuberculosis screening: No symptoms or risk factors identified. Fall Risk None identified. Assessment: 14:55 General: SEE TRIAGE NOTE. bp 15:45 Reassessment: No changes from previously documented assessment. Patient and/or family bp updated on plan of care and expected duration. Pain level reassessed. REPAIR OF SURGICAL WOUND COMPLETE. DRESSING IN PLACE. 16:35 Reassessment: [facility] CONTACTED FOR D/C HOME. bp 18:11 Reassessment: EMS AT B/S FOR TRANSPORT. bp Vital Signs: 14:55 BP 121 / 54; Pulse 88; Resp 16; Temp 98; Pulse Ox 98% ; bp 15:00 BP 133 / 60; Pulse 90; Resp 16; Pulse Ox 92% ; bp 16:00 BP 132 / 64; Pulse 91; Resp 17; Pulse Ox 100% ; bp ED Course: 14:52 Patient arrived in ED. bp 14:52 Darren Alejandra PA is PHCP. cp 14:52 Dereck Holder MD is Attending Physician. cp 14:54 Alfa Moctezuma, RN is Primary Nurse. bp 14:55 Arm band placed on. bp 14:55 Patient has correct armband on for positive identification. Bed in low position. Call bp light in reach. Side rails up X2. 14:55 Assist provider with laceration repair on Left third toenail that was 2.5 cm. or less bp using sutures. 15:53 Triage completed. bp 16:26 Ed Smith MD is Referral Physician. cp 16:37 Patient did not have IV access during this emergency room visit. bp Administered Medications: No medications were administered Outcome: 16:28 Discharge ordered by MD. cp 18:11 Discharged to home via ambulance. bp 18:11 Condition: stable 18:11 Discharge instructions given to patient, Instructed on discharge instructions, follow up and referral plans. wound care, Demonstrated understanding of instructions, follow-up care, wound care. 18:11 Patient left the ED. bp Signatures: Darren Alejandra PA PA cp Alfa Moctezuma, RN RN bp
--- NOTE | 2021-09-24 16:29 | EDPHYS ---
Physician Documentation [facility] Name: Constantin Holloway Age: 55 yrs Sex: Male : 1965 Arrival Date: 09/24/2021 Time: 14:52 Bed 8 Private MD: ED Physician Dereck Holder HPI: 09/24 15:00 This 55 yrs old Black Male presents to ER via Unassigned with complaints of Foot Injury.cp 15:00 The patient presents with attn to wound and dressing. cp 15:00 The complaints affect the left second toe. Context: Patient presents to the emergency cp department with complaints of bleeding from surgical site of left foot. Patient reports having left second toe amputated this morning by Dr. Smith. Patient reports as he was exiting his car at home he put some pressure upon the left foot and started having immediate bleeding at the amputation site. Historical: - Allergies: 15:54 No Known Allergies; bp - PMHx: 15:54 CHF; Diabetes - NIDDM; Dialysis; Hypertension; Renal Disease; bp - Immunization history:: Client reports receiving the 2nd dose of the Covid vaccine. - Social history:: Smoking status: Patient denies any tobacco usage or history of. ROS: 15:05 Constitutional: Negative for body aches, chills, fever. cp 15:05 Cardiovascular: Negative for chest pain. 15:05 Respiratory: Negative for cough, shortness of breath, wheezing. 15:05 Abdomen/GI: Negative for abdominal pain, nausea, vomiting, and diarrhea. 15:05 All other systems are negative. Exam: 15:08 Constitutional: The patient appears in no acute distress, alert, awake, cp non-diaphoretic, non-toxic, well developed, well nourished, obese. 15:08 Head/Face: Normocephalic, atraumatic. cp 15:08 Cardiovascular: Rate: normal. cp 15:08 Respiratory: the patient does not display signs of respiratory distress, Respirations: normal, no use of accessory muscles, no retractions, labored breathing, is not present. 15:08 Abdomen/GI: Exam negative for discomfort, distension, guarding, Inspection: obese cp 15:08 Musculoskeletal/extremity: Extremities: grossly normal except: noted in the left second toe amputation site: appears with mild active bleeding, noted in the right below the knee amputation: 15:08 Neuro: Orientation: to person, place \T\ time. Mentation: is normal. Vital Signs: 14:55 BP 121 / 54; Pulse 88; Resp 16; Temp 98; Pulse Ox 98% ; bp 15:00 BP 133 / 60; Pulse 90; Resp 16; Pulse Ox 92% ; bp 16:00 BP 132 / 64; Pulse 91; Resp 17; Pulse Ox 100% ; bp MDM: 14:53 Patient medically screened. cp 15:41 Physician consultation: Ed Smith MD was contacted at 15:30, regarding patient's cp condition, and will see patient in office, tomorrow. 16:27 Data reviewed: vital signs, nurses notes. cp 16:27 Counseling: I had a detailed discussion with the patient and/or guardian regarding: the cp historical points, exam findings, and any diagnostic results supporting the discharge/admit diagnosis, the need for outpatient follow up, a general surgeon, to return to the emergency department if symptoms worsen or persist or if there are any questions or concerns that arise at home. Response to treatment: the patient's symptoms have markedly improved after treatment, surgical wound partially cauterized using silver nitrate, surgi seal applied and pressure dressing applied. bleeding controlled and will discharge to home for continued monitoring. Administered Medications: No medications were administered Disposition: 16:45 Chart complete. cp 18:56 Co-signature as Attending Physician, Dereck Holder MD I agree with the assessment and kdr plan of care. Disposition Summary: 09/24/21 16:28 Discharge Ordered Location: Home cp Problem: new cp Symptoms: have improved cp Condition: Stable cp Diagnosis - Encounter for change or removal of surgical wound dressing cp - Disruption of wound, unspecified, initial encounter cp Followup: cp - With: Ed Smith MD - When: Tomorrow - Reason: Wound Recheck Discharge Instructions: - Discharge Summary Sheet cp - Uncontrolled Wound Bleeding cp Forms: - Medication Reconciliation Form cp - Thank You Letter cp - Antibiotic Education cp - Prescription Opioid Use cp Signatures: Dereck Holder MD MD [facility] Darren Alejandra PA PA cp Alfa Moctezuma, RN RN bp
[2021-09-24 18:16] VITALS: TEMP 98
[2021-09-24 18:19] VITALS: BP 132/64; O2SAT 100
== END 2021-09-24 18:11 | disposition home or self-care (01) ==
LOC: ER 14:44
DX: Z48.01 Encounter for change or removal of surgical wound dressing (principal); T81.30XA Disruption of wound, unspecified, initial encounter
CPT/HCPCS: 99283